=== PATIENT | male | born 1990 | race Caucasian/White ===

== ENCOUNTER 2020-07-05 17:53 | Emergency (ER) | payer OTHER ==
[2020-07-05 18:00] VITALS: BP 147/97; PULSE 107; RESP 18; TEMP 97.9
[2020-07-05] MEDS ORDERED: SODIUM CHLORIDE 0.9% 1,000 ML IV ONE (18:15)
--- NOTE | 2020-07-05 18:22 | ED ---
General Adult HPI - General Chief complaint: Altered Mental Status Stated complaint: Confusion Time Seen by Provider: 07/05/20 18:02 Source: patient, RN notes reviewed, old records reviewed Mode of arrival: ambulatory Limitations: altered mental status - History of Present Illness Initial comments: 29-year-old male presenting with confusion, altered mental status. Patient is accompanied by his girlfriend he states that he did use methamphetamine on which was 2 days prior. She states that beginning approximately 24 hours ago the patient had been altered with abnormal speech. She states that there was a friend present who had planned to give her boyfriend some unknown drug. She does state that he took some Benadryl but does not believe he took any other illicit drug. Throughout the day today he has been confused, abnormal behavior, and speech abnormality. - Related Data Home Medications Medication Instructions Recorded Confirmed No Known Home Medications 08/21/19 07/05/20 Allergies Allergy/AdvReac Type Severity Reaction Status Date / Time Penicillins Allergy Unknown Verified 07/05/20 19:04 Childhood Review of Systems ROS Statement: Those systems with pertinent positive or pertinent negative responses have been documented in the HPI. ROS Other: All systems not noted in ROS Statement are negative. Past Medical History Past Medical History: No Reported History, Seizure Disorder History of Any Multi-Drug Resistant Organisms: None Reported Past Surgical History: No Surgical Hx Reported Past Psychological History: No Psychological Hx Reported Smoking Status: Never smoker Past Alcohol Use History: Occasional Past Drug Use History: Marijuana, Methamphetamine General Exam Limitations: altered mental status General appearance: anxious Head exam: Present: atraumatic, normocephalic Eye exam: Present: normal appearance, PERRL ENT exam: Present: normal exam Neck exam: Present: normal inspection. Absent: tenderness, meningismus Respiratory exam: Present: normal lung sounds bilaterally. Absent: respiratory distress Cardiovascular Exam: Present: regular rate, normal rhythm GI/Abdominal exam: Present: soft. Absent: distended, tenderness, guarding, rebound Extremities exam: Present: normal inspection, normal capillary refill Neurological exam: Present: alert, normal gait, other (Following commands and will answer questions). Absent: motor sensory deficit (Patient has normal gait, no ataxia, moving all extremities symmetrically) Psychiatric exam: Present: agitated, anxious Skin exam: Present: warm, dry, intact. Absent: cyanosis, diaphoretic Course Vital Signs 07/05/20 17:55 Temperature 97.9 F Pulse Rate 107 H Respiratory 18 Rate Blood Pressure 147/97 O2 Sat by Pulse 98 Oximetry - Reevaluation(s) Reevaluation #1: 07/05/20 19:51 Patient did tell nursing staff that he had taken an entire bottle of Benadryl, this was likely yesterday approximately 24 hours ago. Uncertain if this was a suicide attempt. Uncertain how many tablets or capsules were in the bottle. Reevaluation #2: 07/05/20 20:58 Recommended by poison control to start N-acetylcysteine. This medication was ordered. EKG Findings - EKG Comments: EKG Findings:: EKG: Sinus tachycardia, rightward axis, rate of 106, WI interval 140, QRS duration 84, QTC 451 Medical Decision Making - Medical Decision Making Patient does state he took several Benadryl, uncertain exactly how many he took. He denies a suicide attempt, states this was to help him sleep as he was having insomnia after using methamphetamine. He is alert and oriented he is able to make his own decision and does refuse to stay. He is informed of the recommendations of poison control and my recommendation to be admitted knowing the risks he does sign out AGAINST MEDICAL ADVICE. - Lab Data Result diagrams: 07/05/20 18:40 07/05/20 18:40 Lab Results 07/05/20 07/05/20 07/05/20 Range/Units 18:40 18:40 18:40 WBC 9.8 (3.8-10.6) k/uL RBC 5.02 (4.30-5.90) m/uL Hgb 15.9 (13.0-17.5) gm/dL Hct 46.6 (39.0-53.0) % MCV 92.9 (80.0-100.0) fL MCH 31.6 (25.0-35.0) pg MCHC 34.1 (31.0-37.0) g/dL RDW 13.7 (11.5-15.5) % Plt Count 307 (150-450) k/uL MPV 7.2 Neutrophils % 66 % Lymphocytes % 21 % Monocytes % 6 % Eosinophils % 4 % Basophils % 1 % Neutrophils # 6.4 (1.3-7.7) k/uL Lymphocytes # 2.0 (1.0-4.8) k/uL Monocytes # 0.6 (0-1.0) k/uL Eosinophils # 0.4 (0-0.7) k/uL Basophils # 0.1 (0-0.2) k/uL PT 10.4 (9.0-12.0) sec INR 1.0 (<1.2) APTT 26.2 (22.0-30.0) sec Sodium (137-145) mmol/L Potassium (3.5-5.1) mmol/L Chloride (98-107) mmol/L Carbon Dioxide (22-30) mmol/L Anion Gap mmol/L BUN (9-20) mg/dL Creatinine (0.66-1.25) mg/dL Est GFR (CKD-EPI)AfAm (>60 ml/min/1.73 sqM) Est GFR (CKD-EPI)NonAf (>60 ml/min/1.73 sqM) Glucose (74-99) mg/dL POC Glucose (mg/dL) (75-99) mg/dL POC Glu Sight Effects Specialist ID Plasma Lactic Acid Alexi (0.7-2.0) mmol/L Calcium (8.4-10.2) mg/dL Phosphorus (2.5-4.5) mg/dL Magnesium (1.6-2.3) mg/dL Total Bilirubin (0.2-1.3) mg/dL AST (17-59) U/L ALT (4-49) U/L Alkaline Phosphatase (38-126) U/L Creatine Kinase (55-170) U/L Total Protein (6.3-8.2) g/dL Albumin (3.5-5.0) g/dL Urine Color Yellow Urine Appearance Clear (Clear) Urine pH 6.5 (5.0-8.0) Ur Specific [place] 1.023 (1.001-1.035) Urine Protein Negative (Negative) Urine Glucose (UA) Negative (Negative) Urine Ketones Negative (Negative) Urine Blood Negative (Negative) Urine Nitrite Negative (Negative) Urine Bilirubin Negative (Negative) Urine Urobilinogen 4.0 (<2.0) mg/dL Ur Leukocyte Esterase Trace H (Negative) Urine WBC 1 (0-5) /hpf Urine Mucus Occasional H (None) /hpf Salicylates mg/dL Urine Opiates Screen Not Detected (NotDetected) Ur Oxycodone Screen Not Detected (NotDetected) Urine Methadone Screen Not Detected (NotDetected) Ur Propoxyphene Screen Not Detected (NotDetected) Acetaminophen ug/mL Ur Barbiturates Screen Not Detected (NotDetected) U Tricyclic Antidepress Not Detected (NotDetected) Ur Phencyclidine Scrn Not Detected (NotDetected) Ur Amphetamines Screen Detected H (NotDetected) U Methamphetamines Scrn Detected H (NotDetected) U Benzodiazepines Scrn Not Detected (NotDetected) Urine Cocaine Screen Not Detected (NotDetected) U Marijuana (THC) Screen Detected H (NotDetected) Serum Alcohol mg/dL 07/05/20 07/05/20 07/05/20 Range/Units 18:40 18:47 20:21 WBC (3.8-10.6) k/uL RBC (4.30-5.90) m/uL Hgb (13.0-17.5) gm/dL Hct (39.0-53.0) % MCV (80.0-100.0) fL MCH (25.0-35.0) pg MCHC (31.0-37.0) g/dL RDW (11.5-15.5) % Plt Count (150-450) k/uL MPV Neutrophils % % Lymphocytes % % Monocytes % % Eosinophils % % Basophils % % Neutrophils # (1.3-7.7) k/uL Lymphocytes # (1.0-4.8) k/uL Monocytes # (0-1.0) k/uL Eosinophils # (0-0.7) k/uL Basophils # (0-0.2) k/uL PT (9.0-12.0) sec INR (<1.2) APTT (22.0-30.0) sec Sodium 140 (137-145) mmol/L Potassium 4.3 (3.5-5.1) mmol/L Chloride 105 (98-107) mmol/L Carbon Dioxide 27 (22-30) mmol/L Anion Gap 8 mmol/L BUN 12 (9-20) mg/dL Creatinine 0.85 (0.66-1.25) mg/dL Est GFR (CKD-EPI)AfAm >90 (>60 ml/min/1.73 sqM) Est GFR (CKD-EPI)NonAf >90 (>60 ml/min/1.73 sqM) Glucose 100 H (74-99) mg/dL POC Glucose (mg/dL) 81 (75-99) mg/dL POC Glu Sight Effects Specialist ID Magdaleno Cortes Plasma Lactic Acid Alexi (0.7-2.0) mmol/L Calcium 9.9 (8.4-10.2) mg/dL Phosphorus 3.6 (2.5-4.5) mg/dL Magnesium 1.8 (1.6-2.3) mg/dL Total Bilirubin 1.8 H (0.2-1.3) mg/dL AST 243 H (17-59) U/L ALT 776 H (4-49) U/L Alkaline Phosphatase 96 (38-126) U/L Creatine Kinase 161 (55-170) U/L Total Protein 8.9 H (6.3-8.2) g/dL Albumin 4.9 (3.5-5.0) g/dL Urine Color Urine Appearance (Clear) Urine pH (5.0-8.0) Ur Specific [place] (1.001-1.035) Urine Protein (Negative) Urine Glucose (UA) (Negative) Urine Ketones (Negative) Urine Blood (Negative) Urine Nitrite (Negative) Urine Bilirubin (Negative) Urine Urobilinogen (<2.0) mg/dL Ur Leukocyte Esterase (Negative) Urine WBC (0-5) /hpf Urine Mucus (None) /hpf Salicylates <1.0 mg/dL Urine Opiates Screen (NotDetected) Ur Oxycodone Screen (NotDetected) Urine Methadone Screen (NotDetected) Ur Propoxyphene Screen (NotDetected) Acetaminophen <10.0 ug/mL Ur Barbiturates Screen (NotDetected) U Tricyclic Antidepress (NotDetected) Ur Phencyclidine Scrn (NotDetected) Ur Amphetamines Screen (NotDetected) U Methamphetamines Scrn (NotDetected) U Benzodiazepines Scrn (NotDetected) Urine Cocaine Screen (NotDetected) U Marijuana (THC) Screen (NotDetected) Serum Alcohol <10 mg/dL 07/05/20 Range/Units 20:21 WBC (3.8-10.6) k/uL RBC (4.30-5.90) m/uL Hgb (13.0-17.5) gm/dL Hct (39.0-53.0) % MCV (80.0-100.0) fL MCH (25.0-35.0) pg MCHC (31.0-37.0) g/dL RDW (11.5-15.5) % Plt Count (150-450) k/uL MPV Neutrophils % % Lymphocytes % % Monocytes % % Eosinophils % % Basophils % % Neutrophils # (1.3-7.7) k/uL Lymphocytes # (1.0-4.8) k/uL Monocytes # (0-1.0) k/uL Eosinophils # (0-0.7) k/uL Basophils # (0-0.2) k/uL PT (9.0-12.0) sec INR (<1.2) APTT (22.0-30.0) sec Sodium (137-145) mmol/L Potassium (3.5-5.1) mmol/L Chloride (98-107) mmol/L Carbon Dioxide (22-30) mmol/L Anion Gap mmol/L BUN (9-20) mg/dL Creatinine (0.66-1.25) mg/dL Est GFR (CKD-EPI)AfAm (>60 ml/min/1.73 sqM) Est GFR (CKD-EPI)NonAf (>60 ml/min/1.73 sqM) Glucose (74-99) mg/dL POC Glucose (mg/dL) (75-99) mg/dL POC Glu Sight Effects Specialist ID Plasma Lactic Acid Alexi 0.8 (0.7-2.0) mmol/L Calcium (8.4-10.2) mg/dL Phosphorus (2.5-4.5) mg/dL Magnesium (1.6-2.3) mg/dL Total Bilirubin (0.2-1.3) mg/dL AST (17-59) U/L ALT (4-49) U/L Alkaline Phosphatase (38-126) U/L Creatine Kinase (55-170) U/L Total Protein (6.3-8.2) g/dL Albumin (3.5-5.0) g/dL Urine Color Urine Appearance (Clear) Urine pH (5.0-8.0) Ur Specific [place] (1.001-1.035) Urine Protein (Negative) Urine Glucose (UA) (Negative) Urine Ketones (Negative) Urine Blood (Negative) Urine Nitrite (Negative) Urine Bilirubin (Negative) Urine Urobilinogen (<2.0) mg/dL Ur Leukocyte Esterase (Negative) Urine WBC (0-5) /hpf Urine Mucus (None) /hpf Salicylates mg/dL Urine Opiates Screen (NotDetected) Ur Oxycodone Screen (NotDetected) Urine Methadone Screen (NotDetected) Ur Propoxyphene Screen (NotDetected) Acetaminophen ug/mL Ur Barbiturates Screen (NotDetected) U Tricyclic Antidepress (NotDetected) Ur Phencyclidine Scrn (NotDetected) Ur Amphetamines Screen (NotDetected) U Methamphetamines Scrn (NotDetected) U Benzodiazepines Scrn (NotDetected) Urine Cocaine Screen (NotDetected) U Marijuana (THC) Screen (NotDetected) Serum Alcohol mg/dL Disposition Clinical Impression: Hepatitis C, Methamphetamine abuse, Diphenhydramine overdose Disposition: Left Against Medical Advice Condition: Undetermined Is patient prescribed a controlled substance at d/c from ED?: No Referrals: None,Stated [Primary Care Provider] - 1-2 days Time of Disposition: 21:00
[2020-07-05 18:48] LABS: Basophils # (A) 0.1 k/uL (0-0.2); Basophils % (A) 1 %; Eosinophils # (A) 0.4 k/uL (0-0.7); Eosinophils % (A) 4 %; HCT 46.6 % (39.0-53.0); HGB 15.9 gm/dL (13.0-17.5); Lymphocytes % (A) 21 %; MCH 31.6 pg (25.0-35.0); MCHC 34.1 g/dL (31.0-37.0); MCV 92.9 fL (80.0-100.0); Mean Platelet Volume 7.2; Monocytes # (A) 0.6 k/uL (0-1.0); Monocytes % (A) 6 %; Neutrophils # (A) 6.4 k/uL (1.3-7.7); Neutrophils % (A) 66 %; Platelet Count 307 k/uL (150-450); RBC 5.02 m/uL (4.30-5.90); RDW 13.7 % (11.5-15.5); WBC 9.8 k/uL (3.8-10.6)
[2020-07-05 18:49] LABS: Glucose,Whole Blood 81 mg/dL (75-99)
[2020-07-05 18:57] LABS: Appearance,Urine Clear (Clear); Bilirubin,Urine Negative (Negative); Blood,Urine Negative (Negative); Color,Urine Yellow; Glucose,Urine (UA) Negative (Negative); Ketones,Urine Negative (Negative); Leukocyte Esterase,Urine Trace (Negative); Mucus,Urine Occasional /hpf; Nitrite,Urine Negative (Negative); PH, Urine 6.5 (5.0-8.0); Protein,Urine Negative (Negative); Specific Gravity,Urine 1.023 (1.001-1.035); WBC,Urine 1 /hpf (0-5)
[2020-07-05 19:01] LABS: AST 243 U/L (17-59); African American GFR (CKD) >90 (>60 ml/min/1.73 sqM); Albumin 4.9 g/dL (3.5-5.0); Alcohol <10 mg/dL; Alkaline Phosphatase 96 U/L (38-126); Anion Gap 8 mmol/L; Blood Urea Nitrogen 12 mg/dL (9-20); Calcium 9.9 mg/dL (8.4-10.2); Carbon Dioxide 27 mmol/L (22-30); Chloride 105 mmol/L (98-107); Glucose 100 mg/dL (74-99); Non-African American GFR(CKD) >90 (>60 ml/min/1.73 sqM); Potassium 4.3 mmol/L (3.5-5.1); Sodium 140 mmol/L (137-145); Total Bilirubin 1.8 mg/dL (0.2-1.3); Total Protein 8.9 g/dL (6.3-8.2)
[2020-07-05 19:02] LABS: Cocaine Screen,Urine Not Detected (NotDetected); Opiate Screen,Urine Not Detected (NotDetected); Phencyclidine Screen,Urine Not Detected (NotDetected); Urn Cannabinoid Scrn Detected (NotDetected)
[2020-07-05 19:03] LABS: Amphetamine Screen,Urine Detected (NotDetected); Barbiturate Screen,Urine Not Detected (NotDetected); Benzodiazepines Screen,Urine Not Detected (NotDetected); Methadone Screen, Urine Not Detected (NotDetected); Oxycodone Screen, Urine Not Detected (NotDetected); Tricyclic Antidepressant,Urine Not Detected (NotDetected)
[2020-07-05 19:10] LABS: ALT 776 U/L (4-49)
[2020-07-05 19:13] LABS: Partial Thromboplastin Time 26.2 sec (22.0-30.0); Prothrombin Time 10.4 sec (9.0-12.0)
--- NOTE | 2020-07-05 19:25 | CT ---
EXAMINATION TYPE: CT brain wo con DATE OF EXAM: 07/05/2020 COMPARISON: None HISTORY: Altered mental status CT DLP: 2136.4 mGycm Automated exposure control for dose reduction was used. Ventricles and sulci appear normal. There is no mass effect nor midline shift. There is no sign of in tracranial hemorrhage. There is symmetric mild thalamic anterior increased density that could be deve loping calcification and metabolic disease. Calvarium is intact. The skull base is intact. IMPRESSION: No acute intracranial abnormality.
[2020-07-05] MEDS ORDERED: SODIUM CHLORIDE 0.9% 1,000 ML IV SCH (20:15)
[2020-07-05] MEDS ORDERED: WATER IV ONE ×2 (20:30)
[2020-07-05] MEDS ORDERED: DEXTROSE 5% IV ONE ×2 (20:30)
[2020-07-05] MEDS ORDERED: ACETYLCYSTEINE IV ONE ×2 (20:30)
[2020-07-05 20:44] LABS: Acetaminophen <10.0 ug/mL; Creatine Kinase 161 U/L (55-170); Magnesium 1.8 mg/dL (1.6-2.3); Phosphorus 3.6 mg/dL (2.5-4.5); Salicylate <1.0 mg/dL
[2020-07-05] MEDS ORDERED: ACETYLCYSTEINE IV 3,800 MG in DEXTROSE 5% IN WATER 500 ML IV ONE ×2 (21:30)
[2020-07-06] MEDS ORDERED: ACETYLCYSTEINE IV ONE ×2 (01:30)
[2020-07-06] MEDS ORDERED: DEXTROSE 5% IV ONE ×2 (01:30)
[2020-07-06] MEDS ORDERED: WATER IV ONE ×2 (01:30)
== END 2020-07-05 20:54 | disposition left against medical advice (07) ==
LOC: EC 17:53
DX: F15.182 Other stimulant abuse with stimulant-induced sleep disorder (principal); T45.0X1A Poisoning by antiallergic and antiemetic drugs, accidental (unintentional), initial encounter; B19.20 Unspecified viral hepatitis C without hepatic coma; Z88.0 Allergy status to penicillin; Z53.29 Procedure and treatment not carried out because of patient's decision for other reasons
CPT/HCPCS: 99285; 96360; 36415; 93005; 80053; 82550; 83605; 83735; 84100; 85025; 85610; 85730; 81001; 80306; 83520; 80143; 70450; G0480; 80320

== ENCOUNTER 2021-04-08 02:26 | Observation (INO) | payer OTHER ==
--- NOTE | 2021-04-08 02:40 | ED ---
Overdose HPI - General Stated Complaint: Overdose Time Seen by Provider: 04/08/21 02:31 Source: RN notes reviewed, old records reviewed Mode of arrival: EMS Limitations: altered mental status - History of Present Illness Initial Comments: This is a 30-year-old male presenting after overdose tonight. Patient was given Narcan per EMS and patient is presenting for overdose requiring Narcan. Does have history of substance abuse patient is not homicidal or suicidal, and remains responsive here in the ER Complaint: accidental overdose -: hour(s) How Overdose Was Discovered: family/friend present at time Context: Intentional Overdose: drug/ETOH problems Context: Accidental Overdose: wanted to get high Associated Symptoms: depression Treatments Prior to Arrival: none - Related Data Home Medications Medication Instructions Recorded Confirmed No Known Home Medications 08/21/19 07/05/20 Allergies Allergy/AdvReac Type Severity Reaction Status Date / Time Penicillins Allergy Unknown Verified 07/05/20 19:04 Childhood Review of Systems ROS Statement: Those systems with pertinent positive or pertinent negative responses have been documented in the HPI. ROS Other: All systems not noted in ROS Statement are negative. Past Medical History Past Medical History: No Reported History, Seizure Disorder History of Any Multi-Drug Resistant Organisms: None Reported Past Surgical History: No Surgical Hx Reported Past Psychological History: No Psychological Hx Reported Smoking Status: Never smoker Past Alcohol Use History: Occasional Past Drug Use History: Marijuana, Methamphetamine General Exam General appearance: alert, in no apparent distress Head exam: Present: atraumatic, normocephalic, normal inspection Eye exam: Present: normal appearance, PERRL, EOMI. Absent: scleral icterus, conjunctival injection, periorbital swelling ENT exam: Present: normal exam, mucous membranes moist Neck exam: Present: normal inspection. Absent: tenderness, meningismus, lymphadenopathy Respiratory exam: Present: normal lung sounds bilaterally. Absent: respiratory distress, wheezes, rales, rhonchi, stridor Cardiovascular Exam: Present: regular rate, normal rhythm, normal heart sounds. Absent: systolic murmur, diastolic murmur, rubs, gallop, clicks GI/Abdominal exam: Present: soft, normal bowel sounds. Absent: distended, tenderness, guarding, rebound, rigid Extremities exam: Present: normal inspection, full ROM, normal capillary refill. Absent: tenderness, pedal edema, joint swelling, calf tenderness Back exam: Present: normal inspection Neurological exam: Present: alert, oriented X3, CN II-XII intact Psychiatric exam: Present: normal affect, normal mood Skin exam: Present: warm, dry, intact, normal color. Absent: rash Course Vital Signs 04/08/21 04/08/21 02:40 02:45 Temperature 97.6 F Pulse Rate 90 Respiratory 12 12 Rate Blood Pressure 149/94 O2 Sat by Pulse 100 Oximetry - Reevaluation(s) Reevaluation #1: 04/08/21 02:39 Medical record is reviewed Reevaluation #2: 04/08/21 02:39 Patient remains asymptomatic, although withdrawn Medical Decision Making - Medical Decision Making 30 Male with overdose requiring Narcan. Patient informed of significance of this overdose on his life expectancy, he is aware, questions answered and can be discharged home Disposition Clinical Impression: Poisoning by opiates and related narcotics, other Disposition: ADMITTED IP TO THIS [facility] Condition: Fair Instructions (If sedation given, give patient instructions): Adult Overdose (ED) Is patient prescribed a controlled substance at d/c from ED?: No Referrals: None,Stated [Primary Care Provider] - 1-2 days
[2021-04-08] MEDS ORDERED: NALOXONE 0.4 MG/ML 1 ML VIAL IVP STA ×2 (02:56→02:59)
[2021-04-08 04:54] VITALS: RESP 16
[2021-04-08] MEDS ORDERED: ONDANSETRON 4 MG/2 ML VIAL IVP PRN (06:12)
[2021-04-08] MEDS ORDERED: NALOXONE 0.4 MG/ML 1 ML VIAL IV PRN (06:12)
--- NOTE | 2021-04-08 06:12 | ED ---
Medical Decision Making - Medical Decision Making 30 male on attempted discharge remains on arrival despite regarding dosing Narcan, this point we will send lab values to further investigate altered mental status. Patient will be admitted for altered mental status likely polysubstance overdose Disposition Clinical Impression: Poisoning by opiates and related narcotics, other, Drug overdose, Accidental drug overdose Disposition: ADMITTED IP TO THIS HOSP Condition: Fair Instructions (If sedation given, give patient instructions): Adult Overdose (ED) Is patient prescribed a controlled substance at d/c from ED?: No Referrals: None,Stated [Primary Care Provider] - 1-2 days
[2021-04-08] MEDS ORDERED: SODIUM CHLORIDE 0.9% 1,000 ML IV SCH (06:15)
[2021-04-08 07:33] LABS: Acetaminophen <10.0 ug/mL; Magnesium 1.9 mg/dL (1.6-2.3); Phosphorus 3.4 mg/dL (2.5-4.5); Salicylate <1.0 mg/dL
[2021-04-08 08:01] VITALS: BP 124/59; PULSE 67; TEMP 97.7
== END 2021-04-08 12:46 | disposition left against medical advice (07) ==
LOC: EC 02:26 → 6NMEDSUR 06:12
PROVIDERS: ADMIT Internal Medicine; ATTEND Internal Medicine
DX: T40.601A Poisoning by unspecified narcotics, accidental (unintentional), initial encounter (principal); F32.9 Major depressive disorder, single episode, unspecified; Z20.822 Contact with and (suspected) exposure to COVID-19; G40.909 Epilepsy, unspecified, not intractable, without status epilepticus; Z88.0 Allergy status to penicillin; Z71.51 Drug abuse counseling and surveillance of drug abuser
CPT/HCPCS: 99285; 96374; 83735; 84100; 80143; 87635; 80179; G0378; J2310

== ENCOUNTER 2023-11-26 15:33 | Inpatient (IN) | payer OTHER ==
[2023-11-26 17:23] LABS: Basophils # (A) 0.1 k/uL (0-0.2); Basophils % (A) 0 %; Eosinophils # (A) 0.1 k/uL (0-0.7); Eosinophils % (A) 0 %; HCT 32.5 % (39.0-53.0); HGB 10.9 gm/dL (13.0-17.5); Lymphocytes # (A) 0.7 k/uL (1.0-4.8); Lymphocytes % (A) 3 %; MCH 31.7 pg (25.0-35.0); MCHC 33.7 g/dL (31.0-37.0); MCV 94.2 fL (80.0-100.0); Monocytes % (A) 4 %; Neutrophils # (A) 22.7 k/uL (1.3-7.7); Neutrophils % (A) 92 %; Platelet Count 335 k/uL (150-450); RBC 3.45 m/uL (4.30-5.90); RDW 13.8 % (11.5-15.5); WBC 24.8 k/uL (3.8-10.6)
[2023-11-26] MEDS ORDERED: VANCOMYCIN IV PER PHARMACY 1 EACH MISC MISCELLANE PRN (17:27)
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
--- NOTE | 2023-11-26 17:35 | XR ---
EXAMINATION TYPE: XR foot complete LT DATE OF EXAM: 11/26/2023 4:41 PM CLINICAL INDICATION:Male, 33 years old with history of swelling, redness; PHH COMPARISON: None. TECHNIQUE: Three views left foot were obtained. FINDINGS: No evidence of fracture or significant malalignment. No osseous destructive changes. Joint spaces are maintained. No erosions. Soft tissue prominence along the dorsum of foot suggestive of swelling. No radiopaque foreign body is seen. IMPRESSION: * No plain film evidence of an acute osseous abnormality. * Dorsal soft tissue swelling.
[2023-11-26 17:37] LABS: ALT 27 U/L (4-49); AST 27 U/L (17-59); African American GFR (CKD) >90 (>60 ml/min/1.73 sqM); Albumin 2.6 g/dL (3.5-5.0); Alkaline Phosphatase 111 U/L (38-126); Anion Gap 10 mmol/L; Blood Urea Nitrogen 12 mg/dL (9-20); Calcium 8.6 mg/dL (8.4-10.2); Carbon Dioxide 19 mmol/L (22-30); Chloride 109 mmol/L (98-107); Glucose 131 mg/dL (74-99); Non-African American GFR(CKD) >90 (>60 ml/min/1.73 sqM); Sodium 138 mmol/L (137-145); Total Bilirubin 0.5 mg/dL (0.2-1.3); Total Protein 6.1 g/dL (6.3-8.2)
[2023-11-26 18:28] LABS: C Reactive Protein 31.8 mg/dL (<1.0)
[2023-11-26] MEDS: SODIUM CHLORIDE 0.9% 2,000 ML IV ONE (18:46)
[2023-11-26] MEDS: POTASSIUM CHLORIDE ER 20 MEQ TAB.ER PO STA (18:48)
[2023-11-26] MEDS: KETOROLAC 15 MG/ML 1 ML VIAL IVP STA (18:49)
[2023-11-26] MEDS: CEFEPIME 2 GM in SODIUM CHLORIDE 0.9% 100 ML IVPB STA (18:50)
[2023-11-26] MEDS ORDERED: ACETAMINOPHEN TAB 325 MG TAB PO PRN (19:26)
[2023-11-26] MEDS ORDERED: NALOXONE 0.4 MG/ML 1 ML VIAL IV PRN (19:26)
[2023-11-26] MEDS: SODIUM CHLORIDE 0.9% 1,000 ML IV SCH (20:49)
[2023-11-26] MEDS: VANCOMYCIN 1,250 MG in SODIUM CHLORIDE 0.9% 250 ML IVPB STA (20:50)
[2023-11-26] MEDS: KETOROLAC 15 MG/ML 1 ML VIAL IVP PRN (20:59)
[2023-11-26] MEDS: MORPHINE SULFATE 4 MG/ML SYRINGE IVP STA (21:37)
[2023-11-26 23:34] LABS: Erythrocyte Sedimentation Rate 74 mm/Hr (0-15)
[2023-11-27] MEDS ORDERED: VANCOMYCIN IV PER PHARMACY 1 EACH MISC MISCELLANE PRN (00:53)
[2023-11-27] MEDS: HYDROmorphone 1 MG/ML 1 ML SYRINGE IVP PRN (01:00)
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
[2023-11-27] MEDS: VANCOMYCIN 1,250 MG in SODIUM CHLORIDE 0.9% 250 ML IVPB SCH (06:27)
[2023-11-27] MEDS: HEPARIN SODIUM,PORCINE 5,000 UNIT/ML 1 ML VIAL SQ SCH (08:36)
[2023-11-27] MEDS: METOPROLOL TARTRATE 25 MG TAB PO SCH (08:51)
--- NOTE | 2023-11-27 09:35 | XR ---
EXAMINATION TYPE: XR chest 1V portable DATE OF EXAM: 11/27/2023 COMPARISON: 06/13/2016 INDICATION: Arrhythmia TECHNIQUE: Single frontal view of the chest is obtained. FINDINGS: The heart size is normal. The pulmonary vasculature is normal. e there is a mild infiltrate at the right lung base. Correlate for atelectasis or early pneumonia. IMPRESSION: 1. Mild right lower lobe infiltrate hypoechoic atelectasis or pneumonia.
[2023-11-27] MEDS: PIPERACILLIN-TAZOBACTAM 3.375 GM in SODIUM CHLORIDE 0.9% 100 ML IVPB SCH (09:42)
[2023-11-27] MEDS ORDERED: RX INFO: IV CONTRAST WAS GIVEN 1 EACH MISC MISCELLANE PRN (09:55)
--- NOTE | 2023-11-27 10:17 | P.PN ---
Subjective Progress Note Date: 11/27/23 No new complaints today. His HRs have improved from 150s to 120s. Reports foot pain, but denies f/c. Gen: In NAD, non-toxic HEENT: normocephalic, atraumatic, hearing acuity is intant, mucous membranes m oist CVS: perfusing all extremities well, no pitting edema, Respiratory: symmetric chest expansion, no accessory muscle use, GI: soft, NTTP, ND, : no suprapubic tenderness, no CVA tenderness MSK/Derm: no rashes, cyanosis, right lower extremity nonpitting edema, erythema, large hemorrhagic bulla Neuro: CN II-XII intact, no motor weakness, Psych: cooperative, euthymic mood, judgment and insight is intact Hospital course: 33-year-old male with IV drug abuse and heroin, hepatitis C coming in due to progressive swelling erythema and pain of the left foot over the past 3 days. X-ray of the left foot showed dorsal tissue swelling no evidence of acute fractures CRP elevated 31.8 White count elevated 24.8, tachycardia 150 upon presentation hemoglobin 10.9 Liver enzymes unremarkable AST 27 ALT 27 bilirubin 1.5 Renal function unremarkable BUN 12 creatinine 0.67 potassium of 3 CXR - RLL infiltrate vs atelectasis Assessment/plan: Sepsis secondary to cellulitis of the left foot rule out bacteremia/infective endocarditis Check blood cultures IV antibiotics empirically with vancomycin dosing by pharmacy, start zosyn as well Check echocardiogram ID consult Pain control with Dilaudid 1 mg IV push every 3 hours as needed Tylenol for fever Status post 2 L normal saline bolus continue with 130 cc/h Hypokalemia Replace orally and follow-up levels in the morning Anemia with Patient denies any GI bleeding Continue to monitor IV drug abuser Patient counseled to quit and on safe needle practices Full code DVT prophylaxis heparin subcu 3 times daily Objective - Vital Signs Vital signs: Vital Signs Temp 98.3 F 11/27/23 07:57 Pulse 117 H 11/27/23 07:57 Resp 16 11/27/23 07:57 BP 132/86 11/27/23 07:57 Pulse Ox 97 11/27/23 07:57 FiO2 Intake & Output 11/26/23 11/27/23 11/27/23 18:59 06:59 18:59 Intake Total 200 Balance 200 Weight 72.575 kg 72.575 kg Intake: Oral 200 - Labs CBC & Chem 7: 11/26/23 16:45 11/26/23 16:45 Labs: Abnormal Lab Results - Last 24 Hours (Table) 11/26/23 11/26/23 Range/Units 16:45 16:45 WBC 24.8 H (3.8-10.6) k/uL RBC 3.45 L (4.30-5.90) m/uL Hgb 10.9 L (13.0-17.5) gm/dL Hct 32.5 L (39.0-53.0) % Neutrophils # 22.7 H (1.3-7.7) k/uL Lymphocytes # 0.7 L (1.0-4.8) k/uL ESR 74 H (0-15) mm/Hr Potassium 3.0 L (3.5-5.1) mmol/L Chloride 109 H (98-107) mmol/L Carbon Dioxide 19 L (22-30) mmol/L Glucose 131 H (74-99) mg/dL C-Reactive Protein 31.8 H (<1.0) mg/dL Total Protein 6.1 L (6.3-8.2) g/dL Albumin 2.6 L (3.5-5.0) g/dL
--- NOTE | 2023-11-27 11:35 | CT ---
EXAMINATION TYPE: CT chest w con DATE OF EXAM: 11/27/2023 COMPARISON: HISTORY: delineate RLL infiltrate CT DLP: 251.8 mGycm, Automated exposure control for dose reduction was used. CONTRAST: Performed injected with 50 mL of Isovue 300. TECHNIQUE: Axial images were obtained at 5 mm thick sections. Reconstructed images are reviewed on [employer] computer in the coronal plane. FINDINGS: Portion of the thyroid visualized is normal. There is a triangular density within the right middle lobe measuring 2.2 x 2.6 cm. Correlate for atel ectasis and pneumonia. Underlying mass should be considered. Follow-up to clearing is recommended. No enlarged mediastinal or hilar adenopathy is evident. The ascending aorta diameter at the level o f the main pulmonary artery is 2.8 cm. The main pulmonary artery diameter at the bifurcation is 2.[address] sections are obtained through the upper abdomen. Abdomen is essentially unremarkable. IMPRESSION: 1. Increased density along the peripheral anterior right middle lobe. Correlate for pneumonia or atel ectasis. Underlying mass should be considered. Follow-up to clearing is recommended.
--- NOTE | 2023-11-27 11:49 | CT ---
EXAMINATION TYPE: CT foot LT w con DATE OF EXAM: 11/27/2023 COMPARISON: None HISTORY: left foot trauma /abscess CT DLP: 192.9 mGycm Automated exposure control for dose reduction was used. Contrast: None Technique: Axial images 2 mm thick sections. Reconstructed images in the sagittal plane. Bone and sof t tissue windows are filmed. 3-D reconstructed images are reviewed on the computer. FINDINGS: No suspicious cortical erosion to suggest acute osteomyelitis. Osseous alignment appears normal. Join t spaces are preserved. There is increased density within the subcutaneous tissues compatible with some edema. There is a lar ge subcutaneous superficial collection along the anterior lateral aspect of the foot. No underlying t hick walled abscess is identified. IMPRESSION: 1. SUBCUTANEOUS BLISTERLIKE COLLECTION ANTERIOR LATERAL LEFT FOOT. 2. DIFFUSE SOFT TISSUE SWELLING MAY BE GREATER ON THE LEFT COMPARED TO THE RIGHT. 3. NO SUSPICIOUS THICK-WALLED UNDERLYING ABSCESSES IDENTIFIED. FOLLOW-UP CAN BE PERFORMED CLINICAL LY INDICATED.
[2023-11-27 12:04] LABS: African American GFR (CKD) >90 (>60 ml/min/1.73 sqM); Anion Gap 4 mmol/L; Blood Urea Nitrogen 9 mg/dL (9-20); Calcium 8.1 mg/dL (8.4-10.2); Carbon Dioxide 20 mmol/L (22-30); Chloride 111 mmol/L (98-107); Glucose 109 mg/dL (74-99); Non-African American GFR(CKD) >90 (>60 ml/min/1.73 sqM); Potassium 3.1 mmol/L (3.5-5.1); Sodium 135 mmol/L (137-145)
[2023-11-27] MEDS: POTASSIUM CHLORIDE ER 20 MEQ TAB.ER PO STA (12:23)
[2023-11-27] MEDS: ONDANSETRON 4 MG/2 ML VIAL IVP PRN (21:06)
[2023-11-27] MEDS: HYDROmorphone 0.5 MG/0.5 ML SYRINGE IVP STA (21:06)
[2023-11-28] MEDS: VANCOMYCIN TROUGH DUE 1 EACH MISC MISCELLANE ONE (02:32)
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
[2023-11-28 11:41] LABS: Basophils # (A) 0.1 k/uL (0-0.2); Basophils % (A) 0 %; Eosinophils # (A) 0.1 k/uL (0-0.7); Eosinophils % (A) 1 %; HCT 32.1 % (39.0-53.0); HGB 10.8 gm/dL (13.0-17.5); Lymphocytes # (A) 1.7 k/uL (1.0-4.8); Lymphocytes % (A) 9 %; MCH 31.6 pg (25.0-35.0); MCHC 33.6 g/dL (31.0-37.0); MCV 93.9 fL (80.0-100.0); Mean Platelet Volume 8.1; Monocytes # (A) 0.7 k/uL (0-1.0); Monocytes % (A) 4 %; Neutrophils # (A) 16.2 k/uL (1.3-7.7); Neutrophils % (A) 84 %; Platelet Count 295 k/uL (150-450); RBC 3.41 m/uL (4.30-5.90); RDW 14.3 % (11.5-15.5); WBC 19.2 k/uL (3.8-10.6)
[2023-11-28 11:52] LABS: African American GFR (CKD) >90 (>60 ml/min/1.73 sqM); Anion Gap 5 mmol/L; Blood Urea Nitrogen 12 mg/dL (9-20); Calcium 7.7 mg/dL (8.4-10.2); Carbon Dioxide 21 mmol/L (22-30); Chloride 108 mmol/L (98-107); Glucose 92 mg/dL (74-99); Magnesium 1.8 mg/dL (1.6-2.3); Non-African American GFR(CKD) >90 (>60 ml/min/1.73 sqM); Potassium 3.2 mmol/L (3.5-5.1); Sodium 134 mmol/L (137-145)
[2023-11-28 12:13] LABS: C Reactive Protein 26.5 mg/dL (<1.0)
[2023-11-28] MEDS ORDERED: Potassium Replacement Protocol 1 EACH MISC MISCELLANE PRN (12:19)
[2023-11-28] MEDS: POTASSIUM CHLORIDE ER 20 MEQ TAB.ER PO SCH (12:44)
--- NOTE | 2023-11-28 14:02 | P.PN ---
Subjective Progress Note Date: 11/28/23 No new complaints today. His HRs have improved to 80s with control of sepsis. Cx growing MRSA Gen: In NAD, non-toxic HEENT: normocephalic, atraumatic, hearing acuity is intant, mucous membranes moist CVS: perfusing all extremities well, no pitting edema, Respiratory: symmetric chest expansion, no accessory muscle use, GI: soft, NTTP, ND, : no suprapubic tenderness, no CVA tenderness MSK/Derm: no rashes, cyanosis, right lower extremity nonpitting edema, erythema, large hemorrhagic bulla Neuro: CN II-XII intact, no motor weakness, Psych: cooperative, euthymic mood, judgment and insight is intact Hospital course: 33-year-old male with IV drug abuse and heroin, hepatitis C coming in due to progressive swelling erythema and pain of the left foot over the past 3 days. X-ray of the left foot showed dorsal tissue swelling no evidence of acute fractures CRP elevated 31.8 White count elevated 24.8, tachycardia 150 upon presentation hemoglobin 10.9 Liver enzymes unremarkable AST 27 ALT 27 bilirubin 1.5 Renal function unremarkable BUN 12 creatinine 0.67 potassium of 3 CXR - RLL infiltrate vs atelectasis CT chest shows RLL underlying mass vs abscess vs septic emboli Assessment/plan: Sepsis secondary to cellulitis of the left foot rule out bacteremia/infective endocarditis Check blood cultures = MRSA IV antibiotics empirically with vancomycin dosing by pharmacy, start zosyn as well Check echocardiogram, pending ID consult appreciated Pain control with Dilaudid 1 mg IV push every 3 hours as needed Tylenol for fever Status post 2 L normal saline bolus continue with 130 cc/h Hypokalemia Replace orally and follow-up levels in the morning Anemia with Patient denies any GI bleeding Continue to monitor IV drug abuser Patient counseled to quit and on safe needle practices Full code DVT prophylaxis heparin subcu 3 times daily Objective - Vital Signs Vital signs: Vital Signs Temp 98.4 F 11/28/23 11:48 Pulse 84 11/28/23 11:48 Resp 16 11/28/23 11:48 BP 120/59 11/28/23 11:48 Pulse Ox 95 11/28/23 08:47 FiO2 Intake & Output 11/27/23 11/28/23 11/28/23 18:59 06:59 18:59 Intake Total 2160 241 118 Output Total 2300 1000 Balance -140 -759 118 Weight 72.575 kg Intake: IV 10 20 Invasive Line 1 10 20 Intake, IV Titration 1350 Amount Piperacillin-Tazobactam 3 100 .375 gm In Sodium Chloride 0.9% 100 ml @ 25 mls/hr IVPB Q8HR [facility] Rx# :[id number] Sodium Chloride 0.9% 1, 1000 000 ml @ 130 mls/hr IV . Q7H42M [facility] Rx#:[id number] Vancomycin 1,250 mg In 250 Sodium Chloride 0.9% 250 ml @ 125 mls/hr IVPB Q8H [facility] Rx#:[id number] Oral 800 221 118 Output: Urine 2300 1000 Other: Voiding Method Toilet Toilet - Labs CBC & Chem 7: 11/28/23 11:12 11/28/23 11:12 Labs: Abnormal Lab Results - Last 24 Hours (Table) 11/28/23 11/28/23 Range/Units 11:12 11:12 WBC 19.2 H (3.8-10.6) k/uL RBC 3.41 L (4.30-5.90) m/uL Hgb 10.8 L (13.0-17.5) gm/dL Hct 32.1 L (39.0-53.0) % Neutrophils # 16.2 H (1.3-7.7) k/uL Sodium 134 L (137-145) mmol/L Potassium 3.2 L (3.5-5.1) mmol/L Chloride 108 H (98-107) mmol/L Carbon Dioxide 21 L (22-30) mmol/L Creatinine 0.58 L (0.66-1.25) mg/dL Calcium 7.7 L (8.4-10.2) mg/dL C-Reactive Protein 26.5 H (<1.0) mg/dL Microbiology - Last 24 Hours (Table) 11/26/23 16:45 Blood Culture Gram Stain - Preliminary Blood Blood Culture - Preliminary Presumptive MRSA 11/26/23 17:00 Blood Culture Gram Stain - Preliminary Blood Blood Culture - Preliminary Presumptive MRSA Molecular ID
[2023-11-28] MEDS: HYDROcodone/APAP 5-325MG 1 EACH TAB PO PRN (16:23)
--- NOTE | 2023-11-28 17:25 | P.PN ---
Subjective Progress Note Date: 11/28/23 Principal diagnosis: Reason for follow-up is left foot cellulitis and bacteremia Patient is a 33-year-old male with a past medical history significant for seizure disorder history of IV drug presented to hospital with worsening pain swelling redness to the left foot with a large blood-filled blister diagnosis cellulitis blood culture positive for MRSA, CT chest increased density right middle lobe correlate for pneumonia or atelectasis. On today's evaluation that is 11/28/2023, Patient is afebrile patient is currently on room air and denies having any shortness of breath, the patient denies any chest pain or cough, the patient denies any nausea vomiting did not have any abdominal pain and no diarrhea still complaining of pain to the left foot some controlled with the pain medication. Patient white count is down to 19.2, creatinine 0.58 Vanco trough is low Objective - Vital Signs Vital signs: Vital Signs Temp 98.4 F 11/28/23 11:48 Pulse 118 H 11/28/23 14:45 Resp 18 11/28/23 14:45 BP 136/95 11/28/23 14:45 Pulse Ox 98 11/28/23 14:45 FiO2 Intake & Output 11/27/23 11/28/23 11/28/23 18:59 06:59 18:59 Intake Total 2160 241 236 Output Total 2300 1000 400 Balance -140 -759 -164 Weight 72.575 kg Intake: IV 10 20 Invasive Line 1 10 20 Intake, IV Titration 1350 Amount Piperacillin-Tazobactam 3 100 .375 gm In Sodium Chloride 0.9% 100 ml @ 25 mls/hr IVPB Q8HR [facility] Rx# :[id number] Sodium Chloride 0.9% 1, 1000 000 ml @ 130 mls/hr IV . Q7H42M [facility] Rx#:[id number] Vancomycin 1,250 mg In 250 Sodium Chloride 0.9% 250 ml @ 125 mls/hr IVPB Q8H [facility] Rx#:[id number] Oral 800 221 236 Output: Urine 2300 1000 400 Other: Voiding Method Toilet Toilet # Voids 3 - Exam GENERAL DESCRIPTION: Middle-age male lying in bed in no distress RESPIRATORY SYSTEM: Unlabored breathing , decreased breath sounds at bases HEART: S1 S2 regular rate and rhythm , ABDOMEN: Soft , no tenderness EXTREMITIES: Left foot is currently dressed minimal drainage - Labs CBC & Chem 7: 11/28/23 11:12 11/28/23 11:12 Labs: Abnormal Lab Results - Last 24 Hours (Table) 11/28/23 11/28/23 Range/Units 11:12 11:12 WBC 19.2 H (3.8-10.6) k/uL RBC 3.41 L (4.30-5.90) m/uL Hgb 10.8 L (13.0-17.5) gm/dL Hct 32.1 L (39.0-53.0) % Neutrophils # 16.2 H (1.3-7.7) k/uL Sodium 134 L (137-145) mmol/L Potassium 3.2 L (3.5-5.1) mmol/L Chloride 108 H (98-107) mmol/L Carbon Dioxide 21 L (22-30) mmol/L Creatinine 0.58 L (0.66-1.25) mg/dL Calcium 7.7 L (8.4-10.2) mg/dL C-Reactive Protein 26.5 H (<1.0) mg/dL Microbiology - Last 24 Hours (Table) 11/26/23 16:45 Blood Culture Gram Stain - Preliminary Blood Blood Culture - Preliminary Presumptive MRSA 11/26/23 17:00 Blood Culture Gram Stain - Preliminary Blood Blood Culture - Preliminary Presumptive MRSA Molecular ID Assessment and Plan (1) Cellulitis of left foot Current Visit: Yes Status: Acute Code(s): L03.116 - CELLULITIS OF LEFT LOWER LIMB SNOMED Code(s): 48394521238299826 (2) MRSA bacteremia Current Visit: Yes Status: Acute Code(s): R78.81 - BACTEREMIA; B95.62 - METHICILLIN RESIS STAPH INFCT CAUSING DISEASES CLASSD ELSR SNOMED Code(s): 67075103581393637 Plan: 1patient presented hospital with left foot pain swelling redness and did have a big blister concerning for cellulitis and possible deep infection such as abscess likely from gram-positive skin francine in this patient with history of IV drug use however mention has not injected in the area high risk of MRSA infection 2-patient with MRSA bacteremia source is likely left foot abscess and cellulitis 3-blood cultures will be repeated document clearance of bacteremia 4-CT of the left foot did not show any evidence of abscess that may need to be drained 5abnormality on the CT of the chest clinical not behaving as pneumonia or septic emboli continue with the vancomycin however to decrease risk of nephrotoxicity discontinue Zosyn Dictation was produced using [employer] dictation software. please excuse any grammatical, word or spelling errors. Time with Patient: Greater than 30
[2023-11-28 22:35] LABS: Erythrocyte Sedimentation Rate 74 mm/Hr (0-15)
[2023-11-29 07:51] LABS: African American GFR (CKD) >90 (>60 ml/min/1.73 sqM); Anion Gap 3 mmol/L; Blood Urea Nitrogen 13 mg/dL (9-20); Calcium 7.2 mg/dL (8.4-10.2); Carbon Dioxide 23 mmol/L (22-30); Chloride 109 mmol/L (98-107); Glucose 98 mg/dL (74-99); Magnesium 1.7 mg/dL (1.6-2.3); Non-African American GFR(CKD) >90 (>60 ml/min/1.73 sqM); Potassium 2.9 mmol/L (3.5-5.1); Sodium 135 mmol/L (137-145)
[2023-11-29 08:11] LABS: Basophils # (A) 0.1 k/uL (0-0.2); Basophils % (A) 0 %; Eosinophils # (A) 0.1 k/uL (0-0.7); Eosinophils % (A) 1 %; HCT 27.1 % (39.0-53.0); HGB 9.5 gm/dL (13.0-17.5); Lymphocytes # (A) 1.5 k/uL (1.0-4.8); Lymphocytes % (A) 11 %; MCH 32.2 pg (25.0-35.0); MCV 92.1 fL (80.0-100.0); Mean Platelet Volume 8.4; Monocytes # (A) 0.8 k/uL (0-1.0); Monocytes % (A) 6 %; Neutrophils # (A) 11.5 k/uL (1.3-7.7); Neutrophils % (A) 80 %; Platelet Count 248 k/uL (150-450); RBC 2.94 m/uL (4.30-5.90); RDW 14.3 % (11.5-15.5); WBC 14.3 k/uL (3.8-10.6)
[2023-11-29] MEDS: VANCOMYCIN TROUGH DUE 1 EACH MISC MISCELLANE ONE ×2 (11:01→13:43)
--- NOTE | 2023-11-29 13:38 | P.PN ---
Subjective Progress Note Date: 11/29/23 Hospital course 33-year-old male with IV drug abuse and heroin, hepatitis C coming in due to progressive swelling erythema and pain of the left foot over the past 3 days. Patient blood cultures were positive for MRSA. Patient also had a CT chest that showed increased density in the right middle lobe. CT of the left foot did not show any evidence of abscess that may need to be drained. Infectious disease following the patient. Patient patient on vancomycin. Patient seen today. He is denying any acute complaints. No other acute issues overnight. 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 14.3 Hypokalemia Patient's potassium this morning is 2.9 Patient on potassium replacement protocol CT chest showing right lower lobe consolidation Agree with infectious disease that patient does not have any signs of pneumonia Patient will need an outpatient follow-up CT scan in 3 months Anemia Patient currently denying any GI bleeding IV drug abuse Patient provided with counseling on drug abuse DVT prophylaxis: Will discontinue heparin due to anemia Objective - Vital Signs Vital signs: Vital Signs Temp 98.0 F 11/29/23 10:56 Pulse 85 11/29/23 11:34 Resp 16 11/29/23 11:34 BP 114/61 11/29/23 11:34 Pulse Ox 96 11/29/23 11:34 FiO2 Intake & Output 11/28/23 11/29/23 11/29/23 18:59 06:59 18:59 Intake Total 236 1750 118 Output Total 400 Balance -164 1750 118 Intake: Intake, IV Titration 850 Amount Sodium Chloride 0.9% 1, 600 000 ml @ 50 mls/hr IV . Q20H [facility] Rx#:[id number] Vancomycin 1,250 mg In 250 Sodium Chloride 0.9% 250 ml @ 125 mls/hr IVPB Q8H [facility] Rx#:[id number] Oral 236 900 118 Output: Urine 400 Other: Voiding Method Toilet Toilet # Voids 3 - Labs CBC & Chem 7: 11/29/23 07:12 11/29/23 07:11 Labs: Abnormal Lab Results - Last 24 Hours (Table) 11/28/23 11/29/23 11/29/23 Range/Units 11:12 07:11 07:12 WBC 14.3 H (3.8-10.6) k/uL RBC 2.94 L (4.30-5.90) m/uL Hgb 9.5 L (13.0-17.5) gm/dL Hct 27.1 L (39.0-53.0) % Neutrophils # 11.5 H (1.3-7.7) k/uL ESR 74 H (0-15) mm/Hr Sodium 135 L (137-145) mmol/L Potassium 2.9 L (3.5-5.1) mmol/L Chloride 109 H (98-107) mmol/L Creatinine 0.56 L (0.66-1.25) mg/dL Calcium 7.2 L (8.4-10.2) mg/dL
[2023-11-29] MEDS: POTASSIUM CHLORIDE ER 20 MEQ TAB.ER PO SCH (14:11)
[2023-11-29] MEDS: VANCOMYCIN 1,500 MG in SODIUM CHLORIDE 0.9% 500 ML 500 ML IVPB SCH (14:11)
--- NOTE | 2023-11-29 15:37 | P.PN ---
Subjective Progress Note Date: 11/29/23 Principal diagnosis: Reason for follow-up is left foot cellulitis and bacteremia Patient is a 33-year-old male with a past medical history significant for seizure disorder history of IV drug presented to hospital with worsening pain swelling redness to the left foot with a large blood-filled blister diagnosis cellulitis blood culture positive for MRSA, CT chest increased density right middle lobe correlate for pneumonia or atelectasis. On today's evaluation that is 11/29/2023, patient has been afebrile, patient is breathing comfortably and is currently on room air, patient denies having any significant cough no chest pain shortness of breath, patient denies nausea vomiting or diarrhea and no abdominal pain recommend for pain to the left foot area some improvement with the pain medication. Patient white count is down to 14.8, creatinine 0.56 Objective - Vital Signs Vital signs: Vital Signs Temp 98.0 F 11/29/23 10:56 Pulse 85 11/29/23 11:34 Resp 16 11/29/23 11:34 BP 114/61 11/29/23 11:34 Pulse Ox 96 11/29/23 11:34 FiO2 Intake & Output 11/28/23 11/29/23 11/29/23 18:59 06:59 18:59 Intake Total 236 1750 118 Output Total 400 Balance -164 1750 118 Intake: Intake, IV Titration 850 Amount Sodium Chloride 0.9% 1, 600 000 ml @ 50 mls/hr IV . Q20H [facility] Rx#:[id number] Vancomycin 1,250 mg In 250 Sodium Chloride 0.9% 250 ml @ 125 mls/hr IVPB Q8H [facility] Rx#:[id number] Oral 236 900 118 Output: Urine 400 Other: Voiding Method Toilet Toilet # Voids 3 - Exam GENERAL DESCRIPTION: Middle-age male lying in bed in no distress RESPIRATORY SYSTEM: Unlabored breathing , decreased breath sounds at bases HEART: S1 S2 regular rate and rhythm , ABDOMEN: Soft , no tenderness EXTREMITIES: Left foot did have swelling redness some skin necrosis - Labs CBC & Chem 7: 11/29/23 07:12 11/29/23 07:11 Labs: Abnormal Lab Results - Last 24 Hours (Table) 11/28/23 11/29/23 11/29/23 Range/Units 11:12 07:11 07:12 WBC 14.3 H (3.8-10.6) k/uL RBC 2.94 L (4.30-5.90) m/uL Hgb 9.5 L (13.0-17.5) gm/dL Hct 27.1 L (39.0-53.0) % Neutrophils # 11.5 H (1.3-7.7) k/uL ESR 74 H (0-15) mm/Hr Sodium 135 L (137-145) mmol/L Potassium 2.9 L (3.5-5.1) mmol/L Chloride 109 H (98-107) mmol/L Creatinine 0.56 L (0.66-1.25) mg/dL Calcium 7.2 L (8.4-10.2) mg/dL Assessment and Plan (1) Cellulitis of left foot Current Visit: Yes Status: Acute Code(s): L03.116 - CELLULITIS OF LEFT LOWER LIMB SNOMED Code(s): 45249813838016362 (2) MRSA bacteremia Current Visit: Yes Status: Acute Code(s): R78.81 - BACTEREMIA; B95.62 - METHICILLIN RESIS STAPH INFCT CAUSING DISEASES CLASSD ELSWHR SNOMED Code(s): 53099243648849311 Plan: 1patient presented hospital with left foot pain swelling redness and did have a big blister concerning for cellulitis and possible deep infection such as abscess likely from gram-positive skin francine in this patient with history of IV drug use however mention has not injected in the area high risk of MRSA infection 2-patient with MRSA bacteremia source is likely left foot abscess and cellulitis 3-blood cultures will be repeated document clearance of bacteremia 4-CT of the left foot did not show any evidence of abscess however overall left foot still will benefit from surgical evaluation and possible debridement for which we will consult vascular surgery 5patient to continue with the vancomycin and multiple glucose closely Dictation was produced using [employer] dictation software. please excuse any grammatical, word or spelling errors.
[2023-11-29] MEDS: HYDROmorphone 1 MG/ML 1 ML SYRINGE IVP STA (17:19)
--- NOTE | 2023-11-29 17:40 | P.GSCN ---
History of Present Illness Consult date: 11/29/23 Reason for Consult: left foot wound History of present illness: 33 year old gentleman who is currently being treated at the hospital for left f oot infection and possible abscess. He states over the weekend having his foot stepped on and noticed increased swelling, pain and discoloration. Was seen at [facility] but left before being treated and then came to [facility] the next day. He has been on antibiotics since and the redness has improved over the last couple of days. He states having the foot dressed yesterday and noticed a new blister forming on the lateral aspect of his foot. He had a CT of the foot as well but no significant abscess noted. He currently denies any fevers, chills, chest pain or shortness of breath. Review of Systems All systems: negative (what is mentioned in the past medical history or HPI) Past Medical History Past Medical History: No Reported History, Seizure Disorder Additional Past Medical History / Comment(s): hasn't had siezures since 2017 History of Any Multi-Drug Resistant Organisms: None Reported Year Discovered:: 11/26/23 MDRO Source:: Blood Past Surgical History: No Surgical Hx Reported Past Psychological History: No Psychological Hx Reported Smoking Status: Never smoker Past Alcohol Use History: Occasional Past Drug Use History: Marijuana, Methamphetamine - Past Family History Mother History Unknown: Yes Medications and Allergies Home Medications Medication Instructions Recorded Confirmed Type No Known Home Medications 08/21/19 11/26/23 History Allergies Allergy/AdvReac Type Severity Reaction Status Date / Time Penicillins Allergy Unknown Verified 11/26/23 18:32 Childhood Surgical - Exam Vital Signs Temp Pulse Resp BP Pulse Ox 98.5 F 151 H 18 121/71 99 11/26/23 15:35 11/26/23 15:35 11/26/23 15:35 11/26/23 15:35 11/26/23 15:35 Patient Seen Date: 11/29/23 Patient Seen Time: 17:00 - General well developed, well nourished, no distress - Eyes PERRL, normal ocular movement - ENT normal pinna, normal nares - Neck no masses, no bruits - Respiratory normal expansion, normal respiratory effort - Cardiovascular Rhythm: regular - Abdomen Abdomen: soft, non tender - Integumentary multiple tattoos on face, neck and upper extremities. - Psychiatric oriented to time, oriented to person, oriented to place, speech is normal palpable dp and pt pulses bilaterally large fluctuant area on the lateral aspect of the left foot. Echymosis throughout the dorsum of the foot. Tenderness to palpation to the lateral aspect of the foot. Purulent drainage noted. Results - Labs 11/29/23 07:12 11/29/23 07:11 Abnormal Lab Results - Last 24 Hours (Table) 11/28/23 11/29/23 11/29/23 Range/Units 11:12 07:11 07:12 WBC 14.3 H (3.8-10.6) k/uL RBC 2.94 L (4.30-5.90) m/uL Hgb 9.5 L (13.0-17.5) gm/dL Hct 27.1 L (39.0-53.0) % Neutrophils # 11.5 H (1.3-7.7) k/uL ESR 74 H (0-15) mm/Hr Sodium 135 L (137-145) mmol/L Potassium 2.9 L (3.5-5.1) mmol/L Chloride 109 H (98-107) mmol/L Creatinine 0.56 L (0.66-1.25) mg/dL Calcium 7.2 L (8.4-10.2) mg/dL Microbiology - Last 24 Hours (Table) 11/26/23 16:45 Blood Culture Gram Stain - Final Blood Blood Culture - Final Methicillin resist S. aureus 11/26/23 17:00 Blood Culture Gram Stain - Final Blood Blood Culture - Final Methicillin resist S. aureus Molecular ID Diabetes panel 11/29/23 Range/Units 07:11 Sodium 135 L (137-145) mmol/L Potassium 2.9 L (3.5-5.1) mmol/L Chloride 109 H (98-107) mmol/L Carbon Dioxide 23 (22-30) mmol/L BUN 13 (9-20) mg/dL Creatinine 0.56 L (0.66-1.25) mg/dL Glucose 98 (74-99) mg/dL Calcium 7.2 L (8.4-10.2) mg/dL Calcium panel 11/29/23 Range/Units 07:11 Calcium 7.2 L (8.4-10.2) mg/dL Pituitary panel 11/29/23 Range/Units 07:11 Sodium 135 L (137-145) mmol/L Potassium 2.9 L (3.5-5.1) mmol/L Chloride 109 H (98-107) mmol/L Carbon Dioxide 23 (22-30) mmol/L BUN 13 (9-20) mg/dL Creatinine 0.56 L (0.66-1.25) mg/dL Glucose 98 (74-99) mg/dL Calcium 7.2 L (8.4-10.2) mg/dL Adrenal panel 11/29/23 Range/Units 07:11 Sodium 135 L (137-145) mmol/L Potassium 2.9 L (3.5-5.1) mmol/L Chloride 109 H (98-107) mmol/L Carbon Dioxide 23 (22-30) mmol/L BUN 13 (9-20) mg/dL Creatinine 0.56 L (0.66-1.25) mg/dL Glucose 98 (74-99) mg/dL Calcium 7.2 L (8.4-10.2) mg/dL Assessment and Plan Assessment: Left dorsal foot wound and abscess History of heroine use MRSA bacteremia Plan: CT lower extremity reviewed independently with the patient in full detail. Fluid collection noted on the dorsal aspect of the foot. Incision and drainage at the bedside performed after the foot was prepped and draped in usual sterile fashion and cultures obtained. Due to the large cavity and copious amount of purulent drainage, recommendation for formal debridement in the OR. Will schedule for tonight for washout and excisional debridement. Thank you for the consultation.
[2023-11-29] MEDS ORDERED: HYDROmorphone (PF) 1 MG/ML ONE (18:22)
[2023-11-29] MEDS ORDERED: MIDAZOLAM 2 MG/2 ML VIAL ONE (18:22)
[2023-11-29] MEDS ORDERED: fentaNYL (PF) 50 MCG/ML 2 ML AMP ONE (18:22)
[2023-11-29] MEDS ORDERED: LIDOCAINE 1% INJ 10MG/ML (20 ML MDV) ONE (18:22)
[2023-11-29] MEDS: LACTATED RINGERS 1,000 ML IV ONE (18:22)
[2023-11-29] MEDS: SODIUM CHLORIDE 0.9% 1,000 ML IV ONE ×2 (18:22→19:48)
[2023-11-29] MEDS ORDERED: PROPOFOL 10 MG/ML 20 ML VIAL IV ONE (18:22)
--- NOTE | 2023-11-29 18:52 | CA ---
Transthoracic Echo Report Name: Bhanu Smith Age: 33 Gender: M : 1990 Exam Date: 11/29/2023 15:34 Exam Location: [facility] Ht (in): 68 Wt (lb): 160 Ordering Physician: Dunia Baig Attending/Referring Phys: Sewer Freida Ozuna RDCS Procedure CPT: Indications: IV drug use, cellulitis Cardiac Hx: Technical Quality: Good Contrast 1: Total Dose (mL): Contrast 2: Total Dose (mL): MEASUREMENTS (Male / Female) Normal Values 2D ECHO LV Diastolic Diameter PLAX 5.5 cm 4.2 - 5.9 / 3.9 - 5.3 cm LV Systolic Diameter PLAX 4.0 cm IVS Diastolic Thickness 0.6 cm 0.6 - 1.0 / 0.6 - 0.9 cm LVPW Diastolic Thickness 1.0 cm 0.6 - 1.0 / 0.6 - 0.9 cm LV Relative Wall Thickness 0.3 RV Internal Dim ED PLAX 3.4 cm LVOT Diameter 2.2 cm LV Diastolic Volume MOD BP 181.2 cm??? 67 - 155 / 56 - 104 cm??? LV Systolic Volume MOD BP 91.6 cm??? 22 - 58 / 19 - 49 cm??? LV Ejection Fraction MOD BP 49.5 % >= 55 % LV Cardiac Index MOD BP 4162.6 cm???/min???m??? LV Diastolic Volume MOD 4C 187.2 cm??? LV Systolic Volume MOD 4C 95.7 cm??? LV Ejection Fraction MOD 4C 48.9 % LV Cardiac Index MOD 4C 4247.1 cm???/min???m??? LV Diastolic Length 4C 9.6 cm LV Systolic Length 4C 7.8 cm LV Diastolic Volume MOD 2C 170.5 cm??? LV Systolic Volume MOD 2C 87.4 cm??? LV Ejection Fraction MOD 2C 48.8 % LV Cardiac Index MOD 2C 3861.4 cm???/min???m??? LV Diastolic Length 2C 9.3 cm LV Systolic Length 2C 7.8 cm LA Volume 69.1 cm??? 18 - 58 / 22 - 52 cm??? LA Volume Index 36.9 cm???/m??? 16 - 28 cm???/m??? Ascending Aorta Diameter 2.6 cm DOPPLER AV Peak Velocity 192.4 cm/s AV Peak Gradient 14.8 mmHg AV Mean Velocity 141.3 cm/s AV Mean Gradient 8.5 mmHg AV Velocity Time Integral 34.6 cm LVOT Peak Velocity 158.2 cm/s LVOT Peak Gradient 10.0 mmHg LVOT Velocity Time Integral 26.6 cm LVOT Stroke Volume 103.1 cm??? LVOT Stroke Volume Index 55.5 ml/m??? LVOT Cardiac Index 4790.8 cm???/min???m??? AV Area Cont Eq vti 3.0 cm??? AV Area Cont Eq pk 3.2 cm??? MV Area PHT 4.9 cm??? Mitral E Point Velocity 102.0 cm/s Mitral A Point Velocity 51.2 cm/s Mitral E to A Ratio 2.0 MV Deceleration Time 154.6 ms PV Peak Velocity 126.0 cm/s PV Peak Gradient 6.3 mmHg FINDINGS Left Ventricle Left ventricular ejection fraction is estimated at 55 %. Normal ventricular ejection fraction. Left ventricular wall thickness normal. No obvious regional wall motion abnormalities. Right Ventricle Unable to estimate right ventricular systolic pressure. Normal right ventricular size and function. Right Atrium Mild right atrial dilatation. Left Atrium Moderately increased left atrial volume. Mitral Valve Structurally normal mitral valve. No mitral stenosis, regurgitation or prolapse. Aortic Valve Trileaflet aortic valve. No aortic valve stenosis or regurgitation. Tricuspid Valve Structurally normal tricuspid valve. No tricuspid stenosis. Trace tricuspid regurgitation. Pulmonic Valve Structurally normal pulmonic valve. No pulmonic stenosis. No pulmonic regurgitation. Pericardium No pericardial effusion. Aorta Normal size aortic root and proximal ascending aorta. CONCLUSIONS Left ventricular ejection fraction is estimated at 55 %. No obvious regional wall motion abnormalities. Normal right ventricular size and function. No significant valvular dysfunction No pericardial effusion Previewed by: Dr Jesse Jaime (Electronically Signed) Final Date: 29 Nov 2023 18:51
--- NOTE | 2023-11-29 19:09 | P.OP ---
Date of Procedure: 11/29/23 Preoperative Diagnosis: Left dorsal foot wound with abscess Postoperative Diagnosis: Same Necrotizing fasciitis of the left foot Procedure(s) Performed: Excisional debridement of left foot with washout of deep abscess Anesthesia: MAC Surgeon: Ben Martinez Estimated Blood Loss (ml): 20 Pathology: other (Deep abscess culture) Disposition: PACU Indications for Procedure: 33-year-old gentleman who presented with left foot wound after trauma had a bedside incision and drainage which demonstrated purulent fluid that appeared dishwater and possible necrotizing fasciitis and therefore was taken to the operating room urgently. Operative Findings: Large abscess with skin ischemia measuring 12 cm x 9 cm x 1 cm in depth down to the fascia. Purulent drainage noted from between the bones and fascial areas. Description of Procedure: After written and informed consent was obtained for the patient and all risk benefits and complications were described the patient was brought to the operative suite and laid in the supine position. The area of the left foot was prepped and draped in usual sterile fashion after appropriate anesthetic was performed per the anesthesiologist. A timeout was performed normal fashion antibiotics were administered prior to incision. A lateral incision was then created between the 2 previous incision and drainage sites and connected with large amount of purulent fluid expressed. It appeared to be dishwater type fluid extending dorsally all the way across the foot and deep down to the fascia and bone. The skin was not blanching and ischemic and therefore was removed with a 10 blade scalpel. Once skin was removed hemostasis was assured with pressure. The area was then copiously irrigated with saline solution and Dakin solution. The area was then dressed with Kerlix soaked in Dakin solution ABD pads and Kerlix and joe wraps. Patient tolerated procedure well and was sent to recovery.
[2023-11-29] MEDS: fentaNYL (PF) 50 MCG/ML 2 ML AMP IVP ONE (19:17)
[2023-11-29] MEDS: KETOROLAC 15 MG/ML 1 ML VIAL IVP ONE (19:23)
[2023-11-29] MEDS: ACETAMINOPHEN IV (For NPO) 1,000 MG/100 ML VIAL IVPB ONE (19:23)
[2023-11-30] MEDS: HYDROmorphone 1 MG/ML 1 ML SYRINGE IVP PRN
[2023-11-30] MEDS: POTASSIUM CHLORIDE ER 20 MEQ TAB.ER PO SCH (03:56)
[2023-11-30 09:30] LABS: African American GFR (CKD) >90 (>60 ml/min/1.73 sqM); Anion Gap 4 mmol/L; Blood Urea Nitrogen 9 mg/dL (9-20); Calcium 7.4 mg/dL (8.4-10.2); Carbon Dioxide 22 mmol/L (22-30); Chloride 110 mmol/L (98-107); Glucose 91 mg/dL (74-99); Magnesium 1.7 mg/dL (1.6-2.3); Non-African American GFR(CKD) >90 (>60 ml/min/1.73 sqM); Potassium 3.6 mmol/L (3.5-5.1); Sodium 136 mmol/L (137-145)
[2023-11-30 09:48] LABS: HCT 28.1 % (39.0-53.0); HGB 9.2 gm/dL (13.0-17.5); MCH 30.9 pg (25.0-35.0); MCHC 32.6 g/dL (31.0-37.0); MCV 94.8 fL (80.0-100.0); Mean Platelet Volume 9.6; Platelet Count 296 k/uL (150-450); RBC 2.96 m/uL (4.30-5.90); RDW 14.3 % (11.5-15.5); WBC 15.8 k/uL (3.8-10.6)
[2023-11-30 10:48] LABS: Band Neutrophils % 6 %; Basophils # (M) 0.16 k/uL (0-0.2); Eosinophils # (M) 0.16 k/uL (0-0.7); Lymphocytes # (M) 1.74 k/uL (1.0-4.8); Metamyelocytes # (M) 0.32 k/uL (0); Metamyelocytes % 2 %; Monocytes # (M) 1.74 k/uL (0-1.0); Myelocytes # (M) 0.16 k/uL (0); Myelocytes % 1 %; Neutrophils % (M) 70 %; Nucleated Red Blood Cells 0 /100 WBC (0-0); Total Cells Counted 200
[2023-11-30] MEDS: cloNIDine HCL 0.1 MG TAB PO SCH (10:50)
[2023-11-30 10:54] LABS: RBC Morphology Normal
--- NOTE | 2023-11-30 12:41 | P.PN ---
Subjective Progress Note Date: 11/30/23 Principal diagnosis: Left foot wound, necrotizing fasciitis Patient seen and examined today as a follow-up. Yesterday he underwent excisional debridement of the left foot with washout of deep abscess with findings of necrotizing fasciitis of the left foot. He states he is in a lot of pain in his foot. Nursing is reporting that he is requesting pain medication every 2 hours. He states the pain medication is not lasting long enough. He denies any shortness of breath or chest pain. Father is at the bedside and stating that patient has bad anxiety and is asking for something for his anxiety. Apparently patient is a heroin addict according to nursing and likely going through withdrawal as well as not getting good pain relief. Objective - Vital Signs Vital signs: Vital Signs Temp 97.9 F 11/30/23 04:00 Pulse 109 H 11/30/23 04:00 Resp 20 11/30/23 04:00 BP 139/75 11/30/23 04:00 Pulse Ox 96 11/30/23 04:00 FiO2 Intake & Output 11/29/23 11/30/23 11/30/23 18:59 06:59 18:59 Intake Total 1118 100 Output Total 545 1050 1200 Balance 573 -950 -1200 Intake: IV 1000 100 Oral 118 0 Output: Urine 525 1050 1200 Estimated Blood Loss 20 Other: Voiding Method Toilet Urinal # Voids 0 # Bowel Movements 0 - Exam General appearance: The patient is alert, oriented, appears in no acute distress, but does appear very anxious. HET: Head is normocephalic and atraumatic. Pupils are equal and reactive. Neck: Supple. Heart: Regular. Lungs: Equal expansion, normal respiratory effort. Abdomen: Soft, nondistended. Extremities: Left foot with dressing in place wrapped with Preston wrap. Neurological: No focal deficits. Strength and sensation are grossly intact. - Labs CBC & Chem 7: 11/30/23 08:07 11/30/23 08:07 Labs: Microbiology - Last 24 Hours (Table) 11/28/23 11:12 Blood Culture - Preliminary Blood 11/26/23 16:45 Blood Culture Gram Stain - Final Blood Blood Culture - Final Methicillin resist S. aureus 11/26/23 17:00 Blood Culture Gram Stain - Final Blood Blood Culture - Final Methicillin resist S. aureus Molecular ID Assessment and Plan Assessment: 1. Left dorsal foot wound with abscess status post excisional debridement with washout of deep abscess 2. Necrotizing fasciitis of the left foot 3. IV drug user Plan: 1. Daily wet-to-dry dressing change with Dakin solution 2. Consult to wound clinic for further recommendations on local wound care 3. Continue with pain medication as ordered 4. Continue with antibiotics per recommendations from infectious disease 5. Rest of medical management per primary medical team Thank you for this consultation, we will continue to follow. The impression and plan of care has been dictated as directed. I performed a history and examination of this patient, discussed the same with the dictator. I agree with the dictator's note ,documented as a scribe. Any additional findings or plans will be noted.
--- NOTE | 2023-11-30 13:33 | P.PN ---
Subjective Progress Note Date: 11/30/23 Hospital course 33-year-old male with IV drug abuse and heroin, hepatitis C coming in due to progressive swelling erythema and pain of the left foot over the past 3 days. Patient blood cultures were positive for MRSA. Patient also had a CT chest that showed increased density in the right middle lobe. CT of the left foot did not show any evidence of abscess that may need to be drained. Infectious disease following the patient. Patient patient on vancomycin. Patient seen today. He is denying any acute complaints. No other acute issues overnight. Physical exam General examination - Alert and Oriented 3 in NAD Heart - + S1S2 no murmurs Lungs - Clear to auscultation Abdomen soft NT ND +ve BS Extremities -left foot bandage soaked with drainage from wound [employer] - Moving all 4 extremities spontaneously Psych - Calm and cooperative Assessment and plan Sepsis secondary to Necrotizing fasciitis of the left foot MRSA bacteremia Left dorsal foot wound with abscess status post excisional debridement with washout of deep abscess on 11/29/23 Will need to follow-up on surveillance blood cultures Continue with IV vancomycin with pharmacy to dose. Vanc trough is 13.4. Creatinine 0.48 Echocardiogram reviewed and showed no valvular abnormalities which would not be concerning for endocarditis ID following IV Dilaudid 1 mg every 3 hours as needed for pain Tylenol for fever Normal saline 130 cc an hour WBC this morning is slightly worse at 15.3 and patient also having high-grade fevers of 100.5. Patient's Vanco trough was low. His vancomycin dose was increased to 1500 mg every 8 hours. Will continue to monitor the patient. He is high risk for decompensation Hypokalemia Potassium this morning is 3.6. Trend BMP CT chest showing right lower lobe consolidation Agree with infectious disease that patient does not have any signs of pneumonia Patient will need an outpatient follow-up CT scan in 3 months Anemia Patient currently denying any GI bleeding Hemoglobin 9.2 Trend CBC IV drug abuse Patient provided with counseling on drug abuse Will start patient on clonidine 0.1mg p.o. 3 times daily for heroin withdrawal DVT prophylaxis: Will discontinue heparin due to anemia Objective - Vital Signs Vital signs: Vital Signs Temp 98.3 F 11/30/23 08:00 Pulse 96 11/30/23 08:00 Resp 20 11/30/23 08:00 BP 133/87 11/30/23 08:00 Pulse Ox 96 11/30/23 08:00 FiO2 Intake & Output 11/29/23 11/30/23 11/30/23 18:59 06:59 18:59 Intake Total 1118 100 Output Total 545 1050 1200 Balance 573 -950 -1200 Intake: IV 1000 100 Oral 118 0 Output: Urine 525 1050 1200 Estimated Blood Loss 20 Other: Voiding Method Toilet Urinal Urinal # Voids 0 # Bowel Movements 0 - Labs CBC & Chem 7: 11/30/23 08:07 11/30/23 08:07 Labs: Abnormal Lab Results - Last 24 Hours (Table) 11/30/23 11/30/23 Range/Units 08:07 08:07 WBC 15.8 H (3.8-10.6) k/uL RBC 2.96 L (4.30-5.90) m/uL Hgb 9.2 L (13.0-17.5) gm/dL Hct 28.1 L (39.0-53.0) % Neutrophils # (Manual) 12.00 H (1.3-7.7) k/uL Monocytes # (Manual) 1.74 H (0-1.0) k/uL Metamyelocytes # (Man) 0.32 H (0) k/uL Myelocytes # (Manual) 0.16 H (0) k/uL Sodium 136 L (137-145) mmol/L Chloride 110 H (98-107) mmol/L Creatinine 0.48 L (0.66-1.25) mg/dL Calcium 7.4 L (8.4-10.2) mg/dL Microbiology - Last 24 Hours (Table) 11/28/23 11:12 Blood Culture - Preliminary Blood 11/26/23 16:45 Blood Culture Gram Stain - Final Blood Blood Culture - Final Methicillin resist S. aureus 11/26/23 17:00 Blood Culture Gram Stain - Final Blood Blood Culture - Final Methicillin resist S. aureus Molecular ID
[2023-11-30] MEDS: HYDROmorphone 0.5 MG/0.5 ML SYRINGE IVP STA (14:49)
[2023-11-30] MEDS: SODIUM HYPOCHLORITE 0.25% 480 ML BOT MISCELLANE SCH (15:16)
[2023-11-30] MEDS: HYDROmorphone 1 MG/ML 1 ML SYRINGE IVP STA (18:51)
[2023-12-01] MEDS: IBUPROFEN 400 MG TAB PO PRN (02:56)
[2023-12-01] MEDS: VANCOMYCIN TROUGH DUE 1 EACH MISC MISCELLANE ONE (07:46)
--- NOTE | 2023-12-01 08:22 | P.PN ---
Subjective Progress Note Date: 11/30/23 Principal diagnosis: Reason for follow-up is left foot cellulitis and bacteremia Patient is a 33-year-old male with a past medical history significant for seizure disorder history of IV drug presented to hospital with worsening pain swelling redness to the left foot with a large blood-filled blister diagnosis cellulitis blood culture positive for MRSA, CT chest increased density right middle lobe correlate for pneumonia or atelectasis. Patient is status post excisional debridement of the left foot with washout of the deep abscess completed by vascular surgery on 11/29/2023. On today's evaluation that is 11/30/2023,the patient denies any fever or any chills, patient is breathing comfortably on room air, the patient denies chest pain shortness of breath and no significant cough, patient denies abdominal pain, no nausea vomiting or diarrhea. Patient denies any worsening pain to the left foot. White count is 15.8 creatinine 0.48 Vanco trough of 13 point 4 repeat blood culture and left foot cultures currently pending Objective - Vital Signs Vital signs: Vital Signs Temp 98.6 F 11/30/23 12:00 Pulse 96 11/30/23 12:00 Resp 16 11/30/23 12:00 BP 129/74 11/30/23 12:00 Pulse Ox 96 11/30/23 12:00 FiO2 Intake & Output 11/29/23 11/30/23 11/30/23 18:59 06:59 18:59 Intake Total 1118 100 Output Total 545 1050 1200 Balance 573 -950 -1200 Intake: IV 1000 100 Oral 118 0 Output: Urine 525 1050 1200 Estimated Blood Loss 20 Other: Voiding Method Toilet Urinal Urinal # Voids 0 # Bowel Movements 0 - Exam GENERAL DESCRIPTION: Middle-age male lying in bed in no distress RESPIRATORY SYSTEM: Unlabored breathing , decreased breath sounds at bases HEART: S1 S2 regular rate and rhythm , ABDOMEN: Soft , no tenderness EXTREMITIES: Left foot currently dressed no drainage - Labs CBC & Chem 7: 11/30/23 08:07 11/30/23 08:07 Labs: Abnormal Lab Results - Last 24 Hours (Table) 11/30/23 11/30/23 Range/Units 08:07 08:07 WBC 15.8 H (3.8-10.6) k/uL RBC 2.96 L (4.30-5.90) m/uL Hgb 9.2 L (13.0-17.5) gm/dL Hct 28.1 L (39.0-53.0) % Neutrophils # (Manual) 12.00 H (1.3-7.7) k/uL Monocytes # (Manual) 1.74 H (0-1.0) k/uL Metamyelocytes # (Man) 0.32 H (0) k/uL Myelocytes # (Manual) 0.16 H (0) k/uL Sodium 136 L (137-145) mmol/L Chloride 110 H (98-107) mmol/L Creatinine 0.48 L (0.66-1.25) mg/dL Calcium 7.4 L (8.4-10.2) mg/dL Microbiology - Last 24 Hours (Table) 11/28/23 11:12 Blood Culture - Preliminary Blood 11/26/23 16:45 Blood Culture Gram Stain - Final Blood Blood Culture - Final Methicillin resist S. aureus 11/26/23 17:00 Blood Culture Gram Stain - Final Blood Blood Culture - Final Methicillin resist S. aureus Molecular ID Assessment and Plan (1) Cellulitis of left foot Current Visit: Yes Status: Acute Code(s): L03.116 - CELLULITIS OF LEFT LOWER LIMB SNOMED Code(s): 18704066536706674 (2) MRSA bacteremia Current Visit: Yes Status: Acute Code(s): R78.81 - BACTEREMIA; B95.62 - METHICILLIN RESIS STAPH INFCT CAUSING DISEASES [facility] SNOMED Code(s): 76325620456059961 Plan: 1patient presented hospital with left foot pain swelling redness and did have a big blister concerning for cellulitis and possible deep infection such as abscess likely from gram-positive skin francine in this patient with history of IV drug use however mention has not injected in the area high risk of MRSA infection 2-patient with MRSA bacteremia source is likely left foot abscess and cellulitis 3-blood cultures has been repeated and currently pending, patient is status post surgical debridement and drainage of the left foot abscess with deep culture which are currently pending 4-patient will continue with the vancomycin while watching his kidney function closely Dictation was produced using [employer] software. please excuse any grammatical, word or spelling errors.
[2023-12-01 08:23] LABS: MCH 31.6 pg (25.0-35.0); MCHC 33.1 g/dL (31.0-37.0); MCV 95.4 fL (80.0-100.0); Mean Platelet Volume 8.4; Platelet Count 461 k/uL (150-450); RBC 1.97 m/uL (4.30-5.90); RDW 14.1 % (11.5-15.5); WBC 28.8 k/uL (3.8-10.6)
[2023-12-01 08:27] LABS: HGB 6.2 gm/dL (13.0-17.5)
[2023-12-01 08:29] LABS: HCT 18.8 % (39.0-53.0)
[2023-12-01 08:58] LABS: African American GFR (CKD) >90 (>60 ml/min/1.73 sqM); Anion Gap 6 mmol/L; Blood Urea Nitrogen 30 mg/dL (9-20); Calcium 7.8 mg/dL (8.4-10.2); Carbon Dioxide 19 mmol/L (22-30); Chloride 112 mmol/L (98-107); Glucose 89 mg/dL (74-99); Non-African American GFR(CKD) >90 (>60 ml/min/1.73 sqM); Sodium 137 mmol/L (137-145)
[2023-12-01 09:19] LABS: Band Neutrophils % 6 %; Eosinophils # (M) 1.73 k/uL (0-0.7); Lymphocytes # (M) 5.76 k/uL (1.0-4.8); Metamyelocytes # (M) 0.86 k/uL (0); Metamyelocytes % 3 %; Monocytes # (M) 3.17 k/uL (0-1.0); Myelocytes # (M) 1.73 k/uL (0); Myelocytes % 6 %; Neutrophils % (M) 50 %; Nucleated Red Blood Cells 0 /100 WBC (0-0); Total Cells Counted 200
[2023-12-01 09:21] LABS: Toxic Granulation Present
[2023-12-01] MEDS: VANCOMYCIN 1,750 MG in SODIUM CHLORIDE 0.9% 500 ML 500 ML IVPB SCH (10:09)
[2023-12-01] MEDS: PANTOPRAZOLE 40 MG/10 ML VIAL IVP SCH (10:12)
--- NOTE | 2023-12-01 12:12 | P.CONS ---
History of Present Illness - Reason for Consult Consult date: 12/01/23 wound care - History of Present Illness This is a 33-year-old patient with past medical history significant for IV drug abuse. Patient underwent a I&D of the left dorsal foot previously. Patient currently has a Dakin's wet-to-dry dressing in place. Patient is scheduled for surgical debridement with possible wound VAC application today. Discussed with patient the need for continued wound care after discharge. Patient is agreeable. At this time the ulceration dressing is clean and dry. Review Of Systems: Constitutional: No fever, no chills, no night sweats. No weight change. No weakness, fatigue or lethargy. No daytime sleepiness. Integumentary:reports wounds, no lesions. No rash or pruritus. No unusual b ruising. No change in hair or nails. Physical exam: General Appearance: Alert, cooperative, no distress, appears stated age. Skin: See HPI all other Skin color, texture, tugor normal, no rashes or lesions. Neurologic: Alert oriented x3 Assessment: 1. Nonhealing ulceration with muscle necrosis 2. IV drug abuse Plan: 1. Continue with Dakin's wet-to-dry dressing as per surgery. Follow surgery interventions until negative pressure wound VAC is applied. Change negative pressure wound VAC 3 times a week. 125 mm/Hg of continuous pressure to the site. Patient would benefit from outpatient advanced wound care and wound care center. We happy to see him upon discharge. Patient is agreeable at this time. Thank you for the consultation any questions please contact the wound care center DNP note has been reviewed and discussed with Dr. Rivera and the impression and plan of care has been directed as dictated. Past Medical History Past Medical History: No Reported History, Seizure Disorder Additional Past Medical History / Comment(s): hasn't had siezures since 2018 History of Any Multi-Drug Resistant Organisms: None Reported Year Discovered:: 11/26/23 MDRO Source:: Blood Past Surgical History: No Surgical Hx Reported Past Psychological History: No Psychological Hx Reported Smoking Status: Never smoker Past Alcohol Use History: Occasional Past Drug Use History: Marijuana, Methamphetamine - Past Family History Mother History Unknown: Yes Medications and Allergies Home Medications Medication Instructions Recorded Confirmed Type No Known Home Medications 08/21/19 11/26/23 History Allergies Allergy/AdvReac Type Severity Reaction Status Date / Time Penicillins Allergy Unknown Verified 11/26/23 18:32 Childhood Physical Exam Vitals: Vital Signs Temp Pulse Resp BP Pulse Ox 12/01/23 08:00 97.9 F 92 20 137/75 99 12/01/23 04:00 110 H 20 132/78 100 12/01/23 02:00 130 H 24 11/30/23 20:00 97.9 F 130 H 24 119/67 96 11/30/23 16:00 98.6 F 98 18 127/74 96 11/30/23 15:20 97.9 F 92 137/75 99 11/30/23 14:00 96 16 Intake and Output 11/30/23 12/01/23 12/01/23 22:59 06:59 14:59 Intake Total 0 Output Total 800 1200 800 Balance -800 -1200 -800 Intake: Oral 0 Output: Urine 800 1200 800 Other: Voiding Method Urinal Urinal Urinal # Bowel Movements 0 Results CBC & Chem 7: 12/01/23 08:11 12/01/23 07:28 Labs: Abnormal Lab Results - Last 24 Hours (Table) 12/01/23 12/01/23 12/01/23 Range/Units 07:28 08:11 08:11 WBC 28.8 H (3.8-10.6) k/uL RBC 1.97 L (4.30-5.90) m/uL Hgb 6.2 L* D (13.0-17.5) gm/dL Hct 18.8 L* (39.0-53.0) % Plt Count 461 H (150-450) k/uL Neutrophils # (Manual) 16.10 H (1.3-7.7) k/uL Lymphocytes # (Manual) 5.76 H (1.0-4.8) k/uL Monocytes # (Manual) 3.17 H (0-1.0) k/uL Eosinophils # (Manual) 1.73 H (0-0.7) k/uL Metamyelocytes # (Man) 0.86 H (0) k/uL Myelocytes # (Manual) 1.73 H (0) k/uL Chloride 112 H (98-107) mmol/L Carbon Dioxide 19 L (22-30) mmol/L BUN 30 H (9-20) mg/dL Creatinine 0.48 L (0.66-1.25) mg/dL Calcium 7.8 L (8.4-10.2) mg/dL Crossmatch See Detail Microbiology - Last 24 Hours (Table) 11/29/23 18:47 Gram Stain - Preliminary Foot - Left 11/28/23 11:12 Blood Culture - Preliminary Blood 11/29/23 17:15 Gram Stain - Preliminary Foot - Left Assessment and Plan (1) Non-pressure chronic ulcer of other part of left foot with necrosis of muscle Current Visit: Yes Status: Acute Code(s): L97.523 - NON-PRS CHRONIC ULCER OTH PRT LEFT FOOT W NECROSIS OF MUSCLE SNOMED Code(s): 77285844650241803 (2) IV drug user Current Visit: Yes Status: Acute Code(s): F19.90 - OTHER PSYCHOACTIVE LÓPEZ BSTANCE USE, UNSPECIFIED, UNCOMPLICATED SNOMED Code(s): 790869129
[2023-12-01] MEDS: IV FLUID CONTINUATION 1,000 ML IV ONE (13:16)
[2023-12-01] MEDS ORDERED: fentaNYL (PF) 50 MCG/ML 2 ML AMP ONE (13:40)
[2023-12-01] MEDS ORDERED: LIDOCAINE 1% INJ 10MG/ML (20 ML MDV) ONE (13:40)
[2023-12-01] MEDS ORDERED: PROPOFOL 10 MG/ML 20 ML VIAL IV ONE (13:40)
[2023-12-01] MEDS ORDERED: HYDROmorphone (PF) 1 MG/ML ONE (13:40)
[2023-12-01] MEDS ORDERED: MIDAZOLAM 2 MG/2 ML VIAL ONE (13:40)
--- NOTE | 2023-12-01 14:12 | P.PN ---
Subjective Progress Note Date: 12/01/23 Hospital course 33-year-old male with IV drug abuse and heroin, hepatitis C coming in due to progressive swelling erythema and pain of the left foot over the past 3 days. Patient blood cultures were positive for MRSA. Patient also had a CT chest that showed increased density in the right middle lobe. CT of the left foot did not show any evidence of abscess that may need to be drained. Infectious disease following the patient. Patient patient on vancomycin. Patient states that his pain is better today. He has been getting IV Dilaudid and [place] [id number]. Patient is now afebrile. Last night patient was in withdrawal from heroin. He was yelling at the nurses. Patient was also tachycardic and diaphoretic. 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 [place] trough this morning is 9.6. Vancomycin increased to 1750 mg every 8 hours. Monitor for renal toxicity. Creatinine this morning is 0.48 Echocardiogram reviewed and showed no valvular abnormalities which would not be concerning for endocarditis ID following IV Dilaudid 1 mg every 3 hours as needed for pain Patient also on [place] 5 mg every 4 hours as needed Patient's pain has been uncontrolled and he has been getting IV Dilaudid and [place] [id number]. I will consult pain management Tylenol for fever Normal saline 130 cc an hour Patient is afebrile this morning. However WBC increased to 28.8. Vascular surgery plans to take the patient back to the OR today. Reviewed wound care note. Patient to follow-up with wound care outpatient Due to the worsening leukocytosis and acute blood loss anemia patient is high risk for decompensation. Hypokalemia Potassium this morning is 5.0. Trend BMP CT chest showing right lower lobe consolidation Agree with infectious disease that patient does not have any signs of pneumonia Patient will need an outpatient follow-up CT scan in 3 months Acute blood loss anemia secondary to bleeding from the wound Patient currently denying any GI bleeding Hemoglobin this morning 6.8 1 unit of PRBC ordered Patient will be returning back to the OR today Trend CBC IV drug abuse Heroin withdrawal Resume clonidine 0.1mg p.o. 3 times daily for heroin withdrawal DVT prophylaxis: Will discontinue heparin due to anemia Objective - Vital Signs Vital signs: Vital Signs Temp 97.3 F L 12/01/23 13:16 Pulse 104 H 12/01/23 13:16 Resp 16 12/01/23 13:16 BP 143/65 12/01/23 13:16 Pulse Ox 97 12/01/23 13:16 FiO2 Intake & Output 11/30/23 12/01/23 12/01/23 18:59 06:59 18:59 Intake Total 0 100 Output Total 1999 1200 800 Balance -1999 -1200 -700 Intake: IV 100 Oral 0 Blood Product 0 Unit 0 Output: Urine 1999 1200 800 Other: Voiding Method Urinal Urinal Urinal # Bowel Movements 0 - Labs CBC & Chem 7: 12/01/23 08:11 12/01/23 07:28 Labs: Abnormal Lab Results - Last 24 Hours (Table) 12/01/23 12/01/23 12/01/23 Range/Units 07:28 08:11 08:11 WBC 28.8 H (3.8-10.6) k/uL RBC 1.97 L (4.30-5.90) m/uL Hgb 6.2 L* D (13.0-17.5) gm/dL Hct 18.8 L* (39.0-53.0) % Plt Count 461 H (150-450) k/uL Neutrophils # (Manual) 16.10 H (1.3-7.7) k/uL Lymphocytes # (Manual) 5.76 H (1.0-4.8) k/uL Monocytes # (Manual) 3.17 H (0-1.0) k/uL Eosinophils # (Manual) 1.73 H (0-0.7) k/uL Metamyelocytes # (Man) 0.86 H (0) k/uL Myelocytes # (Manual) 1.73 H (0) k/uL Chloride 112 H (98-107) mmol/L Carbon Dioxide 19 L (22-30) mmol/L BUN 30 H (9-20) mg/dL Creatinine 0.48 L (0.66-1.25) mg/dL Calcium 7.8 L (8.4-10.2) mg/dL Crossmatch See Detail Microbiology - Last 24 Hours (Table) 11/29/23 17:15 Gram Stain - Preliminary Foot - Left Wound Culture - Preliminary Presumptive MRSA 11/29/23 18:47 Gram Stain - Preliminary Foot - Left Wound Culture - Preliminary Presumptive MRSA 11/28/23 11:12 Blood Culture - Preliminary Blood
--- NOTE | 2023-12-01 14:50 | P.OP ---
Date of Procedure: 12/01/23 Description of Procedure: Preoperative diagnosis: Necrotizing fasciitis left foot Postoperative diagnosis: Same Procedure: Sharp excisional debridement left foot to muscle wound measuring 14.7 x 13.5 x 1.2 cm Initial application of wound VAC Surgeon: Shantell Malhotra D.O. EBL: 20 cc IV fluids: See records Urine output: Not measured Drains: None Complications: None immediately apparent Condition: Stable to recovery Operative indication and findings: Patient is a 33-year-old male who previously was taken the operating room for significant abscess and found to have necrotizing fasciitis of his foot. He has had improvement of his pain but is requiring a second look due to the amount of extent previously and currently with some further devitalized tissue. Risks and benefits were discussed. He seemingly understood and is willing to proceed. Procedure in detail: Patient was taken the operative suite placed in supine position. The left lower extremities prepped and draped in usual sterile fashion. A preprocedural timeout was performed, all parties were in agreement. The wound was explored digitally and there was significant undermining and tracking and tunneling along the areas of devitalized tissue, there was further purulent drainage expressed. The skin overlying the tunneling and tracking more excised sharply with a scalpel. The resultant defect measured as above. When squeezing on the foot again from the internal portions of the foot there was evidence of purulent drainage and discharge. After some further digital dissection, the area underneath the tendon and musculature was probed and entered and found to be full purulent drainage. This was expelled and then subsequently copiously irrigated throughout. The devitalized edges of tissue were sharply debrided with curette. Pressure was held for hemostasis. After appropriate hemostasis, a wound VAC was placed. The patient tolerated the procedure well was transferred to recovery.
[2023-12-01 14:53] VITALS: BMI 24.3
[2023-12-01] MEDS: HYDROmorphone 0.5 MG/0.5 ML SYRINGE IVP ONE ×2 (14:55→15:04)
[2023-12-01] MEDS: HYDROmorphone 1 MG/ML 1 ML SYRINGE IVP ONE ×2 (15:17→15:24)
[2023-12-01] MEDS: MIDAZOLAM 2 MG/2 ML VIAL IVP ONE ×3 (15:17→15:38)
--- NOTE | 2023-12-01 16:30 | P.PN ---
Subjective Progress Note Date: 12/01/23 Principal diagnosis: Reason for follow-up is left foot cellulitis and bacteremia Patient is a 33-year-old male with a past medical history significant for seizure disorder history of IV drug presented to hospital with worsening pain swelling redness to the left foot with a large blood-filled blister diagnosis cellulitis blood culture positive for MRSA, CT chest increased density right middle lobe correlate for pneumonia or atelectasis. Patient is status post excisional debridement of the left foot with washout of the deep abscess completed by vascular surgery on 11/29/2023. Patient is status post repeat sharp excisional debridement of left foot to the muscle procedure completed on 12/01/2023 On today's evaluation that is 12/01/2023,the patient remains to be afebrile, patient is on room air not requiring supplemental oxygen and denies any shortness of breath no chest pain or cough.Patient denies having any nausea or vomiting, no abdominal pain and no diarrhea has been reported, denies worsening pain to the left foot area. Patient white count is 28.8, creatinine 0.48 blood culture repeat on 11/28/2023 has been negative Objective - Vital Signs Vital signs: Vital Signs Temp 97.8 F 12/01/23 14:58 Pulse 129 H 12/01/23 15:45 Resp 16 12/01/23 15:45 BP 149/58 12/01/23 15:45 Pulse Ox 98 12/01/23 15:45 FiO2 Intake & Output 11/30/23 12/01/23 12/01/23 18:59 06:59 18:59 Intake Total 0 610 Output Total 1999 1200 1270 Balance -1999 -660 Weight 72.575 kg Intake: IV 300 Oral 0 Blood Product 310 Rc As-1 Unit 310 [id number] Output: Urine 1999 1200 1250 Estimated Blood Loss 20 Other: Voiding Method Urinal Urinal Urinal # Bowel Movements 0 - Exam GENERAL DESCRIPTION: Middle-age male lying in bed in no distress RESPIRATORY SYSTEM: Unlabored breathing , decreased breath sounds at bases HEART: S1 S2 regular rate and rhythm , ABDOMEN: Soft , no tenderness EXTREMITIES: Left foot currently dressed no drainage - Labs CBC & Chem 7: 12/01/23 08:11 12/01/23 07:28 Labs: Abnormal Lab Results - Last 24 Hours (Table) 05/12/01/23 12/01/23 Range/Units 07:28 08:11 08:11 WBC 28.8 H (3.8-10.6) k/uL RBC 1.97 L (4.30-5.90) m/uL Hgb 6.2 L* D (13.0-17.5) gm/dL Hct 18.8 L* (39.0-53.0) % Plt Count 461 H (150-450) k/uL Neutrophils # (Manual) 16.10 H (1.3-7.7) k/uL Lymphocytes # (Manual) 5.76 H (1.0-4.8) k/uL Monocytes # (Manual) 3.17 H (0-1.0) k/uL Eosinophils # (Manual) 1.73 H (0-0.7) k/uL Metamyelocytes # (Man) 0.86 H (0) k/uL Myelocytes # (Manual) 1.73 H (0) k/uL Chloride 112 H (98-107) mmol/L Carbon Dioxide 19 L (22-30) mmol/L BUN 30 H (9-20) mg/dL Creatinine 0.48 L (0.66-1.25) mg/dL Calcium 7.8 L (8.4-10.2) mg/dL Crossmatch See Detail Microbiology - Last 24 Hours (Table) 11/29/23 17:15 Gram Stain - Preliminary Foot - Left Wound Culture - Preliminary Presumptive MRSA 11/29/23 18:47 Gram Stain - Preliminary Foot - Left Wound Culture - Preliminary Presumptive MRSA 11/28/23 11:12 Blood Culture - Preliminary Blood Assessment and Plan (1) Cellulitis of left foot Current Visit: Yes Status: Acute Code(s): L03.116 - CELLULITIS OF LEFT LOWER LIMB SNOMED Code(s): 71436251593673519 (2) MRSA bacteremia Current Visit: Yes Status: Acute Code(s): R78.81 - BACTEREMIA; B95.62 - METHICILLIN RESIS STAPH INFCT [facility] Code(s): 38926258633792429 Plan: 1patient presented hospital with left foot pain swelling redness and did have a big blister concerning for cellulitis and possible deep infection such as abscess likely from gram-positive skin francine in this patient with history of IV drug use however mention has not injected in the area high risk of MRSA in fection 2-patient with MRSA bacteremia source is likely left foot abscess and cellulitis 3-blood cultures has been repeated 11/28/2023 and has been negative so far g, patient is status post surgical debridement and drainage x 2 of the left foot abscess with deep culture which are currently growing MRSA 4-patient will continue with the vancomycin will need a PICC line and placement not an ideal candidate for home IV antibiotic therapy because of his active IV drug use this has been discussed in detail with the patient and the mother Dictation was produced using [email or web address] dictation software. please excuse any grammatical, word or spelling errors. Time with Patient: Less than 30
[2023-12-01 16:54] LABS: HCT 21.9 % (39.0-53.0); MCHC 31.3 g/dL (31.0-37.0); MCV 96.1 fL (80.0-100.0); Mean Platelet Volume 8.3; Platelet Count 625 k/uL (150-450); RBC 2.28 m/uL (4.30-5.90); RDW 14.1 % (11.5-15.5)
[2023-12-01 16:56] LABS: HGB 6.8 gm/dL (13.0-17.5); WBC 52.9 k/uL (3.8-10.6)
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
[2023-12-01] MEDS: HYDROmorphone 1 MG/ML 1 ML SYRINGE IVP PRN (18:59)
[2023-12-02 08:51] LABS: MCH 30.4 pg (25.0-35.0); MCHC 33.1 g/dL (31.0-37.0); Platelet Count 462 k/uL (150-450); RBC 2.17 m/uL (4.30-5.90); RDW 14.4 % (11.5-15.5); WBC 32.6 k/uL (3.8-10.6)
[2023-12-02 09:09] LABS: African American GFR (CKD) >90 (>60 ml/min/1.73 sqM); Anion Gap 1 mmol/L; Blood Urea Nitrogen 11 mg/dL (9-20); Calcium 7.2 mg/dL (8.4-10.2); Carbon Dioxide 25 mmol/L (22-30); Chloride 107 mmol/L (98-107); Glucose 80 mg/dL (74-99); Non-African American GFR(CKD) >90 (>60 ml/min/1.73 sqM); Potassium 3.9 mmol/L (3.5-5.1); Sodium 133 mmol/L (137-145)
[2023-12-02 09:15] LABS: HGB 6.6 gm/dL (13.0-17.5)
[2023-12-02] MEDS: VANCOMYCIN TROUGH DUE 1 EACH MISC MISCELLANE ONE (09:27)
--- NOTE | 2023-12-02 09:31 | P.PN ---
Subjective Progress Note Date: 12/02/23 Hospital course 33-year-old male with IV drug abuse and heroin, hepatitis C coming in due to progressive swelling erythema and pain of the left foot over the past 3 days. Patient blood cultures were positive for MRSA. Patient also had a CT chest that showed increased density in the right middle lobe. CT of the left foot did not show any evidence of abscess that may need to be drained. Infectious disease following the patient. Patient patient on vancomycin. Patient states that his left foot pain is much better this morning. Yesterday patient was started on 50 mcg fentanyl patch by pain management. 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 [place] trough this morning is 9.6. Vancomycin increased to 1750 mg every 8 hours. Monitor for renal toxicity. Creatinine this morning is 0.48 Echocardiogram reviewed and showed no valvular abnormalities which would not be concerning for endocarditis ID following IV Dilaudid 1 mg every 3 hours as needed for pain Patient also on [place] 5 mg every 4 hours as needed I reviewed pain management note who started the patient on fentanyl patch 50 mcg every 72 hours. Pain management recommending fentanyl patch while in the hospital Patient's pain is better controlled this morning Patient is afebrile this morning. Patient's WBC is decreasing down to 32.6 Vascular surgery following the patient Patient seen by wound care who recommended follow-up outpatient in the wound care clinic Wound cultures have been growing MRSA Will need to titrate patient off of pain meds over the weekend Acute blood loss anemia secondary to bleeding from the wound Patient currently denying any GI bleeding Hemoglobin this morning 6.6 Will order for 2 units of PRBC Trend CBC IV drug abuse Heroin withdrawal Resume clonidine 0.1mg p.o. 3 times daily for heroin withdrawal Hypokalemia Resolved CT chest showing right lower lobe consolidation Agree with infectious disease that patient does not have any signs of pneumonia Patient will need an outpatient follow-up CT scan in 3 months DVT prophylaxis: Will discontinue heparin due to anemia Objective - Vital Signs Vital signs: Vital Signs Temp 98.7 F 12/01/23 23:55 Pulse 120 H 12/02/23 03:42 Resp 16 12/02/23 03:42 BP 121/69 12/02/23 03:42 Pulse Ox 97 12/02/23 03:42 FiO2 Intake & Output 12/01/23 12/02/23 12/02/23 18:59 06:59 18:59 Intake Total 610 310 180 Output Total 1770 950 600 Balance -1160 -640 -420 Weight 72.575 kg Intake: IV 300 Oral 180 Blood Product 310 310 Rc As-1 Unit 310 [id number] Rc As-1 Unit 310 [id number] Output: Urine 1750 950 600 Estimated Blood Loss 20 Other: Voiding Method Urinal Urinal - Labs CBC & Chem 7: 12/02/23 08:05 12/02/23 08:05 Labs: Abnormal Lab Results - Last 24 Hours (Table) 12/01/23 12/01/23 12/02/23 Range/Units 08:11 16:20 08:05 WBC 52.9 H* 32.6 H (3.8-10.6) k/uL RBC 2.28 L 2.17 L (4.30-5.90) m/uL Hgb 6.8 L* 6.6 L* (13.0-17.5) gm/dL Hct 21.9 L 20.0 L (39.0-53.0) % Plt Count 625 H 462 H (150-450) k/uL Sodium (137-145) mmol/L Calcium (8.4-10.2) mg/dL Crossmatch See Detail 12/02/23 Range/Units 08:05 WBC (3.8-10.6) k/uL RBC (4.30-5.90) m/uL Hgb (13.0-17.5) gm/dL Hct (39.0-53.0) % Plt Count (150-450) k/uL Sodium 133 L (137-145) mmol/L Calcium 7.2 L (8.4-10.2) mg/dL Crossmatch Microbiology - Last 24 Hours (Table) 11/28/23 11:12 Blood Culture - Preliminary Blood 11/29/23 17:15 Gram Stain - Preliminary Foot - Left Wound Culture - Preliminary Presumptive MRSA 11/29/23 18:47 Gram Stain - Preliminary Foot - Left Wound Culture - Preliminary Presumptive MRSA
--- NOTE | 2023-12-02 10:58 | P.PN ---
Subjective Progress Note Date: 12/02/23 Principal diagnosis: Left foot wound, necrotizing fasciitis Patient is seen and examined today as a follow-up. His pain is better controlled. He was seen by pain management and started on a fentanyl patch. He yesterday he underwent excisional debridement of the left foot wound with wound VAC application. Wound VAC in place with good suction and serosanguineous output. Patient received 2 units of blood yesterday. Repeat hemoglobin this morning 6.6, he has 2 more units of blood ordered. He states he had a dark stool yesterday afternoon but then in the evening it was normal brown again. Denies any abdominal pain, nausea or vomiting. Objective - Vital Signs Vital signs: Vital Signs Temp 98.7 F 12/01/23 23:55 Pulse 120 H 12/02/23 03:42 Resp 16 12/02/23 03:42 BP 121/69 12/02/23 03:42 Pulse Ox 97 12/02/23 03:42 FiO2 Intake & Output 12/01/23 12/02/23 12/02/23 18:59 06:59 18:59 Intake Total 610 310 Output Total 1770 950 Balance -1160 -640 Weight 72.575 kg Intake: IV 300 Blood Product 310 310 Rc As-1 Unit 310 [id number] Rc As-1 Unit 310 [id number] Output: Urine 1750 950 Estimated Blood Loss 20 Other: Voiding Method Urinal Urinal - Exam General appearance: The patient is alert, oriented, appears in no acute distress. HET: Head is normocephalic and atraumatic. Neck: Supple. Abdomen: Soft, nondistended. Extremities: Left foot with wound VAC in place with good suction with serosanguineous output. Neurological: No focal deficits. Strength and sensation are grossly intact. - Labs CBC & Chem 7: 12/02/23 08:05 12/02/23 08:05 Labs: Abnormal Lab Results - Last 24 Hours (Table) 12/01/23 12/01/23 12/01/23 Range/Units 07:28 08:11 08:11 WBC 28.8 H (3.8-10.6) k/uL RBC 1.97 L (4.30-5.90) m/uL Hgb 6.2 L* D (13.0-17.5) gm/dL Hct 18.8 L* (39.0-53.0) % Plt Count 461 H (150-450) k/uL Neutrophils # (Manual) 16.10 H (1.3-7.7) k/uL Lymphocytes # (Manual) 5.76 H (1.0-4.8) k/uL Monocytes # (Manual) 3.17 H (0-1.0) k/uL Eosinophils # (Manual) 1.73 H (0-0.7) k/uL Metamyelocytes # (Man) 0.86 H (0) k/uL Myelocytes # (Manual) 1.73 H (0) k/uL Chloride 112 H (98-107) mmol/L Carbon Dioxide 19 L (22-30) mmol/L BUN 30 H (9-20) mg/dL Creatinine 0.48 L (0.66-1.25) mg/dL Calcium 7.8 L (8.4-10.2) mg/dL Crossmatch See Detail 12/01/23 Range/Units 16:20 WBC 52.9 H* (3.8-10.6) k/uL RBC 2.28 L (4.30-5.90) m/uL Hgb 6.8 L* (13.0-17.5) gm/dL Hct 21.9 L (39.0-53.0) % Plt Count 625 H (150-450) k/uL Neutrophils # (Manual) (1.3-7.7) k/uL Lymphocytes # (Manual) (1.0-4.8) k/uL Monocytes # (Manual) (0-1.0) k/uL Eosinophils # (Manual) (0-0.7) k/uL Metamyelocytes # (Man) (0) k/uL Myelocytes # (Manual) (0) k/uL Chloride (98-107) mmol/L Carbon Dioxide (22-30) mmol/L BUN (9-20) mg/dL Creatinine (0.66-1.25) mg/dL Calcium (8.4-10.2) mg/dL Crossmatch Microbiology - Last 24 Hours (Table) 11/28/23 11:12 Blood Culture - Preliminary Blood 11/29/23 17:15 Gram Stain - Preliminary Foot - Left Wound Culture - Preliminary Presumptive MRSA 11/29/23 18:47 Gram Stain - Preliminary Foot - Left Wound Culture - Preliminary Presumptive MRSA Assessment and Plan Assessment: 1. Left dorsal foot wound with abscess status post excisional debridement with washout of deep abscess 2. Necrotizing fasciitis of the left foot 3. IV drug user 4. Anemia, normocytic normochromic. Not likely from acute blood loss from foot wound. Plan: 1. Continue wound VAC as ordered, change Fridays. It has been discussed with patient that there is a possibility he will require below the knee amputation if his foot does not heal/improve. 2. Wound care consulted, appreciate their recommendations 3. Continue with pain control and medications as ordered and recommended from pain management 4. Continue with antibiotics per recommendations from infectious disease 5. Agree with blood transfusion 6. Repeat daily CBC 7. Consult to hematology for normocytic normochromic anemia 8. Rest of medical management per primary medical team Thank you for this consultation, we will continue to follow. The impression and plan of care has been dictated as directed. I performed a history and examination of this patient, discussed the same with the dictator. I agree with the dictator's note ,documented as a scribe. Any additional findings or plans will be noted.
[2023-12-02 12:30] LABS: Band Neutrophils % 5 %; Lymphocytes # (M) 4.24 k/uL (1.0-4.8); Metamyelocytes # (M) 0.65 k/uL (0); Metamyelocytes % 2 %; Myelocytes # (M) 0.98 k/uL (0); Myelocytes % 3 %; Neutrophils % (M) 72 %; Nucleated Red Blood Cells 0 /100 WBC (0-0); Total Cells Counted 200
[2023-12-02 12:31] LABS: RBC Morphology Normal
[2023-12-02 12:32] LABS: Toxic Vacuolation Present
--- NOTE | 2023-12-02 15:26 | P.PN ---
Subjective Progress Note Date: 12/02/23 Principal diagnosis: Reason for follow-up is left foot cellulitis and bacteremia Patient is a 33-year-old male with a past medical history significant for seizure disorder history of IV drug presented to hospital with worsening pain swelling redness to the left foot with a large blood-filled blister diagnosis cellulitis blood culture positive for MRSA, CT chest increased density right middle lobe correlate for pneumonia or atelectasis. Patient is status post excisional debridement of the left foot with washout of the deep abscess completed by vascular surgery on 11/29/2023. Patient is status post repeat sharp excisional debridement of left foot to the muscle procedure completed on 12/01/2023 On today's evaluation that is 12/02/2023, the patient continues to be afebrile, the patient is on room air and breathing comfortably, the Pt denies having any chest pain or cough, the patient denies having any abdominal pain no vomiting or any diarrhea, pain to the left foot has decreased in intensity. Patient white count is 32.6 creatinine 0.66 Vanco trough is 15.8 blood culture repeat so far negative Objective - Vital Signs Vital signs: Vital Signs Temp 98.9 F 12/02/23 11:00 Pulse 96 12/02/23 11:00 Resp 16 12/02/23 11:00 BP 129/67 12/02/23 11:00 Pulse Ox 100 12/02/23 11:00 FiO2 Intake & Output 12/01/23 12/02/23 12/02/23 18:59 06:59 18:59 Intake Total 610 310 370 Output Total 8528 077 6220 Balance -4198 -793 -0674 Weight 72.575 kg Intake: IV 300 10 Invasive Line 3 10 Oral 360 Blood Product 310 310 Rc As-1 Unit 310 [id number] Rc As-1 Unit 310 [id number] Output: Urine 1537 111 2967 Estimated Blood Loss 20 Other: Voiding Method Urinal Urinal Urinal - Exam GENERAL DESCRIPTION: Middle-age male lying in bed in no distress RESPIRATORY SYSTEM: Unlabored breathing , decreased breath sounds at bases HEART: S1 S2 regular rate and rhythm , ABDOMEN: Soft , no tenderness EXTREMITIES: Left foot currently covered with a wound VAC - Labs CBC & Chem 7: 12/02/23 08:05 12/02/23 08:05 Labs: Abnormal Lab Results - Last 24 Hours (Table) 12/01/23 12/01/23 12/02/23 Range/Units 08:11 16:20 08:05 WBC 52.9 H* 32.6 H (3.8-10.6) k/uL RBC 2.28 L 2.17 L (4.30-5.90) m/uL Hgb 6.8 L* 6.6 L* (13.0-17.5) gm/dL Hct 21.9 L 20.0 L (39.0-53.0) % Plt Count 625 H 462 H (150-450) k/uL Neutrophils # (Manual) 25.10 H (1.3-7.7) k/uL Monocytes # (Manual) 1.30 H (0-1.0) k/uL Eosinophils # (Manual) 1.30 H (0-0.7) k/uL Metamyelocytes # (Man) 0.65 H (0) k/uL Myelocytes # (Manual) 0.98 H (0) k/uL Sodium (137-145) mmol/L Calcium (8.4-10.2) mg/dL Crossmatch See Detail 12/02/23 Range/Units 08:05 WBC (3.8-10.6) k/uL RBC (4.30-5.90) m/uL Hgb (13.0-17.5) gm/dL Hct (39.0-53.0) % Plt Count (150-450) k/uL Neutrophils # (Manual) (1.3-7.7) k/uL Monocytes # (Manual) (0-1.0) k/uL Eosinophils # (Manual) (0-0.7) k/uL Metamyelocytes # (Man) (0) k/uL Myelocytes # (Manual) (0) k/uL Sodium 133 L (137-145) mmol/L Calcium 7.2 L (8.4-10.2) mg/dL Crossmatch Microbiology - Last 24 Hours (Table) 11/29/23 18:47 Anaerobic Culture - Preliminary Foot - Left 11/29/23 18:47 Gram Stain - Final Foot - Left Wound Culture - Final Methicillin resist S. aureus 11/29/23 17:15 Gram Stain - Final Foot - Left Wound Culture - Final Methicillin resist S. aureus 11/28/23 11:12 Blood Culture - Preliminary Blood Assessment and Plan (1) Cellulitis of left foot Current Visit: Yes Status: Acute Code(s): L03.116 - CELLULITIS OF LEFT LOWER LIMB SNOMED Code(s): 07507304324593724 (2) MRSA bacteremia Current Visit: Yes Status: Acute Code(s): R78.81 - BACTEREMIA; B95.62 - METHICILLIN RESIS STAPH INFCT CAUSING DISEASES CLASSD ELSWHR SNOMED Code(s): 72795519474842136 Plan: 1patient presented hospital with left foot pain swelling redness and did have a big blister concerning for cellulitis and possible deep infection such as abscess likely from gram-positive skin francine in this patient with history of IV drug use however mention has not injected in the area high risk of MRSA infection 2-patient with MRSA bacteremia source is likely left foot abscess and cellulitis 3-blood cultures has been repeated 11/28/2023 and has been negative so far g, patient is status post surgical debridement and drainage x 2 of the left foot abscess with deep culture which are currently growing MRSA 4-patient will continue with the vancomycin, will need a PICC line and placement not a candidate for home IV antibiotic therapy discussed in detail with the patient and mother at the bedside Dictation was produced using [employer] dictation software. please excuse any grammatical, word or spelling errors. Time with Patient: Less than 30
--- NOTE | 2023-12-02 16:25 | P.CONS ---
History of Present Illness - Reason for Consult Consult date: 12/02/23 Anemia - History of Present Illness The patient is a 33-year-old white male, with multiple medical issues, including hepatitis C, And IV heroin use. The patient had coming to the hospital because of progressive pain, swelling and redness of the left foot. Apparently there had been some trauma because of someone stepping on it. The patient was subsequently found to have necrotizing fasciitis and underwent debridement x 2. At the time of admission his hemoglobin was in the 10 range, and subsequently dropped to 6.6, requiring transfusion. It was felt that the amount of blood loss from his debridement was not enough to explain the drop in his hemoglobin, due to which the consult was placed. The patient denies any prior history of blood related problems or malignancy. He has not noted any obvious bleeding. He is not on any anticoagulation or antiplatelet therapy. Patient's CT of the chest incidentally showed a 2.2 cm opacity in the right midlung. Echocardiogram did not show any evidence of endocarditis Review of Systems Constitutional: Reports fatigue Eyes: denies blurred vision, denies pain Ears: deny: decreased hearing, ear discharge, earache, tinnitus Ears, nose, mouth and throat: Denies headache, Denies sore throat Cardiovascular: Denies chest pain, Denies shortness of breath Respiratory: Denies cough Gastrointestinal: Denies abdominal pain, Denies diarrhea, Denies nausea, Denies vomiting Genitourinary: Reports as per HPI Musculoskeletal: Reports as per HPI Musculoskeletal: left: foot pain, foot swelling Integumentary: Reports as per HPI, Reports color changes Neurological: Reports weakness Psychiatric: Reports as per HPI Endocrine: Denies fatigue, Denies weight change Hematologic/Lymphatic: Reports as per HPI Past Medical History Past Medical History: No Reported History, Seizure Disorder Additional Past Medical History / Comment(s): hasn't had siezures since 2018 History of Any Multi-Drug Resistant Organisms: None Reported Year Discovered:: 11/26/23 MDRO Source:: Blood Past Surgical History: No Surgical Hx Reported Past Psychological History: No Psychological Hx Reported Smoking Status: Never smoker Past Alcohol Use History: Occasional Past Drug Use History: Marijuana, Methamphetamine - Past Family History Mother History Unknown: Yes Medications and Allergies Home Medications Medication Instructions Recorded Confirmed Type No Known Home Medications 08/21/19 11/26/23 History Allergies Allergy/AdvReac Type Severity Reaction Status Date / Time Penicillins Allergy Unknown Verified 11/26/23 18:32 Childhood Physical Exam Vitals: Vital Signs Temp Pulse Pulse Resp BP BP Pulse Ox 12/02/23 15:41 98.3 F 97 18 127/76 97 12/02/23 14:58 98.8 F 100 18 146/71 12/02/23 14:22 98.4 F 100 18 130/79 12/02/23 14:02 98.3 F 100 18 132/74 12/02/23 13:54 98.3 F 100 18 131/80 100 12/02/23 11:00 98.9 F 96 16 129/67 100 12/02/23 07:40 99.0 F 115 H 16 129/73 99 12/02/23 03:42 120 H 16 121/69 97 12/01/23 23:55 98.7 F 141 H 16 126/59 97 12/01/23 21:26 98.9 F 139 H 16 132/66 98 12/01/23 21:06 98.8 F 145 H 16 126/67 97 12/01/23 20:50 98.2 F 138 H 16 122/63 98 12/01/23 16:25 146 H 139/89 96 Intake and Output 12/02/23 12/02/23 12/02/23 06:59 14:59 22:59 Intake Total 310 380 310 Output Total 450 2600 Balance -140 -2220 310 Intake: IV 20 Invasive Line 3 20 Oral 360 Blood Product 310 0 310 Rc As-1 Unit 310 [id number] Rc As-1 Unit 0 [id number] Rc As-1 Unit 0 310 [id number] Output: Urine 450 2600 Other: Voiding Method Urinal Urinal - Constitutional General appearance: no acute distress - EENT Eyes: EOMI, PERRLA ENT: hearing grossly normal, normal oropharynx - Neck Neck: no lymphadenopathy Thyroid: bilateral: normal size - Respiratory Respiratory: bilateral: CTA - Cardiovascular Rhythm: regular Heart sounds: normal: S1, S2 - Gastrointestinal General gastrointestinal: normal bowel sounds, soft - Integumentary Extensive debridement of dorsum of left foot, with wound VAC in situ - Neurologic Neurologic: CNII-XII intact - Musculoskeletal Musculoskeletal: generalized weakness, strength equal bilaterally - Psychiatric Psychiatric: A&O x's 3, appropriate affect Results CBC & Chem 7: 12/02/23 08:05 12/02/23 08:05 Labs: Abnormal Lab Results - Last 24 Hours (Table) 12/01/23 12/01/23 12/02/23 Range/Units 08:11 16:20 08:05 WBC 52.9 H* 32.6 H (3.8-10.6) k/uL RBC 2.28 L 2.17 L (4.30-5.90) m/uL Hgb 6.8 L* 6.6 L* (13.0-17.5) gm/dL Hct 21.9 L 20.0 L (39.0-53.0) % Plt Count 625 H 462 H (150-450) k/uL Neutrophils # (Manual) 25.10 H (1.3-7.7) k/uL Monocytes # (Manual) 1.30 H (0-1.0) k/uL Eosinophils # (Manual) 1.30 H (0-0.7) k/uL Metamyelocytes # (Man) 0.65 H (0) k/uL Myelocytes # (Manual) 0.98 H (0) k/uL Sodium (137-145) mmol/L Calcium (8.4-10.2) mg/dL Crossmatch See Detail 12/02/23 Range/Units 08:05 WBC (3.8-10.6) k/uL RBC (4.30-5.90) m/uL Hgb (13.0-17.5) gm/dL Hct (39.0-53.0) % Plt Count (150-450) k/uL Neutrophils # (Manual) (1.3-7.7) k/uL Monocytes # (Manual) (0-1.0) k/uL Eosinophils # (Manual) (0-0.7) k/uL Metamyelocytes # (Man) (0) k/uL Myelocytes # (Manual) (0) k/uL Sodium 133 L (137-145) mmol/L Calcium 7.2 L (8.4-10.2) mg/dL Crossmatch Microbiology - Last 24 Hours (Table) 11/29/23 18:47 Anaerobic Culture - Preliminary Foot - Left 11/29/23 18:47 Gram Stain - Final Foot - Left Wound Culture - Final Methicillin resist S. aureus 11/29/23 17:15 Gram Stain - Final Foot - Left Wound Culture - Final Methicillin resist S. aureus 11/28/23 11:12 Blood Culture - Preliminary Blood Comments: CT of foot reviewed Echocardiogram report reviewed CT scan - abdomen: report reviewed CT scan - chest: report reviewed CT scan - pelvis: report reviewed Assessment and Plan (1) Anemia Narrative/Plan: The patient was noted to have some anemia at the time of admission, with further drop noted during admission. There is no obvious bleeding, other than blood loss related to his foot procedure, which is not felt to be enough to explain the degree of drop in hemoglobin. At this time, clinically, the most likely explanation is progressive anemia of inflammation. occult blood loss from the GI tract due to stress gastritis is also in the differential. -Agree with transfusion in the acute setting to keep hemoglobin greater than 7 -Anemia labs will be ordered, including iron studies and hemolysis markers to be done on labs drawn prior to transfusion. If this shows iron deficiency, we will need to consider a GI workup. On the other hand if workup is negative, indicating anemia of inflammation, then recommendations would be to manage conservatively with the expectation that hemoglobin will improve spontaneously as current medical condition resolves. Current Visit: Yes Status: Acute Code(s): D64.9 - ANEMIA, UNSPECIFIED SNOMED Code(s): 049407202 (2) Abnormal CT scan, chest Narrative/Plan: A 2.2 cm density was noted on chest CT, in the central right lung lesion. This is nonspecific. We would plan on repeating a CT chest in 4 to 6 weeks as an outpatient. If presence of a persistent opacity is confirmed, then additional workup such as PET scan will be ordered. Current Visit: Yes Status: Acute Code(s): R93.89 - ABNORMAL FINDINGS ON DX IMAGING OF OTH BODY STRUCTURES SNOMED Code(s): 79006932224116772 Plan: Defer to the admitting service and other consultants for management of his other medical problems
[2023-12-02 17:11] LABS: Albumin 2.1 g/dL (3.5-5.0); Bilirubin, Delta 0.4 mg/dL (0.0-0.2); Bilirubin,Unconjugated 0.1 mg/dL (0.0-1.1); Total Bilirubin 0.5 mg/dL (0.2-1.3); Total Protein 5.5 g/dL (6.3-8.2)
[2023-12-02 17:35] LABS: Reticulocyte % 0.1 % (0.5-2.0)
[2023-12-03 03:51] LABS: % Iron Saturation 41.35 (15.00-50.00)
[2023-12-03 08:11] LABS: HCT 26.8 % (39.0-53.0); MCH 29.8 pg (25.0-35.0); MCHC 33.1 g/dL (31.0-37.0); Mean Platelet Volume 8.8; Platelet Count 457 k/uL (150-450); RBC 2.98 m/uL (4.30-5.90); RDW 15.6 % (11.5-15.5); WBC 26.4 k/uL (3.8-10.6)
[2023-12-03 08:24] LABS: HGB 8.9 gm/dL (13.0-17.5)
[2023-12-03 08:38] LABS: African American GFR (CKD) >90 (>60 ml/min/1.73 sqM); Anion Gap 6 mmol/L; Blood Urea Nitrogen 10 mg/dL (9-20); C Reactive Protein 5.3 mg/dL (<1.0); Calcium 7.9 mg/dL (8.4-10.2); Carbon Dioxide 23 mmol/L (22-30); Chloride 106 mmol/L (98-107); Glucose 97 mg/dL (74-99); Non-African American GFR(CKD) >90 (>60 ml/min/1.73 sqM); Sodium 135 mmol/L (137-145)
[2023-12-03 09:21] LABS: Band Neutrophils % 9 %; Eosinophils # (M) 0.53 k/uL (0-0.7); Lymphocytes # (M) 3.96 k/uL (1.0-4.8); Metamyelocytes # (M) 1.58 k/uL (0); Metamyelocytes % 6 %; Monocytes # (M) 0.79 k/uL (0-1.0); Myelocytes # (M) 1.06 k/uL (0); Myelocytes % 4 %; Neutrophils % (M) 62 %; Nucleated Red Blood Cells 0 /100 WBC (0-0); Total Cells Counted 200
[2023-12-03 09:24] LABS: Toxic Granulation Present
[2023-12-03] MEDS: KETOROLAC 15 MG/ML 1 ML VIAL IVP SCH (12:02)
[2023-12-03] MEDS: GABAPENTIN 300 MG CAP PO SCH (12:02)
[2023-12-03] MEDS: ACETAMINOPHEN TAB 500 MG TAB PO SCH (12:02)
--- NOTE | 2023-12-03 13:53 | P.PN ---
Subjective Progress Note Date: 12/03/23 (delayed charting seen at 1015) Patient is a 33-year-old male with history of IV drug abuse with heroin and hepatitis C who initially presented with swelling and pain over his left foot. Patient subsequently found to have MRSA bacteremia and necrotizing fasciitis of the left foot. Patient has undergone debridement with vascular surgery and currently has wound VAC on. Infectious disease following. Patient seen and examined at bedside. He continues to have significant pain in his left foot. We had a very gio conversation about his drug use. He was using heroin about every other day and sometimes using fentanyl. He denies any diarrhea. No nausea or vomiting. No chest pain or shortness of breath. Discussed the need for multimodal pain regiment and patient is in agreement. We discussed that after this is initiated we will try to down titrate his opiates and he is also in agreement with that. Vital signs reviewed General: Nontoxic, no distress, appears at stated age Cardiovascular: S1S2 reg, no murmur Lungs: CTA bilateral, no rhonchi, no rales, no accessory muscle use Abdominal: Soft, nontender to palpation, no guarding Ext: No gross muscle atrophy, no edema b/l lower extremities, no contractures Neuro: CN II-XI grossly intact, no focal neuro deficits Psych: Alert, oriented, appropriate affect Assessment/Plan: Sepsis secondary to Necrotizing fasciitis of the left foot with MRSA abscess s/p debridement with washout of deep abscess 11/29/23 and Second debridement on the foot with wound VAC 12/01/2023 MRSA bacteremia - Blood cultures from 11/27 negative to date. -Vancomycin IV piggyback being dosed via trough and creatinine level day #8 -Echocardiogram without signs of infectious endocarditis -ID recs reviewed: Continue with vancomycin, will need a PICC line and not a candidate for home IV antibiotics. -Wound care note reviewed: Continue with wound VAC with follow-up 3 times weekly. -Await further vascular surgery recommendations -Wound culture of left foot with growth of MRSA Opiate dependency with known IV heroin abuse prior to hospital stay Intractable pain related to necrotizing fasciitis of the left foot -Strongly recommend that we treat this patient with a multimodal pain medication regimen consisting of both opiate and nonopiate induced pain medications -Had strong leveling conversation with patient regarding his pain -Start Tylenol 1000 mg oral 4 times daily scheduled, Toradol 15 mg IV every 6 hours scheduled, add Neurontin 300 mg p.o. 3 times daily -Discussed with patient that we will likely start decreasing some of his opiate medications tomorrow and patient is in agreement -Increase [place] to 10 mg oral 4 times daily in the hopes that patient will decrease IV Dilaudid use -Continue with fentanyl patch 50 mcg/h, Dilaudid 1 mg IV push every 2 hours -clonidine 0.1mg p.o. 3 times daily for heroin withdrawal Acute blood loss anemia secondary to bleeding from the wound in addition to acute inflammatory anemia Active thrombocytosis -Patient denies any signs or symptoms of GI bleeding -Hemoglobin stable at 8.9 -Hematology/oncology consultation reviewed. Iron studies reviewed from 11/29/2023 which are consistent with acute inflammatory anemia. -Status post 2 units of packed red blood cells CT chest showing right lower lobe consolidation -patient does not have any signs of pneumonia -outpatient follow-up CT scan in 3 months Hypokalemia, Resolved Imaging: None new Data Review: Labs reviewed from today include CBC and basic metabolic profile which are remarkable for white blood cell count 26.4, hemoglobin 8.9, platelets 457, sodium 135, and CRP of 5.3 DVT prophylaxis: Start Lovenox 40 mg daily Anticipated discharge date: Pending clinical course Anticipated discharge place: Patient will need to be in a supervised setting with PICC line in place This dictation was prepared using [employer] voice recognition software. Though every attempt is made to correct errors during dictation some may still exist. Objective - Vital Signs Vital signs: Vital Signs Temp 98.2 F 12/03/23 10:00 Pulse 106 H 12/03/23 10:00 Resp 16 12/03/23 10:00 BP 129/69 12/03/23 10:00 Pulse Ox 98 12/03/23 10:00 FiO2 Intake & Output 12/02/23 12/03/23 12/03/23 18:59 06:59 18:59 Intake Total 1000 540 118 Output Total 2600 4225 2350 Balance -7394 -7076 -2782 Intake: IV 20 Invasive Line 3 20 Oral 360 540 118 Blood Product 620 Rc As-1 Unit 310 [id number] Rc As-1 Unit 310 [id number] Output: Urine 2600 3875 2350 Other 350 Other: Voiding Method Urinal Urinal Urinal - Labs CBC & Chem 7: 12/03/23 06:52 12/03/23 06:52 Labs: Abnormal Lab Results - Last 24 Hours (Table) 11/29/23 11/29/23 11/29/23 Range/Units 16:47 16:47 16:47 WBC (3.8-10.6) k/uL RBC (4.30-5.90) m/uL Hgb (13.0-17.5) gm/dL Hct (39.0-53.0) % RDW (11.5-15.5) % Plt Count (150-450) k/uL Neutrophils # (Manual) (1.3-7.7) k/uL Lymphocytes # (Manual) (1.0-4.8) k/uL Monocytes # (Manual) (0-1.0) k/uL Eosinophils # (Manual) (0-0.7) k/uL Metamyelocytes # (Man) (0) k/uL Myelocytes # (Manual) (0) k/uL Retic Count (0.5-2.0) % Haptoglobin 302.0 H (31.2-198.0) mg/dL Sodium (137-145) mmol/L Creatinine (0.66-1.25) mg/dL Calcium (8.4-10.2) mg/dL Iron 55 L (65-175) UG/DL TIBC 133 L (228-460) UG/DL Transferrin 94.9 L (204.0-354.0) mg/dL Ferritin 547.0 H (22.0-322.0) ng/mL Delta Bilirubin 0.4 H (0.0-0.2) mg/dL Alkaline Phosphatase 182 H (38-126) U/L C-Reactive Protein (<1.0) mg/dL Total Protein 5.5 L (6.3-8.2) g/dL Albumin 2.1 L (3.5-5.0) g/dL Crossmatch 12/01/23 12/01/23 12/02/23 Range/Units 08:11 08:11 16:48 WBC 28.8 H (3.8-10.6) k/uL RBC 1.97 L (4.30-5.90) m/uL Hgb 6.2 L* D (13.0-17.5) gm/dL Hct 18.8 L* (39.0-53.0) % RDW (11.5-15.5) % Plt Count 461 H (150-450) k/uL Neutrophils # (Manual) 16.10 H (1.3-7.7) k/uL Lymphocytes # (Manual) 5.76 H (1.0-4.8) k/uL Monocytes # (Manual) 3.17 H (0-1.0) k/uL Eosinophils # (Manual) 1.73 H (0-0.7) k/uL Metamyelocytes # (Man) 0.86 H (0) k/uL Myelocytes # (Manual) 1.73 H (0) k/uL Retic Count 0.1 L (0.5-2.0) % Haptoglobin (31.2-198.0) mg/dL Sodium (137-145) mmol/L Creatinine (0.66-1.25) mg/dL Calcium (8.4-10.2) mg/dL Iron (65-175) UG/DL TIBC (228-460) UG/DL Transferrin (204.0-354.0) mg/dL Ferritin (22.0-322.0) ng/mL Delta Bilirubin (0.0-0.2) mg/dL Alkaline Phosphatase (38-126) U/L C-Reactive Protein (<1.0) mg/dL Total Protein (6.3-8.2) g/dL Albumin (3.5-5.0) g/dL Crossmatch See Detail 12/03/23 12/03/23 Range/Units 06:52 06:52 WBC 26.4 H (3.8-10.6) k/uL RBC 2.98 L (4.30-5.90) m/uL Hgb 8.9 L D (13.0-17.5) gm/dL Hct 26.8 L (39.0-53.0) % RDW 15.6 H (11.5-15.5) % Plt Count 457 H (150-450) k/uL Neutrophils # (Manual) 18.70 H (1.3-7.7) k/uL Lymphocytes # (Manual) (1.0-4.8) k/uL Monocytes # (Manual) (0-1.0) k/uL Eosinophils # (Manual) (0-0.7) k/uL Metamyelocytes # (Man) 1.58 H (0) k/uL Myelocytes # (Manual) 1.06 H (0) k/uL Retic Count (0.5-2.0) % Haptoglobin (31.2-198.0) mg/dL Sodium 135 L (137-145) mmol/L Creatinine 0.60 L (0.66-1.25) mg/dL Calcium 7.9 L (8.4-10.2) mg/dL Iron (65-175) UG/DL TIBC (228-460) UG/DL Transferrin (204.0-354.0) mg/dL Ferritin (22.0-322.0) ng/mL Delta Bilirubin (0.0-0.2) mg/dL Alkaline Phosphatase (38-126) U/L C-Reactive Protein 5.3 H (<1.0) mg/dL Total Protein (6.3-8.2) g/dL Albumin (3.5-5.0) g/dL Crossmatch Microbiology - Last 24 Hours (Table) 11/29/23 18:47 Anaerobic Culture - Preliminary Foot - Left
--- NOTE | 2023-12-03 14:20 | P.PN ---
Subjective Progress Note Date: 12/03/23 Principal diagnosis: Reason for follow-up is left foot cellulitis and bacteremia Patient is a 33-year-old male with a past medical history significant for seizure disorder history of IV drug presented to hospital with worsening pain swelling redness to the left foot with a large blood-filled blister diagnosis cellulitis blood culture positive for MRSA, CT chest increased density right middle lobe correlate for pneumonia or atelectasis. Patient is status post excisional debridement of the left foot with washout of the deep abscess completed by vascular surgery on 11/29/2023. Patient is status post repeat sharp excisional debridement of left foot to the muscle procedure completed on 12/01/2023 On today's evaluation that is 12/03/2023, Patient is afebrile patient is currently on room air and denies having any shortness of breath, the patient denies any chest pain or cough, the patient denies any nausea vomiting did not have any abdominal pain and no diarrhea, denies any worsening pain to the left foot. Patient white count is down to 26.4, creatinine 0.606 Objective - Vital Signs Vital signs: Vital Signs Temp 98.2 F 12/03/23 10:00 Pulse 106 H 12/03/23 10:00 Resp 16 12/03/23 10:00 BP 129/69 12/03/23 10:00 Pulse Ox 98 12/03/23 10:00 FiO2 Intake & Output 12/02/23 12/03/23 12/03/23 18:59 06:59 18:59 Intake Total 1000 540 118 Output Total 2600 4225 2350 Balance -2557 -3242 -1383 Intake: IV 20 Invasive Line 3 20 Oral 360 540 118 Blood Product 620 As-1 Unit 310 [id number] As-1 Unit 310 [id number] Output: Urine 2600 3875 2350 Other 350 Other: Voiding Method Urinal Urinal Urinal - Exam GENERAL DESCRIPTION: Middle-age male lying in bed in no distress RESPIRATORY SYSTEM: Unlabored breathing , decreased breath sounds at bases HEART: S1 S2 regular rate and rhythm , ABDOMEN: Soft , no tenderness EXTREMITIES: Left foot currently covered with a wound VAC - Labs CBC & Chem 7: 12/03/23 06:52 12/03/23 06:52 Labs: Abnormal Lab Results - Last 24 Hours (Table) 0511/29/23 11/29/23 Range/Units 16:47 16:47 16:47 WBC (3.8-10.6) k/uL RBC (4.30-5.90) m/uL Hgb (13.0-17.5) gm/dL Hct (39.0-53.0) % RDW (11.5-15.5) % Plt Count (150-450) k/uL Neutrophils # (Manual) (1.3-7.7) k/uL Lymphocytes # (Manual) (1.0-4.8) k/uL Monocytes # (Manual) (0-1.0) k/uL Eosinophils # (Manual) (0-0.7) k/uL Metamyelocytes # (Man) (0) k/uL Myelocytes # (Manual) (0) k/uL Retic Count (0.5-2.0) % Haptoglobin 302.0 H (31.2-198.0) mg/dL Sodium (137-145) mmol/L Creatinine (0.66-1.25) mg/dL Calcium (8.4-10.2) mg/dL Iron 55 L (65-175) UG/DL TIBC 133 L (228-460) UG/DL Transferrin 94.9 L (204.0-354.0) mg/dL Ferritin 547.0 H (22.0-322.0) ng/mL Delta Bilirubin 0.4 H (0.0-0.2) mg/dL Alkaline Phosphatase 182 H (38-126) U/L C-Reactive Protein (<1.0) mg/dL Total Protein 5.5 L (6.3-8.2) g/dL Albumin 2.1 L (3.5-5.0) g/dL Crossmatch 12/01/23 12/01/23 12/02/23 Range/Units 08:11 08:11 16:48 WBC 28.8 H (3.8-10.6) k/uL RBC 1.97 L (4.30-5.90) m/uL Hgb 6.2 L* D (13.0-17.5) gm/dL Hct 18.8 L* (39.0-53.0) % RDW (11.5-15.5) % Plt Count 461 H (150-450) k/uL Neutrophils # (Manual) 16.10 H (1.3-7.7) k/uL Lymphocytes # (Manual) 5.76 H (1.0-4.8) k/uL Monocytes # (Manual) 3.17 H (0-1.0) k/uL Eosinophils # (Manual) 1.73 H (0-0.7) k/uL Metamyelocytes # (Man) 0.86 H (0) k/uL Myelocytes # (Manual) 1.73 H (0) k/uL Retic Count 0.1 L (0.5-2.0) % Haptoglobin (31.2-198.0) mg/dL Sodium (137-145) mmol/L Creatinine (0.66-1.25) mg/dL Calcium (8.4-10.2) mg/dL Iron (65-175) UG/DL TIBC (228-460) UG/DL Transferrin (204.0-354.0) mg/dL Ferritin (22.0-322.0) ng/mL Delta Bilirubin (0.0-0.2) mg/dL Alkaline Phosphatase (38-126) U/L C-Reactive Protein (<1.0) mg/dL Total Protein (6.3-8.2) g/dL Albumin (3.5-5.0) g/dL Crossmatch See Detail 12/03/23 12/03/23 Range/Units 06:52 06:52 WBC 26.4 H (3.8-10.6) k/uL RBC 2.98 L (4.30-5.90) m/uL Hgb 8.9 L D (13.0-17.5) gm/dL Hct 26.8 L (39.0-53.0) % RDW 15.6 H (11.5-15.5) % Plt Count 457 H (150-450) k/uL Neutrophils # (Manual) 18.70 H (1.3-7.7) k/uL Lymphocytes # (Manual) (1.0-4.8) k/uL Monocytes # (Manual) (0-1.0) k/uL Eosinophils # (Manual) (0-0.7) k/uL Metamyelocytes # (Man) 1.58 H (0) k/uL Myelocytes # (Manual) 1.06 H (0) k/uL Retic Count (0.5-2.0) % Haptoglobin (31.2-198.0) mg/dL Sodium 135 L (137-145) mmol/L Creatinine 0.60 L (0.66-1.25) mg/dL Calcium 7.9 L (8.4-10.2) mg/dL Iron (65-175) UG/DL TIBC (228-460) UG/DL Transferrin (204.0-354.0) mg/dL Ferritin (22.0-322.0) ng/mL Delta Bilirubin (0.0-0.2) mg/dL Alkaline Phosphatase (38-126) U/L C-Reactive Protein 5.3 H (<1.0) mg/dL Total Protein (6.3-8.2) g/dL Albumin (3.5-5.0) g/dL Crossmatch Microbiology - Last 24 Hours (Table) 11/29/23 18:47 Anaerobic Culture - Preliminary Foot - Left 11/29/23 18:47 Gram Stain - Final Foot - Left Wound Culture - Final Methicillin resist S. aureus 11/29/23 17:15 Gram Stain - Final Foot - Left Wound Culture - Final Methicillin resist S. aureus Assessment and Plan (1) Cellulitis of left foot Current Visit: Yes Status: Acute Code(s): L03.116 - CELLULITIS OF LEFT LOWER LIMB SNOMED Code(s): 57464462569168976 (2) MRSA bacteremia Current Visit: Yes Status: Acute Code(s): R78.81 - BACTEREMIA; B95.62 - METHICILLIN RESIS STAPH INFCT CAUSING DISEASES [facility] SNOM[facility] Code(s): 95417633798698208 Plan: 1patient presented hospital with left foot pain swelling redness and did have a big blister concerning for cellulitis and possible deep infection such as abscess likely from gram-positive skin francine in this patient with history of IV drug use however mention has not injected in the area high risk of MRSA infection 2-patient with MRSA bacteremia source is likely left foot abscess and cellulitis 3-blood cultures has been repeated 11/28/2023 and has been negative so far g, patient is status post surgical debridement and drainage x 2 of the left foot abscess with deep culture which are currently growing MRSA 4-patient to continue with the vancomycin plan is for PICC line and placement questions answered Dictation was produced using [employer] dictation software. please excuse any grammatical, word or spelling errors. Time with Patient: Less than 30
[2023-12-04 05:58] LABS: Anisocytosis Slight; HCT 29.5 % (39.0-53.0); HGB 9.5 gm/dL (13.0-17.5); MCH 30.9 pg (25.0-35.0); MCHC 32.3 g/dL (31.0-37.0); Mean Platelet Volume 8.5; Platelet Count 532 k/uL (150-450); RBC 3.08 m/uL (4.30-5.90); RDW 16.7 % (11.5-15.5); WBC 15.5 k/uL (3.8-10.6)
[2023-12-04] MEDS: PANTOPRAZOLE 40 MG TABLET PO SCH (06:11)
[2023-12-04 06:18] LABS: INR 0.9 (<1.2); Partial Thromboplastin Time 24.5 sec (22.0-30.0)
[2023-12-04 06:20] LABS: MCV 95.8 fL (80.0-100.0)
[2023-12-04 06:28] LABS: ALT 24 U/L (4-49); AST 42 U/L (17-59); African American GFR (CKD) >90 (>60 ml/min/1.73 sqM); Albumin 2.7 g/dL (3.5-5.0); Alkaline Phosphatase 129 U/L (38-126); Anion Gap 2 mmol/L; Blood Urea Nitrogen 14 mg/dL (9-20); Calcium 8.1 mg/dL (8.4-10.2); Carbon Dioxide 25 mmol/L (22-30); Chloride 112 mmol/L (98-107); Glucose 114 mg/dL (74-99); Non-African American GFR(CKD) >90 (>60 ml/min/1.73 sqM); Potassium 4.5 mmol/L (3.5-5.1); Sodium 139 mmol/L (137-145); Total Bilirubin 0.7 mg/dL (0.2-1.3); Total Protein 6.3 g/dL (6.3-8.2)
[2023-12-04] MEDS: VANCOMYCIN TROUGH DUE 1 EACH MISC MISCELLANE ONE (12:01)
--- NOTE | 2023-12-04 13:50 | P.PN ---
Subjective Progress Note Date: 12/04/23 Principal diagnosis: Left foot necrotizing fasciitis Patient seen and examined. Doing well currently eating lunch. States pain is well-controlled. Objective - Vital Signs Vital signs: Vital Signs Temp 98 F 12/04/23 12:10 Pulse 93 12/04/23 12:10 Resp 16 12/04/23 12:10 BP 125/58 12/04/23 12:10 Pulse Ox 93 L 12/04/23 12:10 FiO2 Intake & Output 12/03/23 12/04/23 12/04/23 18:59 06:59 18:59 Intake Total 476 780 444 Output Total 2750 700 Balance -2274 80 444 Intake: Oral 476 780 444 Output: Urine 2750 700 Other: Voiding Method Urinal Urinal # Voids 1 # Bowel Movements 1 - Exam Left foot with wound VAC in place. Edema is significantly improved. - Constitutional General appearance: Present: cooperative, no acute distress - EENT Eyes: Present: PERRLA - Respiratory Respiratory: bilateral: CTA - Cardiovascular Rhythm: regular - Labs CBC & Chem 7: 12/04/23 05:29 12/04/23 05:29 Labs: Abnormal Lab Results - Last 24 Hours (Table) 12/04/23 12/04/23 Range/Units 05:29 05:29 WBC 15.5 H (3.8-10.6) k/uL RBC 3.08 L (4.30-5.90) m/uL Hgb 9.5 L (13.0-17.5) gm/dL Hct 29.5 L (39.0-53.0) % RDW 16.7 H (11.5-15.5) % Plt Count 532 H (150-450) k/uL Chloride 112 H (98-107) mmol/L Creatinine 0.58 L (0.66-1.25) mg/dL Glucose 114 H (74-99) mg/dL Calcium 8.1 L (8.4-10.2) mg/dL Alkaline Phosphatase 129 H (38-126) U/L Albumin 2.7 L (3.5-5.0) g/dL Microbiology - Last 24 Hours (Table) 11/29/23 18:47 Anaerobic Culture - Final Foot - Left 11/28/23 11:12 Blood Culture - Final Blood Assessment and Plan Assessment: 1. Left dorsal foot wound with abscess status post excisional debridement with washout of deep abscess 2. Necrotizing fasciitis of the left foot 3. IV drug user 4. Anemia, normocytic normochromic. Not likely from acute blood loss from foot wound. Plan: 1. Co right ntinue wound VAC as ordered, change Fridays. It has been discussed with patient that there is a possibility he will require below the knee amputation if his foot does not heal/improve. 2. Wound care consulted, appreciate their recommendations 3. Continue with pain control and medications as ordered and recommended from pain management 4. Continue with antibiotics per recommendations from infectious disease
--- NOTE | 2023-12-04 15:27 | P.PN ---
Subjective Progress Note Date: 12/04/23 (delayed charting seen at 0920) Patient is a 33-year-old male with history of IV drug abuse with heroin and hepatitis C who initially presented with swelling and pain over his left foot. Patient subsequently found to have MRSA bacteremia and necrotizing fasciitis of the left foot. Patient has undergone debridement with vascular surgery and currently has wound VAC on. Infectious disease following. Patient seen and examined at bedside. He feels much improved from yesterday. He is having some pain in his foot after getting up and walking to the bathroom. No other complaints currently. We did discuss that there is no point in rechecking his hepatitis profile as he has not received treatment for his known hepatitis C. He would like to be screened for HIV. Discussed the need for multimodal pain regiment and patient is in agreement. We discussed that after this is initiated we will try to down titrate his opiates and he is also in agreement with that. Vital signs reviewed General: Nontoxic, no distress, appears at stated age Cardiovascular: S1S2 reg, no murmur Lungs: CTA bilateral, no rhonchi, no rales, no accessory muscle use Abdominal: Soft, nontender to palpation, no guarding Ext: No gross muscle atrophy, no edema b/l lower extremities, no contractures Neuro: CN II-XI grossly intact, no focal neuro deficits Psych: Alert, oriented, appropriate affect Assessment/Plan: Sepsis secondary to Necrotizing fasciitis of the left foot with MRSA abscess s/p debridement with washout of deep abscess 11/29/23 and Second debridement on the foot with wound VAC 12/01/2023 MRSA bacteremia - Blood cultures from 11/27 negative to date. -Vancomycin IV piggyback being dosed via trough and creatinine level day #9 -Echocardiogram without signs of infectious endocarditis -Await further ID recs -Wound care recs: Continue with wound VAC with follow-up 3 times weekly. -Vascular surgery note reviewed: Possible need for BKA if the foot does not heal or improve. Continue with pain control. -Wound culture of left foot with growth of MRSA Hep C - Hx of active infection never received treatment - screen for HIV Opiate dependency with known IV heroin abuse prior to hospital stay Intractable pain related to necrotizing fasciitis of the left foot -Continue Tylenol 1000 mg oral 4 times daily scheduled, Toradol 15 mg IV every 6 hours scheduled, add Neurontin 300 mg p.o. 3 times daily -Decrease dilaudid to 1 mg q 3 hours, with plan to decrese to q4 hours tomorroe. -INorco to 10 mg oral 4 times daily -Continue with fentanyl patch 50 mcg/h, Dilaudid 1 mg IV push every 2 hours -clonidine 0.1mg p.o. 3 times daily for heroin withdrawal Acute blood loss anemia secondary to bleeding from the wound in addition to acute inflammatory anemia Active thrombocytosis -Patient denies any signs or symptoms of GI bleeding -Hemoglobin stable at 8.9 -Hematology/oncology consultation reviewed. Iron studies reviewed from 11/29/2023 which are consistent with acute inflammatory anemia. -Status post 2 units of packed red blood cells CT chest showing right lower lobe consolidation -patient does not have any signs of pneumonia -outpatient follow-up CT scan in 3 months Hypokalemia, Resolved Imaging: None new Data Review: Labs reviewed from today include CBC and CMP which are remarkable for white blood cell count 15.5, hemoglobin 9.5, platelets 532. DVT prophylaxis: Lovenox 40 mg daily Anticipated discharge date: Pending clinical course Anticipated discharge place: Patient will need to be in a supervised setting with PICC line in place This dictation was prepared using [employer] voice recognition software. Though every attempt is made to correct errors during dictation some may still exist. Objective - Vital Signs Vital signs: Vital Signs Temp 98 F 12/04/23 12:10 Pulse 93 12/04/23 12:10 Resp 16 12/04/23 12:10 BP 125/58 12/04/23 12:10 Pulse Ox 93 L 12/04/23 12:10 FiO2 Intake & Output 12/03/23 12/04/23 12/04/23 18:59 06:59 18:59 Intake Total 476 780 562 Output Total 2750 700 Balance -2274 80 562 Intake: Oral 476 780 562 Output: Urine 2750 700 Other: Voiding Method Urinal Urinal # Voids 1 # Bowel Movements 1 - Labs CBC & Chem 7: 12/04/23 05:29 12/04/23 05:29 Labs: Abnormal Lab Results - Last 24 Hours (Table) 12/04/23 12/04/23 Range/Units 05:29 05:29 WBC 15.5 H (3.8-10.6) k/uL RBC 3.08 L (4.30-5.90) m/uL Hgb 9.5 L (13.0-17.5) gm/dL Hct 29.5 L (39.0-53.0) % RDW 16.7 H (11.5-15.5) % Plt Count 532 H (150-450) k/uL Chloride 112 H (98-107) mmol/L Creatinine 0.58 L (0.66-1.25) mg/dL Glucose 114 H (74-99) mg/dL Calcium 8.1 L (8.4-10.2) mg/dL Alkaline Phosphatase 129 H (38-126) U/L Albumin 2.7 L (3.5-5.0) g/dL Microbiology - Last 24 Hours (Table) 11/29/23 18:47 Anaerobic Culture - Final Foot - Left 11/28/23 11:12 Blood Culture - Final Blood
[2023-12-04] MEDS: HYDROcodone/APAP 10-325MG 1 EACH TAB PO PRN (23:37)
[2023-12-05 09:09] LABS: ALT 22 U/L (4-49); AST 36 U/L (17-59); African American GFR (CKD) >90 (>60 ml/min/1.73 sqM); Albumin 2.8 g/dL (3.5-5.0); Alkaline Phosphatase 112 U/L (38-126); Anion Gap 4 mmol/L; Blood Urea Nitrogen 14 mg/dL (9-20); Carbon Dioxide 24 mmol/L (22-30); Chloride 107 mmol/L (98-107); Glucose 75 mg/dL (74-99); Magnesium 1.8 mg/dL (1.6-2.3); Non-African American GFR(CKD) >90 (>60 ml/min/1.73 sqM); Potassium 4.2 mmol/L (3.5-5.1); Sodium 135 mmol/L (137-145); Total Bilirubin 0.6 mg/dL (0.2-1.3); Total Protein 6.4 g/dL (6.3-8.2)
[2023-12-05 09:20] LABS: Anisocytosis Slight; HCT 28.9 % (39.0-53.0); Hypochromasia Slight; MCH 30.4 pg (25.0-35.0); Macrocytosis Slight; Mean Platelet Volume 9.7; Platelet Count 287 k/uL (150-450); RBC 2.95 m/uL (4.30-5.90); RDW 16.8 % (11.5-15.5); WBC 12.1 k/uL (3.8-10.6)
[2023-12-05] MEDS: HYDROmorphone 1 MG/ML 1 ML SYRINGE IVP PRN (11:26)
--- NOTE | 2023-12-05 11:47 | P.PN ---
Subjective Progress Note Date: 12/05/23 Principal diagnosis: Left foot wound, necrotizing fasciitis Patient is seen and examined today as a follow-up. States his pain has been well-controlled. He is scheduled to have his wound VAC changed today and would like to shower. He has been afebrile. Final wound culture with MRSA. Hemoglobin stable 9.0. Objective - Vital Signs Vital signs: Vital Signs Temp 98.6 F 12/05/23 08:00 Pulse 104 H 12/05/23 08:00 Resp 18 12/05/23 08:00 BP 132/73 12/05/23 08:00 Pulse Ox 100 12/05/23 08:00 FiO2 Intake & Output 12/04/23 12/05/23 12/05/23 18:59 06:59 18:59 Intake Total 1480 110 Output Total 500 920 Balance 980 -920 110 Intake: Intake, IV Titration 800 Amount Sodium Chloride 0.9% 1, 300 000 ml @ 50 mls/hr IV . Q20H [facility] Rx#:[id number] Vancomycin 1,750 mg In 500 Sodium Chloride 0.9% 500 ml 500 ml @ 167 mls/hr IVPB Q8H [facility] Rx#: [id number] Oral 680 110 Output: Urine 500 920 Other: Voiding Method Urinal # Voids 1 1 # Bowel Movements 1 - Exam General appearance: The patient is alert, oriented, appears in no acute distress. HET: Head is normocephalic and atraumatic. Neck: Supple. Abdomen: Soft, nondistended. Extremities: Left foot with wound VAC in place with good suction with serosanguineous output. Neurological: No focal deficits. Strength and sensation are grossly intact. - Labs CBC & Chem 7: 12/05/23 07:10 12/05/23 07:10 Labs: Abnormal Lab Results - Last 24 Hours (Table) 12/05/23 12/05/23 Range/Units 07:10 07:10 WBC 12.1 H (3.8-10.6) k/uL RBC 2.95 L (4.30-5.90) m/uL Hgb 9.0 L (13.0-17.5) gm/dL Hct 28.9 L (39.0-53.0) % RDW 16.8 H (11.5-15.5) % Sodium 135 L (137-145) mmol/L Creatinine 0.58 L (0.66-1.25) mg/dL Calcium 8.0 L (8.4-10.2) mg/dL Albumin 2.8 L (3.5-5.0) g/dL Microbiology - Last 24 Hours (Table) 12/03/23 06:52 Blood Culture - Preliminary Blood 11/29/23 18:47 Anaerobic Culture - Final Foot - Left Assessment and Plan Assessment: 1. Left dorsal foot wound with abscess status post excisional debridement with washout of deep abscess 2. Necrotizing fasciitis of the left foot 3. IV drug user 4. Anemia, normocytic normochromic. Not likely from acute blood loss from foot wound. Plan: 1. Continue wound VAC as ordered, change Fridays. It has been discussed with patient that there is a possibility he will require below the knee amputation if his foot does not heal/improve. 2. Wound care consulted, appreciate their recommendations 3. Continue with pain control and medications as ordered and recommended from pain management 4. Continue with antibiotics per recommendations from infectious disease 5. Consult to hematology for normocytic normochromic anemia, appreciate their recommendations 6. Rest of medical management per primary medical team Thank you for this consultation, we will continue to follow. The impression and plan of care has been dictated as directed. Dr. Malhotra I performed a history and examination of this patient, discussed the same with the dictator. I agree with the dictator's note ,documented as a scribe. Any additional findings or plans will be noted.
--- NOTE | 2023-12-05 13:07 | P.PN ---
Subjective Progress Note Date: 12/05/23 Hospital Course: 33-year-old male with history of IV drug abuse with heroin and hepatitis C who initially presented with swelling and pain over his left foot. Patient subsequently found to have MRSA bacteremia and necrotizing fasciitis of the left foot. Patient has undergone debridement with vascular surgery and currently has wound VAC on. Infectious disease following. On IV antibiotics. Having significant pain. Subjective: Patient seen and examined at bedside. No acute events overnight. Still having 10 out of 10 pain in the left foot. Denies any other complaints. Pertinent positives and negatives as discussed above, a complete review of systems was performed and all other systems are negative. Vitals Signs Reviewed. General: Nontoxic, no distress, appears at stated age Derm: Warm, dry, left foot wound VAC in place. Head: Atraumatic, normocephalic, symmetric Eyes: EOMI, no lid lag, anicteric sclera Mouth: No lip lesion, mucus membranes moist Cardiovascular: S1S2 reg, no murmur Lungs: CTA bilateral, no rhonchi, no rales, no accessory muscle use Abdominal: Soft, nontender to palpation, no guarding, no appreciable organomegaly Ext: No gross muscle atrophy, no edema, no contractures Neuro: CN II-XI grossly intact, no focal neuro deficits Psych: Alert, oriented, appropriate affect Data Reviewed Today: Pertinent Labs: WBC 12.1, hemoglobin 9, platelet 287, sodium 135, creatinine 0.5., Magnesium 1.8, vancomycin trough 23.3 Imaging: No new imaging Assessment and Plan: Sepsis secondary to Necrotizing fasciitis of the left foot with MRSA abscess s/p debridement with washout of deep abscess 11/29/23 and Second debridement on the foot with wound VAC 12/01/2023 MRSA bacteremia - Blood cultures from 11/27 negative to date. -Vancomycin IV piggyback being dosed via trough and creatinine level, monitor for renal toxicity -Echocardiogram without signs of infectious endocarditis -ID following -Wound care recs: Continue with wound VAC with follow-up 3 times weekly. -Vascular surgery note reviewed: Possible need for BKA if the foot does not heal or improve. Continue with pain control. -Wound culture of left foot with growth of MRSA Hep C - Hx of active infection never received treatment - screen for HIV pending -Outpatient follow-up Opiate dependency with known IV heroin abuse prior to hospital stay Intractable pain related to necrotizing fasciitis of the left foot Sinus tachycardia -Tylenol 1000 mg decreased to every 8 hours scheduled, Toradol 15 mg IV every 6 hours scheduled, continue Neurontin 300 mg p.o. 3 times daily -Dilaudid decreased to 1 mg every 4 hours as needed for severe breakthrough pain -[place] to 10 mg oral 4 times daily as needed -Continue with fentanyl patch 50 mcg/h -clonidine 0.1mg p.o. 3 times daily for heroin withdrawal Acute blood loss anemia secondary to bleeding from the wound in addition to acute inflammatory anemia Active thrombocytosis -Hemoglobin stable, no signs of active bleeding -Hematology/oncology consultation reviewed. Iron studies reviewed from 11/29/2023 which are consistent with acute inflammatory anemia. -Status post 2 units of packed red blood cells CT chest showing right lower lobe consolidation -patient does not have any signs of pneumonia -outpatient follow-up CT scan in 3 months Hypokalemia, Resolved DVT ppx: Subcu heparin Code status: Full code Anticipated discharge place: Pending clinical course Anticipated discharge time: Pending clinical course Objective - Vital Signs Vital signs: Vital Signs Temp 97.6 F 12/05/23 11:27 Pulse 87 12/05/23 11:27 Resp 18 12/05/23 11:27 BP 127/74 12/05/23 11:27 Pulse Ox 100 12/05/23 11:27 FiO2 Intake & Output 12/04/23 12/05/23 12/05/23 18:59 06:59 18:59 Intake Total 1480 110 Output Total 500 920 Balance 980 -920 110 Intake: Intake, IV Titration 800 Amount Sodium Chloride 0.9% 1, 300 000 ml @ 50 mls/hr IV . Q20H [facility] Rx#:[id number] Vancomycin 1,750 mg In 500 Sodium Chloride 0.9% 500 ml 500 ml @ 167 mls/hr IVPB Q8H [facility] Rx#: [id number] Oral 680 110 Output: Urine 500 920 Other: Voiding Method Urinal # Voids 1 1 # Bowel Movements 1 - Labs CBC & Chem 7: 12/05/23 07:10 12/05/23 07:10 Labs: Abnormal Lab Results - Last 24 Hours (Table) 12/03/23 12/05/23 12/05/23 Range/Units 06:52 07:10 07:10 WBC 12.1 H (3.8-10.6) k/uL RBC 2.95 L (4.30-5.90) m/uL Hgb 9.0 L (13.0-17.5) gm/dL Hct 28.9 L (39.0-53.0) % RDW 16.8 H (11.5-15.5) % Sodium 135 L (137-145) mmol/L Creatinine 0.58 L (0.66-1.25) mg/dL Calcium 8.0 L (8.4-10.2) mg/dL Albumin 2.8 L (3.5-5.0) g/dL RBC Folate 880 H (280 - 791) ng/mL Microbiology - Last 24 Hours (Table) 12/03/23 06:52 Blood Culture - Preliminary Blood 11/29/23 18:47 Anaerobic Culture - Final Foot - Left
[2023-12-05] MEDS ORDERED: HYDROmorphone 1 MG/ML 1 ML SYRINGE ONE (13:45)
--- NOTE | 2023-12-05 13:56 | P.PN ---
Subjective Progress Note Date: 12/05/23 No acute events. Patient continues on IV antibiotics and wound VAC. Counts stable. WBC 12.1, hemoglobin 9.0, platelets 287,000. Objective - Vital Signs Vital signs: Vital Signs Temp 97.6 F 12/05/23 11:27 Pulse 87 12/05/23 11:27 Resp 18 12/05/23 11:27 BP 127/74 12/05/23 11:27 Pulse Ox 100 12/05/23 11:27 FiO2 Intake & Output 12/04/23 12/05/23 12/05/23 18:59 06:59 18:59 Intake Total 1480 110 Output Total 500 920 Balance 980 -920 110 Intake: Intake, IV Titration 800 Amount Sodium Chloride 0.9% 1, 300 000 ml @ 50 mls/hr IV . Q20H [facility] Rx#:[id number] Vancomycin 1,750 mg In 500 Sodium Chloride 0.9% 500 ml 500 ml @ 167 mls/hr IVPB Q8H [facility] Rx#: [id number] Oral 680 110 Output: Urine 500 920 Other: Voiding Method Urinal # Voids 1 1 # Bowel Movements 1 - Constitutional General appearance: Present: average body habitus, no acute distress - EENT Eyes: Present: anicteric sclerae, EOMI ENT: Present: hearing grossly normal - Respiratory Details: breathing is even and unlabored - Cardiovascular Details: skin warm and dry - Integumentary Integumentary Comment(s): large wound left foot, wound vac in place - Neurologic Neurologic: Present: CNII-XII intact - Musculoskeletal Musculoskeletal: Present: strength equal bilaterally - Psychiatric Psychiatric: Present: A&O x's 3 - Labs CBC & Chem 7: 12/05/23 07:10 12/05/23 07:10 Labs: Abnormal Lab Results - Last 24 Hours (Table) 12/05/23 12/05/23 Range/Units 07:10 07:10 WBC 12.1 H (3.8-10.6) k/uL RBC 2.95 L (4.30-5.90) m/uL Hgb 9.0 L (13.0-17.5) gm/dL Hct 28.9 L (39.0-53.0) % RDW 16.8 H (11.5-15.5) % Sodium 135 L (137-145) mmol/L Creatinine 0.58 L (0.66-1.25) mg/dL Calcium 8.0 L (8.4-10.2) mg/dL Albumin 2.8 L (3.5-5.0) g/dL Microbiology - Last 24 Hours (Table) 12/03/23 06:52 Blood Culture - Preliminary Blood 11/29/23 18:47 Anaerobic Culture - Final Foot - Left Assessment and Plan (1) Abnormal CT scan, chest Current Visit: Yes Status: Acute Code(s): R93.89 - ABNORMAL FINDINGS ON DX IMAGING OF OTH BODY STRUCTURES SNOMED Code(s): 03034209711871911 (2) Anemia Current Visit: Yes Status: Acute Code(s): D64.9 - ANEMIA, UNSPECIFIED SNOMED Code(s): 565555533 (3) Cellulitis of left foot Current Visit: Yes Status: Acute Code(s): L03.116 - CELLULITIS OF LEFT LOWER LIMB SNOMED Code(s): 51447748001257729 (4) MRSA bacteremia Current Visit: Yes Status: Acute Code(s): R78.81 - BACTEREMIA; B95.62 - METHICILLIN RESIS STAPH INFCT CAUSING DISEASES CLASSD [facility] SNOMED Code(s): 88766183132525018 Plan: Anemia: The patient was noted to have some anemia at the time of admission, with further drop noted during admission. There is no obvious bleeding, other than blood loss related to his foot procedure, which is not felt to be enough to explain the degree of drop in hemoglobin. At this time, clinically, the most likely explanation is progressive anemia of inflammation. Occult blood loss from the GI tract due to stress gastritis is also in the differential. -Agree with transfusion in the acute setting to keep hemoglobin greater than 7 -Anemia labs ordered, including iron studies and hemolysis markers to be done on labs drawn prior to transfusion. -Iron studies consistent with anemia of inflammation. Hemolysis workup negative -Continue to manage conservatively with close monitoring of CBC and supportive transfusions and would expect that hemoglobin will continue to improve as current medical condition resolves. Abnormal CT chest: A 2.2 cm density was noted on chest CT, in the central right lung lesion. This is nonspecific. We will plan on repeating a CT chest in 4 to 6 weeks as an outpatient. If presence of a persistent opacity is confirmed, then additional workup such as PET scan will be ordered.
[2023-12-05 15:55] LABS: HIV 2 AB Non-Reactive (Non-Reactive); HIV AB P24 Non-Reactive (Non-Reactive); HIV P24 AG Non-Reactive (Non-Reactive)
[2023-12-05] MEDS: HEPARIN SODIUM,PORCINE 5,000 UNIT/ML 1 ML VIAL SQ SCH (16:09)
[2023-12-05] MEDS: ACETAMINOPHEN TAB 500 MG TAB PO SCH (16:18)
[2023-12-05] MEDS: HYDROmorphone 1 MG/ML 1 ML SYRINGE IVP STA (19:01)
[2023-12-06 11:01] LABS: African American GFR (CKD) >90 (>60 ml/min/1.73 sqM); Anion Gap 3 mmol/L; Blood Urea Nitrogen 10 mg/dL (9-20); Calcium 8.4 mg/dL (8.4-10.2); Carbon Dioxide 27 mmol/L (22-30); Chloride 106 mmol/L (98-107); Glucose 76 mg/dL (74-99); Non-African American GFR(CKD) >90 (>60 ml/min/1.73 sqM); Potassium 4.5 mmol/L (3.5-5.1); Sodium 136 mmol/L (137-145)
[2023-12-06 11:03] LABS: Anisocytosis Slight; Basophils # (A) 0.1 k/uL (0-0.2); Basophils % (A) 1 %; Eosinophils # (A) 0.5 k/uL (0-0.7); Eosinophils % (A) 5 %; HCT 30.2 % (39.0-53.0); HGB 9.2 gm/dL (13.0-17.5); Hypochromasia Slight; Lymphocytes # (A) 1.5 k/uL (1.0-4.8); Lymphocytes % (A) 15 %; MCHC 30.5 g/dL (31.0-37.0); MCV 98.4 fL (80.0-100.0); Macrocytosis Slight; Mean Platelet Volume 8.7; Monocytes # (A) 0.6 k/uL (0-1.0); Monocytes % (A) 6 %; Neutrophils # (A) 6.9 k/uL (1.3-7.7); Neutrophils % (A) 71 %; RBC 3.07 m/uL (4.30-5.90); RDW 16.6 % (11.5-15.5); WBC 9.6 k/uL (3.8-10.6)
[2023-12-06 11:08] LABS: Platelet Count 785 k/uL (150-450)
--- NOTE | 2023-12-06 13:43 | P.PN ---
Subjective Progress Note Date: 12/06/23 Principal diagnosis: Left foot wound, necrotizing fasciitis Patient seen and examined today as a follow-up. Yesterday he underwent wound VAC dressing change and states he had quite a bit of pain. States he is concerned about the wound VAC and dressing changes. Patient plan is for discharge to subacute rehab for IV antibiotic therapy and wound care. So far patient is not been able to be placed. Awaiting placement at this time. Patient denies any fevers or chills, no abdominal pain, nausea or vomiting. No chest pain or shortness of breath. Continues with serosanguineous output from wound VAC. Objective - Vital Signs Vital signs: Vital Signs Temp 98.8 F 12/06/23 04:00 Pulse 97 12/06/23 04:00 Resp 18 12/06/23 04:00 BP 129/77 12/06/23 04:00 Pulse Ox 100 12/06/23 04:00 FiO2 Intake & Output 12/05/23 12/06/23 12/06/23 18:59 06:59 18:59 Intake Total 330 480 Output Total 1450 Balance 330 -970 Intake: Oral 330 480 Output: Urine 1450 Other: Voiding Method Urinal Urinal # Voids 1 - Exam General appearance: The patient is alert, oriented, appears in no acute distress. HET: Head is normocephalic and atraumatic. Neck: Supple. Abdomen: Soft, nondistended. Extremities: Left foot with wound VAC in place with good suction with serosanguineous output. Neurological: No focal deficits. Strength and sensation are grossly intact. - Labs CBC & Chem 7: 12/06/23 09:43 12/06/23 09:43 Labs: Abnormal Lab Results - Last 24 Hours (Table) 12/03/23 12/05/23 12/05/23 Range/Units 06:52 07:10 07:10 WBC 12.1 H (3.8-10.6) k/uL RBC 2.95 L (4.30-5.90) m/uL Hgb 9.0 L (13.0-17.5) gm/dL Hct 28.9 L (39.0-53.0) % RDW 16.8 H (11.5-15.5) % Sodium 135 L (137-145) mmol/L Creatinine 0.58 L (0.66-1.25) mg/dL Calcium 8.0 L (8.4-10.2) mg/dL Albumin 2.8 L (3.5-5.0) g/dL RBC Folate 880 H (280 - 791) ng/mL Microbiology - Last 24 Hours (Table) 12/03/23 06:52 Blood Culture - Preliminary Blood Assessment and Plan Assessment: 1. Left dorsal foot wound with abscess status post excisional debridement with washout of deep abscess 2. Necrotizing fasciitis of the left foot 3. IV drug user 4. Anemia, normocytic normochromic. Not likely from acute blood loss from foot wound. Plan: 1. Continue wound VAC as ordered, change Fridays. It has been discussed with patient that there is a possibility he will require below the knee amputation if his foot does not heal/improve. 2. Wound care consulted, appreciate their recommendations. Patient will need continued formal wound clinic follow-up and wound care. 3. Continue with pain control and medications as ordered and recommended from pain management 4. Continue with antibiotics per recommendations from infectious disease 5. Consult to hematology for normocytic normochromic anemia, appreciate their recommendations 6. Rest of medical management per primary medical team Discussed with patient importance formal wound care and 6 continued outpatient IV antibiotics with recommendation to subacute rehab due to patient's IV drug history. Discussed if patient is noncompliant there is a good possibility he would require a below the knee amputation in the future. He verbalized understanding. Thank you for this consultation, patient is cleared for discharge from vascular surgery. Recommend outpatient follow-up with wound care and follow-up in a couple weeks with vascular surgery. The impression and plan of care has been dictated as directed. Dr. Malhotra I performed a history and examination of this patient, discussed the same with the dictator. I agree with the dictator's note ,documented as a scribe. Any additional findings or plans will be noted.
--- NOTE | 2023-12-06 13:44 | P.PN ---
Subjective Progress Note Date: 12/06/23 Hospital course: Patient is a 33-year-old male with history of IV drug abuse with heroin and hepatitis C who initially presented with swelling and pain over his left foot. Patient subsequently found to have MRSA bacteremia and necrotizing fasciitis of the left foot. Patient underwent debridement of left foot on 12/01/2023 by vascular surgery and currently has wound VAC in place. Infectious disease following. On IV antibiotics. Physical exam: Patient seen and fully evaluated at bedside this morning. Wound VAC remains in place to left foot. Patient appears slightly agitated this morning and expressing frustration over need for rehab and possible location of rehab. Vital signs reviewed and stable. General: Nontoxic, no distress and appears stated age. Derm: Skin warm and dry, wound VAC in place left foot Head: Atraumatic, normocephalic and symmetric. Eyes: EOMs intact, no lid lag, and anicteric sclera Mouth: no lip lesions, mucus membranes moist Cardiovascular: regular rate and rhythm with normal S1S2, no murmur, positive posterior tibial pulses bilaterally, and cap refill < 2 seconds. Lungs: Respirations even, regular, and unlabored on room air. Lungs CTA bilaterally, no rhonchi, no rales, no wheezing, and no accessory muscle usage. Abdominal: soft, nontender to palpation, no guarding, no appreciable organomegaly Ext: Movement and sensation intact. No gross muscle atrophy, no edema, no contractures Neuro: Speech clear, face symmetrical and CN II-XII grossly intact with no noted focal neuro deficits Psych: Alert and oriented to person, place, time, and situation. Appropriate and pleasant affect. Assessment and Plan of Care: Sepsis secondary to Necrotizing fasciitis of the left foot with MRSA abscess s/p debridement with washout of deep abscess 11/29/23 and Second debridement on the foot with wound VAC 12/01/2023 MRSA bacteremia -Repeat Blood cultures from 11/27 and 12/02 are negative to date. -Continue Vancomycin 1750 mg IVPB every 8 hours while monitoring renal function and vancomycin trough closely to monitor for any signs of vancomycin associated renal toxicity. Currently vancomycin trough therapeutic at 17.5. -Echocardiogram without signs of infectious endocarditis -ID following, reviewed documentation in chart -Vascular surgery following, discussed plan of care with vascular surgeon and vascular surgeon [employer] at bedside, recommending continued aggressive medical management, if patient declines rehab and fails to improve they may need to discuss the possibility of BKA. -Wound care recs: Continue with wound VAC with follow-up 3 times weekly. -Wound culture of left foot with growth of MRSA Hep C -Hx of active infection never received treatment -HIV nonreactive -Outpatient follow-up Opiate dependency with known IV heroin abuse prior to hospital stay Intractable pain related to necrotizing fasciitis of the left foot Sinus tachycardia -Tylenol 1000 mg decreased to every 8 hours scheduled, Toradol 15 mg IV every 6 hours scheduled, continue Neurontin 300 mg p.o. 3 times daily -Dilaudid decreased to 1 mg every 4 hours as needed for severe breakthrough pain -Joy to 10 mg oral 4 times daily as needed -Continue with fentanyl patch 50 mcg/h -Clonidine 0.1mg p.o. 3 times daily for heroin withdrawal Acute blood loss anemia secondary to bleeding from the wound in addition to acute inflammatory anemia Active thrombocytosis, reactive -Hemoglobin stable, no signs of active bleeding -Hematology/oncology consultation reviewed. Iron studies reviewed from 11/29/2023 which are consistent with acute inflammatory anemia. -Status post 2 units of packed red blood cells, hemoglobin stable at 9.2. -Platelet count currently elevated at [address] chest showing right lower lobe consolidation -Patient does not have any signs of pneumonia -Recommend outpatient follow-up CT scan in 3 months Hypokalemia, Resolved Data and imaging reviewed: -Morning labs reviewed. CBC showing persistent anemia with hemoglobin stable at 9.2 platelet count showing thrombocytosis with elevated platelet count of 785 this morning. BMP showing sodium of 136 and stable renal function with BUN of 10, creatinine 0.48, GFR greater than 90. Vancomycin trough therapeutic at 17.5. HIV serology nonreactive. -Vital signs reviewed. Blood pressure 132/73, heart rate 107, respiratory rate 17, temp 98.6 F, and SpO2 of 100% on room air. CODE STATUS: Full code DVT prophylaxis: Heparin Anticipated discharge date: Clinical course to determine Anticipated discharge place: [facility] Patient was seen independently by Nurse Pracitioner. This document was prepared using [employer] dictation software. Please allow for errors in it assistant, while rare they do occur. .Jn Neff NP rendered care for this patient independently, reviewed the findings and plan as documented in the note above. I did not physically speak with or examine the patient on this date. Objective - Vital Signs Vital signs: Vital Signs Temp 98.8 F 12/06/23 04:00 Pulse 97 12/06/23 04:00 Resp 18 12/06/23 04:00 BP 129/77 12/06/23 04:00 Pulse Ox 100 12/06/23 04:00 FiO2 Intake & Output 12/05/23 12/06/23 12/06/23 18:59 06:59 18:59 Intake Total 330 480 Output Total 1450 Balance 330 -970 Intake: Oral 330 480 Output: Urine 1450 Other: Voiding Method Urinal Urinal # Voids 1 - Labs CBC & Chem 7: 12/06/23 09:43 12/06/23 09:43 Labs: Abnormal Lab Results - Last 24 Hours (Table) 12/03/23 12/05/23 12/05/23 Range/Units 06:52 07:10 07:10 WBC 12.1 H (3.8-10.6) k/uL RBC 2.95 L (4.30-5.90) m/uL Hgb 9.0 L (13.0-17.5) gm/dL Hct 28.9 L (39.0-53.0) % RDW 16.8 H (11.5-15.5) % Sodium 135 L (137-145) mmol/L Creatinine 0.58 L (0.66-1.25) mg/dL Calcium 8.0 L (8.4-10.2) mg/dL Albumin 2.8 L (3.5-5.0) g/dL RBC Folate 880 H (280 - 791) ng/mL Microbiology - Last 24 Hours (Table) 12/03/23 06:52 Blood Culture - Preliminary Blood
--- NOTE | 2023-12-06 15:35 | XR ---
EXAMINATION TYPE: XR chest 1V confirm line plcmt DATE OF EXAM: 12/06/2023 3:23 PM CLINICAL INDICATION:Male, 33 years old with history of picc placement; COMPARISON: Chest radiographs from 11/27/2023 TECHNIQUE: XR chest 1V confirm line plcmt Frontal view of the chest. FINDINGS: Lungs/Pleura: There is no evidence of pleural effusion, focal consolidation, or pneumothorax. Pulmonary vascularity: Unremarkable. Heart/mediastinum: Cardiomediastinal silhouette is unremarkable. Musculoskeletal: No acute osseous pathology. Other findings: Right PICC terminating at the superior vena cava. IMPRESSION: Appropriate placement of right PICC line. Improved aeration of the right lower lung.
--- NOTE | 2023-12-06 16:45 | P.PN ---
Subjective Progress Note Date: 12/06/23 Principal diagnosis: anemia In f/u pt reporting that his wound is healing well, tolerating the wound vac. Denies any bleeding, his Hgb has been stable after 4 units. He is needing prolonged IV antibiotic therapy. Objective - Vital Signs Vital signs: Vital Signs Temp 98.7 F 12/06/23 11:10 Pulse 106 H 12/06/23 11:10 Resp 18 12/06/23 11:10 BP 129/68 12/06/23 11:10 Pulse Ox 100 12/06/23 11:10 FiO2 Intake & Output 12/05/23 12/06/23 12/06/23 18:59 06:59 18:59 Intake Total 163 337 2840 Output Total 1450 Balance 330 -970 1054 Intake: Oral 816 799 6147 Output: Urine 1450 Other: Voiding Method Urinal Urinal Urinal # Voids 1 - Constitutional General appearance: Present: average body habitus, cooperative, no acute distress - EENT Eyes: Present: anicteric sclerae, EOMI ENT: Present: hearing grossly normal - Respiratory Respiratory: bilateral: CTA - Cardiovascular Rhythm: regular Heart sounds: normal: S1, S2 Abnormal Heart Sounds: Absent: systolic murmur, diastolic murmur, rub, S3 Gallop, S4 Gallop, click, other - Peripheral edema leg Peripheral Edema: bilateral: None - Integumentary Integumentary Comment(s): lt foot wound vac, skin is warm, pink Pt has multiple tattoos - Neurologic Neurologic: Present: CNII-XII intact - Musculoskeletal Musculoskeletal: Present: strength equal bilaterally - Psychiatric Psychiatric: Present: A&O x's 3, appropriate affect, intact judgment & insight - Labs CBC & Chem 7: 12/06/23 09:43 12/06/23 09:43 Labs: Abnormal Lab Results - Last 24 Hours (Table) 12/06/23 12/06/23 Range/Units 09:43 09:43 RBC 3.07 L (4.30-5.90) m/uL Hgb 9.2 L (13.0-17.5) gm/dL Hct 30.2 L (39.0-53.0) % MCHC 30.5 L (31.0-37.0) g/dL RDW 16.6 H (11.5-15.5) % Plt Count 785 H D (150-450) k/uL Sodium 136 L (137-145) mmol/L Creatinine 0.48 L (0.66-1.25) mg/dL Microbiology - Last 24 Hours (Table) 12/03/23 06:52 Blood Culture - Preliminary Blood Assessment and Plan (1) Cellulitis of left foot Current Visit: Yes Status: Acute Priority: High Code(s): L03.116 - CELLULI TIS OF LEFT LOWER LIMB SNOMED Code(s): 01724580054499596 (2) Anemia Current Visit: Yes Status: Acute Priority: Medium Code(s): D64.9 - ANEMIA, UNSPECIFIED SNOMED Code(s): 661272637 (3) Abnormal CT scan, chest Current Visit: Yes Status: Acute Priority: Medium Code(s): R93.89 - ABNORMAL FINDINGS ON DX IMAGING OF OTH BODY STRUCTURES SNOMED Code(s): 12129250296103910 Plan: Anemia, of inflammation -Elevated inflammatory markers, acute infection, wound vac, IV fluid, poor marrow response 2/2 marrow damage from drug abuse all contributing to anemia -S/P 4 units PRBCs for Hgb 6.2, Hgb currently 9.2. Overall stable Hgb. Transfuse for Hgb <7 -F/U with pt outpt to see if Hgb normalizes as pt recovers from acute illness Cellulitis -Has wound vac, abx, doing well overall. No recent fevers. Defer mgmt of the same to wound care/ID 2.2cm rt lung lesion -Recommend repeat CT in 6-8 weeks. -will f/u on the same
[2023-12-06] MEDS: VANCOMYCIN TROUGH DUE 1 EACH MISC MISCELLANE ONE (20:06)
--- NOTE | 2023-12-06 22:21 | P.PN ---
Subjective Progress Note Date: 12/05/23 Principal diagnosis: Reason for follow-up is left foot cellulitis and bacteremia Patient is a 33-year-old male with a past medical history significant for seizure disorder history of IV drug presented to hospital with worsening pain swelling redness to the left foot with a large blood-filled blister diagnosis cellulitis blood culture positive for MRSA, CT chest increased density right middle lobe correlate for pneumonia or atelectasis. Patient is status post excisional debridement of the left foot with washout of the deep abscess completed by vascular surgery on 11/29/2023. Patient is status post repeat sharp excisional debridement of left foot to the muscle procedure completed on 12/01/2023 On today's evaluation that is 12/05/2023,the patient denies any fever or any chills, patient is breathing comfortably on room air, the patient denies chest pain shortness of breath and no significant cough, patient denies abdominal pain, no nausea vomiting or diarrhea. Patient denies any worsening pain to the left foot. Patient white count is down to 12.1 creatinine 0.58 Objective - Vital Signs Vital signs: Vital Signs Temp 97.6 F 12/05/23 11:27 Pulse 87 12/05/23 11:27 Resp 18 12/05/23 11:27 BP 127/74 12/05/23 11:27 Pulse Ox 100 12/05/23 11:27 FiO2 Intake & Output 12/04/23 12/05/23 12/05/23 18:59 06:59 18:59 Intake Total 1480 220 Output Total 500 920 Balance 980 -920 220 Intake: Intake, IV Titration 800 Amount Sodium Chloride 0.9% 1, 300 000 ml @ 50 mls/hr IV . Q20H [facility] Rx#:[id number] Vancomycin 1,750 mg In 500 Sodium Chloride 0.9% 500 ml 500 ml @ 167 mls/hr IVPB Q8H [facility] Rx#: [id number] Oral 680 220 Output: Urine 500 920 Other: Voiding Method Urinal # Voids 1 1 # Bowel Movements 1 - Exam GENERAL DESCRIPTION: Middle-age male lying in bed in no distress RESPIRATORY SYSTEM: Unlabored breathing , decreased breath sounds at bases HEART: S1 S2 regular rate and rhythm , ABDOMEN: Soft , no tenderness EXTREMITIES: Left foot currently covered with a wound VAC - Labs CBC & Chem 7: 12/06/23 09:43 12/06/23 09:43 Labs: Abnormal Lab Results - Last 24 Hours (Table) 12/03/23 12/05/23 12/05/23 Range/Units 06:52 07:10 07:10 WBC 12.1 H (3.8-10.6) k/uL RBC 2.95 L (4.30-5.90) m/uL Hgb 9.0 L (13.0-17.5) gm/dL Hct 28.9 L (39.0-53.0) % RDW 16.8 H (11.5-15.5) % Sodium 135 L (137-145) mmol/L Creatinine 0.58 L (0.66-1.25) mg/dL Calcium 8.0 L (8.4-10.2) mg/dL Albumin 2.8 L (3.5-5.0) g/dL RBC Folate 880 H (280 - 791) ng/mL Microbiology - Last 24 Hours (Table) 12/03/23 06:52 Blood Culture - Preliminary Blood Assessment and Plan (1) Cellulitis of left foot Current Visit: Yes Status: Acute Priority: High Code(s): L03.116 - CELLULITIS OF LEFT LOWER LIMB SNOMED Code(s): 37234926564787258 (2) MRSA bacteremia Current Visit: Yes Status: Acute Code(s): R78.81 - BACTEREMIA; B95.62 - METHICILLIN RESIS STAPH INFCT CAUSING DISEASES CLASSD [facility] SNOMED Code(s): 73446832752082161 Plan: 1patient presented hospital with left foot pain swelling redness and did have a big blister concerning for cellulitis and possible deep infection such as abscess likely from gram-positive skin francine in this patient with history of IV drug use however mention has not injected in the area high risk of MRSA infecti on 2-patient with MRSA bacteremia source is likely left foot abscess and cellulitis 3-blood cultures has been repeated 11/28/2023 and has been negative so far g, patient is status post surgical debridement and drainage x 2 of the left foot abscess with deep culture which are currently growing MRSA 4-patient seen gradual clinical improvement white count is trending down, to continue with the vancomycin while watching his kidney function closely Dictation was produced using [employer] software. please excuse any grammatical, word or spelling errors. Time with Patient: Less than 30
--- NOTE | 2023-12-06 22:21 | P.PN ---
Subjective Progress Note Date: 12/04/23 Principal diagnosis: Reason for follow-up is left foot cellulitis and bacteremia Patient is a 33-year-old male with a past medical history significant for seizure disorder history of IV drug presented to hospital with worsening pain swelling redness to the left foot with a large blood-filled blister diagnosis cellulitis blood culture positive for MRSA, CT chest increased density right middle lobe correlate for pneumonia or atelectasis. Patient is status post excisional debridement of the left foot with washout of the deep abscess completed by vascular surgery on 11/29/2023. Patient is status post repeat sharp excisional debridement of left foot to the muscle procedure completed on 12/01/2023 On today's evaluation that is 12/04/2023, patient has been afebrile, patient is breathing comfortably and is currently on room air, patient denies having any significant cough no chest pain shortness of breath, patient denies nausea vomiting or diarrhea and no abdominal pain patient pain to the left foot has decreased in intensity. Patient did have a white count of 15.5 creatinine 0.58 Objective - Vital Signs Vital signs: Vital Signs Temp 98.4 F 12/04/23 15:28 Pulse 103 H 12/04/23 15:28 Resp 16 12/04/23 15:28 BP 136/74 12/04/23 15:28 Pulse Ox 100 12/04/23 15:28 FiO2 Intake & Output 12/03/23 12/04/23 12/04/23 18:59 06:59 18:59 Intake Total 846 759 8644 Output Total 2750 700 500 Balance -2274 80 862 Intake: Intake, IV Titration 800 Amount Sodium Chloride 0.9% 1, 300 000 ml @ 50 mls/hr IV . Q20H [facility] Rx#:[id number] Vancomycin 1,750 mg In 500 Sodium Chloride 0.9% 500 ml 500 ml @ 167 mls/hr IVPB Q8H [facility] Rx#: [id number] Oral 476 780 562 Output: Urine 2750 700 500 Other: Voiding Method Urinal Urinal # Voids 1 # Bowel Movements 1 - Exam GENERAL DESCRIPTION: Middle-age male lying in bed in no distress RESPIRATORY SYSTEM: Unlabored breathing , decreased breath sounds at bases HEART: S1 S2 regular rate and rhythm , ABDOMEN: Soft , no tenderness EXTREMITIES: Left foot currently covered with a wound VAC - Labs CBC & Chem 7: 06/04/24 09:43 12/06/23 09:43 Labs: Abnormal Lab Results - Last 24 Hours (Table) 12/04/23 12/04/23 Range/Units 05:29 05:29 WBC 15.5 H (3.8-10.6) k/uL RBC 3.08 L (4.30-5.90) m/uL Hgb 9.5 L (13.0-17.5) gm/dL Hct 29.5 L (39.0-53.0) % RDW 16.7 H (11.5-15.5) % Plt Count 532 H (150-450) k/uL Chloride 112 H (98-107) mmol/L Creatinine 0.58 L (0.66-1.25) mg/dL Glucose 114 H (74-99) mg/dL Calcium 8.1 L (8.4-10.2) mg/dL Alkaline Phosphatase 129 H (38-126) U/L Albumin 2.7 L (3.5-5.0) g/dL Microbiology - Last 24 Hours (Table) 11/29/23 18:47 Anaerobic Culture - Final Foot - Left 11/28/23 11:12 Blood Culture - Final Blood Assessment and Plan (1) Cellulitis of left foot Current Visit: Yes Status: Acute Priority: High Code(s): L03.116 - CELLULITIS OF LEFT LOWER LIMB SNOMED Code(s): 41612558667375410 (2) MRSA bacteremia Current Visit: Yes Status: Acute Code(s): R78.81 - BACTEREMIA; B95.62 - METHICILLIN RESIS STAPH INFCT CAUSING DISEASES CLASSD [facility] SNOMED Code(s): 04068043176616614 Plan: 1patient presented hospital with left foot pain swelling redness and did have a big blister concerning for cellulitis and possible deep infection such as abscess likely from gram-positive skin francine in this patient with history of IV drug use however mention has not injected in the area high risk of MRSA infection 2-patient with MRSA bacteremia source is likely left foot abscess and cellulitis 3-blood cultures has been repeated 11/28/2023 and has been negative so far g, patient is status post surgical debridement and drainage x 2 of the left foot abscess with deep culture which are currently growing MRSA 4-patient to continue with the vancomycin while watching his kidney function closely Dictation was produced using [employer] dictation software. please excuse any gram matical, word or spelling errors. Time with Patient: Less than 30
--- NOTE | 2023-12-06 22:22 | P.PN ---
Subjective Progress Note Date: 12/06/23 Principal diagnosis: Reason for follow-up is left foot cellulitis and bacteremia Patient is a 33-year-old male with a past medical history significant for seizure disorder history of IV drug presented to hospital with worsening pain swelling redness to the left foot with a large blood-filled blister diagnosis cellulitis blood culture positive for MRSA, CT chest increased density right middle lobe correlate for pneumonia or atelectasis. Patient is status post excisional debridement of the left foot with washout of the deep abscess completed by vascular surgery on 11/29/2023. Patient is status post repeat sharp excisional debridement of left foot to the muscle procedure completed on 12/01/2023 On today's evaluation that is 12/06/2023,the patient remains to be afebrile, patient is on room air not requiring supplemental oxygen and denies any shortness of breath no chest pain or cough.Patient denies having any nausea or vomiting, no abdominal pain and no diarrhea has been reported, patient complaining of more pain to the left foot after change of his wound VAC yesterday and asking for more pain medication. Patient white count normalized to 9.6 creatinine 0.48 blood culture repeat has been negative Objective - Vital Signs Vital signs: Vital Signs Temp 98.7 F 12/06/23 11:10 Pulse 106 H 12/06/23 11:10 Resp 18 12/06/23 11:10 BP 129/68 12/06/23 11:10 Pulse Ox 100 12/06/23 11:10 FiO2 Intake & Output 12/05/23 12/06/23 12/06/23 18:59 06:59 18:59 Intake Total 473 972 1209 Output Total 1450 Balance 330 -970 1054 Intake: Oral 467 208 0929 Output: Urine 1450 Other: Voiding Method Urinal Urinal Urinal # Voids 1 - Exam GENERAL DESCRIPTION: Middle-age male lying in bed in no distress RESPIRATORY SYSTEM: Unlabored breathing , decreased breath sounds at bases HEART: S1 S2 regular rate and rhythm , ABDOMEN: Soft , no tenderness EXTREMITIES: Left foot currently covered with a wound VAC, due to the patient taking the time of wound VAC changes shows overall wound with good granulation tissue no significant slough tissue - Labs CBC & Chem 7: 12/06/23 09:43 12/06/23 09:43 Labs: Abnormal Lab Results - Last 24 Hours (Table) 12/06/23 12/06/23 Range/Units 09:43 09:43 RBC 3.07 L (4.30-5.90) m/uL Hgb 9.2 L (13.0-17.5) gm/dL Hct 30.2 L (39.0-53.0) % MCHC 30.5 L (31.0-37.0) g/dL RDW 16.6 H (11.5-15.5) % Plt Count 785 H D (150-450) k/uL Sodium 136 L (137-145) mmol/L Creatinine 0.48 L (0.66-1.25) mg/dL Microbiology - Last 24 Hours (Table) 12/03/23 06:52 Blood Culture - Preliminary Blood Assessment and Plan (1) Cellulitis of left foot Current Visit: Yes Status: Acute Priority: High Code(s): L03.116 - CELLULITIS OF LEFT LOWER LIMB SNOMED Code(s): 13686382061207284 (2) MRSA bacteremia Current Visit: Yes Status: Acute Code(s): R78.81 - BACTEREMIA; B95.62 - METHICILLIN RESIS STAPH INFCT CAUSING DISEASES CLASSD [facility] SNOMED Code(s): 41698462132195756 Plan: 1patient presented hospital with left foot pain swelling redness and did have a big blister concerning for cellulitis and possible deep infection such as abscess likely from gram-positive skin francine in this patient with history of IV drug use however mention has not injected in the area high risk of MRSA infection 2-patient with MRSA bacteremia source is likely left foot abscess and cellulitis 3-blood cultures has been repeated 11/28/2023 and has been negative so far g, patient is status post surgical debridement and drainage x 2 of the left foot abscess with deep culture which are currently growing MRSA 4-patient has shown clinical improvement white count has normalized blood culture repeat has been negative patient to get a PICC line and finishes 6-week course of IV vancomycin therapy in the close outpatient follow-up Dictation was produced using [employer] software. please excuse any grammatical, word or spelling errors. Time with Patient: Less than 30
[2023-12-07] MEDS: HYDROmorphone 1 MG/ML 1 ML SYRINGE IVP PRN (10:10)
[2023-12-07 13:07] LABS: HCT 25.5 % (39.0-53.0); HGB 7.8 gm/dL (13.0-17.5); Hypochromasia Slight; MCH 30.7 pg (25.0-35.0); MCHC 30.8 g/dL (31.0-37.0); MCV 99.7 fL (80.0-100.0); Macrocytosis Slight; Mean Platelet Volume 8.2; Platelet Count 929 k/uL (150-450); RBC 2.55 m/uL (4.30-5.90); RDW 15.8 % (11.5-15.5); WBC 11.9 k/uL (3.8-10.6)
--- NOTE | 2023-12-07 13:19 | P.PN ---
Subjective Progress Note Date: 12/07/23 Principal diagnosis: Left foot wound, necrotizing fasciitis Patient seen and examined today as a follow-up. He was moved down to the observation unit. Pain has been well-managed. He is going to get his wound VAC changed today. He is still awaiting placement to extended care facility. He has been afebrile. He remains on IV antibiotics. No other changes. Objective - Vital Signs Vital signs: Vital Signs Temp 98.2 F 12/07/23 08:00 Pulse 107 H 12/07/23 08:00 Resp 18 12/07/23 08:00 BP 140/55 12/07/23 08:00 Pulse Ox 100 12/07/23 08:00 FiO2 Intake & Output 12/06/23 12/07/23 12/07/23 18:59 06:59 18:59 Intake Total 1294 Output Total 600 1850 Balance 694 -1850 Intake: Oral 1294 Output: Urine 600 1850 Other: Voiding Method Urinal Urinal - Exam General appearance: The patient is alert, oriented, appears in no acute distress. HET: Head is normocephalic and atraumatic. Neck: Supple. Abdomen: Soft, nondistended. Extremities: Left foot with wound VAC in place with good suction with serosan guineous output. Neurological: No focal deficits. Strength and sensation are grossly intact. - Labs CBC & Chem 7: 12/07/23 12:34 12/06/23 09:43 Labs: Abnormal Lab Results - Last 24 Hours (Table) 12/06/23 12/06/23 Range/Units 09:43 09:43 RBC 3.07 L (4.30-5.90) m/uL Hgb 9.2 L (13.0-17.5) gm/dL Hct 30.2 L (39.0-53.0) % MCHC 30.5 L (31.0-37.0) g/dL RDW 16.6 H (11.5-15.5) % Plt Count 785 H D (150-450) k/uL Sodium 136 L (137-145) mmol/L Creatinine 0.48 L (0.66-1.25) mg/dL Microbiology - Last 24 Hours (Table) 12/03/23 06:52 Blood Culture - Preliminary Blood Assessment and Plan Assessment: 1. Left dorsal foot wound with abscess status post excisional debridement with washout of deep abscess 2. Necrotizing fasciitis of the left foot 3. IV drug user 4. Anemia, normocytic normochromic. Not likely from acute blood loss from foot wound. Plan: 1. Continue wound VAC as ordered, change Fridays. 2. Patient will need continued formal wound clinic follow-up and wound care. 3. Continue with pain control and medications as ordered and recommended from pain management 4. Continue with antibiotics per recommendations from infectious disease 6. Rest of medical management per primary medical team Discussed with patient importance formal wound care and continued antibiotics with recommendation to subacute rehab due to patient's IV drug history. Discussed if patient is noncompliant there is a good possibility he would require a below the knee amputation in the future. He verbalized understanding. Thank you for this consultation, patient is cleared for discharge from vascular surgery. Recommend outpatient follow-up with wound care and follow-up in a couple weeks with vascular surgery. The impression and plan of care has been dictated as directed. Dr. Malhotra I performed a history and examination of this patient, discussed the same with the dictator. I agree with the dictator's note ,documented as a scribe. Any additional findings or plans will be noted.
--- NOTE | 2023-12-07 14:38 | P.PN ---
Subjective Progress Note Date: 12/07/23 Hospital course: Patient is a 33-year-old male with history of IV drug abuse with heroin and hepatitis C who initially presented with swelling and pain over his left foot. Patient subsequently found to have MRSA bacteremia and necrotizing fasciitis of the left foot. Patient underwent debridement of left foot on 12/01/2023 by vascular surgery and currently has wound VAC in place. Infectious disease following. On IV antibiotics. Patient is currently medically optimized for discharge. He will require extended course of IV antibiotics and is currently awaiting acceptance to senior care facility and insurance authorization for continued IV antibioti cs and wound VAC care. Physical exam: Patient seen and fully evaluated at bedside this morning. Wound VAC remains in place to left foot. Patient reports feeling anxious this morning over changing of wound VAC dressing scheduled for later today. He is currently awaiting placement in SNF at this time Vital signs reviewed and stable. General: Nontoxic, no distress and appears stated age. Derm: Skin warm and dry, wound VAC in place left foot Head: Atraumatic, normocephalic and symmetric. Eyes: EOMs intact, no lid lag, and anicteric sclera Mouth: no lip lesions, mucus membranes moist Cardiovascular: regular rate and rhythm with normal S1S2, no murmur, positive posterior tibial pulses bilaterally, and cap refill < 2 seconds. Lungs: Respirations even, regular, and unlabored on room air. Lungs CTA bilaterally, no rhonchi, no rales, no wheezing, and no accessory muscle usage. Abdominal: soft, nontender to palpation, no guarding, no appreciable organomegaly Ext: Movement and sensation intact. No gross muscle atrophy, no edema, no contractures Neuro: Speech clear, face symmetrical and CN II-XII grossly intact with no noted focal neuro deficits Psych: Alert and oriented to person, place, time, and situation. Appropriate and pleasant affect. Assessment and Plan of Care: Sepsis secondary to Necrotizing fasciitis of the left foot with MRSA abscess s/p debridement with washout of deep abscess 11/29/23 and Second debridement on the foot with wound VAC 12/01/2023 MRSA bacteremia -Repeat Blood cultures from 11/27 and 12/02 are negative to date. -Continue Vancomycin 1750 mg IVPB every 8 hours while monitoring renal function and vancomycin trough closely to monitor for any signs of vancomycin associated renal toxicity. Currently vancomycin trough therapeutic at 17.5. 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 -Wound care recs: Continue with wound VAC with follow-up 3 times weekly. Patient scheduled for wound VAC dressing change later today. -Wound culture of left foot with growth of MRSA Hep C -Hx of active infection never received treatment -HIV nonreactive -Outpatient follow-up Opiate dependency with known IV heroin abuse prior to hospital stay Intractable pain related to necrotizing fasciitis of the left foot Sinus tachycardia -Tylenol 1000 mg decreased to every 8 hours scheduled, Toradol 15 mg IV every 6 hours scheduled, continue Neurontin 300 mg p.o. 3 times daily -Dilaudid decreased to 1 mg every 4 hours as needed for severe breakthrough pain -[place] to 10 mg oral 4 times daily as needed -Continue with fentanyl patch 50 mcg/h -Clonidine 0.1mg p.o. 3 times daily for heroin withdrawal Acute blood loss anemia secondary to bleeding from the wound in addition to acute inflammatory anemia Active thrombocytosis, reactive -Hemoglobin stable, no signs of active bleeding -Hematology/oncology consultation reviewed. Iron studies reviewed from 11/29/2023 which are consistent with acute inflammatory anemia. -Status post 2 units of packed red blood cells, hemoglobin stable at 7.8. -Platelet count continues to elevate and currently [address] chest showing right lower lobe consolidation -Patient does not have any signs of pneumonia -Recommend outpatient follow-up CT scan in 3 months Hypokalemia, Resolved Data and imaging reviewed: -Morning labs reviewed. CBC showing persistent anemia with hemoglobin 7.8 and platelet count showing thrombocytosis with elevated platelet count of 929 this morning. Vancomycin trough therapeutic at 17.5. -Vital signs reviewed. Blood pressure 140/55, heart rate 107, respiratory rate 18, temp 98.2 F, and SpO2 100% on room air. CODE STATUS: Full code DVT prophylaxis: Heparin Anticipated discharge date: Pending acceptance to [facility] and insurance authorization Anticipated discharge place: [facility] Patient was seen independently by Nurse Pracitioner. This document was prepared using [employer] dictation software. Please allow for errors in general counselor, while rare they do occur. .Jn Neff NP rendered care for this patient independently, reviewed the findings and plan as documented in the note above. I did not physically speak with or examine the patient on this date. Objective - Vital Signs Vital signs: Vital Signs Temp 98.2 F 12/07/23 08:00 Pulse 107 H 12/07/23 08:00 Resp 18 12/07/23 08:00 BP 140/55 12/07/23 08:00 Pulse Ox 100 12/07/23 08:00 FiO2 Intake & Output 12/06/23 12/07/23 12/07/23 18:59 06:59 18:59 Intake Total 1294 Output Total 600 1850 Balance 694 -1850 Intake: Oral 1294 Output: Urine 600 1850 Other: Voiding Method Urinal Urinal - Labs CBC & Chem 7: 12/07/23 17:50 12/06/23 09:43 Labs: Abnormal Lab Results - Last 24 Hours (Table) 12/06/23 12/06/23 Range/Units 09:43 09:43 RBC 3.07 L (4.30-5.90) m/uL Hgb 9.2 L (13.0-17.5) gm/dL Hct 30.2 L (39.0-53.0) % MCHC 30.5 L (31.0-37.0) g/dL RDW 16.6 H (11.5-15.5) % Plt Count 785 H D (150-450) k/uL Sodium 136 L (137-145) mmol/L Creatinine 0.48 L (0.66-1.25) mg/dL Microbiology - Last 24 Hours (Table) 12/03/23 06:52 Blood Culture - Preliminary Blood
[2023-12-07 16:40] LABS: Glucose,Whole Blood 109 mg/dL (70-110)
[2023-12-07 16:50] LABS: Hepatitis B Surface Antigen Nonreactive (Nonreactive); Hepatitis C IgG Antibody Reactive (Nonreactive)
[2023-12-07 17:02] LABS: Hepatitis B Surface AB- Quant 25.1 mIU/mL
[2023-12-07] MEDS: LACTULOSE 20 GM/30 ML CUP PO ONE (17:09)
[2023-12-07 17:45] LABS: HIV 2 AB Non-Reactive (Non-Reactive); HIV AB P24 Non-Reactive (Non-Reactive); HIV P24 AG Non-Reactive (Non-Reactive)
[2023-12-07 18:28] LABS: Anisocytosis Slight; Basophils # (A) 0.1 k/uL (0-0.2); Basophils % (A) 1 %; Eosinophils # (A) 0.5 k/uL (0-0.7); Eosinophils % (A) 2 %; Hypochromasia Slight; Lymphocytes # (A) 2.8 k/uL (1.0-4.8); Lymphocytes % (A) 12 %; MCH 30.5 pg (25.0-35.0); MCHC 30.9 g/dL (31.0-37.0); MCV 98.8 fL (80.0-100.0); Macrocytosis Slight; Mean Platelet Volume 8.6; Monocytes # (A) 0.9 k/uL (0-1.0); Monocytes % (A) 4 %; Neutrophils # (A) 18.9 k/uL (1.3-7.7); Neutrophils % (A) 80 %; RBC 2.01 m/uL (4.30-5.90); RDW 16.2 % (11.5-15.5); WBC 23.6 k/uL (3.8-10.6)
[2023-12-07 18:39] LABS: HCT 19.9 % (39.0-53.0); Platelet Count 1415 k/uL (150-450)
[2023-12-07 18:42] LABS: HGB 6.1 gm/dL (13.0-17.5)
[2023-12-07 18:51] LABS: Amphetamine Screen,Urine Not Detected (NotDetected); Barbiturate Screen,Urine Not Detected (NotDetected); Benzodiazepines Screen,Urine Not Detected (NotDetected); Cocaine Screen,Urine Not Detected (NotDetected); Methadone Screen, Urine Not Detected (NotDetected); Opiate Screen,Urine Detected (NotDetected); Oxycodone Screen, Urine Not Detected (NotDetected); Phencyclidine Screen,Urine Not Detected (NotDetected); Tricyclic Antidepressant,Urine Detected (NotDetected); Urn Cannabinoid Scrn Not Detected (NotDetected)
[2023-12-07 20:29] LABS: Anisocytosis Slight; Basophils # (A) 0.1 k/uL (0-0.2); Basophils % (A) 0 %; Eosinophils # (A) 0.2 k/uL (0-0.7); Eosinophils % (A) 1 %; Lymphocytes # (A) 2.3 k/uL (1.0-4.8); Lymphocytes % (A) 10 %; MCH 30.9 pg (25.0-35.0); MCHC 31.9 g/dL (31.0-37.0); MCV 96.7 fL (80.0-100.0); Macrocytosis Slight; Mean Platelet Volume 7.9; Monocytes # (A) 0.8 k/uL (0-1.0); Monocytes % (A) 4 %; Neutrophils # (A) 18.7 k/uL (1.3-7.7); Neutrophils % (A) 83 %; RBC 1.86 m/uL (4.30-5.90); RDW 16.5 % (11.5-15.5); WBC 22.4 k/uL (3.8-10.6)
[2023-12-07 20:43] LABS: ALT 29 U/L (4-49); AST 48 U/L (17-59); African American GFR (CKD) >90 (>60 ml/min/1.73 sqM); Albumin 2.5 g/dL (3.5-5.0); Alkaline Phosphatase 80 U/L (38-126); Anion Gap 2 mmol/L; Blood Urea Nitrogen 32 mg/dL (9-20); Calcium 8.8 mg/dL (8.4-10.2); Carbon Dioxide 27 mmol/L (22-30); Chloride 106 mmol/L (98-107); Glucose 92 mg/dL (74-99); LDH 310 U/L (120-246); Non-African American GFR(CKD) >90 (>60 ml/min/1.73 sqM); Sodium 135 mmol/L (137-145); Total Bilirubin 0.4 mg/dL (0.2-1.3); Total Protein 5.8 g/dL (6.3-8.2)
[2023-12-07 21:04] LABS: Reticulocyte % 13.5 % (0.5-2.0)
[2023-12-07 21:06] LABS: Platelet Count 1165 k/uL (150-450)
[2023-12-07 21:07] LABS: HGB 5.7 gm/dL (13.0-17.5)
--- NOTE | 2023-12-07 21:07 | CT ---
EXAMINATION TYPE: CT brain wo con CT DLP: 1125.2 mGycm, Automated exposure control for dose reduction was used. DATE OF EXAM: 12/07/2023 8:37 PM COMPARISON: 07/05/2020. CLINICAL INDICATION:Male, 33 years old with history of visual disturbance, visual changes TECHNIQUE: Brain: Axial CT images of the brain were obtained with coronal and sagittal reformats created and rev iewed. Contrast used: None. Oral contrast used: None. FINDINGS: Brain: Extra-axial spaces: No abnormal extra-axial fluid collections. Ventricular system: Within normal limits Cerebral parenchyma: Mineralization the basal ganglia. No acute intraparenchymal hemorrhage or mass e ffect. The trejo-white junction is well differentiated. Cerebellum: Unremarkable. Mass effect: No evidence of midline shift. Intracranial vasculature: unremarkable Soft tissues: Normal. Calvarium/osseous structures: No depressed skull fracture. Paranasal sinuses and mastoid air cells: Mild scattered paranasal sinus disease. Visualized orbits: Orbital contents are intact. IMPRESSION: No acute intracranial process.
[2023-12-07 21:39] LABS: Partial Thromboplastin Time 22.9 sec (22.0-30.0); Prothrombin Time 11.2 sec (10.0-12.5)
[2023-12-08] MEDS: PANTOPRAZOLE 40 MG/10 ML VIAL IVP ONE (00:45)
[2023-12-08 04:09] LABS: Basophils # (A) 0.1 k/uL (0-0.2); Basophils % (A) 1 %; Eosinophils # (A) 0.3 k/uL (0-0.7); Eosinophils % (A) 3 %; Hypochromasia Slight; Lymphocytes # (A) 2.9 k/uL (1.0-4.8); Lymphocytes % (A) 23 %; MCH 30.8 pg (25.0-35.0); MCHC 31.2 g/dL (31.0-37.0); MCV 98.6 fL (80.0-100.0); Macrocytosis Slight; Mean Platelet Volume 7.7; Monocytes # (A) 0.7 k/uL (0-1.0); Monocytes % (A) 6 %; Neutrophils # (A) 8.1 k/uL (1.3-7.7); Neutrophils % (A) 64 %; Platelet Count 934 k/uL (150-450); RBC 1.93 m/uL (4.30-5.90); RDW 15.8 % (11.5-15.5); WBC 12.6 k/uL (3.8-10.6)
[2023-12-08 04:13] LABS: HGB 5.9 gm/dL (13.0-17.5)
[2023-12-08 04:35] LABS: ALT 34 U/L (4-49); AST 52 U/L (17-59); African American GFR (CKD) >90 (>60 ml/min/1.73 sqM); Albumin 2.4 g/dL (3.5-5.0); Alkaline Phosphatase 72 U/L (38-126); Anion Gap 3 mmol/L; Blood Urea Nitrogen 41 mg/dL (9-20); Calcium 8.2 mg/dL (8.4-10.2); Carbon Dioxide 23 mmol/L (22-30); Chloride 105 mmol/L (98-107); Glucose 93 mg/dL (74-99); Magnesium 1.9 mg/dL (1.6-2.3); Non-African American GFR(CKD) >90 (>60 ml/min/1.73 sqM); Potassium 4.9 mmol/L (3.5-5.1); Sodium 131 mmol/L (137-145); Total Bilirubin 0.4 mg/dL (0.2-1.3); Total Protein 5.2 g/dL (6.3-8.2)
--- NOTE | 2023-12-08 05:18 | P.PN ---
Progress Note - Text Progress Note Date: 12/08/23 Notified that the patient had a bloody bowel movement. FOBT subsequently positive. Protonix ordered. Additional 1U pRBCs ordered along with GI consult.
[2023-12-08] MEDS: PANTOPRAZOLE 40 MG/10 ML VIAL IVP SCH (08:23)
--- NOTE | 2023-12-08 08:33 | CT ---
EXAMINATION TYPE: CT angio abdomen pelvis CT DLP: 1469.1 mGycm, Automated exposure control for dose reduction was used. DATE OF EXAM: 12/08/2023 8:13 AM COMPARISON: None CLINICAL INDICATION:Male, 33 years old with history of Gi bleed; PHH, gi BLEED TECHNIQUE: Multiple thin slice sub-millimeter images were obtained after administration of contrast. 3-D reconstructed images and maximum intensity projection images were obtained. CT angio abdomen pel vis CT Contrast: Contrast used:100 mL of Isovue 370 with IV Contrast, Oral contrast used: without Oral Contrast None FINDINGS: LOWER CHEST: Right lower lung peripheral wedge-shaped airspace opacity measuring 30 25 x 20 mm. No ev idence of focal consolidation, pneumothorax or pleural effusion. LIVER: Unremarkable GALLBLADDER AND BILE DUCTS: Unremarkable. PANCREAS: Unremarkable. SPLEEN: Unremarkable. ADRENAL GLANDS: Unremarkable. KIDNEYS AND URETERS: No evidence of hydronephrosis or renal calculus. The ureters are unremarkable. PELVIS BLADDER: Unremarkable REPRODUCTIVE: Unremarkable. ABDOMEN & PELVIS STOMACH AND BOWEL: Evaluation of the gastrointestinal tract demonstrates no evidence of high density hemorrhage arterial phase or pooling of blood on delayed phases. No evidence of bowel obstruction. PERITONEUM: No evidence of pneumoperitoneum or free fluid. VASCULATURE: No evidence of aortic aneurysm. No evidence for aneurysmal dilation or occlusion. No petra dence for gastrointestinal hemorrhage. MUSCULOSKELETAL: No acute osseous abnormalities LYMPH NODES: No gross evidence for lymphadenopathy. SOFT TISSUE/ABDOMINAL WALL: Unremarkable IMPRESSION: 1. No evidence for gastrointestinal hemorrhage. 2. No acute abdominal process visualized. 3. Right anterior lower lung wedge-shaped airspace opacity correlate for infectious process. Correla te d-dimer to rule out underlying pulmonary infarct from pulmonary embolus.
[2023-12-08 14:00] LABS: Anisocytosis Slight; Basophils # (A) 0.2 k/uL (0-0.2); Basophils % (A) 1 %; Eosinophils # (A) 0.5 k/uL (0-0.7); Eosinophils % (A) 4 %; Hypochromasia Slight; Lymphocytes % (A) 29 %; MCH 30.5 pg (25.0-35.0); MCHC 31.9 g/dL (31.0-37.0); MCV 95.6 fL (80.0-100.0); Macrocytosis Slight; Monocytes # (A) 0.8 k/uL (0-1.0); Monocytes % (A) 6 %; Neutrophils # (A) 7.7 k/uL (1.3-7.7); Neutrophils % (A) 57 %; Platelet Count 951 k/uL (150-450); RDW 16.8 % (11.5-15.5); WBC 13.5 k/uL (3.8-10.6)
[2023-12-08 14:59] LABS: Glucose,Whole Blood 198 mg/dL (70-110)
--- NOTE | 2023-12-08 15:08 | P.PN ---
Subjective Progress Note Date: 12/08/23 Principal diagnosis: anemia In f/u pt today, pt is feeling frustrated because of recommendations for endoscopy. Hgb dropped yesterday, concerns for GI bleed. He is on his 2nd unit of blood. He reports that he has had black stool but, he reports that he looked it up and his antibiotic can do that. He mentioned a "puddle of blood" but it was not clear where that blood came from. Objective - Vital Signs Vital signs: Vital Signs Temp 98.1 F 12/08/23 08:42 Pulse 105 H 12/08/23 12:00 Resp 18 12/08/23 12:00 BP 125/80 12/08/23 12:00 Pulse Ox 100 12/08/23 12:00 FiO2 Intake & Output 12/07/23 12/08/23 12/08/23 18:59 06:59 18:59 Intake Total 500 310 310 Output Total 600 1300 2500 Balance -100 -473 -1430 Intake: Oral 500 Blood Product 310 310 Rc As-1 Unit 310 [id number] Rc As-1 Unit 310 [id number] Output: Urine 600 1300 2500 Other: Voiding Method Urinal # Bowel Movements 1 1 - Constitutional General appearance: Present: average body habitus, mild distress - EENT Eyes: Present: anicteric sclerae, EOMI ENT: Present: hearing grossly normal - Respiratory Details: resp even and unlabored - Cardiovascular Details: tachycardia - Peripheral edema leg Peripheral Edema: bilateral: None - Integumentary Integumentary: Present: pale - Neurologic Neurologic: Present: CNII-XII intact (grossly) - Musculoskeletal Musculoskeletal: Present: generalized weakness - Psychiatric Psychiatric Comment(s): irritable today Psychiatric: Present: A&O x's 3 - Labs CBC & Chem 7: 12/08/23 13:35 12/08/23 03:19 Labs: Abnormal Lab Results - Last 24 Hours (Table) 12/07/23 12/07/23 12/07/23 Range/Units 12:34 17:48 17:50 WBC 23.6 H (3.8-10.6) k/uL RBC 2.01 L (4.30-5.90) m/uL Hgb 6.1 L* D (13.0-17.5) gm/dL Hct 19.9 L* (39.0-53.0) % MCHC 30.9 L (31.0-37.0) g/dL RDW 16.2 H (11.5-15.5) % Plt Count 1415 H* (150-450) k/uL Neutrophils # 18.9 H (1.3-7.7) k/uL Retic Count (0.5-2.0) % Haptoglobin (31.2-198.0) mg/dL D-Dimer (<0.60) mg/L FEU Sodium (137-145) mmol/L BUN (9-20) mg/dL Creatinine (0.66-1.25) mg/dL Calcium (8.4-10.2) mg/dL Lactate Dehydrogenase (120-246) U/L Total Protein (6.3-8.2) g/dL Albumin (3.5-5.0) g/dL Urine Opiates Screen Detected H (NotDetected) U Tricyclic Antidepress Detected H (NotDetected) Hep Bs Antibody A (Negative) Hep B Core Total Ab Reactive A (Nonreactive) Hep C IgG Ab Reactive A (Nonreactive) Crossmatch 12/07/23 12/07/23 12/07/23 Range/Units 20:03 20:03 20:03 WBC 22.4 H (3.8-10.6) k/uL RBC 1.86 L (4.30-5.90) m/uL Hgb 5.7 L* (13.0-17.5) gm/dL Hct 18.0 L* (39.0-53.0) % MCHC (31.0-37.0) g/dL RDW 16.5 H (11.5-15.5) % Plt Count 1165 H* (150-450) k/uL Neutrophils # 18.7 H (1.3-7.7) k/uL Retic Count 13.5 H (0.5-2.0) % Haptoglobin (31.2-198.0) mg/dL D-Dimer 3.51 H (<0.60) mg/L FEU Sodium (137-145) mmol/L BUN (9-20) mg/dL Creatinine (0.66-1.25) mg/dL Calcium (8.4-10.2) mg/dL Lactate Dehydrogenase (120-246) U/L Total Protein (6.3-8.2) g/dL Albumin (3.5-5.0) g/dL Urine Opiates Screen (NotDetected) U Tricyclic Antidepress (NotDetected) Hep Bs Antibody (Negative) Hep B Core Total Ab (Nonreactive) Hep C IgG Ab (Nonreactive) Crossmatch 12/07/23 12/07/23 12/07/23 Range/Units 20:03 20:03 20:12 WBC (3.8-10.6) k/uL RBC (4.30-5.90) m/uL Hgb (13.0-17.5) gm/dL Hct (39.0-53.0) % MCHC (31.0-37.0) g/dL RDW (11.5-15.5) % Plt Count (150-450) k/uL Neutrophils # (1.3-7.7) k/uL Retic Count (0.5-2.0) % Haptoglobin 238.0 H (31.2-198.0) mg/dL D-Dimer (<0.60) mg/L FEU Sodium 135 L (137-145) mmol/L BUN 32 H (9-20) mg/dL Creatinine (0.66-1.25) mg/dL Calcium (8.4-10.2) mg/dL Lactate Dehydrogenase 310 H (120-246) U/L Total Protein 5.8 L (6.3-8.2) g/dL Albumin 2.5 L (3.5-5.0) g/dL Urine Opiates Screen (NotDetected) U Tricyclic Antidepress (NotDetected) Hep Bs Antibody (Negative) Hep B Core Total Ab (Nonreactive) Hep C IgG Ab (Nonreactive) Crossmatch See Detail 12/08/23 12/08/23 12/08/23 Range/Units 03:19 03:19 13:35 WBC 12.6 H 13.5 H (3.8-10.6) k/uL RBC 1.93 L 2.30 L (4.30-5.90) m/uL Hgb 5.9 L* 7.0 L (13.0-17.5) gm/dL Hct 19.0 L* 22.0 L (39.0-53.0) % MCHC (31.0-37.0) g/dL RDW 15.8 H 16.8 H (11.5-15.5) % Plt Count 934 H 951 H (150-450) k/uL Neutrophils # 8.1 H (1.3-7.7) k/uL Retic Count (0.5-2.0) % Haptoglobin (31.2-198.0) mg/dL D-Dimer (<0.60) mg/L FEU Sodium 131 L (137-145) mmol/L BUN 41 H (9-20) mg/dL Creatinine 0.57 L (0.66-1.25) mg/dL Calcium 8.2 L (8.4-10.2) mg/dL Lactate Dehydrogenase (120-246) U/L Total Protein 5.2 L (6.3-8.2) g/dL Albumin 2.4 L (3.5-5.0) g/dL Urine Opiates Screen (NotDetected) U Tricyclic Antidepress (NotDetected) Hep Bs Antibody (Negative) Hep B Core Total Ab (Nonreactive) Hep C IgG Ab (Nonreactive) Crossmatch - Imaging and Cardiology CT scan - abdomen: report reviewed CT Scan - head: report reviewed CT scan - pelvis: report reviewed Assessment and Plan (1) Cellulitis of left foot Current Visit: Yes Status: Acute Priority: High Code(s): L03.116 - CELLULITIS OF LEFT LOWER LIMB SNOMED Code(s): 66914443209117205 (2) Anemia Current Visit: Yes Status: Acute Priority: Medium Code(s): D64.9 - ANEMIA, UNSPECIFIED SNOMED Code(s): 062857263 (3) Abnormal CT scan, chest Current Visit: Yes Status: Acute Priority: Medium Code(s): R93.89 - ABNORMAL FINDINGS ON DX IMAGING OF OTH BODY STRUCTURES SNOMED Code(s): 70857518745673796 Plan: Anemia, of inflammation -Elevated inflammatory markers, acute infection, wound vac, IV fluid, poor marrow response 2/2 marrow damage from drug abuse all contributing to anemia -S/P 4 units PRBCs for Hgb 6.2. Hgb had precipitous drop starting last evening. Discussed case with Attending LEAD QA ANALYST. Hemolysis, DIC labs ordered-both negative. CT head neg. Occult was positive. GI was consulted for endo. Pt was "researching" online and believes vancomycin is causing his "black" stool, not bleeding. It was explained to pt is simplest terms that if this was just a side effect of a medication then his Hgb would not be dropping. It was stressed that his situation is concerning and it is recommended that he have endoscopy. Hgb was 5.7, after 1 unit Hgb 5.9. It was felt by pt response that he would be agreeable to endoscopy, did let GI LEAD QA ANALYST know. -There are plans to F/U with pt outpt for anemia and the lung lesion Cellulitis/narcotizing fascitis -Has wound vac, abx. ID following 2.2cm rt lung lesion -Recommend repeat CT in 6-8 weeks. -will f/u on the same DrTiana Attests: I have seen and examined pt, performed H&P, developed impression and plan of care. Discussed with dictator. Agree with documentation, dictated as a scribe.
--- NOTE | 2023-12-08 15:52 | P.PN ---
Subjective Progress Note Date: 12/07/23 Principal diagnosis: Reason for follow-up is left foot cellulitis and bacteremia Patient is a 33-year-old male with a past medical history significant for seizure disorder history of IV drug presented to hospital with worsening pain swelling redness to the left foot with a large blood-filled blister diagnosis cellulitis blood culture positive for MRSA, CT chest increased density right middle lobe correlate for pneumonia or atelectasis. Patient is status post excisional debridement of the left foot with washout of the deep abscess completed by vascular surgery on 11/29/2023. Patient is status post repeat sharp excisional debridement of left foot to the muscle procedure completed on 12/01/2023 On today's evaluation that is 12/07/2023, the patient continues to be afebrile, the patient is on room air and breathing comfortably, the Pt denies having any chest pain or cough, the patient denies having any abdominal pain no vomiting or any diarrhea has been reported by the nursing staff denies any worsening pain to the left foot area. Patient white count is up to 22.4 today hemoglobin is 5.7 Objective - Vital Signs Vital signs: Vital Signs Temp 98.2 F 12/07/23 08:00 Pulse 107 H 12/07/23 08:00 Resp 18 12/07/23 08:00 BP 140/55 12/07/23 08:00 Pulse Ox 100 12/07/23 08:00 FiO2 Intake & Output 12/06/23 12/07/23 12/07/23 18:59 06:59 18:59 Intake Total 1294 Output Total 600 1850 600 Balance 694 -1850 -600 Intake: Oral 1294 Output: Urine 600 1850 600 Other: Voiding Method Urinal Urinal - Exam GENERAL DESCRIPTION: Middle-age male lying in bed in no distress RESPIRATORY SYSTEM: Unlabored breathing , decreased breath sounds at bases HEART: S1 S2 regular rate and rhythm , ABDOMEN: Soft , no tenderness EXTREMITIES: Left foot currently covered with a wound VAC, due to the patient t aking the time of wound VAC changes shows overall wound with good granulation tissue no significant slough tissue - Labs CBC & Chem 7: 12/08/23 13:35 12/08/23 03:19 Labs: Abnormal Lab Results - Last 24 Hours (Table) 12/07/23 Range/Units 12:34 WBC 11.9 H (3.8-10.6) k/uL RBC 2.55 L (4.30-5.90) m/uL Hgb 7.8 L (13.0-17.5) gm/dL Hct 25.5 L (39.0-53.0) % MCHC 30.8 L (31.0-37.0) g/dL RDW 15.8 H (11.5-15.5) % Plt Count 929 H (150-450) k/uL Microbiology - Last 24 Hours (Table) 12/03/23 06:52 Blood Culture - Preliminary Blood Assessment and Plan (1) Cellulitis of left foot Current Visit: Yes Status: Acute Priority: High Code(s): L03.116 - CELLULITIS OF LEFT LOWER LIMB SNOMED Code(s): 42762259921373601 (2) MRSA bacteremia Current Visit: Yes Status: Acute Code(s): R78.81 - BACTEREMIA; B95.62 - METHICILLIN RESIS STAPH INFCT [facility] SN[facility] Code(s): 16422064056650690 Plan: 1patient presented hospital with left foot pain swelling redness and did have a big blister concerning for cellulitis and possible deep infection such as abscess likely from gram-positive skin francine in this patient with history of IV drug use however mention has not injected in the area high risk of MRSA infection 2-patient with MRSA bacteremia source is likely left foot abscess and cellulitis 3-blood cultures has been repeated 11/28/2023 and has been negative so far g, patient is status post surgical debridement and drainage x 2 of the left foot abscess with deep culture which are currently growing MRSA 4-patient noticed to have worsening of the white count possibly reactive to his GI bleed and significant drop in hemoglobin being managed by admitting team discussed with them for now continue with the vancomycin Dictation was produced using [employer] dictation software. please excuse any grammatical, word or spelling errors. Time with Patient: Less than 30
--- NOTE | 2023-12-08 15:53 | P.PN ---
Subjective Progress Note Date: 12/08/23 Principal diagnosis: Reason for follow-up is left foot cellulitis and bacteremia Patient is a 33-year-old male with a past medical history significant for seizure disorder history of IV drug presented to hospital with worsening pain swelling redness to the left foot with a large blood-filled blister diagnosis cellulitis blood culture positive for MRSA, CT chest increased density right middle lobe correlate for pneumonia or atelectasis. Patient is status post excisional debridement of the left foot with washout of the deep abscess completed by vascular surgery on 11/29/2023. Patient is status post repeat sharp excisional debridement of left foot to the muscle procedure completed on 12/01/2023 On today's evaluation that is 12/08/2023, Patient is afebrile patient is currently on room air and denies having any shortness of breath, the patient denies any chest pain or cough, the patient denies any nausea vomiting did not have any abdominal pain and no diarrhea, denies any worsening pain to the left foot. Patient mention his PICC line came out yesterday after he did have a fall while trying to get to the bathroom without any assistance. Patient white count is down to 13.5 hemoglobin 7.0 Objective - Vital Signs Vital signs: Vital Signs Temp 98.1 F 12/08/23 08:42 Pulse 114 H 12/08/23 10:52 Resp 18 12/08/23 10:52 BP 118/65 12/08/23 10:52 Pulse Ox 95 12/08/23 10:52 FiO2 Intake & Output 12/07/23 12/08/23 12/08/23 18:59 06:59 18:59 Intake Total 500 310 310 Output Total 600 1300 1875 Balance -100 990 -1560 Intake: Oral 500 Blood Product 310 310 Rc As-1 Unit 310 [id number] As-1 Unit 310 [id number] Output: Urine 600 1300 1875 Other: Voiding Method Urinal # Bowel Movements 1 1 - Exam GENERAL DESCRIPTION: Middle-age male lying in bed in no distress RESPIRATORY SYSTEM: Unlabored breathing , decreased breath sounds at bases HEART: S1 S2 regular rate and rhythm , ABDOMEN: Soft , no tenderness EXTREMITIES: Left foot currently covered with a wound VAC, due to the patient taking the time of wound VAC changes shows overall wound with good granulation tissue no significant slough tissue - Labs CBC & Chem 7: 12/08/23 13:35 12/08/23 03:19 Labs: Abnormal Lab Results - Last 24 Hours (Table) 12/07/23 12/07/23 12/07/23 Range/Units 12:34 17:48 17:50 WBC 23.6 H (3.8-10.6) k/uL RBC 2.01 L (4.30-5.90) m/uL Hgb 6.1 L* D (13.0-17.5) gm/dL Hct 19.9 L* (39.0-53.0) % MCHC 30.9 L (31.0-37.0) g/dL RDW 16.2 H (11.5-15.5) % Plt Count 1415 H* (150-450) k/uL Neutrophils # 18.9 H (1.3-7.7) k/uL Retic Count (0.5-2.0) % Haptoglobin (31.2-198.0) mg/dL D-Dimer (<0.60) mg/L FEU Sodium (137-145) mmol/L BUN (9-20) mg/dL Creatinine (0.66-1.25) mg/dL Calcium (8.4-10.2) mg/dL Lactate Dehydrogenase (120-246) U/L Total Protein (6.3-8.2) g/dL Albumin (3.5-5.0) g/dL Urine Opiates Screen Detected H (NotDetected) U Tricyclic Antidepress Detected H (NotDetected) Hep Bs Antibody A (Negative) Hep B Core Total Ab Reactive A (Nonreactive) Hep C IgG Ab Reactive A (Nonreactive) Crossmatch 12/07/23 12/07/23 12/07/23 Range/Units 20:03 20:03 20:03 WBC 22.4 H (3.8-10.6) k/uL RBC 1.86 L (4.30-5.90) m/uL Hgb 5.7 L* (13.0-17.5) gm/dL Hct 18.0 L* (39.0-53.0) % MCHC (31.0-37.0) g/dL RDW 16.5 H (11.5-15.5) % Plt Count 1165 H* (150-450) k/uL Neutrophils # 18.7 H (1.3-7.7) k/uL Retic Count 13.5 H (0.5-2.0) % Haptoglobin (31.2-198.0) mg/dL D-Dimer 3.51 H (<0.60) mg/L FEU Sodium (137-145) mmol/L BUN (9-20) mg/dL Creatinine (0.66-1.25) mg/dL Calcium (8.4-10.2) mg/dL Lactate Dehydrogenase (120-246) U/L Total Protein (6.3-8.2) g/dL Albumin (3.5-5.0) g/dL Urine Opiates Screen (NotDetected) U Tricyclic Antidepress (NotDetected) Hep Bs Antibody (Negative) Hep B Core Total Ab (Nonreactive) Hep C IgG Ab (Nonreactive) Crossmatch 12/07/23 12/07/23 12/07/23 Range/Units 20:03 20:03 20:12 WBC (3.8-10.6) k/uL RBC (4.30-5.90) m/uL Hgb (13.0-17.5) gm/dL Hct (39.0-53.0) % MCHC (31.0-37.0) g/dL RDW (11.5-15.5) % Plt Count (150-450) k/uL Neutrophils # (1.3-7.7) k/uL Retic Count (0.5-2.0) % Haptoglobin 238.0 H (31.2-198.0) mg/dL D-Dimer (<0.60) mg/L FEU Sodium 135 L (137-145) mmol/L BUN 32 H (9-20) mg/dL Creatinine (0.66-1.25) mg/dL Calcium (8.4-10.2) mg/dL Lactate Dehydrogenase 310 H (120-246) U/L Total Protein 5.8 L (6.3-8.2) g/dL Albumin 2.5 L (3.5-5.0) g/dL Urine Opiates Screen (NotDetected) U Tricyclic Antidepress (NotDetected) Hep Bs Antibody (Negative) Hep B Core Total Ab (Nonreactive) Hep C IgG Ab (Nonreactive) Crossmatch See Detail 12/08/23 12/08/23 Range/Units 03:19 03:19 WBC 12.6 H (3.8-10.6) k/uL RBC 1.93 L (4.30-5.90) m/uL Hgb 5.9 L* (13.0-17.5) gm/dL Hct 19.0 L* (39.0-53.0) % MCHC (31.0-37.0) g/dL RDW 15.8 H (11.5-15.5) % Plt Count 934 H (150-450) k/uL Neutrophils # 8.1 H (1.3-7.7) k/uL Retic Count (0.5-2.0) % Haptoglobin (31.2-198.0) mg/dL D-Dimer (<0.60) mg/L FEU Sodium 131 L (137-145) mmol/L BUN 41 H (9-20) mg/dL Creatinine 0.57 L (0.66-1.25) mg/dL Calcium 8.2 L (8.4-10.2) mg/dL Lactate Dehydrogenase (120-246) U/L Total Protein 5.2 L (6.3-8.2) g/dL Albumin 2.4 L (3.5-5.0) g/dL Urine Opiates Screen (NotDetected) U Tricyclic Antidepress (NotDetected) Hep Bs Antibody (Negative) Hep B Core Total Ab (Nonreactive) Hep C IgG Ab (Nonreactive) Crossmatch Assessment and Plan (1) Cellulitis of left foot Current Visit: Yes Status: Acute Priority: High Code(s): L03.116 - CELLULITIS OF LEFT LOWER LIMB SNOMED Code(s): 91676234743157626 (2) MRSA bacteremia Current Visit: Yes Status: Acute Code(s): R78.81 - BACTEREMIA; B95.62 - METHICILLIN RESIS STAPH INFCT CAUSING DISEASES CL[facility]SD [facility] SNOMED Code(s): 18674062606444497 Plan: 1patient presented hospital with left foot pain swelling redness and did have a big blister concerning for cellulitis and possible deep infection such as abscess likely from gram-positive skin francine in this patient with history of IV drug use however mention has not injected in the area high risk of MRSA in fection 2-patient with MRSA bacteremia source is likely left foot abscess and cellulitis 3-blood cultures has been repeated 11/28/2023 and has been negative so far g, patient is status post surgical debridement and drainage x 2 of the left foot abscess with deep culture which are currently growing MRSA 4-patient looks it is more likely reactive to GI bleed, white count improved without any changes antibiotic therapy blood culture has been repeated continue with vancomycin and monitor clinical course closely Dictation was produced using [employer] dictation software. please excuse any grammatical, word or spelling errors. Time with Patient: Less than 30
--- NOTE | 2023-12-08 16:07 | P.PN ---
Subjective Progress Note Date: 12/08/23 Principal diagnosis: Left foot wound, necrotizing fasciitis Patient seen and examined today as a follow-up. He had a drop in his hemoglobin yesterday to 5.7 was given 1 unit of blood with a repeat hemoglobin of 5.9. Nursing is reporting that patient had a large black stool yesterday. He states he has no abdominal pain, nausea or vomiting. He reports that his black stool is from his vancomycin. He underwent a CT angiogram abdomen pelvis with no active bleed noted. He has been afebrile. Foot pain has been well-controlled. Wound VAC is in place. Objective - Vital Signs Vital signs: Vital Signs Temp 98.1 F 12/08/23 08:42 Pulse 109 H 12/08/23 08:52 Resp 18 12/08/23 08:52 BP 124/73 12/08/23 08:52 Pulse Ox 98 12/08/23 08:52 FiO2 Intake & Output 12/07/23 12/08/23 12/08/23 18:59 06:59 18:59 Intake Total 500 310 0 Output Total 600 1300 Balance -100 -990 0 Intake: Oral 500 Blood Product 310 0 Rc As-1 Unit 0 [id number] Rc As-1 Unit 310 [id number] Output: Urine 600 1300 Other: Voiding Method Urinal # Bowel Movements 1 1 - Exam General appearance: The patient is alert, oriented, appears in no acute distress. HET: Head is normocephalic and atraumatic. Neck: Supple. Abdomen: Soft, nontender, nondistended. Extremities: Left foot with wound VAC in place with good suction with serosanguineous output. Neurological: No focal deficits. Alert and oriented x 3. - Labs CBC & Chem 7: 12/08/23 13:35 12/08/23 03:19 Labs: Abnormal Lab Results - Last 24 Hours (Table) 12/07/23 12/07/23 12/07/23 Range/Units 12:34 12:34 17:48 WBC 11.9 H (3.8-10.6) k/uL RBC 2.55 L (4.30-5.90) m/uL Hgb 7.8 L (13.0-17.5) gm/dL Hct 25.5 L (39.0-53.0) % MCHC 30.8 L (31.0-37.0) g/dL RDW 15.8 H (11.5-15.5) % Plt Count 929 H (150-450) k/uL Neutrophils # (1.3-7.7) k/uL Retic Count (0.5-2.0) % Haptoglobin (31.2-198.0) mg/dL D-Dimer (<0.60) mg/L FEU Sodium (137-145) mmol/L BUN (9-20) mg/dL Creatinine (0.66-1.25) mg/dL Calcium (8.4-10.2) mg/dL Lactate Dehydrogenase (120-246) U/L Total Protein (6.3-8.2) g/dL Albumin (3.5-5.0) g/dL Urine Opiates Screen Detected H (NotDetected) U Tricyclic Antidepress Detected H (NotDetected) Hep Bs Antibody A (Negative) Hep B Core Total Ab Reactive A (Nonreactive) Hep C IgG Ab Reactive A (Nonreactive) Crossmatch 12/07/23 12/07/23 12/07/23 Range/Units 17:50 20:03 20:03 WBC 23.6 H 22.4 H (3.8-10.6) k/uL RBC 2.01 L 1.86 L (4.30-5.90) m/uL Hgb 6.1 L* D 5.7 L* (13.0-17.5) gm/dL Hct 19.9 L* 18.0 L* (39.0-53.0) % MCHC 30.9 L (31.0-37.0) g/dL RDW 16.2 H 16.5 H (11.5-15.5) % Plt Count 1415 H* 1165 H* (150-450) k/uL Neutrophils # 18.9 H 18.7 H (1.3-7.7) k/uL Retic Count (0.5-2.0) % Haptoglobin (31.2-198.0) mg/dL D-Dimer 3.51 H (<0.60) mg/L FEU Sodium (137-145) mmol/L BUN (9-20) mg/dL Creatinine (0.66-1.25) mg/dL Calcium (8.4-10.2) mg/dL Lactate Dehydrogenase (120-246) U/L Total Protein (6.3-8.2) g/dL Albumin (3.5-5.0) g/dL Urine Opiates Screen (NotDetected) U Tricyclic Antidepress (NotDetected) Hep Bs Antibody (Negative) Hep B Core Total Ab (Nonreactive) Hep C IgG Ab (Nonreactive) Crossmatch 12/07/23 12/07/23 12/07/23 Range/Units 20:03 20:03 20:03 WBC (3.8-10.6) k/uL RBC (4.30-5.90) m/uL Hgb (13.0-17.5) gm/dL Hct (39.0-53.0) % MCHC (31.0-37.0) g/dL RDW (11.5-15.5) % Plt Count (150-450) k/uL Neutrophils # (1.3-7.7) k/uL Retic Count 13.5 H (0.5-2.0) % Haptoglobin 238.0 H (31.2-198.0) mg/dL D-Dimer (<0.60) mg/L FEU Sodium 135 L (137-145) mmol/L BUN 32 H (9-20) mg/dL Creatinine (0.66-1.25) mg/dL Calcium (8.4-10.2) mg/dL Lactate Dehydrogenase 310 H (120-246) U/L Total Protein 5.8 L (6.3-8.2) g/dL Albumin 2.5 L (3.5-5.0) g/dL Urine Opiates Screen (NotDetected) U Tricyclic Antidepress (NotDetected) Hep Bs Antibody (Negative) Hep B Core Total Ab (Nonreactive) Hep C IgG Ab (Nonreactive) Crossmatch 12/07/23 12/08/23 12/08/23 Range/Units 20:12 03:19 03:19 WBC 12.6 H (3.8-10.6) k/uL RBC 1.93 L (4.30-5.90) m/uL Hgb 5.9 L* (13.0-17.5) gm/dL Hct 19.0 L* (39.0-53.0) % MCHC (31.0-37.0) g/dL RDW 15.8 H (11.5-15.5) % Plt Count 934 H (150-450) k/uL Neutrophils # 8.1 H (1.3-7.7) k/uL Retic Count (0.5-2.0) % Haptoglobin (31.2-198.0) mg/dL D-Dimer (<0.60) mg/L FEU Sodium 131 L (137-145) mmol/L BUN 41 H (9-20) mg/dL Creatinine 0.57 L (0.66-1.25) mg/dL Calcium 8.2 L (8.4-10.2) mg/dL Lactate Dehydrogenase (120-246) U/L Total Protein 5.2 L (6.3-8.2) g/dL Albumin 2.4 L (3.5-5.0) g/dL Urine Opiates Screen (NotDetected) U Tricyclic Antidepress (NotDetected) Hep Bs Antibody (Negative) Hep B Core Total Ab (Nonreactive) Hep C IgG Ab (Nonreactive) Crossmatch See Detail Assessment and Plan Assessment: 1. Left dorsal foot wound with abscess status post excisional debridement with washout of deep abscess 2. Necrotizing fasciitis of the left foot 3. IV drug user 4. Anemia, normocytic normochromic. Not likely from acute blood loss from foot wound. 5. Melena Plan: 1. Continue wound VAC as ordered, change Fridays. 2. Patient will need continued formal wound clinic follow-up and wound care. 3. Continue with pain control and medications as ordered and recommended from pain management 4. Continue with antibiotics per recommendations from infectious disease 6. Rest of medical management per primary medical team Discussed with patient importance formal wound care and continued antibiotics with recommendation to subacute rehab due to patient's IV drug history. Discussed if patient is noncompliant there is a good possibility he would require a below the knee amputation in the future. He verbalized understanding. Thank you for this consultation. Recommend outpatient follow-up with wound care and follow-up in a couple weeks with vascular surgery. The impression and plan of care has been dictated as directed. Dr. Fritz Gerber performed a history and examination of this patient, discussed the same with the dictator. I agree with the dictator's note ,documented as a scribe. Any additional findings or plans will be noted.
[2023-12-08] MEDS ORDERED: PHENYLEPHRINE 10 MG/ML VIAL ONE (16:15)
[2023-12-08] MEDS ORDERED: NOREPINEPHRINE 1 MG/ML 4 ML VIAL IV ONE (16:15)
[2023-12-08] MEDS ORDERED: PROPOFOL 10 MG/ML 20 ML VIAL IV ONE (16:15)
[2023-12-08] MEDS ORDERED: KETAMINE HCL IN 0.9 % NACL 50 MG/5 ML SYRINGE ONE (16:15)
[2023-12-08] MEDS ORDERED: MIDAZOLAM 2 MG/2 ML VIAL ONE (16:15)
[2023-12-08] MEDS ORDERED: SUCCINYLCHOLINE CHLORIDE 200 MG/10 ML VIAL IV ONE (16:15)
[2023-12-08] MEDS ORDERED: ETOMIDATE 2 MG/ML 10 ML VIAL ONE (16:15)
--- NOTE | 2023-12-08 16:17 | P.PN ---
Subjective Progress Note Date: 12/08/23 Hospital Course: 33-year-old male with history of IV drug abuse with heroin and hepatitis C who initially presented with swelling and pain over his left foot. Patient subsequently found to have MRSA bacteremia and necrotizing fasciitis of the left foot. Patient has undergone debridement with vascular surgery and currently has wound VAC on. Blood cultures have been clear. Echocardiogram shows no signs of infective endocarditis. Infectious disease following. On IV antibiotics. Having significant pain. During his hospitalization, patient had anemia. Hematology was consulted. It was thought to be reactive. Hemoglobin did improve after getting transfusions. However, on 12/07/2023 his anemia worsened. He developed an episode of gio hematochezia, and now having melena. On 024. Patient had episode of syncope, with diaphoresis, tachycardia, hypotension, patient moved to the medical ICU. Getting more blood. GI consulted. Will likely need EGD stat. Subjective: Patient seen and examined at bedside. Patient having melanic stools as well as had bright red blood per rectum overnight. Currently diaphoretic, tachycardic and hypotensive. Pertinent positives and negatives as discussed above, a complete review of systems was performed and all other systems are negative. Vitals Signs Reviewed. General: Nontoxic, no distress, appears at stated age Derm: Warm, dry, left foot wound VAC in place. Head: Atraumatic, normocephalic, symmetric Eyes: EOMI, no lid lag, anicteric sclera Mouth: No lip lesion, mucus membranes moist Cardiovascular: S1S2 reg, no murmur Lungs: CTA bilateral, no rhonchi, no rales, no accessory muscle use Abdominal: Soft, nontender to palpation, no guarding, no appreciable organomegaly Ext: No gross muscle atrophy, no edema, no contractures Neuro: CN II-XI grossly intact, no focal neuro deficits Psych: Alert, oriented, appropriate affect Data Reviewed Today: Pertinent Labs: WBC 12.6, hemoglobin 5.9, platelet 934, sodium 131, creatinine 0.57, magnesium 1.9 Imaging: CTA abdomen pelvis does not show any evidence of GI hemorrhage, right anterior lower lung wedge-shaped airspace opacity concerning for pulmonary infarct from pulmonary embolism. Assessment and Plan: Acute blood loss anemia Acute GI bleed Hemorrhagic shock -Pending another blood transfusion, has had a total of 6 units so far -Discussed management directly with ICU and GI -Patient being transferred to medical ICU, on IV pantoprazole 40 twice daily, likely will need stat EGD -Off of Toradol and DVT prophylaxis -Was also seen by hematology previously Sepsis secondary to Necrotizing fasciitis of the left foot with MRSA abscess s/p debridement with washout of deep abscess 11/29/23 and Second debridement on the foot with wound VAC 12/01/2023 MRSA bacteremia - Blood cultures from 11/27 negative to date. -Vancomycin IV piggyback being dosed via trough and creatinine level, monitor for renal toxicity -Echocardiogram without signs of infectious endocarditis -ID following -Wound care recs: Continue with wound VAC with follow-up 3 times weekly. -Vascular surgery following, possible need for BKA if the foot does not heal or improve. Continue with pain control. -Wound culture of left foot with growth of MRSA Hep C - Hx of active infection never received treatment - screen for HIV pending -Outpatient follow-up Opiate dependency with known IV heroin abuse prior to hospital stay Intractable pain related to necrotizing fasciitis of the left foot Sinus tachycardia -Tylenol 1000 mg decreased to every 8 hours scheduled, continue Neurontin 300 mg p.o. 3 times daily -Dilaudid decreased to 1 mg every 4 hours as needed for severe breakthrough pain -[place] to 10 mg oral 4 times daily as needed -Continue with fentanyl patch 50 mcg/h -clonidine 0.1mg p.o. 3 times daily for heroin withdrawal Right lower lobe consolidation/pulmonary infarct -patient does not have any signs of pneumonia -outpatient follow-up CT scan in 3 months Hypokalemia, Resolved DVT ppx: SCDs Code status: Full code Anticipated discharge place: Pending clinical course Anticipated discharge time: Pending clinical course Objective - Vital Signs Vital signs: Vital Signs Temp 97.4 F L 12/08/23 15:40 Pulse 138 H 12/08/23 16:10 Resp 17 12/08/23 16:10 BP 92/40 12/08/23 16:10 Pulse Ox 100 12/08/23 16:10 FiO2 Intake & Output 12/07/23 12/08/23 12/08/23 18:59 06:59 18:59 Intake Total 500 310 310 Output Total 600 1300 2500 Balance -100 -448 -5660 Intake: Oral 500 Blood Product 310 310 Unit 0 Rc As-1 Unit 310 [id number] Rc As-1 Unit 310 [id number] Output: Urine 600 1300 2500 Other: Voiding Method Urinal # Bowel Movements 1 1 - Labs CBC & Chem 7: 12/08/23 13:35 12/08/23 03:19 Labs: Abnormal Lab Results - Last 24 Hours (Table) 12/07/23 12/07/23 12/07/23 Range/Units 12:34 17:48 17:50 WBC 23.6 H (3.8-10.6) k/uL RBC 2.01 L (4.30-5.90) m/uL Hgb 6.1 L* D (13.0-17.5) gm/dL Hct 19.9 L* (39.0-53.0) % MCHC 30.9 L (31.0-37.0) g/dL RDW 16.2 H (11.5-15.5) % Plt Count 1415 H* (150-450) k/uL Neutrophils # 18.9 H (1.3-7.7) k/uL Retic Count (0.5-2.0) % Haptoglobin (31.2-198.0) mg/dL D-Dimer (<0.60) mg/L FEU Sodium (137-145) mmol/L BUN (9-20) mg/dL Creatinine (0.66-1.25) mg/dL POC Glucose (mg/dL) (70-110) mg/dL Calcium (8.4-10.2) mg/dL Lactate Dehydrogenase (120-246) U/L Total Protein (6.3-8.2) g/dL Albumin (3.5-5.0) g/dL Urine Opiates Screen Detected H (NotDetected) U Tricyclic Antidepress Detected H (NotDetected) Hep Bs Antibody A (Negative) Hep B Core Total Ab Reactive A (Nonreactive) Hep C IgG Ab Reactive A (Nonreactive) Crossmatch 12/07/23 12/07/23 12/07/23 Range/Units 20:03 20:03 20:03 WBC 22.4 H (3.8-10.6) k/uL RBC 1.86 L (4.30-5.90) m/uL Hgb 5.7 L* (13.0-17.5) gm/dL Hct 18.0 L* (39.0-53.0) % MCHC (31.0-37.0) g/dL RDW 16.5 H (11.5-15.5) % Plt Count 1165 H* (150-450) k/uL Neutrophils # 18.7 H (1.3-7.7) k/uL Retic Count 13.5 H (0.5-2.0) % Haptoglobin (31.2-198.0) mg/dL D-Dimer 3.51 H (<0.60) mg/L FEU Sodium (137-145) mmol/L BUN (9-20) mg/dL Creatinine (0.66-1.25) mg/dL POC Glucose (mg/dL) (70-110) mg/dL Calcium (8.4-10.2) mg/dL Lactate Dehydrogenase (120-246) U/L Total Protein (6.3-8.2) g/dL Albumin (3.5-5.0) g/dL Urine Opiates Screen (NotDetected) U Tricyclic Antidepress (NotDetected) Hep Bs Antibody (Negative) Hep B Core Total Ab (Nonreactive) Hep C IgG Ab (Nonreactive) Crossmatch 12/07/23 12/07/23 12/07/23 Range/Units 20:03 20:03 20:12 WBC (3.8-10.6) k/uL RBC (4.30-5.90) m/uL Hgb (13.0-17.5) gm/dL Hct (39.0-53.0) % MCHC (31.0-37.0) g/dL RDW (11.5-15.5) % Plt Count (150-450) k/uL Neutrophils # (1.3-7.7) k/uL Retic Count (0.5-2.0) % Haptoglobin 238.0 H (31.2-198.0) mg/dL D-Dimer (<0.60) mg/L FEU Sodium 135 L (137-145) mmol/L BUN 32 H (9-20) mg/dL Creatinine (0.66-1.25) mg/dL POC Glucose (mg/dL) (70-110) mg/dL Calcium (8.4-10.2) mg/dL Lactate Dehydrogenase 310 H (120-246) U/L Total Protein 5.8 L (6.3-8.2) g/dL Albumin 2.5 L (3.5-5.0) g/dL Urine Opiates Screen (NotDetected) U Tricyclic Antidepress (NotDetected) Hep Bs Antibody (Negative) Hep B Core Total Ab (Nonreactive) Hep C IgG Ab (Nonreactive) Crossmatch See Detail 12/08/23 12/08/23 12/08/23 Range/Units 03:19 03:19 13:35 WBC 12.6 H 13.5 H (3.8-10.6) k/uL RBC 1.93 L 2.30 L (4.30-5.90) m/uL Hgb 5.9 L* 7.0 L (13.0-17.5) gm/dL Hct 19.0 L* 22.0 L (39.0-53.0) % MCHC (31.0-37.0) g/dL RDW 15.8 H 16.8 H (11.5-15.5) % Plt Count 934 H 951 H (150-450) k/uL Neutrophils # 8.1 H (1.3-7.7) k/uL Retic Count (0.5-2.0) % Haptoglobin (31.2-198.0) mg/dL D-Dimer (<0.60) mg/L FEU Sodium 131 L (137-145) mmol/L BUN 41 H (9-20) mg/dL Creatinine 0.57 L (0.66-1.25) mg/dL POC Glucose (mg/dL) (70-110) mg/dL Calcium 8.2 L (8.4-10.2) mg/dL Lactate Dehydrogenase (120-246) U/L Total Protein 5.2 L (6.3-8.2) g/dL Albumin 2.4 L (3.5-5.0) g/dL Urine Opiates Screen (NotDetected) U Tricyclic Antidepress (NotDetected) Hep Bs Antibody (Negative) Hep B Core Total Ab (Nonreactive) Hep C IgG Ab (Nonreactive) Crossmatch 12/08/23 Range/Units 14:47 WBC (3.8-10.6) k/uL RBC (4.30-5.90) m/uL Hgb (13.0-17.5) gm/dL Hct (39.0-53.0) % MCHC (31.0-37.0) g/dL RDW (11.5-15.5) % Plt Count (150-450) k/uL Neutrophils # (1.3-7.7) k/uL Retic Count (0.5-2.0) % Haptoglobin (31.2-198.0) mg/dL D-Dimer (<0.60) mg/L FEU Sodium (137-145) mmol/L BUN (9-20) mg/dL Creatinine (0.66-1.25) mg/dL POC Glucose (mg/dL) 198 H (70-110) mg/dL Calcium (8.4-10.2) mg/dL Lactate Dehydrogenase (120-246) U/L Total Protein (6.3-8.2) g/dL Albumin (3.5-5.0) g/dL Urine Opiates Screen (NotDetected) U Tricyclic Antidepress (NotDetected) Hep Bs Antibody (Negative) Hep B Core Total Ab (Nonreactive) Hep C IgG Ab (Nonreactive) Crossmatch
--- NOTE | 2023-12-08 16:22 | P.CNPUL ---
History of Present Illness Consult date: 12/08/23 Requesting physician: Aman Moss Chief complaint: GI bleed, hypotension. History of present illness: Pulmonary/critical care consult dated December 08, 2023. 33-year-old male has been in the hospital for a number of days. We were consulted today, for hypotension, and gastrointestinal bleed. The patient was transferred, from the floor, to the intensive care unit, room 263, where he is seen. Since being here in the hospital he has received a total of 7 units of blood. His hemoglobin this morning was 7. White count was 13.5, hematocrit 22, and platelet count was 951,000. Apparently Dr. Becker is coming in, to scope the patient, in the intensive care unit. His sodium was 131, potassium 4.9, chlorides 105, CO2 23, BUN 41, and creatinine 0.57. Albumin was 2.4. Stool was positive for occult blood. The patient initially came into the hospital on November 25, for some sort of injury to his left foot, with redness and swelling. Apparently according to the nurses, the patient has been refusing interventions such as EGD, and colonoscopy. The patient recently had a CT of the abdomen and pelvis, and shows no evidence of gastrointestinal bleeding, and no acute abdominal process was visualized. Review of Systems REVIEW OF SYSTEMS: CONSTITUTIONAL: [Negative.] NEUROLOGIC: [ Negative.] HEENT: [ Negative.] CARDIAC: Hypotension. PULMONARY: [Negative.] GI: Gastrointestinal bleed. : [Negative.] RHEUMATOLOGIC: [ Negative.] IMMUNOLOGIC: [ Negative.] ENDOCRINE: [Negative. ] DERMATOLOGIC: [Negative.] Past Medical History Past Medical History: No Reported History, Seizure Disorder Additional Past Medical History / Comment(s): hasn't had siezures since 2017 History of Any Multi-Drug Resistant Organisms: MRSA Date of last positivie culture/infection: 11/29/23 MDRO Source:: Left Foot Past Surgical History: No Surgical Hx Reported Past Psychological History: No Psychological Hx Reported Smoking Status: Never smoker Past Alcohol Use History: Occasional Past Drug Use History: Marijuana, Methamphetamine - Past Family History Mother History Unknown: Yes Medications and Allergies Home Medications Medication Instructions Recorded Confirmed Type No Known Home Medications 08/21/19 11/26/23 History Allergies Allergy/AdvReac Type Severity Reaction Status Date / Time Penicillins Allergy Unknown Verified 11/26/23 18:32 Childhood Physical Exam Osteopathic Statement: *. No significant issues noted on an osteopathic stru ctural exam other than those noted in the History and Physical/Consult. Vitals: Vital Signs Temp Pulse Pulse Pulse Resp BP BP 12/08/23 12:00 105 H 18 125/80 12/08/23 10:52 114 H 18 118/65 12/08/23 09:12 120 H 18 98/65 12/08/23 08:52 109 H 18 124/73 12/08/23 08:42 98.1 F 114 H 18 126/67 12/08/23 08:00 98.1 F 107 H 114 H 16 126/67 12/08/23 04:00 98.6 F 105 H 16 127/68 12/08/23 01:51 18 12/08/23 01:21 98.8 F 102 H 18 124/61 12/07/23 23:11 98.8 F 118 H 20 119/56 12/07/23 22:52 98.7 F 114 H 20 114/59 12/07/23 22:51 98.7 F 114 H 20 114/59 12/07/23 20:00 98.7 F 123 H 16 110/62 12/07/23 19:49 98.0 F 128 H 16 103/47 12/07/23 16:25 123 H 102/57 Pulse Ox 12/08/23 12:00 100 12/08/23 10:52 95 12/08/23 09:12 98 12/08/23 08:52 98 12/08/23 08:42 98 12/08/23 08:00 98 12/08/23 04:00 100 12/08/23 01:51 12/08/23 01:21 96 12/07/23 23:11 98 12/07/23 22:52 100 12/07/23 22:51 100 12/07/23 20:00 100 12/07/23 19:49 98 12/07/23 16:25 97 Intake and Output 12/08/23 12/08/23 12/08/23 06:59 14:59 22:59 Intake Total 310 310 0 Output Total 1300 2500 Balance -990 -2190 0 Intake: Blood Product 310 310 0 Unit 0 Rc As-1 Unit 310 [id number] Rc As-1 Unit 310 [id number] Output: Urine 1300 2500 Other: Voiding Method Urinal # Bowel Movements 1 No acute distress, oriented 3. Patient is currently on room air. No respiratory distress. HEENT examination is grossly unremarkable. Mucous membranes are moist. No oral lesions. Neck supple. Full range of motion. No adenopathy thyromegaly or neck vein distention. Cardiovascular examination reveals regular rhythm rate. S1-S2 normal. No S3 or S4. No discernible murmur noted. Heart rate is 138 bpm. Lungs reveal clear breath sounds. Breath sounds are equal bilaterally. No adventitious lung sounds including wheezes rhonchi or crackles. Saturations are 100% on room air. Abdomen soft, without bowel sounds. No masses. Extremities are intact. No cyanosis clubbing or edema. Skin is without rash or lesion. Neurologic examination is brief but nonfocal. Results - Laboratory Findings CBC and BMP: 12/08/23 13:35 12/08/23 03:19 PT/INR, D-dimer PT 11.2 sec (10.0-12.5) 12/07/23 20:03 INR 1.0 (<1.2) 12/07/23 20:03 D-Dimer 3.51 mg/L FEU (<0.60) H 12/07/23 20:03 Abnormal lab findings: Abnormal Labs 11/26/23 11/26/23 11/27/23 16:45 16:45 11:35 WBC 24.8 H RBC 3.45 L Hgb 10.9 L Hct 32.5 L MCHC RDW Plt Count Neutrophils # 22.7 H Neutrophils # (Manual) Lymphocytes # 0.7 L Lymphocytes # (Manual) Monocytes # (Manual) Eosinophils # (Manual) Metamyelocytes # (Man) Myelocytes # (Manual) ESR 74 H Retic Count Haptoglobin D-Dimer Sodium 135 L Potassium 3.0 L 3.1 L Chloride 109 H 111 H Carbon Dioxide 19 L 20 L BUN Creatinine 0.56 L Glucose 131 H 109 H POC Glucose (mg/dL) Calcium 8.1 L Iron TIBC Transferrin Ferritin Delta Bilirubin Alkaline Phosphatase Lactate Dehydrogenase C-Reactive Protein 31.8 H Total Protein 6.1 L Albumin 2.6 L RBC Folate Urine Opiates Screen U Tricyclic Antidepress Hep Bs Antibody Hep B Core Total Ab Hep C IgG Ab Crossmatch 11/28/23 11/28/23 11/29/23 11:12 11:12 07:11 WBC 19.2 H RBC 3.41 L Hgb 10.8 L Hct 32.1 L MCHC RDW Plt Count Neutrophils # 16.2 H Neutrophils # (Manual) Lymphocytes # Lymphocytes # (Manual) Monocytes # (Manual) Eosinophils # (Manual) Metamyelocytes # (Man) Myelocytes # (Manual) ESR 74 H Retic Count Haptoglobin D-Dimer Sodium 134 L 135 L Potassium 3.2 L 2.9 L Chloride 108 H 109 H Carbon Dioxide 21 L BUN Creatinine 0.58 L 0.56 L Glucose POC Glucose (mg/dL) Calcium 7.7 L 7.2 L Iron TIBC Transferrin Ferritin Delta Bilirubin Alkaline Phosphatase Lactate Dehydrogenase C-Reactive Protein 26.5 H Total Protein Albumin RBC Folate Urine Opiates Screen U Tricyclic Antidepress Hep Bs Antibody Hep B Core Total Ab Hep C IgG Ab Crossmatch 11/29/23 11/29/23 11/29/23 07:12 16:47 16:47 WBC 14.3 H RBC 2.94 L Hgb 9.5 L Hct 27.1 L MCHC RDW Plt Count Neutrophils # 11.5 H Neutrophils # (Manual) Lymphocytes # Lymphocytes # (Manual) Monocytes # (Manual) Eosinophils # (Manual) Metamyelocytes # (Man) Myelocytes # (Manual) ESR Retic Count Haptoglobin 302.0 H D-Dimer Sodium Potassium Chloride Carbon Dioxide BUN Creatinine Glucose POC Glucose (mg/dL) Calcium Iron 55 L TIBC 133 L Transferrin 94.9 L Ferritin 547.0 H Delta Bilirubin Alkaline Phosphatase Lactate Dehydrogenase C-Reactive Protein Total Protein Albumin RBC Folate Urine Opiates Screen U Tricyclic Antidepress Hep Bs Antibody Hep B Core Total Ab Hep C IgG Ab Crossmatch 11/29/23 11/30/23 11/30/23 16:47 08:07 08:07 WBC 15.8 H RBC 2.96 L Hgb 9.2 L Hct 28.1 L MCHC RDW Plt Count Neutrophils # Neutrophils # (Manual) 12.00 H Lymphocytes # Lymphocytes # (Manual) Monocytes # (Manual) 1.74 H Eosinophils # (Manual) Metamyelocytes # (Man) 0.32 H Myelocytes # (Manual) 0.16 H ESR Retic Count Haptoglobin D-Dimer Sodium 136 L Potassium Chloride 110 H Carbon Dioxide BUN Creatinine 0.48 L Glucose POC Glucose (mg/dL) Calcium 7.4 L Iron TIBC Transferrin Ferritin Delta Bilirubin 0.4 H Alkaline Phosphatase 182 H Lactate Dehydrogenase C-Reactive Protein Total Protein 5.5 L Albumin 2.1 L RBC Folate Urine Opiates Screen U Tricyclic Antidepress Hep Bs Antibody Hep B Core Total Ab Hep C IgG Ab Crossmatch 12/01/23 12/01/23 12/01/23 07:28 08:11 08:11 WBC 28.8 H RBC 1.97 L Hgb 6.2 L* D Hct 18.8 L* MCHC RDW Plt Count 461 H Neutrophils # Neutrophils # (Manual) 16.10 H Lymphocytes # Lymphocytes # (Manual) 5.76 H Monocytes # (Manual) 3.17 H Eosinophils # (Manual) 1.73 H Metamyelocytes # (Man) 0.86 H Myelocytes # (Manual) 1.73 H ESR Retic Count Haptoglobin D-Dimer Sodium Potassium Chloride 112 H Carbon Dioxide 19 L BUN 30 H Creatinine 0.48 L Glucose POC Glucose (mg/dL) Calcium 7.8 L Iron TIBC Transferrin Ferritin Delta Bilirubin Alkaline Phosphatase Lactate Dehydrogenase C-Reactive Protein Total Protein Albumin RBC Folate Urine Opiates Screen U Tricyclic Antidepress Hep Bs Antibody Hep B Core Total Ab Hep C IgG Ab Crossmatch See Detail 12/01/23 12/02/23 12/02/23 16:20 08:05 08:05 WBC 52.9 H* 32.6 H RBC 2.28 L 2.17 L Hgb 6.8 L* 6.6 L* Hct 21.9 L 20.0 L MCHC RDW Plt Count 625 H 462 H Neutrophils # Neutrophils # (Manual) 25.10 H Lymphocytes # Lymphocytes # (Manual) Monocytes # (Manual) 1.30 H Eosinophils # (Manual) 1.30 H Metamyelocytes # (Man) 0.65 H Myelocytes # (Manual) 0.98 H ESR Retic Count Haptoglobin D-Dimer Sodium 133 L Potassium Chloride Carbon Dioxide BUN Creatinine Glucose POC Glucose (mg/dL) Calcium 7.2 L Iron TIBC Transferrin Ferritin Delta Bilirubin Alkaline Phosphatase Lactate Dehydrogenase C-Reactive Protein Total Protein Albumin RBC Folate Urine Opiates Screen U Tricyclic Antidepress Hep Bs Antibody Hep B Core Total Ab Hep C IgG Ab Crossmatch 12/02/23 12/03/23 12/03/23 16:48 06:52 06:52 WBC 26.4 H RBC 2.98 L Hgb 8.9 L D Hct 26.8 L MCHC RDW 15.6 H Plt Count 457 H Neutrophils # Neutrophils # (Manual) 18.70 H Lymphocytes # Lymphocytes # (Manual) Monocytes # (Manual) Eosinophils # (Manual) Metamyelocytes # (Man) 1.58 H Myelocytes # (Manual) 1.06 H ESR Retic Count 0.1 L Haptoglobin D-Dimer Sodium 135 L Potassium Chloride Carbon Dioxide BUN Creatinine 0.60 L Glucose POC Glucose (mg/dL) Calcium 7.9 L Iron TIBC Transferrin Ferritin Delta Bilirubin Alkaline Phosphatase Lactate Dehydrogenase C-Reactive Protein 5.3 H Total Protein Albumin RBC Folate Urine Opiates Screen U Tricyclic Antidepress Hep Bs Antibody Hep B Core Total Ab Hep C IgG Ab Crossmatch 12/03/23 12/04/23 12/04/23 06:52 05:29 05:29 WBC 15.5 H RBC 3.08 L Hgb 9.5 L Hct 29.5 L MCHC RDW 16.7 H Plt Count 532 H Neutrophils # Neutrophils # (Manual) Lymphocytes # Lymphocytes # (Manual) Monocytes # (Manual) Eosinophils # (Manual) Metamyelocytes # (Man) Myelocytes # (Manual) ESR Retic Count Haptoglobin D-Dimer Sodium Potassium Chloride 112 H Carbon Dioxide BUN Creatinine 0.58 L Glucose 114 H POC Glucose (mg/dL) Calcium 8.1 L Iron TIBC Transferrin Ferritin Delta Bilirubin Alkaline Phosphatase 129 H Lactate Dehydrogenase C-Reactive Protein Total Protein Albumin 2.7 L RBC Folate 880 H Urine Opiates Screen U Tricyclic Antidepress Hep Bs Antibody Hep B Core Total Ab Hep C IgG Ab Crossmatch 12/05/23 12/05/23 12/06/23 07:10 07:10 09:43 WBC 12.1 H RBC 2.95 L 3.07 L Hgb 9.0 L 9.2 L Hct 28.9 L 30.2 L MCHC 30.5 L RDW 16.8 H 16.6 H Plt Count 785 H D Neutrophils # Neutrophils # (Manual) Lymphocytes # Lymphocytes # (Manual) Monocytes # (Manual) Eosinophils # (Manual) Metamyelocytes # (Man) Myelocytes # (Manual) ESR Retic Count Haptoglobin D-Dimer Sodium 135 L Potassium Chloride Carbon Dioxide BUN Creatinine 0.58 L Glucose POC Glucose (mg/dL) Calcium 8.0 L Iron TIBC Transferrin Ferritin Delta Bilirubin Alkaline Phosphatase Lactate Dehydrogenase C-Reactive Protein Total Protein Albumin 2.8 L RBC Folate Urine Opiates Screen U Tricyclic Antidepress Hep Bs Antibody Hep B Core Total Ab Hep C IgG Ab Crossmatch 12/06/23 12/07/23 12/07/23 09:43 12:34 12:34 WBC 11.9 H RBC 2.55 L Hgb 7.8 L Hct 25.5 L MCHC 30.8 L RDW 15.8 H Plt Count 929 H Neutrophils # Neutrophils # (Manual) Lymphocytes # Lymphocytes # (Manual) Monocytes # (Manual) Eosinophils # (Manual) Metamyelocytes # (Man) Myelocytes # (Manual) ESR Retic Count Haptoglobin D-Dimer Sodium 136 L Potassium Chloride Carbon Dioxide BUN Creatinine 0.48 L Glucose POC Glucose (mg/dL) Calcium Iron TIBC Transferrin Ferritin Delta Bilirubin Alkaline Phosphatase Lactate Dehydrogenase C-Reactive Protein Total Protein Albumin RBC Folate Urine Opiates Screen U Tricyclic Antidepress Hep Bs Antibody A Hep B Core Total Ab Reactive A Hep C IgG Ab Reactive A Crossmatch 12/07/23 12/07/23 12/07/23 17:48 17:50 20:03 WBC 23.6 H 22.4 H RBC 2.01 L 1.86 L Hgb 6.1 L* D 5.7 L* Hct 19.9 L* 18.0 L* MCHC 30.9 L RDW 16.2 H 16.5 H Plt Count 1415 H* 1165 H* Neutrophils # 18.9 H 18.7 H Neutrophils # (Manual) Lymphocytes # Lymphocytes # (Manual) Monocytes # (Manual) Eosinophils # (Manual) Metamyelocytes # (Man) Myelocytes # (Manual) ESR Retic Count Haptoglobin D-Dimer Sodium Potassium Chloride Carbon Dioxide BUN Creatinine Glucose POC Glucose (mg/dL) Calcium Iron TIBC Transferrin Ferritin Delta Bilirubin Alkaline Phosphatase Lactate Dehydrogenase C-Reactive Protein Total Protein Albumin RBC Folate Urine Opiates Screen Detected H U Tricyclic Antidepress Detected H Hep Bs Antibody Hep B Core Total Ab Hep C IgG Ab Crossmatch 12/07/23 12/07/23 12/07/23 20:03 20:03 20:03 WBC RBC Hgb Hct MCHC RDW Plt Count Neutrophils # Neutrophils # (Manual) Lymphocytes # Lymphocytes # (Manual) Monocytes # (Manual) Eosinophils # (Manual) Metamyelocytes # (Man) Myelocytes # (Manual) ESR Retic Count 13.5 H Haptoglobin D-Dimer 3.51 H Sodium 135 L Potassium Chloride Carbon Dioxide BUN 32 H Creatinine Glucose POC Glucose (mg/dL) Calcium Iron TIBC Transferrin Ferritin Delta Bilirubin Alkaline Phosphatase Lactate Dehydrogenase 310 H C-Reactive Protein Total Protein 5.8 L Albumin 2.5 L RBC Folate Urine Opiates Screen U Tricyclic Antidepress Hep Bs Antibody Hep B Core Total Ab Hep C IgG Ab Crossmatch 12/07/23 12/07/23 12/08/23 20:03 20:12 03:19 WBC RBC Hgb Hct MCHC RDW Plt Count Neutrophils # Neutrophils # (Manual) Lymphocytes # Lymphocytes # (Manual) Monocytes # (Manual) Eosinophils # (Manual) Metamyelocytes # (Man) Myelocytes # (Manual) ESR Retic Count Haptoglobin 238.0 H D-Dimer Sodium 131 L Potassium Chloride Carbon Dioxide BUN 41 H Creatinine 0.57 L Glucose POC Glucose (mg/dL) Calcium 8.2 L Iron TIBC Transferrin Ferritin Delta Bilirubin Alkaline Phosphatase Lactate Dehydrogenase C-Reactive Protein Total Protein 5.2 L Albumin 2.4 L RBC Folate Urine Opiates Screen U Tricyclic Antidepress Hep Bs Antibody Hep B Core Total Ab Hep C IgG Ab Crossmatch See Detail 12/08/23 12/08/23 12/08/23 03:19 13:35 14:47 WBC 12.6 H 13.5 H RBC 1.93 L 2.30 L Hgb 5.9 L* 7.0 L Hct 19.0 L* 22.0 L MCHC RDW 15.8 H 16.8 H Plt Count 934 H 951 H Neutrophils # 8.1 H Neutrophils # (Manual) Lymphocytes # Lymphocytes # (Manual) Monocytes # (Manual) Eosinophils # (Manual) Metamyelocytes # (Man) Myelocytes # (Manual) ESR Retic Count Haptoglobin D-Dimer Sodium Potassium Chloride Carbon Dioxide BUN Creatinine Glucose POC Glucose (mg/dL) 198 H Calcium Iron TIBC Transferrin Ferritin Delta Bilirubin Alkaline Phosphatase Lactate Dehydrogenase C-Reactive Protein Total Protein Albumin RBC Folate Urine Opiates Screen U Tricyclic Antidepress Hep Bs Antibody Hep B Core Total Ab Hep C IgG Ab Crossmatch Assessment and Plan Assessment: Acute gastrointestinal bleed. Hypotension, secondary to GI bleeding, the patient has received a total of 7 units of PRBCs. Sepsis, secondary to necrotizing fasciitis. Methicillin-resistant Staph aureus bacteremia. History of hepatitis C. History of opiate dependency. History of IV drug abuse. Plan: Plan dated December 08, 2023. The patient is seen today in the intensive care unit, room 263. My intention is to place a central line in this patient, as the patient has poor IV access. Additional recommendations and suggestions are forthcoming. I will continue to monitor and manage the patient in the intensive care unit. Labs, x-rays, and medications are reviewed. Prognosis is guarded. The patient has received a total of 7 units of PRBCs. The patient will have a scope done today, by gastr oenterology. Time with Patient: Greater than 30
--- NOTE | 2023-12-08 16:32 | P.CONS ---
History of Present Illness - Reason for Consult Consult date: 12/08/23 [facility] Requesting physician: Nic Austin - Chief Complaint Foot wound - History of Present Illness This is a 33-year-old male who had presented to the emergency department 12 days ago with complaints of a wound to his left foot. He has a past medical history including heroin and methamphetamine IV drug use, hepatitis C untreated, and remote history of seizure disorder. Patient was admitted with left foot infection and underwent surgical debridement with findings of necrotizing fasciitis. During this hospitalization he had a drop in his hemoglobin initially back on 530 24-6.2 from an admitting hemoglobin of 10.9. He had minimal blood loss during surgery and has had a wound VAC in place with only small amounts of serosanguineous output, not enough to account for blood loss. Vascular surgery then consulted hematology for a normal chronic normocytic anemia. Patient had required blood transfusion with improvement in his hemoglobin with continued monitoring. Yesterday he had a another drop in his hemoglobin with increase in his white count as well as platelets. Hemoglobin was down to 5.7. He has had a total of 6 units of blood during this admission. He denies any previous history of GI bleed. No previous history of ulcer. He is not on regular NSAID use. He is not on any anticoagulation. Apparently yesterday evening patient had a large black stool reported by nursing. Patient states that it was black but then looked normal. He also underwent a CT angiogram of the abdomen pelvis to evaluate for active GI bleed which was negative for active GI bleed. No previous history of upper or lower endoscopy. He denies any abdominal pain, nausea or vomiting. States he has had little appetite and not been eating much. Review of Systems REVIEW OF SYSTEMS: CARDIOPULMONARY: No chest pain or shortness of breath. Gastrointestinal: No abdominal pain. No nausea or vomiting. No hematemesis, coffee-ground emesis. No rectal bleeding. Reported black stool. GENITOURINARY: No dysuria or hematuria. MUSCULOSKELETAL: Reports normal range of motion. Left foot pain. SKIN: No rashes. No jaundice. Left foot wound, necrotizing fasciitis with wound VAC in place ENDOCRINE: No chills, fevers. No excessive weight gain or loss. No polydipsia or polyuria. PSYCHIATRIC: Unremarkable. NEUROLOGY: No change in mental status. Denies dizziness, headache. ENT: Vision unremarkable. CONSTITUTIONAL: No recent weight loss. No fever, chills, night sweats. Past Medical History Past Medical History: No Reported History, Seizure Disorder Additional Past Medical History / Comment(s): hasn't had siezures since 2018 History of Any Multi-Drug Resistant Organisms: MRSA Year Discovered:: 11/29/23 MDRO Source:: Left Foot Past Surgical History: No Surgical Hx Reported Past Psychological History: No Psychological Hx Reported Smoking Status: Never smoker Past Alcohol Use History: Occasional Past Drug Use History: Marijuana, Methamphetamine - Past Family History Mother History Unknown: Yes Medications and Allergies Home Medications Medication Instructions Recorded Confirmed Type No Known Home Medications 08/21/19 11/26/23 History Allergies Allergy/AdvReac Type Severity Reaction Status Date / Time Penicillins Allergy Unknown Verified 11/26/23 18:32 Childhood Physical Exam Vitals: Vital Signs Temp Pulse Pulse Resp BP BP Pulse Ox 12/08/23 08:52 109 H 18 124/73 98 12/08/23 08:42 98.1 F 114 H 18 126/67 98 12/08/23 04:00 98.6 F 105 H 16 127/68 100 12/08/23 01:51 18 12/08/23 01:21 98.8 F 102 H 18 124/61 96 12/07/23 23:11 98.8 F 118 H 20 119/56 98 12/07/23 22:52 98.7 F 114 H 20 114/59 100 12/07/23 22:51 98.7 F 114 H 20 114/59 100 12/07/23 20:00 98.7 F 123 H 16 110/62 100 12/07/23 19:49 98.0 F 128 H 16 103/47 98 12/07/23 16:25 123 H 102/57 97 12/07/23 15:48 98.5 F 133 H 21 121/70 100 Intake and Output 12/07/23 12/08/23 12/08/23 22:59 06:59 14:59 Intake Total 500 310 0 Output Total 1300 Balance 500 -990 0 Intake: Oral 500 Blood Product 0 310 0 Rc As-1 Unit 0 [id number] Rc As-1 Unit 0 310 [id number] Output: Urine 1300 Other: Voiding Method Urinal Urinal # Bowel Movements 1 1 General appearance: The patient is alert, oriented, appears in no acute distress. HET: Head is normocephalic and atraumatic. Conjunctiva pink. Sclera anicteric. Neck: Supple without lymphadenopathy. Trachea midline. Heart: Regular. Lungs: Equal expansion, normal respiratory effort. Abdomen: Soft, nontender, nondistended. Skin: No rashes. No jaundice. Extremities: Multiple tattoos on his extremities. Left foot with wound VAC in place Neurological: No focal deficits. Alert and oriented x3. Results CBC & Chem 7: 12/08/23 13:35 12/08/23 03:19 Labs: Abnormal Lab Results - Last 24 Hours (Table) 12/07/23 12/07/23 12/07/23 Range/Units 12:34 12:34 17:48 WBC 11.9 H (3.8-10.6) k/uL RBC 2.55 L (4.30-5.90) m/uL Hgb 7.8 L (13.0-17.5) gm/dL Hct 25.5 L (39.0-53.0) % MCHC 30.8 L (31.0-37.0) g/dL RDW 15.8 H (11.5-15.5) % Plt Count 929 H (150-450) k/uL Neutrophils # (1.3-7.7) k/uL Retic Count (0.5-2.0) % Haptoglobin (31.2-198.0) mg/dL D-Dimer (<0.60) mg/L FEU Sodium (137-145) mmol/L BUN (9-20) mg/dL Creatinine (0.66-1.25) mg/dL Calcium (8.4-10.2) mg/dL Lactate Dehydrogenase (120-246) U/L Total Protein (6.3-8.2) g/dL Albumin (3.5-5.0) g/dL Urine Opiates Screen Detected H (NotDetected) U Tricyclic Antidepress Detected H (NotDetected) Hep Bs Antibody A (Negative) Hep B Core Total Ab Reactive A (Nonreactive) Hep C IgG Ab Reactive A (Nonreactive) Crossmatch 12/07/23 12/07/23 12/07/23 Range/Units 17:50 20:03 20:03 WBC 23.6 H 22.4 H (3.8-10.6) k/uL RBC 2.01 L 1.86 L (4.30-5.90) m/uL Hgb 6.1 L* D 5.7 L* (13.0-17.5) gm/dL Hct 19.9 L* 18.0 L* (39.0-53.0) % MCHC 30.9 L (31.0-37.0) g/dL RDW 16.2 H 16.5 H (11.5-15.5) % Plt Count 1415 H* 1165 H* (150-450) k/uL Neutrophils # 18.9 H 18.7 H (1.3-7.7) k/uL Retic Count (0.5-2.0) % Haptoglobin (31.2-198.0) mg/dL D-Dimer 3.51 H (<0.60) mg/L FEU Sodium (137-145) mmol/L BUN (9-20) mg/dL Creatinine (0.66-1.25) mg/dL Calcium (8.4-10.2) mg/dL Lactate Dehydrogenase (120-246) U/L Total Protein (6.3-8.2) g/dL Albumin (3.5-5.0) g/dL Urine Opiates Screen (NotDetected) U Tricyclic Antidepress (NotDetected) Hep Bs Antibody (Negative) Hep B Core Total Ab (Nonreactive) Hep C IgG Ab (Nonreactive) Crossmatch 12/07/23 12/07/23 12/07/23 Range/Units 20:03 20:03 20:03 WBC (3.8-10.6) k/uL RBC (4.30-5.90) m/uL Hgb (13.0-17.5) gm/dL Hct (39.0-53.0) % MCHC (31.0-37.0) g/dL RDW (11.5-15.5) % Plt Count (150-450) k/uL Neutrophils # (1.3-7.7) k/uL Retic Count 13.5 H (0.5-2.0) % Haptoglobin 238.0 H (31.2-198.0) mg/dL D-Dimer (<0.60) mg/L FEU Sodium 135 L (137-145) mmol/L BUN 32 H (9-20) mg/dL Creatinine (0.66-1.25) mg/dL Calcium (8.4-10.2) mg/dL Lactate Dehydrogenase 310 H (120-246) U/L Total Protein 5.8 L (6.3-8.2) g/dL Albumin 2.5 L (3.5-5.0) g/dL Urine Opiates Screen (NotDetected) U Tricyclic Antidepress (NotDetected) Hep Bs Antibody (Negative) Hep B Core Total Ab (Nonreactive) Hep C IgG Ab (Nonreactive) Crossmatch 12/07/23 12/08/23 12/08/23 Range/Units 20:12 03:19 03:19 WBC 12.6 H (3.8-10.6) k/uL RBC 1.93 L (4.30-5.90) m/uL Hgb 5.9 L* (13.0-17.5) gm/dL Hct 19.0 L* (39.0-53.0) % MCHC (31.0-37.0) g/dL RDW 15.8 H (11.5-15.5) % Plt Count 934 H (150-450) k/uL Neutrophils # 8.1 H (1.3-7.7) k/uL Retic Count (0.5-2.0) % Haptoglobin (31.2-198.0) mg/dL D-Dimer (<0.60) mg/L FEU Sodium 131 L (137-145) mmol/L BUN 41 H (9-20) mg/dL Creatinine 0.57 L (0.66-1.25) mg/dL Calcium 8.2 L (8.4-10.2) mg/dL Lactate Dehydrogenase (120-246) U/L Total Protein 5.2 L (6.3-8.2) g/dL Albumin 2.4 L (3.5-5.0) g/dL Urine Opiates Screen (NotDetected) U Tricyclic Antidepress (NotDetected) Hep Bs Antibody (Negative) Hep B Core Total Ab (Nonreactive) Hep C IgG Ab (Nonreactive) Crossmatch See Detail Comments: CT angiogram abdomen and pelvis reports no evidence for gastrointestinal hemo rrhage. No acute abdominal process visualized. Right anterior lower lung wedge-shaped airspace opacity correlate for infectious process. Correlate D- dimer to rule out underlying pulmonary infarct from pulmonary embolism. Assessment and Plan (1) Anemia Narrative/Plan: 33-year-old male with a history of IV drug use and hepatitis C presented for a left foot infection found to have necrotizing fasciitis and MRSA bacteremia underwent surgical debridement. Following that he had wound VAC placed with expected output was serosanguineous drainage. No significant blood loss during surgery. Patient was then found to be anemic with a hemoglobin drop into the sixes and requiring blood transfusion. Patient then stabilized was seen by hematology with workup and thought that possibly anemia secondary to infectious process and inflammation as patient had no overt signs of GI bleed. Over the last 1 to 2 days duration patient apparently has been having black stools. He had a drop in his hemoglobin into the upper fives and has now required 6 units of blood during this hospitalization. He has not been on any anticoagulation and no NSAID use, no previous history of GI bleed or peptic ulcer disease. Unclear etiology of anemia however with reported melena recommend upper and lower endoscopy. Patient is not interested and having colonoscopy at this time and likely would be difficult due to the wound on his foot. He does have elevated BUN and black stool which is more consistent with an upper GI bleed. Will plan for upper endoscopy. Patient later in the afternoon was up to take a shower, patient had become weak and passed out was hypotensive and diaphoretic. He was transferred to the ICU. He will receive another unit of blood and be scheduled for upper endoscopy today. Current Visit: Yes Status: Acute Priority: Medium Code(s): D64.9 - ANEMIA, UNSPECIFIED SNOMED Code(s): 371697005 (2) Melena Current Visit: Yes Status: Acute Code(s): K92.1 - MELENA SNOMED Code(s): 2 610546 (3) IV drug user Current Visit: Yes Status: Acute Code(s): F19.90 - OTHER PSYCHOACTIVE SUBSTANCE USE, UNSPECIFIED, UNCOMPLICATED SNOMED Code(s): 745077526 (4) MRSA bacteremia Current Visit: Yes Status: Acute Code(s): R78.81 - BACTEREMIA; B95.62 - METHICILLIN RESIS STAPH INFCT CAUSING DISEASES CLASSD ELSR SNOMED Code(s): 20063787469138023 (5) Hepatitis C Current Visit: No Status: Acute Code(s): B19.20 - UNSPECIFIED VIRAL HEPATITIS C WITHOUT HEPATIC COMA SNOMED Code(s): 93886116 Plan: 1. Continue symptomatic and supportive care 2. Agree with blood transfusion 3. Repeat CBC this afternoon and daily, transfuse for hemoglobin less than 7 4. Protonix 40 mg daily 5. N.p.o. 6. Avoid NSAIDs 7. Agree with transfer to the ICU 8. Plan for urgent upper endoscopy 9. Further recommendations forthcoming Thank you for this consultation, we will continue to follow. Dr. Olga Becker I agree with the dictator's note, documented as a scribe by Denise Salazar.
[2023-12-08] MEDS ORDERED: Magnesium Replacement Protocol 1 EACH MISC MISCELLANE PRN (16:53)
[2023-12-08] MEDS ORDERED: IPRATROPIUM-ALBUTEROL 3 ML NEB INHALATION PRN (17:00)
--- NOTE | 2023-12-08 17:28 | P.PCN ---
Date of Procedure: 12/08/23 Procedure(s) Performed: BRIEF HISTORY: Patient is a 33-year-old, pleasant, white male admitted to hospital with left foot abscess. Regular hospital for the last 10 days he had intermittent black tarry stools but yesterday had 2 large episodes of melena. He dropped his hemoglobin to 5 point milligrams per deciliter and received 2 units of PRBCs yesterday. This morning he had another episode of large black tarry stools and hence GI was consulted. Patient was evaluated and scheduled for an upper endoscopy to tomorrow however in the meantime he had another massive episode of black tarry stools and became hypotensive and diaphoretic and patient was transferred to the intensive care unit. EGD is being performed in an emergency basis in the ICU.. PROCEDURE PERFORMED: Esophagogastroduodenoscopy with Endo Clip placement. PREOPERATIVE DIAGNOSIS: Acute upper GI bleed. IV sedation per anesthesia. PROCEDURE: After informed consent was obtained, the patient was brought into the endoscopy unit. IV sedation was administered by Anesthesia under continuous monitoring. Initially the Olympus GIF-140 video endoscope was inserted into the mouth. Esophagus intubated without any difficulty. It was gradually advanced into the stomach and duodenum and carefully examined. The bulb and the second part of the duodenum appeared normal. The scope at this time was withdrawn to the stomach, adequately insufflated with air, and upon careful examination, mucosa of the antrum, appeared normal. In the fundus of the stomach. Multiple large clots identified. At this time a therapeutic upper scope were used and was advanced into the stomach and the clots were all suctioned out with some difficulty. Several of the clots were pulled out along with the scope. Almost 45 minutes was spent removing and suctioning most of the clots. Following this thorough irrigation was performed. At this time the fundus of the stomach appeared normal. No gastric varices identified. No esophageal varices seen. Upon careful examination for almost 20 minutes I was not able to identify the exact source of bleeding. In the proximal body of the stomach there was a 5 to 6 mm superficial ulcer with a small pigmented spot identified and an Endo Clip was placed in this area. Adjacent to this area there was another 3 mm superficial ulceration identified and another Endo Clip was placed in this area. The scope was then withdrawn into the esophagus. The GE junction was located at 39 cm from the incisors. The esophagus appeared normal. There were no erosions or ulcerations seen and the patient tolerated the procedure well. IMPRESSION: 1. Multiple large clots in the fundus of the stomach s/p removal as described above. 2. 2 small superficial ulcerations in the proximal body of the stomach with no active bleeding s/p Endo Clip placement 3. No evidence of gastric or esophageal varices. RECOMMENDATIONS: The findings of this examination were discussed with the nursing staff. Patient's family not available for discussion.. He will continue Protonix 40 mg twice daily. NG tube follow continue suction. Monitor CBC every 6 hours and transfuse if the hemoglobin is less than 7.
[2023-12-08 18:26] LABS: ABG Base Excess -3.4 mmol/L; ABG HCO3 21 mmol/L (21-25); ABG Oxygen Saturation 100.8 % (94-97); ABG PCO2 34 mmHg (35-45); ABG TCO2 22 mmol/L (19-24); Allen Test Performed? Yes
[2023-12-08 18:28] LABS: ABG PO2 >420 mmHg (83-108)
[2023-12-08] MEDS ORDERED: HYDROmorphone 1 MG/ML 1 ML SYRINGE IVP PRN (18:52)
[2023-12-08] MEDS: CISATRACURIUM 2 MG/ML 5 ML VIAL IV ONE (19:07)
[2023-12-08] MEDS: HYDROmorphone 1 MG/ML 1 ML SYRINGE IVP PRN (19:08)
[2023-12-08] MEDS: PEG 3350 (236 GM/BTL) + LYTES 4,000 ML BOTTLE PO ONE (19:16)
[2023-12-08] MEDS: propofoL 100 ML IV ONE (19:16)
[2023-12-08] MEDS: LABETALOL 5 MG/ML VIAL MDV IVP ONE (19:22)
[2023-12-08] MEDS: LABETALOL 5 MG/ML VIAL MDV IVP STA (19:37)
[2023-12-08] MEDS: VANCOMYCIN 1,750 MG in SODIUM CHLORIDE 0.9% 500 ML 500 ML IVPB SCH (20:20)
[2023-12-08] MEDS: fentaNYL (PF). 1,000 MCG in SODIUM CHLORIDE 0.9% 80 ML IV SCH (20:29)
[2023-12-08] MEDS: MIDAZOLAM HCL 50 MG in SODIUM CHLORIDE 0.9% 40 ML IV SCH (20:30)
[2023-12-08] MEDS: NOREPINEPHRINE 4 MG in SODIUM CHLORIDE 0.9% 250 ML IV SCH (20:34)
--- NOTE | 2023-12-08 20:39 | XR ---
EXAMINATION TYPE: XR chest 1V confirm line plcmt DATE OF EXAM: 12/08/2023 7:24 PM CLINICAL INDICATION:Male, 33 years old with history of post central line insertion/intubation and NGT ; H COMPARISON: 12/06/2023 TECHNIQUE: XR chest 1V confirm line plcmt Portable AP radiograph of the chest.. FINDINGS: Lines/Tubes/Devices: ET tube tip 5.3 cm above the gilberto. Left subclavian central venous line with its tip over the SVC/RA junction. NG tube extends into the left upper quadrant with sidehole near the level of the GE juncti on and tip over the stomach laterally. Heart/mediastinum: Heart size is normal. Mediastinum appears normal. Pulmonary vascularity: Not increased, Lungs/Pleura: There is no evidence of pleural effusion, focal consolidation, or pneumothorax. Vague rounded density projected over the right lung base not clearly evident on the prior exam, favored to be nipple shadow or overlapping shadows. Musculoskeletal: No acute osseous abnormality demonstrated in the limits of the exam. Mild degenerat ron changes. Other findings: None. IMPRESSION: No acute cardiopulmonary abnormality. Lines and tubes in satisfactory positions as above.
[2023-12-08] MEDS: CHLORHEXIDINE GLUCONATE 15 ML CUP MUCOUS MEM SCH (20:40)
[2023-12-08] MEDS: CLEVIDIPINE BUTYRATE 25 MG in EMPTY BAG 1 BAG IV SCH (20:48)
[2023-12-08] MEDS: IPRATROPIUM-ALBUTEROL 3 ML NEB INHALATION SCH (21:36)
[2023-12-08 22:41] LABS: African American GFR (CKD) >90 (>60 ml/min/1.73 sqM); Anion Gap 1 mmol/L; Blood Urea Nitrogen 36 mg/dL (9-20); Calcium 7.6 mg/dL (8.4-10.2); Carbon Dioxide 21 mmol/L (22-30); Chloride 114 mmol/L (98-107); Glucose 97 mg/dL (74-99); Non-African American GFR(CKD) >90 (>60 ml/min/1.73 sqM); Potassium 4.9 mmol/L (3.5-5.1); Sodium 136 mmol/L (137-145)
[2023-12-08 22:59] LABS: Anisocytosis Slight; Basophils # (A) 0.1 k/uL (0-0.2); Basophils % (A) 1 %; Eosinophils # (A) 0.2 k/uL (0-0.7); Eosinophils % (A) 1 %; HCT 23.3 % (39.0-53.0); HGB 7.7 gm/dL (13.0-17.5); Lymphocytes # (A) 4.1 k/uL (1.0-4.8); Lymphocytes % (A) 22 %; MCH 29.8 pg (25.0-35.0); Monocytes % (A) 5 %; Neutrophils # (A) 12.3 k/uL (1.3-7.7); Neutrophils % (A) 68 %; Platelet Count 638 k/uL (150-450); RBC 2.57 m/uL (4.30-5.90); WBC 18.3 k/uL (3.8-10.6)
[2023-12-08 23:30] LABS: MCV 90.3 fL (80.0-100.0)
--- NOTE | 2023-12-08 23:58 | PCN ---
PROCEDURE NOTE PROCEDURE PERFORMED: Right radial arterial line. PREOPERATIVE DIAGNOSIS: Frequent blood draws and blood gas monitoring. POSTOPERATIVE DIAGNOSIS: Frequent blood draws and blood gas monitoring. DESCRIPTION OF PROCEDURE: We used the right radial artery, there was informed consent. The patient's procedure took place in room 263. Delio's test was performed to ensure adequate perfusion. The patient's right wrist was prepped and draped in sterile fashion. 1% Lidocaine was used to anesthetize the area. An 18G Arrow arterial line was introduced into the radial artery. The catheter was threaded over the guide wire and the needle was removed with appropriate pulsatile blood return. Blood loss was minimal. The catheter was then sutured in place to the skin and a sterile dressing applied. Perfusion to the extremity distal to the point of catheter insertion was checked and found to be adequate. There was good waveform and blood pressure reading. The patient tolerated procedure well. The catheter was sutured in place. Sterile dressing was applied by the nurse. There was no immediate complication. MMODL / IJN: [id number] /
--- NOTE | 2023-12-09 00:03 | PCN ---
PROCEDURE NOTE PROCEDURE PERFORMED: Left subclavian triple-lumen catheter. PREOPERATIVE DIAGNOSIS: Administration of fluids and pressors. POSTOPERATIVE DIAGNOSIS: Administration of fluids and pressors. DESCRIPTION OF PROCEDURE: There was informed consent. The patient's procedure took place in room 263. A time-out was completed verifying correct patient, procedure, site, positioning, and implant or special equipment if applicable. The patient was placed in a dependent position appropriate for triple lumen catheter placement based on the vein to be cannulated. The patient's left shoulder was prepped and draped in sterile fashion. 1% Lidocaine was used to anesthetize the surrounding skin area. A triple lumen 9F Cordis catheter was introduced into the left subclavian vein using Seldinger technique. The catheter was threaded smoothly over the guide wire and appropriate blood return was obtained. Each lumen of the catheter was evacuated of air and flushed with sterile saline. The catheter was then sutured in place to the skin and a sterile dressing applied. Perfusion to the extremity distal to the point of catheter insertion was checked and found to be adequate. There was good blood return from all 3 ports. The catheter was sutured in place. Sterile dressing was applied by the nurse. There was no immediate complication. The tip of the catheter was seen at the junction of superior vena cava and right atrium. MMODL / IJN: [id number] /
[2023-12-09 00:18] LABS: Glucose,Whole Blood 104 mg/dL (70-110)
[2023-12-09 04:27] LABS: Anisocytosis Slight; Basophils # (A) 0.1 k/uL (0-0.2); Basophils % (A) 1 %; Eosinophils # (A) 0.4 k/uL (0-0.7); Eosinophils % (A) 3 %; HCT 22.1 % (39.0-53.0); HGB 7.6 gm/dL (13.0-17.5); Lymphocytes # (A) 3.7 k/uL (1.0-4.8); Lymphocytes % (A) 29 %; MCH 31.3 pg (25.0-35.0); MCHC 34.2 g/dL (31.0-37.0); MCV 91.4 fL (80.0-100.0); Mean Platelet Volume 7.6; Monocytes # (A) 0.9 k/uL (0-1.0); Monocytes % (A) 7 %; Neutrophils # (A) 7.1 k/uL (1.3-7.7); Neutrophils % (A) 56 %; Platelet Count 634 k/uL (150-450); RBC 2.42 m/uL (4.30-5.90); RDW 16.1 % (11.5-15.5); WBC 12.6 k/uL (3.8-10.6)
[2023-12-09 04:37] LABS: African American GFR (CKD) >90 (>60 ml/min/1.73 sqM); Anion Gap 1 mmol/L; Blood Urea Nitrogen 31 mg/dL (9-20); Calcium 7.7 mg/dL (8.4-10.2); Carbon Dioxide 21 mmol/L (22-30); Chloride 113 mmol/L (98-107); Glucose 89 mg/dL (74-99); Non-African American GFR(CKD) >90 (>60 ml/min/1.73 sqM); Potassium 4.6 mmol/L (3.5-5.1); Sodium 135 mmol/L (137-145)
[2023-12-09 05:43] LABS: Glucose,Whole Blood 96 mg/dL (70-110)
[2023-12-09 06:18] LABS: ABG Base Excess -0.6 mmol/L; ABG HCO3 24 mmol/L (21-25); ABG Oxygen Saturation 100.3 % (94-97); ABG PCO2 36 mmHg (35-45); ABG PH 7.43 (7.35-7.45); ABG PO2 213 mmHg (83-108); ABG TCO2 25 mmol/L (19-24); Allen Test Performed? Yes
[2023-12-09 08:19] LABS: ALT 44 U/L (4-49); AST 63 U/L (17-59); African American GFR (CKD) >90 (>60 ml/min/1.73 sqM); Albumin 2.4 g/dL (3.5-5.0); Alkaline Phosphatase 73 U/L (38-126); Anion Gap 1 mmol/L; Blood Urea Nitrogen 28 mg/dL (9-20); Carbon Dioxide 23 mmol/L (22-30); Chloride 114 mmol/L (98-107); Glucose 89 mg/dL (74-99); Magnesium 2.1 mg/dL (1.6-2.3); Non-African American GFR(CKD) >90 (>60 ml/min/1.73 sqM); Potassium 4.8 mmol/L (3.5-5.1); Sodium 138 mmol/L (137-145); Total Bilirubin 0.5 mg/dL (0.2-1.3); Total Protein 5.3 g/dL (6.3-8.2)
--- NOTE | 2023-12-09 08:30 | XR ---
EXAMINATION TYPE: XR chest 1V portable DATE OF EXAM: 12/09/2023 5:25 AM CLINICAL INDICATION:Male, 33 years old with history of Tube placement; COMPARISON: Chest radiographs from 12/08/2023 TECHNIQUE: XR chest 1V portable Frontal view of the chest. FINDINGS: Lungs/Pleura: There is no evidence of pleural effusion, focal consolidation, or pneumothorax. Pulmonary vascularity: Unremarkable. Heart/mediastinum: Cardiomediastinal silhouette is unremarkable. Musculoskeletal: No acute osseous pathology. Other findings: None Lines/Tubes: Endotracheal tube with distal tip 7.7 cm above the gilberto. Nasogastric tube with its distal tip and side-port projecting under the diaphragm. Left internal jugular central venous catheter with distal tip at the cavoatrial junction. IMPRESSION: 1. Endotracheal tube 7.7 cm above the gilberto. Consider advancement of 5 cm for optimal placement. 2. Nasogastric tube in appropriate position. 3.
--- NOTE | 2023-12-09 11:10 | P.PN ---
Subjective Progress Note Date: 12/09/23 Principal diagnosis: Gastrointestinal bleed. Pulmonary/critical care consult dated December 08, 2023. 33-year-old male has been in the hospital for a number of days. We were consulted today, for hypotension, and gastrointestinal bleed. The patient was transferred, from the floor, to the intensive care unit, room 263, where he is seen. Since being here in the hospital he has received a total of 7 units of blood. His hemoglobin this morning was 7. White count was 13.5, hematocrit 22, and platelet count was 951,000. Apparently Dr. Becker is coming in, to scope the patient, in the intensive care unit. His sodium was 131, potassium 4.9, chlorides 105, CO2 23, BUN 41, and creatinine 0.57. Albumin was 2.4. Stool was positive for occult blood. The patient initially came into the hospital on November 25, for some sort of injury to his left foot, with redness and swelling. Ap parently according to the nurses, the patient has been refusing interventions such as EGD, and colonoscopy. The patient recently had a CT of the abdomen and pelvis, and shows no evidence of gastrointestinal bleeding, and no acute abdominal process was visualized. Progress note dated December 09, 2023. 33-year-old male who was brought to the intensive care unit yesterday, for gastrointestinal bleeding, and hypotension. The patient had an EGD at the bedside, done by gastroenterology, and 2 clips were placed in the stomach. A lot of blood, both old and new, were evacuated from the GI tract. The patient was maintained on the ventilator overnight. I placed a right radial arterial line, and a left subclavian triple-lumen catheter, yesterday. Current settings include volume assist-control, rate 20, tidal volume 400, FiO2 30%, PEEP of 5. Blood gases showed a pO2 of 213, pCO2 of 36, pH is 7.43. That was on 40% FiO2. The patient is on propofol at 60 mcg/kg/min, Versed at 6 mg an hour, and fentanyl at 2 mcg/kg/h. The patient is getting saline at 50 cc an hour. He is also on norepinephrine at about 2 mcg/min. We will attempt a daily interruption of sedation, and a spontaneous breathing trial today. White count is 12.6, hemoglobin 7.6, hematocrit 22.1, and platelet count 634,000. Sodium 138, potassium 4.8, chlorides 114, CO2 23, BUN 28, and creatinine 0.65. Calcium is 8. AST is 63. Albumin 2.4. The patient has received a total of 8 units of blood since being in the hospital. Wound culture from the left foot, and blood cultures are positive for methicillin-resistant Staph aureus. Chest x-ray shows a properly placed endotracheal tube. NG tube was noted. Objective - Vital Signs Vital signs: Vital Signs Temp 98.5 F 12/09/23 08:00 Pulse 118 H 12/09/23 09:00 Resp 23 12/09/23 09:00 BP 107/51 12/09/23 07:00 Pulse Ox 100 12/09/23 09:00 FiO2 30 12/09/23 08:32 Intake & Output 12/08/23 12/09/23 12/09/23 18:59 06:59 18:59 Intake Total 1080 1558.725 190.312 Output Total 3475 1715 875 Balance -2395 -156.275 -684.688 Weight 65.4 kg Intake: IV 1083 159 Sodium Chloride 0.9% 1, 550 150 000 ml @ 50 mls/hr IV . Q20H [facility] Rx#:[id number] Vancomycin 1,750 mg In 500 Sodium Chloride 0.9% 500 ml 500 ml @ 167 mls/hr IVPB Q8H [facility] Rx#: [id number] pressure bag 33 9 Intake, IV Titration 150 475.725 31.312 Amount Midazolam HCl 50 mg In 24.017 29.1 Sodium Chloride 0.9% 40 ml @ 1 MG/HR 1 mls/hr IV .Q24H [facility] Rx#:[id number] Norepinephrine 4 mg In 2.212 Sodium Chloride 0.9% 250 ml @ 0.15 MCG/KG/MIN 41. 477 mls/hr IV .Q6H8M [facility] Rx#:[id number] Sodium Chloride 0.9% 1, 150 50 000 ml @ 0 mls/hr IV .[facility] Rx#:[id number] fentaNYL (PF). 1,000 mcg 68.197 In Sodium Chloride 0.9% 80 ml @ 0.5 MCG/KG/HR 3. 25 mls/hr IV .Q24H [facility] Rx #:[id number] propofoL 1,000 mg In 333.511 Empty Bag 1 bag @ 15 MCG/ KG/MIN 6.532 mls/hr IV . [id number] [facility] Rx#:[id number] Blood Product 930 Rc As-1 Unit 310 [id number] Rc As-1 Unit 310 [id number] Rc As-1 Unit 310 [id number] Output: Urine 3475 1715 875 Other: Voiding Method Indwelling Catheter # Bowel Movements 1 ABP, PAP, CO, CI - Last Documented Arterial Blood Pressure 151/75 - Exam No acute distress, sedated, with an orally placed endotracheal tube. HEENT examination is grossly unremarkable. Neck supple. Full range of motion. No adenopathy thyromegaly or neck vein distention. Cardiovascular examination reveals regular rhythm rate. S1-S2 normal. No S3 or S4. No discernible murmur noted. Heart rate is 118. bpm. Lungs reveal clear breath sounds. Breath sounds are equal bilaterally. No adventitious lung sounds including wheezes rhonchi or crackles. Saturations are 100% on room air. Abdomen soft, without bowel sounds. No masses. Extremities are intact. No cyanosis clubbing or edema. The patient has a significant wound, noted on the dorsum of his left foot. Skin is without rash or lesion. Neurologic examination cannot be assessed at this time. - Labs CBC & Chem 7: 12/09/23 04:04 12/09/23 07:39 Labs: Abnormal Lab Results - Last 24 Hours (Table) 12/07/23 12/08/23 12/08/23 Range/Units 20:12 13:35 14:47 WBC 13.5 H (3.8-10.6) k/uL RBC 2.30 L (4.30-5.90) m/uL Hgb 7.0 L (13.0-17.5) gm/dL Hct 22.0 L (39.0-53.0) % RDW 16.8 H (11.5-15.5) % Plt Count 951 H (150-450) k/uL Neutrophils # (1.3-7.7) k/uL ABG pCO2 (35-45) mmHg ABG pO2 (83-108) mmHg ABG Total CO2 (19-24) mmol/L ABG O2 Saturation (94-97) % Sodium (137-145) mmol/L Chloride (98-107) mmol/L Carbon Dioxide (22-30) mmol/L BUN (9-20) mg/dL Creatinine (0.66-1.25) mg/dL POC Glucose (mg/dL) 198 H (70-110) mg/dL Calcium (8.4-10.2) mg/dL AST (17-59) U/L Total Protein (6.3-8.2) g/dL Albumin (3.5-5.0) g/dL Crossmatch See Detail 12/08/23 12/08/23 12/08/23 Range/Units 18:24 22:18 22:18 WBC 18.3 H (3.8-10.6) k/uL RBC 2.57 L (4.30-5.90) m/uL Hgb 7.7 L (13.0-17.5) gm/dL Hct 23.3 L (39.0-53.0) % RDW 16.0 H (11.5-15.5) % Plt Count 638 H (150-450) k/uL Neutrophils # 12.3 H (1.3-7.7) k/uL ABG pCO2 34 L (35-45) mmHg ABG pO2 >420 H (83-108) mmHg ABG Total CO2 (19-24) mmol/L ABG O2 Saturation 100.8 H (94-97) % Sodium 136 L (137-145) mmol/L Chloride 114 H (98-107) mmol/L Carbon Dioxide 21 L (22-30) mmol/L BUN 36 H (9-20) mg/dL Creatinine 0.56 L (0.66-1.25) mg/dL POC Glucose (mg/dL) (70-110) mg/dL Calcium 7.6 L (8.4-10.2) mg/dL AST (17-59) U/L Total Protein (6.3-8.2) g/dL Albumin (3.5-5.0) g/dL Crossmatch 12/09/23 12/09/23 12/09/23 Range/Units 04:04 04:04 06:14 WBC 12.6 H (3.8-10.6) k/uL RBC 2.42 L (4.30-5.90) m/uL Hgb 7.6 L (13.0-17.5) gm/dL Hct 22.1 L (39.0-53.0) % RDW 16.1 H (11.5-15.5) % Plt Count 634 H (150-450) k/uL Neutrophils # (1.3-7.7) k/uL ABG pCO2 (35-45) mmHg ABG pO2 213 H (83-108) mmHg ABG Total CO2 25 H (19-24) mmol/L ABG O2 Saturation 100.3 H (94-97) % Sodium 135 L (137-145) mmol/L Chloride 113 H (98-107) mmol/L Carbon Dioxide 21 L (22-30) mmol/L BUN 31 H (9-20) mg/dL Creatinine 0.64 L (0.66-1.25) mg/dL POC Glucose (mg/dL) (70-110) mg/dL Calcium 7.7 L (8.4-10.2) mg/dL AST (17-59) U/L Total Protein (6.3-8.2) g/dL Albumin (3.5-5.0) g/dL Crossmatch 12/09/23 Range/Units 07:39 WBC (3.8-10.6) k/uL RBC (4.30-5.90) m/uL Hgb (13.0-17.5) gm/dL Hct (39.0-53.0) % RDW (11.5-15.5) % Plt Count (150-450) k/uL Neutrophils # (1.3-7.7) k/uL ABG pCO2 (35-45) mmHg ABG pO2 (83-108) mmHg ABG Total CO2 (19-24) mmol/L ABG O2 Saturation (94-97) % Sodium (137-145) mmol/L Chloride 114 H (98-107) mmol/L Carbon Dioxide (22-30) mmol/L BUN 28 H (9-20) mg/dL Creatinine 0.65 L (0.66-1.25) mg/dL POC Glucose (mg/dL) (70-110) mg/dL Calcium 8.0 L (8.4-10.2) mg/dL AST 63 H (17-59) U/L Total Protein 5.3 L (6.3-8.2) g/dL Albumin 2.4 L (3.5-5.0) g/dL Crossmatch Microbiology - Last 24 Hours (Table) 12/07/23 20:10 Blood Culture - Preliminary Blood 12/03/23 06:52 Blood Culture - Final Blood Assessment and Plan Assessment: Acute gastrointestinal bleed. EGD revealed both new and old blood, and 2 clips were placed in the stomach. S/P intubation and mechanical ventilation, December 08, 2023. Hypotension, secondary to GI bleeding, the patient has received a total of 8 units of PRBCs. Sepsis, secondary to necrotizing fasciitis, of the left foot, status postdebridement. Methicillin-resistant Staphylococcus aureus bacteremia. History of hepatitis C. History of opiate dependency. History of IV drug abuse. Plan: Plan dated December 08, 2023. The patient is seen today in the intensive care unit, room 263. My intention is to place a central line in this patient, as the patient has poor IV access. Additional recommendations and suggestions are forthcoming. I will continue to monitor and manage the patient in the intensive care unit. Labs, x-rays, and medications are reviewed. Prognosis is guarded. The patient has received a total of 7 units of PRBCs. The patient will have a scope done today, by gastroenterology. Plan dated December 09, 2023. The patient had a bedside EGD done yesterday, by Dr. Becker. 2 clips were placed in the stomach, and both old blood, and new blood, was evacuated from the GI tract. The patient was intubated for the procedure, and I asked anesthesia, to keep the patient intubated, and we got a ventilator up to the bedside, connected the patient to the ventilator, I kept him on the ventilator, overnight. In addition, we will place a right radial art line, and a left subclavian triple- lumen catheter. The patient is seen today in the intensive care unit. He remains on propofol, Versed, and fentanyl. He is also on 2 mcg/min of norepinephrine. We will do a daily interruption of sedation. Will see for the patient is ready for weaning and extubation. The blood gases were excellent on 40%. The FiO2 was turned down to 30%. Labs, x-rays, medications are reviewed. We will continue to follow the patient, and make recommendations along the way. Time with Patient: Greater than 30
--- NOTE | 2023-12-09 11:14 | P.PN ---
Subjective Progress Note Date: 12/09/23 Hospital Course: 33-year-old male with history of IV drug abuse with heroin and hepatitis C who initially presented with swelling and pain over his left foot. Patient subsequently found to have MRSA bacteremia and necrotizing fasciitis of the left foot. Patient has undergone debridement with vascular surgery and currently has wound VAC on. Blood cultures have been clear. Echocardiogram shows no signs of infective endocarditis. Infectious disease following. On IV antibiotics. Having significant pain. During his hospitalization, patient had anemia. Hematology was consulted. It was thought to be reactive. Hemoglobin did improve after getting transfusions. However, on 12/07/2023 his anemia worsened. He developed an episode of gio hematochezia, and now having melena. On 024. Patient had episode of syncope, with diaphoresis, tachycardia, hypotension, patient moved to the medical ICU. Getting more blood. GI consulted. Had stat bedside EGD, which showed multiple large clots in the fundus of the stomach status post removal, 2 small superficial ulcerations in the proximal body of the stomach status post Endo Clip placement. Patient was intubated prior to the procedure. Subjective: Patient seen and examined at bedside. No acute events overnight. NG tube in p lace. Pertinent positives and negatives as discussed above, a complete review of systems was performed and all other systems are negative. Vitals Signs Reviewed. General: Intubated and sedated Derm: Warm, dry, left foot wound VAC in place. Head: Atraumatic, normocephalic, symmetric Eyes: Pupils equal and reactive Mouth: No lip lesion, mucus membranes moist Cardiovascular: S1S2 reg, tachycardic, no murmur Lungs: CTA bilateral, no rhonchi, no rales, no accessory muscle use, intubated, mechanically ventilated Abdominal: Soft, nondistended, no appreciable organomegaly Ext: No gross muscle atrophy, no edema, no contractures Neuro: Sedated Psych: Unable to assess Data Reviewed Today: Pertinent Labs: WBC 12.6, hemoglobin 7.6, platelet 634, sodium 135, bicarb 21, creatinine 0.64, blood sugars range between 89-1 04 Imaging: Chest x-ray independently interpreted, shows no opacities Assessment and Plan: Acute blood loss anemia Acute GI bleed Peptic ulcer disease status post Endo Clip Hemorrhagic shock, resolved -Patient has received a total of 8 units of PRBCs during this admission -Currently being monitored in medical ICU -on IV pantoprazole 40 twice daily -Continue to monitor CBCs, currently uptrending -Patient is currently intubated, on sedation, consider spontaneous breathing t rial if hemoglobin stays stable Sepsis secondary to Necrotizing fasciitis of the left foot with MRSA abscess s/p debridement with washout of deep abscess 11/29/23 and Second debridement on the foot with wound VAC 12/01/2023 MRSA bacteremia - Blood cultures from 11/27 negative to date. -Vancomycin IV piggyback being dosed via trough and creatinine level, monitor for renal toxicity -Echocardiogram without signs of infectious endocarditis -ID following -Wound care recs: Continue with wound VAC with follow-up 3 times weekly. -Vascular surgery following, possible need for BKA if the foot does not heal or improve. Continue with pain control. -Wound culture of left foot with growth of MRSA Hep C - Hx of active infection never received treatment - screen for HIV pending -Outpatient follow-up Opiate dependency with known IV heroin abuse prior to hospital stay Intractable pain related to necrotizing fasciitis of the left foot Sinus tachycardia -Tylenol 1000 mg decreased to every 8 hours scheduled, continue Neurontin 300 mg p.o. 3 times daily -Dilaudid decreased to 1 mg every 4 hours as needed for severe breakthrough pain -[place] to 10 mg oral 4 times daily as needed -Continue with fentanyl patch 50 mcg/h -clonidine 0.1mg p.o. 3 times daily for heroin withdrawal Right lower lobe consolidation/pulmonary infarct -patient does not have any signs of pneumonia -outpatient follow-up CT scan in 3 months Hypokalemia, Resolved DVT ppx: SCDs Code status: Full code Anticipated discharge place: Pending clinical course Anticipated discharge time: Pending clinical course Objective - Vital Signs Vital signs: Vital Signs Temp 98.5 F 12/09/23 08:00 Pulse 118 H 12/09/23 09:00 Resp 23 12/09/23 09:00 BP 107/51 12/09/23 07:00 Pulse Ox 100 12/09/23 09:00 FiO2 30 12/09/23 08:32 Intake & Output 12/08/23 12/09/23 12/09/23 18:59 06:59 18:59 Intake Total 3248 1558.725 190.312 Output Total 1384 1715 875 Balance -5353 -156.275 -684.688 Weight 65.4 kg Intake: IV 1083 159 Sodium Chloride 0.9% 1, 550 150 000 ml @ 50 mls/hr IV . Q20H [facility] Rx#:[id number] Vancomycin 1,750 mg In 500 Sodium Chloride 0.9% 500 ml 500 ml @ 167 mls/hr IVPB Q8H [facility] Rx#: [id number] pressure bag 33 9 Intake, IV Titration 150 475.725 31.312 Amount Midazolam HCl 50 mg In 24.017 29.1 Sodium Chloride 0.9% 40 ml @ 1 MG/HR 1 mls/hr IV .Q24H [facility] Rx#:[id number] Norepinephrine 4 mg In 2.212 Sodium Chloride 0.9% 250 ml @ 0.15 MCG/KG/MIN 41. 477 mls/hr IV .Q6H8M [facility] Rx#:[id number] Sodium Chloride 0.9% 1, 150 50 000 ml @ 0 mls/hr IV .[facility] Rx#:[id number] fentaNYL (PF). 1,000 mcg 68.197 In Sodium Chloride 0.9% 80 ml @ 0.5 MCG/KG/HR 3. 25 mls/hr IV .Q24H [facility] Rx #:[id number] propofoL 1,000 mg In 333.511 Empty Bag 1 bag @ 15 MCG/ KG/MIN 6.532 mls/hr IV . [id number] [facility] Rx#:[id number] Blood Product 930 Rc As-1 Unit 310 [id number] Rc As-1 Unit 310 [id number] Rc As-1 Unit 310 [id number] Output: Urine 3475 1715 875 Other: Voiding Method Indwelling Catheter # Bowel Movements 1 ABP, PAP, CO, CI - Last Documented Arterial Blood Pressure 151/75 - Labs CBC & Chem 7: 12/09/23 04:04 12/09/23 07:39 Labs: Abnormal Lab Results - Last 24 Hours (Table) 12/07/23 12/08/23 12/08/23 Range/Units 20:12 13:35 14:47 WBC 13.5 H (3.8-10.6) k/uL RBC 2.30 L (4.30-5.90) m/uL Hgb 7.0 L (13.0-17.5) gm/dL Hct 22.0 L (39.0-53.0) % RDW 16.8 H (11.5-15.5) % Plt Count 951 H (150-450) k/uL Neutrophils # (1.3-7.7) k/uL ABG pCO2 (35-45) mmHg ABG pO2 (83-108) mmHg ABG Total CO2 (19-24) mmol/L ABG O2 Saturation (94-97) % Sodium (137-145) mmol/L Chloride (98-107) mmol/L Carbon Dioxide (22-30) mmol/L BUN (9-20) mg/dL Creatinine (0.66-1.25) mg/dL POC Glucose (mg/dL) 198 H (70-110) mg/dL Calcium (8.4-10.2) mg/dL AST (17-59) U/L Total Protein (6.3-8.2) g/dL Albumin (3.5-5.0) g/dL Crossmatch See Detail 12/08/23 12/08/23 12/08/23 Range/Units 18:24 22:18 22:18 WBC 18.3 H (3.8-10.6) k/uL RBC 2.57 L (4.30-5.90) m/uL Hgb 7.7 L (13.0-17.5) gm/dL Hct 23.3 L (39.0-53.0) % RDW 16.0 H (11.5-15.5) % Plt Count 638 H (150-450) k/uL Neutrophils # 12.3 H (1.3-7.7) k/uL ABG pCO2 34 L (35-45) mmHg ABG pO2 >420 H (83-108) mmHg ABG Total CO2 (19-24) mmol/L ABG O2 Saturation 100.8 H (94-97) % Sodium 136 L (137-145) mmol/L Chloride 114 H (98-107) mmol/L Carbon Dioxide 21 L (22-30) mmol/L BUN 36 H (9-20) mg/dL Creatinine 0.56 L (0.66-1.25) mg/dL POC Glucose (mg/dL) (70-110) mg/dL Calcium 7.6 L (8.4-10.2) mg/dL AST (17-59) U/L Total Protein (6.3-8.2) g/dL Albumin (3.5-5.0) g/dL Crossmatch 12/09/23 12/09/23 12/09/23 Range/Units 04:04 04:04 06:14 WBC 12.6 H (3.8-10.6) k/uL RBC 2.42 L (4.30-5.90) m/uL Hgb 7.6 L (13.0-17.5) gm/dL Hct 22.1 L (39.0-53.0) % RDW 16.1 H (11.5-15.5) % Plt Count 634 H (150-450) k/uL Neutrophils # (1.3-7.7) k/uL ABG pCO2 (35-45) mmHg ABG pO2 213 H (83-108) mmHg ABG Total CO2 25 H (19-24) mmol/L ABG O2 Saturation 100.3 H (94-97) % Sodium 135 L (137-145) mmol/L Chloride 113 H (98-107) mmol/L Carbon Dioxide 21 L (22-30) mmol/L BUN 31 H (9-20) mg/dL Creatinine 0.64 L (0.66-1.25) mg/dL POC Glucose (mg/dL) (70-110) mg/dL Calcium 7.7 L (8.4-10.2) mg/dL AST (17-59) U/L Total Protein (6.3-8.2) g/dL Albumin (3.5-5.0) g/dL Crossmatch 12/09/23 Range/Units 07:39 WBC (3.8-10.6) k/uL RBC (4.30-5.90) m/uL Hgb (13.0-17.5) gm/dL Hct (39.0-53.0) % RDW (11.5-15.5) % Plt Count (150-450) k/uL Neutrophils # (1.3-7.7) k/uL ABG pCO2 (35-45) mmHg ABG pO2 (83-108) mmHg ABG Total CO2 (19-24) mmol/L ABG O2 Saturation (94-97) % Sodium (137-145) mmol/L Chloride 114 H (98-107) mmol/L Carbon Dioxide (22-30) mmol/L BUN 28 H (9-20) mg/dL Creatinine 0.65 L (0.66-1.25) mg/dL POC Glucose (mg/dL) (70-110) mg/dL Calcium 8.0 L (8.4-10.2) mg/dL AST 63 H (17-59) U/L Total Protein 5.3 L (6.3-8.2) g/dL Albumin 2.4 L (3.5-5.0) g/dL Crossmatch Microbiology - Last 24 Hours (Table) 12/07/23 20:10 Blood Culture - Preliminary Blood 12/03/23 06:52 Blood Culture - Final Blood
[2023-12-09 11:34] LABS: Glucose,Whole Blood 120 mg/dL (70-110)
[2023-12-09] MEDS: VANCOMYCIN TROUGH DUE 1 EACH MISC MISCELLANE ONE (11:34)
--- NOTE | 2023-12-09 12:04 | P.PN ---
Subjective Progress Note Date: 12/09/23 Principal diagnosis: Left foot wound, necrotizing fasciitis Patient was seen and examined today as a follow-up. He was transferred to the intensive care unit yesterday afternoon after he had a syncopal episode, became diaphoretic and hypotensive. He then underwent upper endoscopy with findings of multiple large clots in the fundus of the stomach status post removal and 2 sma ll superficial ulcerations in the proximal body of the stomach with no active bleeding status post Endo Clip placement. No evidence of gastric or esophageal varices. Patient remains sedated and intubated. Currently on pressors. Wound VAC intact with good suction. Left lower extremity without any erythema or swelling. Objective - Vital Signs Vital signs: Vital Signs Temp 97.5 F L 12/09/23 04:00 Pulse 101 H 12/09/23 06:00 Resp 19 12/09/23 06:00 BP 106/67 12/09/23 06:00 Pulse Ox 100 12/09/23 06:00 FiO2 30 12/09/23 06:20 Intake & Output 12/08/23 12/08/23 12/09/23 06:59 18:59 06:59 Intake Total 310 1080 1558.725 Output Total 1300 3475 1715 Balance -990 -2395 -156.275 Weight 65.4 kg Intake: IV 1083 Sodium Chloride 0.9% 1, 550 000 ml @ 50 mls/hr IV . Q20H [facility] Rx#:[id number] Vancomycin 1,750 mg In 500 Sodium Chloride 0.9% 500 ml 500 ml @ 167 mls/hr IVPB Q8H [facility] Rx#: [id number] pressure bag 33 Intake, IV Titration 150 475.725 Amount Midazolam HCl 50 mg In 24.017 Sodium Chloride 0.9% 40 ml @ 1 MG/HR 1 mls/hr IV .Q24H [facility] Rx#:[id number] Sodium Chloride 0.9% 1, 150 50 000 ml @ 0 mls/hr IV .[facility] Rx#:[id number] fentaNYL (PF). 1,000 mcg 68.197 In Sodium Chloride 0.9% 80 ml @ 0.5 MCG/KG/HR 3. 25 mls/hr IV .Q24H [facility] Rx #:[id number] propofoL 1,000 mg In 333.511 Empty Bag 1 bag @ 15 MCG/ KG/MIN 6.532 mls/hr IV . [id number] [facility] Rx#:[id number] Blood Product 310 930 Rc As-1 Unit 310 [id number] Rc As-1 Unit 310 [id number] Rc As-1 Unit 310 [id number] Rc As-1 Unit 310 [id number] Output: Urine 1300 3475 1715 Other: Voiding Method Urinal Indwelling Catheter # Bowel Movements 1 1 ABP, PAP, CO, CI - Last Documented Arterial Blood Pressure 95/39 - Exam General appearance: The patient is sedated and intubated. HET: Head is normocephalic and atraumatic. Neck: Supple. Abdomen: Soft, nondistended. Extremities: Left foot with wound VAC in place with good suction with serosanguineous output. Dressing removed. Wound on dorsal aspect of foot with good granulation, pink, tendon exposure, small area proximal to third through fifth toes with scant amount of bleeding. No swelling to the lower extremity, no erythema. Good capillary refill Neurological: Sedated and intubated. - Labs CBC & Chem 7: 12/09/23 04:04 12/09/23 07:39 Labs: Abnormal Lab Results - Last 24 Hours (Table) 12/07/23 12/08/23 12/08/23 Range/Units 20:12 13:35 14:47 WBC 13.5 H (3.8-10.6) k/uL RBC 2.30 L (4.30-5.90) m/uL Hgb 7.0 L (13.0-17.5) gm/dL Hct 22.0 L (39.0-53.0) % RDW 16.8 H (11.5-15.5) % Plt Count 951 H (150-450) k/uL Neutrophils # (1.3-7.7) k/uL ABG pCO2 (35-45) mmHg ABG pO2 (83-108) mmHg ABG Total CO2 (19-24) mmol/L ABG O2 Saturation (94-97) % Sodium (137-145) mmol/L Chloride (98-107) mmol/L Carbon Dioxide (22-30) mmol/L BUN (9-20) mg/dL Creatinine (0.66-1.25) mg/dL POC Glucose (mg/dL) 198 H (70-110) mg/dL Calcium (8.4-10.2) mg/dL Crossmatch See Detail 12/08/23 12/08/23 12/08/23 Range/Units 18:24 22:18 22:18 WBC 18.3 H (3.8-10.6) k/uL RBC 2.57 L (4.30-5.90) m/uL Hgb 7.7 L (13.0-17.5) gm/dL Hct 23.3 L (39.0-53.0) % RDW 16.0 H (11.5-15.5) % Plt Count 638 H (150-450) k/uL Neutrophils # 12.3 H (1.3-7.7) k/uL ABG pCO2 34 L (35-45) mmHg ABG pO2 >420 H (83-108) mmHg ABG Total CO2 (19-24) mmol/L ABG O2 Saturation 100.8 H (94-97) % Sodium 136 L (137-145) mmol/L Chloride 114 H (98-107) mmol/L Carbon Dioxide 21 L (22-30) mmol/L BUN 36 H (9-20) mg/dL Creatinine 0.56 L (0.66-1.25) mg/dL POC Glucose (mg/dL) (70-110) mg/dL Calcium 7.6 L (8.4-10.2) mg/dL Crossmatch 12/09/23 12/09/23 12/09/23 Range/Units 04:04 04:04 06:14 WBC 12.6 H (3.8-10.6) k/uL RBC 2.42 L (4.30-5.90) m/uL Hgb 7.6 L (13.0-17.5) gm/dL Hct 22.1 L (39.0-53.0) % RDW 16.1 H (11.5-15.5) % Plt Count 634 H (150-450) k/uL Neutrophils # (1.3-7.7) k/uL ABG pCO2 (35-45) mmHg ABG pO2 213 H (83-108) mmHg ABG Total CO2 25 H (19-24) mmol/L ABG O2 Saturation 100.3 H (94-97) % Sodium 135 L (137-145) mmol/L Chloride 113 H (98-107) mmol/L Carbon Dioxide 21 L (22-30) mmol/L BUN 31 H (9-20) mg/dL Creatinine 0.64 L (0.66-1.25) mg/dL POC Glucose (mg/dL) (70-110) mg/dL Calcium 7.7 L (8.4-10.2) mg/dL Crossmatch Microbiology - Last 24 Hours (Table) 12/07/23 20:10 Blood Culture - Preliminary Blood 12/03/23 06:52 Blood Culture - Final Blood Assessment and Plan Assessment: 1. Left dorsal foot wound with abscess status post excisional debridement with washout of deep abscess 2. Necrotizing fasciitis of the left foot 3. IV drug user 4. Anemia, normocytic normochromic. Not likely from acute blood loss from foot wound. 5. Melena Plan: 1. Continue wound VAC as ordered, change Fridays. 2. Patient will need continued formal wound clinic follow-up and wound care. 3. Continue with pain control and medications as ordered and recommended from pain management 4. Continue with antibiotics per recommendations from infectious disease 6. Rest of medical management per primary medical team Thank you for this consultation. Recommend outpatient follow-up with wound care and follow-up in a couple weeks with vascular surgery. The impression and plan of care has been dictated as directed. Dr. Martinez I performed a history and examination of this patient, discussed the same with the dictator. I agree with the dictator's note ,documented as a scribe. Any additional findings or plans will be noted.
--- NOTE | 2023-12-09 12:20 | P.PN ---
Subjective Progress Note Date: 12/09/23 Principal diagnosis: Anemia, GI bleed This is a 33-year-old male who had presented to the emergency department 12 days ago with complaints of a wound to his left foot. He has a past medical history including heroin and methamphetamine IV drug use, hepatitis C untreated, and rem ote history of seizure disorder. Patient was admitted with left foot infection and underwent surgical debridement with findings of necrotizing fasciitis. During this hospitalization he had a drop in his hemoglobin initially back on 530 24-6.2 from an admitting hemoglobin of 10.9. He had minimal blood loss during surgery and has had a wound VAC in place with only small amounts of serosanguineous output, not enough to account for blood loss. Vascular surgery then consulted hematology for a normal chronic normocytic anemia. Patient had required blood transfusion with improvement in his hemoglobin with continued monitoring. Yesterday he had a another drop in his hemoglobin with increase in his white count as well as platelets. Hemoglobin was down to 5.7. He has had a total of 6 units of blood during this admission. He denies any previous history of GI bleed. No previous history of ulcer. He is not on regular NSAID use. He is not on any anticoagulation. Apparently yesterday evening patient had a large black stool reported by nursing. Patient states that it was black but then looked normal. He also underwent a CT angiogram of the abdomen pelvis to evaluate for active GI bleed which was negative for active GI bleed. No previous history of upper or lower endoscopy. He denies any abdominal pain, nausea or vomiting. States he has had little appetite and not been eating much. 12/09/2023 Patient is seen and examined today as a follow-up in the ICU. Yesterday he underwent upper endoscopy with findings of of multiple large clots in the fundus of the stomach status post removal and 2 small superficial ulcerations in the proximal body of the stomach with no active bleeding status post Endo Clip placement. He is currently sedated and intubated. He is having minimal output from NG tube. Nursing reports no further bowel movements or any bleeding noted through the night. He is on low-dose of pressors. He has been afebrile. Hemoglobin is stable. He is status post 8 units of blood this admission. Today's labs WBC 12.6 hemoglobin 7.6 platelet count 634,000 sodium 138 potassium 4.8 BUN 28 creatinine 0.65 magnesium 2.1 total bilirubin 0.5 AST 63 ALT 44 and a lkaline phosphatase 73 Objective - Vital Signs Vital signs: Vital Signs Temp 97.5 F L 12/09/23 04:00 Pulse 101 H 12/09/23 06:00 Resp 19 12/09/23 06:00 BP 106/67 12/09/23 06:00 Pulse Ox 100 12/09/23 06:00 FiO2 30 12/09/23 06:20 Intake & Output 12/08/23 12/08/23 12/09/23 06:59 18:59 06:59 Intake Total 310 1080 1558.725 Output Total 1300 3475 1715 Balance -990 -0384 -156.275 Weight 65.4 kg Intake: IV 1083 Sodium Chloride 0.9% 1, 550 000 ml @ 50 mls/hr IV . Q20H [facility] Rx#:[id number] Vancomycin 1,750 mg In 500 Sodium Chloride 0.9% 500 ml 500 ml @ 167 mls/hr IVPB Q8H [facility] Rx#: [id number] pressure bag 33 Intake, IV Titration 150 475.725 Amount Midazolam HCl 50 mg In 24.017 Sodium Chloride 0.9% 40 ml @ 1 MG/HR 1 mls/hr IV .Q24H [facility] Rx#:[id number] Sodium Chloride 0.9% 1, 150 50 000 ml @ 0 mls/hr IV .[facility] Rx#:[id number] fentaNYL (PF). 1,000 mcg 68.197 In Sodium Chloride 0.9% 80 ml @ 0.5 MCG/KG/HR 3. 25 mls/hr IV .Q24H [facility] Rx #:[id number] propofoL 1,000 mg In 333.511 Empty Bag 1 bag @ 15 MCG/ KG/MIN 6.532 mls/hr IV . [id number] [facility] Rx#:[id number] Blood Product 310 930 Rc As-1 Unit 310 [id number] Rc As-1 Unit 310 [id number] Rc As-1 Unit 310 [id number] Rc As-1 Unit 310 [id number] Output: Urine 1300 3475 1715 Other: Voiding Method Urinal Indwelling Catheter # Bowel Movements 1 1 ABP, PAP, CO, CI - Last Documented Arterial Blood Pressure 95/39 - Exam General appearance: The patient is sedated and intubated. HET: Head is normocephalic and atraumatic. Neck: Supple without lymphadenopathy. Abdomen: Soft, nondistended. Extremities: Normal skin color and turgor. Left foot wound with wound VAC in place. Skin: No rashes, no jaundice Neurological: Sedated and intubated. - Labs CBC & Chem 7: 12/09/23 04:04 12/09/23 07:39 Labs: Abnormal Lab Results - Last 24 Hours (Table) 12/07/23 12/08/23 12/08/23 Range/Units 20:12 13:35 14:47 WBC 13.5 H (3.8-10.6) k/uL RBC 2.30 L (4.30-5.90) m/uL Hgb 7.0 L (13.0-17.5) gm/dL Hct 22.0 L (39.0-53.0) % RDW 16.8 H (11.5-15.5) % Plt Count 951 H (150-450) k/uL Neutrophils # (1.3-7.7) k/uL ABG pCO2 (35-45) mmHg ABG pO2 (83-108) mmHg ABG Total CO2 (19-24) mmol/L ABG O2 Saturation (94-97) % Sodium (137-145) mmol/L Chloride (98-107) mmol/L Carbon Dioxide (22-30) mmol/L BUN (9-20) mg/dL Creatinine (0.66-1.25) mg/dL POC Glucose (mg/dL) 198 H (70-110) mg/dL Calcium (8.4-10.2) mg/dL Crossmatch See Detail 12/08/23 12/08/23 12/08/23 Range/Units 18:24 22:18 22:18 WBC 18.3 H (3.8-10.6) k/uL RBC 2.57 L (4.30-5.90) m/uL Hgb 7.7 L (13.0-17.5) gm/dL Hct 23.3 L (39.0-53.0) % RDW 16.0 H (11.5-15.5) % Plt Count 638 H (150-450) k/uL Neutrophils # 12.3 H (1.3-7.7) k/uL ABG pCO2 34 L (35-45) mmHg ABG pO2 >420 H (83-108) mmHg ABG Total CO2 (19-24) mmol/L ABG O2 Saturation 100.8 H (94-97) % Sodium 136 L (137-145) mmol/L Chloride 114 H (98-107) mmol/L Carbon Dioxide 21 L (22-30) mmol/L BUN 36 H (9-20) mg/dL Creatinine 0.56 L (0.66-1.25) mg/dL POC Glucose (mg/dL) (70-110) mg/dL Calcium 7.6 L (8.4-10.2) mg/dL Crossmatch 12/09/23 12/09/23 12/09/23 Range/Units 04:04 04:04 06:14 WBC 12.6 H (3.8-10.6) k/uL RBC 2.42 L (4.30-5.90) m/uL Hgb 7.6 L (13.0-17.5) gm/dL Hct 22.1 L (39.0-53.0) % RDW 16.1 H (11.5-15.5) % Plt Count 634 H (150-450) k/uL Neutrophils # (1.3-7.7) k/uL ABG pCO2 (35-45) mmHg ABG pO2 213 H (83-108) mmHg ABG Total CO2 25 H (19-24) mmol/L ABG O2 Saturation 100.3 H (94-97) % Sodium 135 L (137-145) mmol/L Chloride 113 H (98-107) mmol/L Carbon Dioxide 21 L (22-30) mmol/L BUN 31 H (9-20) mg/dL Creatinine 0.64 L (0.66-1.25) mg/dL POC Glucose (mg/dL) (70-110) mg/dL Calcium 7.7 L (8.4-10.2) mg/dL Crossmatch Microbiology - Last 24 Hours (Table) 12/07/23 20:10 Blood Culture - Preliminary Blood 12/03/23 06:52 Blood Culture - Final Blood Assessment and Plan (1) Anemia Narrative/Plan: 33-year-old male with a history of IV drug use and hepatitis C presented for a left foot infection found to have necrotizing fasciitis and MRSA bacteremia underwent surgical debridement. Following that he had wound VAC placed with expected output was serosanguineous drainage. No significant blood loss during surgery. Patient was then found to be anemic with a hemoglobin drop into the sixes and requiring blood transfusion. Patient then stabilized was seen by hematology with workup and thought that possibly anemia secondary to infectious process and inflammation as patient had no overt signs of GI bleed. Over the last 1 to 2 days duration patient apparently has been having black stools. He had a drop in his hemoglobin into the upper fives and has now required 6 units of blood during this hospitalization. He has not been on any anticoagulation and no NSAID use, no previous history of GI bleed or peptic ulcer disease. Unclear etiology of anemia however with reported melena recommend upper and lo wer endoscopy. Patient is not interested and having colonoscopy at this time and likely would be difficult due to the wound on his foot. He does have elevated BUN and black stool which is more consistent with an upper GI bleed. Will plan for upper endoscopy. Patient later in the afternoon was up to take a shower, patient had become weak and passed out was hypotensive and diaphoretic. He was transferred to the ICU. And underwent upper endoscopy with findings of multiple clots and 2 small ulcers without any active bleeding with Endo Clip placement. Currently hemoglobin is stable, he has received 8 units of blood this admission. If any further bleeding occurs patient should be transferred to a tertiary center for possible embolization. Current Visit: Yes Status: Acute Priority: Medium Code(s): D64.9 - ANEMIA, UNSPECIFIED SNOMED Code(s): 521374060 (2) Melena Current Visit: Yes Status: Acute Code(s): K92.1 - MELENA SNOMED Code(s): 2211334 (3) IV drug user Current Visit: Yes Status: Acute Code(s): F19.90 - OTHER PSYCHOACTIVE SUB STANCE USE, UNSPECIFIED, UNCOMPLICATED SNOMED Code(s): 400285387 (4) MRSA bacteremia Current Visit: Yes Status: Acute Code(s): R78.81 - BACTEREMIA; B95.62 - METHICILLIN RESIS STAPH INFCT CAUSING DISEASES CLASSD [facility] SNOMED Code(s): 87927228714589378 (5) Hepatitis C Current Visit: No Status: Acute Code(s): B19.20 - UNSPECIFIED VIRAL HEPATITIS C WITHOUT HEPATIC COMA SNOMED Code(s): 19952472 Plan: 1. Continue symptomatic and supportive care 2. Continue NG tube for now 3. Continue to monitor for GI bleed 4. Daily CBC, transfuse for hemoglobin less than 7 5. Continue with Protonix 40 mg twice daily 6. Patient is status post upper endoscopy with findings of multiple large blood clots in the fundus of the stomach status post removal, 2 small ulcers in proximal body of the stomach with no active bleeding with Endo Clip placement 7. Avoid NSAIDs 8. Continue ICU management 9. If patient has further bleeding recommend transfer to tertiary center for possible embolization Thank you for allowing us to participate in the care of the patient, the GI service will sign off, gastroenterology will not be available at the hospital this weekend and through next week. If further evaluation by gastroenterology is required the patient will need transfer as per the primary team's discretion. Dr. Olga Becker I agree with the dictator's note, documented as a scribe by Denise Salazar.
[2023-12-09] MEDS: HYDROmorphone 1 MG/ML 1 ML SYRINGE IVP PRN (14:29)
--- NOTE | 2023-12-09 15:05 | P.PN ---
Subjective Progress Note Date: 12/09/23 Principal diagnosis: Reason for follow-up is left foot cellulitis and bacteremia Patient is a 33-year-old male with a past medical history significant for seizure disorder history of IV drug presented to hospital with worsening pain swelling redness to the left foot with a large blood-filled blister diagnosis cellulitis blood culture positive for MRSA, CT chest increased density right middle lobe correlate for pneumonia or atelectasis. Patient is status post excisional debridement of the left foot with washout of the deep abscess completed by vascular surgery on 11/29/2023. Patient is status post repeat sharp excisional debridement of left foot to the muscle procedure completed on 12/01/2023,Patient is status post EGD with evidence of multiple large clots in th e fundus of the stomach to superficial ulceration status post Endo Clip post procedure the patient has been on the vent and in the ICU. On today's evaluation that is 12/09/2023, patient has been afebrile, patient is intubated on the vent FiO2 is currently down to 30% no significant purulent secretions through the ET patient not requiring any pressor support no other changes reported by the nursing staff. Patient white count is down to 12.6, creatinine 0.6 5 repeat blood cultures so far negative Objective - Vital Signs Vital signs: Vital Signs Temp 98.5 F 12/09/23 08:00 Pulse 114 H 12/09/23 12:12 Resp 19 12/09/23 11:00 BP 131/80 12/09/23 11:00 Pulse Ox 100 12/09/23 11:00 FiO2 30 12/09/23 12:02 Intake & Output 12/08/23 12/09/23 12/09/23 18:59 06:59 18:59 Intake Total 1080 1558.725 530.962 Output Total 3475 1715 1175 Balance -2395 -156.275 -644.038 Weight 65.4 kg Intake: IV 1083 265 Sodium Chloride 0.9% 1, 550 250 000 ml @ 50 mls/hr IV . Q20H [facility] Rx#:[id number] Vancomycin 1,750 mg In 500 Sodium Chloride 0.9% 500 ml 500 ml @ 167 mls/hr IVPB Q8H [facility] Rx#: [id number] pressure bag 33 15 Intake, IV Titration 150 475.725 265.962 Amount Midazolam HCl 50 mg In 24.017 43.6 Sodium Chloride 0.9% 40 ml @ 1 MG/HR 1 mls/hr IV .Q24H [facility] Rx#:[id number] Norepinephrine 4 mg In 17.143 Sodium Chloride 0.9% 250 ml @ 0.15 MCG/KG/MIN 41. 477 mls/hr IV .Q6H8M [facility]ED [facility] Rx#:[id number] Sodium Chloride 0.9% 1, 150 50 000 ml @ 0 mls/hr IV .[facility] Rx#:[id number] fentaNYL (PF). 1,000 mcg 68.197 88.345 In Sodium Chloride 0.9% 80 ml @ 0.5 MCG/KG/HR 3. 25 mls/hr IV .Q24H [facility]ED [facility] Rx #:[id number] propofoL 1,000 mg In 333.511 116.874 Empty Bag 1 bag @ 15 MCG/ KG/MIN 6.532 mls/hr IV . [id number] REPLACED BY [facility] Rx#:[id number] Blood Product 930 Rc As-1 Unit 310 [id number] Rc As-1 Unit 310 [id number] Rc As-1 Unit 310 [id number] Output: Urine 3475 1715 1175 Other: Voiding Method Indwelling Catheter Indwelling Catheter # Bowel Movements 1 ABP, PAP, CO, CI - Last Documented Arterial Blood Pressure 162/85 - Exam GENERAL DESCRIPTION: Middle-age male intubated on the vent RESPIRATORY SYSTEM: Unlabored breathing , decreased breath sounds at bases HEART: S1 S2 regular rate and rhythm , ABDOMEN: Soft , no tenderness EXTREMITIES: Left foot currently covered with a wound VAC, - Labs CBC & Chem 7: 12/09/23 04:04 12/09/23 07:39 Labs: Abnormal Lab Results - Last 24 Hours (Table) 12/07/23 12/08/23 12/08/23 Range/Units 20:12 13:35 14:47 WBC 13.5 H (3.8-10.6) k/uL RBC 2.30 L (4.30-5.90) m/uL Hgb 7.0 L (13.0-17.5) gm/dL Hct 22.0 L (39.0-53.0) % RDW 16.8 H (11.5-15.5) % Plt Count 951 H (150-450) k/uL Neutrophils # (1.3-7.7) k/uL ABG pCO2 (35-45) mmHg ABG pO2 (83-108) mmHg ABG Total CO2 (19-24) mmol/L ABG O2 Saturation (94-97) % Sodium (137-145) mmol/L Chloride (98-107) mmol/L Carbon Dioxide (22-30) mmol/L BUN (9-20) mg/dL Creatinine (0.66-1.25) mg/dL POC Glucose (mg/dL) 198 H (70-110) mg/dL Calcium (8.4-10.2) mg/dL AST (17-59) U/L Total Protein (6.3-8.2) g/dL Albumin (3.5-5.0) g/dL Crossmatch See Detail 12/08/23 12/08/23 12/08/23 Range/Units 18:24 22:18 22:18 WBC 18.3 H (3.8-10.6) k/uL RBC 2.57 L (4.30-5.90) m/uL Hgb 7.7 L (13.0-17.5) gm/dL Hct 23.3 L (39.0-53.0) % RDW 16.0 H (11.5-15.5) % Plt Count 638 H (150-450) k/uL Neutrophils # 12.3 H (1.3-7.7) k/uL ABG pCO2 34 L (35-45) mmHg ABG pO2 >420 H (83-108) mmHg ABG Total CO2 (19-24) mmol/L ABG O2 Saturation 100.8 H (94-97) % Sodium 136 L (137-145) mmol/L Chloride 114 H (98-107) mmol/L Carbon Dioxide 21 L (22-30) mmol/L BUN 36 H (9-20) mg/dL Creatinine 0.56 L (0.66-1.25) mg/dL POC Glucose (mg/dL) (70-110) mg/dL Calcium 7.6 L (8.4-10.2) mg/dL AST (17-59) U/L Total Protein (6.3-8.2) g/dL Albumin (3.5-5.0) g/dL Crossmatch 12/09/23 12/09/23 12/09/23 Range/Units 04:04 04:04 06:14 WBC 12.6 H (3.8-10.6) k/uL RBC 2.42 L (4.30-5.90) m/uL Hgb 7.6 L (13.0-17.5) gm/dL Hct 22.1 L (39.0-53.0) % RDW 16.1 H (11.5-15.5) % Plt Count 634 H (150-450) k/uL Neutrophils # (1.3-7.7) k/uL ABG pCO2 (35-45) mmHg ABG pO2 213 H (83-108) mmHg ABG Total CO2 25 H (19-24) mmol/L ABG O2 Saturation 100.3 H (94-97) % Sodium 135 L (137-145) mmol/L Chloride 113 H (98-107) mmol/L Carbon Dioxide 21 L (22-30) mmol/L BUN 31 H (9-20) mg/dL Creatinine 0.64 L (0.66-1.25) mg/dL POC Glucose (mg/dL) (70-110) mg/dL Calcium 7.7 L (8.4-10.2) mg/dL AST (17-59) U/L Total Protein (6.3-8.2) g/dL Albumin (3.5-5.0) g/dL Crossmatch 12/09/23 12/09/23 Range/Units 07:39 11:33 WBC (3.8-10.6) k/uL RBC (4.30-5.90) m/uL Hgb (13.0-17.5) gm/dL Hct (39.0-53.0) % RDW (11.5-15.5) % Plt Count (150-450) k/uL Neutrophils # (1.3-7.7) k/uL ABG pCO2 (35-45) mmHg ABG pO2 (83-108) mmHg ABG Total CO2 (19-24) mmol/L ABG O2 Saturation (94-97) % Sodium (137-145) mmol/L Chloride 114 H (98-107) mmol/L Carbon Dioxide (22-30) mmol/L BUN 28 H (9-20) mg/dL Creatinine 0.65 L (0.66-1.25) mg/dL POC Glucose (mg/dL) 120 H (70-110) mg/dL Calcium 8.0 L (8.4-10.2) mg/dL AST 63 H (17-59) U/L Total Protein 5.3 L (6.3-8.2) g/dL Albumin 2.4 L (3.5-5.0) g/dL Crossmatch Microbiology - Last 24 Hours (Table) 12/07/23 20:10 Blood Culture - Preliminary Blood 12/03/23 06:52 Blood Culture - Final Blood Assessment and Plan (1) Cellulitis of left foot Current Visit: Yes Status: Acute Priority: High Code(s): L03.116 - CELLULITIS OF LEFT LOWER LIMB SNOMED Code(s): 12098298322909729 (2) MRSA bacteremia Current Visit: Yes Status: Acute Code(s): R78.81 - BACTEREMIA; B95.62 - METHICILLIN RESIS STAPH INFCT CAUSING DISEASES CL[facility]SD [facility] SNOMED Code(s): 02776381943606384 Plan: 1patient presented hospital with left foot pain swelling redness and did have a big blister concerning for cellulitis and possible deep infection such as abscess likely from gram-positive skin francine in this patient with history of IV drug use however mention has not injected in the area high risk of MRSA infection 2-patient with MRSA bacteremia source is likely left foot abscess and cellulitis 3-blood cultures has been repeated 11/28/2023 and has been negative so far negative patient is status post surgical debridement and drainage x 2 of the left foot abscess with deep culture which are currently growing MRSA 4-patient did require EGD intubation for his acute GI bleed patient to continue with the vancomycin at this time and monitor clinical course closely Dictation was produced using [employer] dictation software. please excuse any grammatical, word or spelling errors. Time with Patient: Less than 30
[2023-12-09] MEDS: VANCOMYCIN 1,750 MG in SODIUM CHLORIDE 0.9% 500 ML 500 ML IVPB SCH (16:25)
--- NOTE | 2023-12-09 17:39 | P.PN ---
Subjective Progress Note Date: 12/09/23 Principal diagnosis: anemia, foot wound Patient seen in ICU at today's visit. Patient was transferred to ICU after syncopal episode after large bloody bowel movement. Patient was extubated this morning. Currently patient is somewhat agitated and is having some confused spe ech but is answering questions appropriately. Patient has received total of 8 units of PRBC since admission. Today hemoglobin stable at 7.6, platelets 634,000. Patient underwent EGD which found clots in the fundus of the stomach and 2 ulcerations in the stomach with no active bleed with Endo Clip placed. Objective - Vital Signs Vital signs: Vital Signs Temp 98.6 F 12/09/23 12:00 Pulse 121 H 12/09/23 14:00 Resp 27 H 12/09/23 14:00 BP 135/71 12/09/23 13:00 Pulse Ox 100 12/09/23 14:00 FiO2 30 12/09/23 13:10 Intake & Output 12/08/23 12/09/23 12/09/23 18:59 06:59 18:59 Intake Total 1080 1558.725 711.162 Output Total 3475 1715 1725 Balance -2395 -156.275 -1013.838 Weight 65.4 kg Intake: IV 1083 424 Sodium Chloride 0.9% 1, 550 400 000 ml @ 50 mls/hr IV . Q20H [facility] Rx#:[id number] Vancomycin 1,750 mg In 500 Sodium Chloride 0.9% 500 ml 500 ml @ 167 mls/hr IVPB Q8H [facility] Rx#: [id number] pressure bag 33 24 Intake, IV Titration 150 475.725 287.162 Amount Midazolam HCl 50 mg In 24.017 45.233 Sodium Chloride 0.9% 40 ml @ 1 MG/HR 1 mls/hr IV .Q24H [facility] Rx#:[id number] Norepinephrine 4 mg In 17.143 Sodium Chloride 0.9% 250 ml @ 0.15 MCG/KG/MIN 41. 477 mls/hr IV .Q6H8M [facility] Rx#:[id number] Sodium Chloride 0.9% 1, 150 50 000 ml @ 0 mls/hr IV .[facility] Rx#:[id number] fentaNYL (PF). 1,000 mcg 68.197 94.195 In Sodium Chloride 0.9% 80 ml @ 0.5 MCG/KG/HR 3. 25 mls/hr IV .Q24H [facility] Rx #:[id number] propofoL 1,000 mg In 333.511 130.591 Empty Bag 1 bag @ 15 MCG/ KG/MIN 6.532 mls/hr IV . [id number] [facility] Rx#:[id number] Blood Product 930 Rc As-1 Unit 310 [id number] Rc As-1 Unit 310 [id number] Rc As-1 Unit 310 [id number] Output: Urine 7665 1715 1725 Other: Voiding Method Indwelling Catheter Indwelling Catheter # Bowel Movements 1 ABP, PAP, CO, CI - Last Documented Arterial Blood Pressure 145/61 - Constitutional General appearance: Present: average body habitus, no acute distress - EENT Eyes: Present: anicteric sclerae, EOMI ENT: Present: hearing grossly normal - Respiratory Details: breathing is even and unlabored - Cardiovascular Details: skin warm and dry - Integumentary Integumentary: Present: pale - Neurologic Neurologic: Present: CNII-XII intact - Musculoskeletal Musculoskeletal: Present: strength equal bilaterally - Psychiatric Psychiatric: Present: A&O x's 3 - Labs CBC & Chem 7: 12/09/23 04:04 12/09/23 07:39 Labs: Abnormal Lab Results - Last 24 Hours (Table) 12/07/23 12/08/23 12/08/23 Range/Units 20:12 14:47 18:24 WBC (3.8-10.6) k/uL RBC (4.30-5.90) m/uL Hgb (13.0-17.5) gm/dL Hct (39.0-53.0) % RDW (11.5-15.5) % Plt Count (150-450) k/uL Neutrophils # (1.3-7.7) k/uL ABG pCO2 34 L (35-45) mmHg ABG pO2 >420 H (83-108) mmHg ABG Total CO2 (19-24) mmol/L ABG O2 Saturation 100.8 H (94-97) % Sodium (137-145) mmol/L Chloride (98-107) mmol/L Carbon Dioxide (22-30) mmol/L BUN (9-20) mg/dL Creatinine (0.66-1.25) mg/dL POC Glucose (mg/dL) 198 H (70-110) mg/dL Calcium (8.4-10.2) mg/dL AST (17-59) U/L Total Protein (6.3-8.2) g/dL Albumin (3.5-5.0) g/dL Crossmatch See Detail 12/08/23 12/08/23 12/09/23 Range/Units 22:18 22:18 04:04 WBC 18.3 H 12.6 H (3.8-10.6) k/uL RBC 2.57 L 2.42 L (4.30-5.90) m/uL Hgb 7.7 L 7.6 L (13.0-17.5) gm/dL Hct 23.3 L 22.1 L (39.0-53.0) % RDW 16.0 H 16.1 H (11.5-15.5) % Plt Count 638 H 634 H (150-450) k/uL Neutrophils # 12.3 H (1.3-7.7) k/uL ABG pCO2 (35-45) mmHg ABG pO2 (83-108) mmHg ABG Total CO2 (19-24) mmol/L ABG O2 Saturation (94-97) % Sodium 136 L (137-145) mmol/L Chloride 114 H (98-107) mmol/L Carbon Dioxide 21 L (22-30) mmol/L BUN 36 H (9-20) mg/dL Creatinine 0.56 L (0.66-1.25) mg/dL POC Glucose (mg/dL) (70-110) mg/dL Calcium 7.6 L (8.4-10.2) mg/dL AST (17-59) U/L Total Protein (6.3-8.2) g/dL Albumin (3.5-5.0) g/dL Crossmatch 12/09/23 12/09/23 12/09/23 Range/Units 04:04 06:14 07:39 WBC (3.8-10.6) k/uL RBC (4.30-5.90) m/uL Hgb (13.0-17.5) gm/dL Hct (39.0-53.0) % RDW (11.5-15.5) % Plt Count (150-450) k/uL Neutrophils # (1.3-7.7) k/uL ABG pCO2 (35-45) mmHg ABG pO2 213 H (83-108) mmHg ABG Total CO2 25 H (19-24) mmol/L ABG O2 Saturation 100.3 H (94-97) % Sodium 135 L (137-145) mmol/L Chloride 113 H 114 H (98-107) mmol/L Carbon Dioxide 21 L (22-30) mmol/L BUN 31 H 28 H (9-20) mg/dL Creatinine 0.64 L 0.65 L (0.66-1.25) mg/dL POC Glucose (mg/dL) (70-110) mg/dL Calcium 7.7 L 8.0 L (8.4-10.2) mg/dL AST 63 H (17-59) U/L Total Protein 5.3 L (6.3-8.2) g/dL Albumin 2.4 L (3.5-5.0) g/dL Crossmatch 12/09/23 Range/Units 11:33 WBC (3.8-10.6) k/uL RBC (4.30-5.90) m/uL Hgb (13.0-17.5) gm/dL Hct (39.0-53.0) % RDW (11.5-15.5) % Plt Count (150-450) k/uL Neutrophils # (1.3-7.7) k/uL ABG pCO2 (35-45) mmHg ABG pO2 (83-108) mmHg ABG Total CO2 (19-24) mmol/L ABG O2 Saturation (94-97) % Sodium (137-145) mmol/L Chloride (98-107) mmol/L Carbon Dioxide (22-30) mmol/L BUN (9-20) mg/dL Creatinine (0.66-1.25) mg/dL POC Glucose (mg/dL) 120 H (70-110) mg/dL Calcium (8.4-10.2) mg/dL AST (17-59) U/L Total Protein (6.3-8.2) g/dL Albumin (3.5-5.0) g/dL Crossmatch Microbiology - Last 24 Hours (Table) 12/07/23 20:10 Blood Culture - Preliminary Blood 12/03/23 06:52 Blood Culture - Final Blood Assessment and Plan (1) Abnormal CT scan, chest Current Visit: Yes Status: Acute Priority: Medium Code(s): R93.89 - ABNORMAL FINDINGS ON DX IMAGING OF OTH BODY STRUCTURES SNOMED Code(s): 92050832941903402 (2) Anemia Current Visit: Yes Status: Acute Priority: Medium Code(s): D64.9 - ANEMIA, UNSPECIFIED SNOMED Code(s): 414034774 (3) Cellulitis of left foot Current Visit: Yes Status: Acute Priority: High Code(s): L03.116 - CELLULITIS OF LEFT LOWER LIMB SNOMED Code(s): 36576496283876059 (4) MRSA bacteremia Current Visit: Yes Status: Acute Code(s): R78.81 - BACTEREMIA; B95.62 - METHICILLIN RESIS STAPH INFCT CAUSING DISEASES [facility] SNOMED Code(s): 93041600921339646 Plan: Anemia, of inflammation -Elevated inflammatory markers, acute infection, wound vac, IV fluid, poor marrow response 2/2 marrow damage from drug abuse all contributing to anemia -S/P 8 units PRBCs since admission. Hgb today 7.6. Hemolysis, DIC labs ordered- both negative. CT head neg. Occult was positive. GI was consulted for endo. Pt was "researching" online and believes vancomycin is causing his "black" stool, not bleeding. It was explained to pt is simplest terms that if this was just a side effect of a medication then his Hgb would not be dropping. He eventually was agreeable with EGD -Patient underwent EGD with Dr. Becker on 12/07 which showed multiple large clots in the fundus of the stomach status post removal. 2 small superficial ulcerations in the proximal body of the stomach with no active bleeding s/p Endo Clip placement. No evidence of gastric or esophageal varices noted. -There are plans to F/U with pt outpt for anemia and the lung lesion -Continue to monitor CBC daily. Please transfuse for hgb less than 7 or if symptomatic Cellulitis/narcotizing fascitis -Has wound vac, abx. ID following 2.2cm rt lung lesion -Recommend repeat CT in 6-8 weeks. -Will f/u on the same
[2023-12-09] MEDS: ALPRAZolam 1 MG TAB PO PRN (19:05)
[2023-12-10] MEDS: MORPHINE SULFATE 2 MG/ML SYRINGE IVP STA (02:13)
[2023-12-10 05:04] LABS: Anisocytosis Slight; Basophils # (A) 0.1 k/uL (0-0.2); Basophils % (A) 1 %; Eosinophils # (A) 0.5 k/uL (0-0.7); Eosinophils % (A) 4 %; Lymphocytes # (A) 3.6 k/uL (1.0-4.8); Lymphocytes % (A) 29 %; MCH 31.8 pg (25.0-35.0); MCHC 34.1 g/dL (31.0-37.0); MCV 93.1 fL (80.0-100.0); Macrocytosis Slight; Mean Platelet Volume 7.9; Monocytes # (A) 0.8 k/uL (0-1.0); Monocytes % (A) 6 %; Neutrophils % (A) 57 %; Platelet Count 561 k/uL (150-450); Poikilocytosis Slight; RBC 1.98 m/uL (4.30-5.90); RDW 18.3 % (11.5-15.5); WBC 12.4 k/uL (3.8-10.6)
[2023-12-10 05:22] LABS: African American GFR (CKD) >90 (>60 ml/min/1.73 sqM); Anion Gap 4 mmol/L; Blood Urea Nitrogen 15 mg/dL (9-20); Calcium 7.5 mg/dL (8.4-10.2); Carbon Dioxide 21 mmol/L (22-30); Chloride 109 mmol/L (98-107); Glucose 123 mg/dL (74-99); HCT 18.5 % (39.0-53.0); HGB 6.3 gm/dL (13.0-17.5); Non-African American GFR(CKD) >90 (>60 ml/min/1.73 sqM); Sodium 134 mmol/L (137-145)
[2023-12-10 05:26] LABS: Glucose,Whole Blood 131 mg/dL (70-110)
[2023-12-10 07:50] VITALS: BP 115/65
[2023-12-10] MEDS: IPRATROPIUM-ALBUTEROL 3 ML NEB INHALATION SCH (08:22)
--- NOTE | 2023-12-10 11:49 | P.PN ---
Subjective Progress Note Date: 12/10/23 Principal diagnosis: Gastrointestinal bleed. Pulmonary/critical care consult dated December 08, 2023. 33-year-old male has been in the hospital for a number of days. We were consulted today, for hypotension, and gastrointestinal bleed. The patient was transferred, from the floor, to the intensive care unit, room 263, where he is seen. Since being here in the hospital he has received a total of 7 units of blood. His hemoglobin this morning was 7. White count was 13.5, hematocrit 22, and platelet count was 951,000. Apparently Dr. Becker is coming in, to scope the patient, in the intensive care unit. His sodium was 131, potassium 4.9, chlorides 105, CO2 23, BUN 41, and creatinine 0.57. Albumin was 2.4. Stool was positive for occult blood. The patient initially came into the hospital on November 25, for some sort of injury to his left foot, with redness and swelling. Ap parently according to the nurses, the patient has been refusing interventions such as EGD, and colonoscopy. The patient recently had a CT of the abdomen and pelvis, and shows no evidence of gastrointestinal bleeding, and no acute abdominal process was visualized. Progress note dated December 09, 2023. 33-year-old male who was brought to the intensive care unit yesterday, for gastrointestinal bleeding, and hypotension. The patient had an EGD at the bedside, done by gastroenterology, and 2 clips were placed in the stomach. A lot of blood, both old and new, were evacuated from the GI tract. The patient was maintained on the ventilator overnight. I placed a right radial arterial line, and a left subclavian triple-lumen catheter, yesterday. Current settings include volume assist-control, rate 20, tidal volume 400, FiO2 30%, PEEP of 5. Blood gases showed a pO2 of 213, pCO2 of 36, pH is 7.43. That was on 40% FiO2. The patient is on propofol at 60 mcg/kg/min, Versed at 6 mg an hour, and fentanyl at 2 mcg/kg/h. The patient is getting saline at 50 cc an hour. He is also on norepinephrine at about 2 mcg/min. We will attempt a daily interruption of sedation, and a spontaneous breathing trial today. White count is 12.6, hemoglobin 7.6, hematocrit 22.1, and platelet count 634,000. Sodium 138, potassium 4.8, chlorides 114, CO2 23, BUN 28, and creatinine 0.65. Calcium is 8. AST is 63. Albumin 2.4. The patient has received a total of 8 units of blood since being in the hospital. Wound culture from the left foot, and blood cultures are positive for methicillin-resistant Staph aureus. Chest x-ray shows a properly placed endotracheal tube. NG tube was noted. Progress note dated December 10, 2023. 33-year-old male who was brought to the intensive care unit, 2 days ago, for re spiratory failure, hypotension, and GI bleed. The patient was successfully extubated yesterday. Unfortunately, his hemoglobin continues to drop. This morning, it was 6.3. He has received his ninth unit of blood today. He was extubated successfully on December 08. He is on room air. He is on saline at 50 cc an hour. I did discuss the case with the hospitalist, and the plan is to shift the patient to [facility] if possible. White count 12.4, hemoglobin 6.3, hematocrit 18.5, and platelet count 561,000. Sodium 134, potassium 4, chloride 109, CO2 21, BUN 15, creatinine 0.68. Glucose 131. Objective - Vital Signs Vital signs: Vital Signs Temp 98.9 F 12/10/23 10:00 Pulse 115 H 12/10/23 10:00 Resp 18 12/10/23 10:00 BP 115/65 12/10/23 07:20 Pulse Ox 99 12/10/23 10:00 FiO2 30 12/09/23 13:10 Intake & Output 12/09/23 12/10/23 12/10/23 18:59 06:59 18:59 Intake Total 1273.162 636 692 Output Total 1825 1150 450 Balance -551.838 -514 242 Weight 70.8 kg Intake: IV 986 636 212 Sodium Chloride 0.9% 1, 450 600 200 000 ml @ 50 mls/hr IV . Q20H [facility] Rx#:[id number] Vancomycin 1,750 mg In 500 Sodium Chloride 0.9% 500 ml 500 ml @ 167 mls/hr IVPB Q8H [facility] Rx#: [id number] pressure bag 36 36 12 Intake, IV Titration 287.162 Amount Midazolam HCl 50 mg In 45.233 Sodium Chloride 0.9% 40 ml @ 1 MG/HR 1 mls/hr IV .Q24H [facility] Rx#:[id number] Norepinephrine 4 mg In 17.143 Sodium Chloride 0.9% 250 ml @ 0.15 MCG/KG/MIN 41. 477 mls/hr IV .Q6H8M [facility] Rx#:[id number] fentaNYL (PF). 1,000 mcg 94.195 In Sodium Chloride 0.9% 80 ml @ 0.5 MCG/KG/HR 3. 25 mls/hr IV .Q24H [facility] Rx #:[id number] propofoL 1,000 mg In 130.591 Empty Bag 1 bag @ 15 MCG/ KG/MIN 6.532 mls/hr IV . [id number] [facility] Rx#:[id number] Oral 120 Blood Product 0 310 Rc As-1 Unit 0 310 [id number] Other 50 Rc As-1 Unit 50 [id number] Output: Urine 1825 1150 450 Other: Voiding Method Urinal Urinal Urinal # Voids 1 2 ABP, PAP, CO, CI - Last Documented Arterial Blood Pressure 115/47 - Exam No acute distress, on room air, without any respiratory distress. HEENT examination is grossly unremarkable. Neck supple. Full range of motion. No adenopathy thyromegaly or neck vein distention. Cardiovascular examination reveals regular rhythm rate. S1-S2 normal. No S3 or S4. No discernible murmur noted. Heart rate is 110. bpm. Lungs reveal clear breath sounds. Breath sounds are equal bilaterally. No adventitious lung sounds including wheezes rhonchi or crackles. Saturations are 99 % on room air. Abdomen soft, without bowel sounds. No masses. Extremities are intact. No cyanosis clubbing or edema. The patient has a significant wound, noted on the dorsum of his left foot. Skin is without rash or lesion. Neurologic examination is brief but nonfocal. - Labs CBC & Chem 7: 12/10/23 04:25 12/10/23 04:25 Labs: Abnormal Lab Results - Last 24 Hours (Table) 12/07/23 12/10/23 12/10/23 Range/Units 20:12 04:25 04:25 WBC 12.4 H (3.8-10.6) k/uL RBC 1.98 L (4.30-5.90) m/uL Hgb 6.3 L* (13.0-17.5) gm/dL Hct 18.5 L* (39.0-53.0) % RDW 18.3 H (11.5-15.5) % Plt Count 561 H (150-450) k/uL Sodium 134 L (137-145) mmol/L Chloride 109 H (98-107) mmol/L Carbon Dioxide 21 L (22-30) mmol/L Glucose 123 H (74-99) mg/dL POC Glucose (mg/dL) (70-110) mg/dL Calcium 7.5 L (8.4-10.2) mg/dL Crossmatch See Detail 12/10/23 Range/Units 05:24 WBC (3.8-10.6) k/uL RBC (4.30-5.90) m/uL Hgb (13.0-17.5) gm/dL Hct (39.0-53.0) % RDW (11.5-15.5) % Plt Count (150-450) k/uL Sodium (137-145) mmol/L Chloride (98-107) mmol/L Carbon Dioxide (22-30) mmol/L Glucose (74-99) mg/dL POC Glucose (mg/dL) 131 H (70-110) mg/dL Calcium (8.4-10.2) mg/dL Crossmatch Microbiology - Last 24 Hours (Table) 12/07/23 20:10 Blood Culture - Preliminary Blood Assessment and Plan Assessment: Acute gastrointestinal bleed. EGD revealed both new and old blood, and 2 clips were placed in the stomach. S/P intubation and mechanical ventilation, December 08, 2023, with successful extubation on December 09, 2023. Hypotension, secondary to GI bleeding, the patient has received a total of 9 units of PRBCs. Sepsis, secondary to necrotizing fasciitis, of the left foot, status postdebridement. Methicillin-resistant Staphylococcus aureus bacteremia. History of hepatitis C. History of opiate dependency. History of IV drug abuse. Plan: Plan dated December 08, 2023. The patient is seen today in the intensive care unit, room 263. My intention is to place a central line in this patient, as the patient has poor IV access. Additional recommendations and suggestions are forthcoming. I will continue to monitor and manage the patient in the intensive care unit. Labs, x-rays, and medications are reviewed. Prognosis is guarded. The patient has received a total of 7 units of PRBCs. The patient will have a scope done today, by gastroenterology. Plan dated December 09, 2023. The patient had a bedside EGD done yesterday, by Dr. Becker. 2 clips were placed in the stomach, and both old blood, and new blood, was evacuated from the GI tract. The patient was intubated for the procedure, and I asked anesthesia, to keep the patient intubated, and we got a ventilator up to the bedside, connected the patient to the ventilator, I kept him on the ventilator, overnight. In addition, we will place a right radial art line, and a left subclavian triple- lumen catheter. The patient is seen today in the intensive care unit. He remains on propofol, Versed, and fentanyl. He is also on 2 mcg/min of norepinephrine. We will do a daily interruption of sedation. Will see for the patient is ready for weaning and extubation. The blood gases were excellent on 40%. The FiO2 was turned down to 30%. Labs, x-rays, medications are reviewed. We will continue to follow the patient, and make recommendations along the way. Plan dated December 09, 2023. The patient's hemoglobin is again low. He is getting another unit of blood. This will be 9 total units since he was admitted. The patient is on room air. He was successfully extubated yesterday. Labs, x-rays, medications are reviewed. The patient's hemoglobin today was 6.3. I spoke to the hospitalist, and because we do not have GI coverage, the patient will be transferred to an outside hospital. Additional recommendations and suggestions are forthcoming. Time with Patient: Less than 30
--- NOTE | 2023-12-10 12:13 | P.PN ---
Subjective Progress Note Date: 12/10/23 Hospital Course: 33-year-old male with history of IV drug abuse with heroin and hepatitis C who initially presented with swelling and pain over his left foot. Patient subsequently found to have MRSA bacteremia and necrotizing fasciitis of the left foot. Patient has undergone debridement with vascular surgery and currently has wound VAC on. Blood cultures have been clear. Echocardiogram shows no signs of infective endocarditis. Infectious disease following. On IV antibiotics. Having significant pain. During his hospitalization, patient had anemia. Hematology was consulted. It was thought to be reactive. Hemoglobin did improve after getting transfusions. However, on 12/07/2023 his anemia worsened. He developed an episode of gio hematochezia, and now having melena. On 024. Patient had episode of syncope, with diaphoresis, tachycardia, hypotension, patient moved to the medical ICU. Getting more blood. GI consulted. Had stat bedside EGD, which showed multiple large clots in the fundus of the stomach status post removal, 2 small superficial ulcerations in the proximal body of the stomach status post Endo Clip placement. Patient was intubated prior to the procedure. Patient is now extubated. Still having drop in hemoglobin. Likely ongoing GI bleed. No GI service available, patient to be transferred to [facility]. Patient accepted by Dr. Fuller in the SICU team at [facility]. Pending bed availability. Subjective: Patient seen and examined at bedside. No acute events overnight. Pertinent positives and negatives as discussed above, a complete review of systems was performed and all other systems are negative. Vitals Signs Reviewed. General: Intubated and sedated Derm: Warm, dry, left foot wound VAC in place. Head: Atraumatic, normocephalic, symmetric Eyes: Pupils equal and reactive Mouth: No lip lesion, mucus membranes moist Cardiovascular: S1S2 reg, tachycardic, no murmur Lungs: CTA bilateral, no rhonchi, no rales, no accessory muscle use, intubated, mechanically ventilated Abdominal: Soft, nondistended, no appreciable organomegaly Ext: No gross muscle atrophy, no edema, no contractures Neuro: Sedated Psych: Unable to assess Data Reviewed Today: Pertinent Labs: WBC 12.4, hemoglobin 6.3, platelet 561, sodium 134, bicarb 21, BUN 15, creatinine 0.68, blood sugars range between 1 20-1 31 Imaging: No new imaging Assessment and Plan: Patient is critically ill, needs close monitoring. Prognosis guarded Acute blood loss anemia Acute GI bleed Peptic ulcer disease status post Endo Clip Hemorrhagic shock, resolved -Patient has received a total of 8 units of PRBCs during this admission, receiving another unit -Currently being monitored in medical ICU -on IV pantoprazole 40 twice daily -Continue to monitor CBCs -Discussed management with pulmonology, patient to be transferred to [facility]. Sepsis secondary to Necrotizing fasciitis of the left foot with MRSA abscess s/p debridement with washout of deep abscess 11/29/23 and Second debridement on the foot with wound VAC 12/01/2023 MRSA bacteremia - Blood cultures from 11/27 negative to date. -Vancomycin IV piggyback being dosed via trough and creatinine level, monitor for renal toxicity -Echocardiogram without signs of infectious endocarditis -ID following -Wound care recs: Continue with wound VAC with follow-up 3 times weekly. -Vascular surgery following, possible need for BKA if the foot does not heal or improve. Continue with pain control. -Wound culture of left foot with growth of MRSA Hep C - Hx of active infection never received treatment - screen for HIV pending -Outpatient follow-up Opiate dependency with known IV heroin abuse prior to hospital stay Intractable pain related to necrotizing fasciitis of the left foot Sinus tachycardia -Tylenol 1000 mg decreased to every 8 hours scheduled, continue Neurontin 300 mg p.o. 3 times daily -Dilaudid decreased to 1 mg every 4 hours as needed for severe breakthrough pain -Lyman to 10 mg oral 4 times daily as needed -Continue with fentanyl patch 50 mcg/h -clonidine 0.1mg p.o. 3 times daily for heroin withdrawal Right lower lobe consolidation/pulmonary infarct -patient does not have any signs of pneumonia -outpatient follow-up CT scan in 3 months Hypokalemia, Resolved DVT ppx: SCDs Code status: Full code Anticipated discharge place: Pending clinical course Anticipated discharge time: Pending clinical course Objective - Vital Signs Vital signs: Vital Signs Temp 98.9 F 12/10/23 10:00 Pulse 111 H 12/10/23 12:01 Resp 18 12/10/23 10:00 BP 115/65 12/10/23 07:20 Pulse Ox 99 12/10/23 10:00 FiO2 30 12/09/23 13:10 Intake & Output 12/09/23 12/10/23 12/10/23 18:59 06:59 18:59 Intake Total 1273.162 636 692 Output Total 1825 1150 450 Balance -551.838 -514 242 Weight 70.8 kg Intake: IV 986 636 212 Sodium Chloride 0.9% 1, 450 600 200 000 ml @ 50 mls/hr IV . Q20H [facility] Rx#:[id number] Vancomycin 1,750 mg In 500 Sodium Chloride 0.9% 500 ml 500 ml @ 167 mls/hr IVPB Q8H [facility] Rx#: [id number] pressure bag 36 36 12 Intake, IV Titration 287.162 Amount Midazolam HCl 50 mg In 45.233 Sodium Chloride 0.9% 40 ml @ 1 MG/HR 1 mls/hr IV .Q24H [facility] Rx#:[id number] Norepinephrine 4 mg In 17.143 Sodium Chloride 0.9% 250 ml @ 0.15 MCG/KG/MIN 41. 477 mls/hr IV .Q6H8M [facility] Rx#:[id number] fentaNYL (PF). 1,000 mcg 94.195 In Sodium Chloride 0.9% 80 ml @ 0.5 MCG/KG/HR 3. 25 mls/hr IV .Q24H [facility] Rx #:[id number] propofoL 1,000 mg In 130.591 Empty Bag 1 bag @ 15 MCG/ KG/MIN 6.532 mls/hr IV . [id number] [facility] Rx#:[id number] Oral 120 Blood Product 0 310 Rc As-1 Unit 0 310 [id number] Other 50 Rc As-1 Unit 50 [id number] Output: Urine 1825 1150 450 Other: Voiding Method Urinal Urinal Urinal # Voids 1 2 ABP, PAP, CO, CI - Last Documented Arterial Blood Pressure 115/47 - Labs CBC & Chem 7: 12/10/23 04:25 12/10/23 04:25 Labs: Abnormal Lab Results - Last 24 Hours (Table) 12/07/23 12/10/23 12/10/23 Range/Units 20:12 04:25 04:25 WBC 12.4 H (3.8-10.6) k/uL RBC 1.98 L (4.30-5.90) m/uL Hgb 6.3 L* (13.0-17.5) gm/dL Hct 18.5 L* (39.0-53.0) % RDW 18.3 H (11.5-15.5) % Plt Count 561 H (150-450) k/uL Sodium 134 L (137-145) mmol/L Chloride 109 H (98-107) mmol/L Carbon Dioxide 21 L (22-30) mmol/L Glucose 123 H (74-99) mg/dL POC Glucose (mg/dL) (70-110) mg/dL Calcium 7.5 L (8.4-10.2) mg/dL Crossmatch See Detail 12/10/23 Range/Units 05:24 WBC (3.8-10.6) k/uL RBC (4.30-5.90) m/uL Hgb (13.0-17.5) gm/dL Hct (39.0-53.0) % RDW (11.5-15.5) % Plt Count (150-450) k/uL Sodium (137-145) mmol/L Chloride (98-107) mmol/L Carbon Dioxide (22-30) mmol/L Glucose (74-99) mg/dL POC Glucose (mg/dL) 131 H (70-110) mg/dL Calcium (8.4-10.2) mg/dL Crossmatch Microbiology - Last 24 Hours (Table) 12/07/23 20:10 Blood Culture - Preliminary Blood
[2023-12-10 12:29] LABS: Glucose,Whole Blood 115 mg/dL (70-110)
[2023-12-10 12:50] LABS: Anisocytosis Slight; Basophils # (A) 0.1 k/uL (0-0.2); Basophils % (A) 1 %; Eosinophils # (A) 0.4 k/uL (0-0.7); Eosinophils % (A) 4 %; HCT 21.2 % (39.0-53.0); Lymphocytes # (A) 2.7 k/uL (1.0-4.8); Lymphocytes % (A) 25 %; MCH 30.9 pg (25.0-35.0); MCHC 33.2 g/dL (31.0-37.0); MCV 93.2 fL (80.0-100.0); Mean Platelet Volume 7.4; Monocytes # (A) 0.6 k/uL (0-1.0); Monocytes % (A) 6 %; Neutrophils # (A) 6.5 k/uL (1.3-7.7); Neutrophils % (A) 62 %; Platelet Count 532 k/uL (150-450); RBC 2.27 m/uL (4.30-5.90); RDW 17.4 % (11.5-15.5); WBC 10.5 k/uL (3.8-10.6)
[2023-12-10 13:26] VITALS: TEMP 98.5
[2023-12-10 14:08] VITALS: PULSE 117; RESP 24
--- NOTE | 2023-12-10 17:41 | P.DS ---
Providers Date of admission: 11/26/23 17:25 Expected date of discharge: 12/10/23 Attending physician: Lelo Feldman MD Consults: 11/26/23 18:06 Consult Physician Stat Consulting Provider: Dilma Caceres Consult Reason/Comments: cellulitis, ?endocarditis Do you want consulting provider notified?: Yes, Notify in am 11/29/23 15:26 Consult Physician Urgent Consulting Provider: Shantell Malhotra Consult Reason/Comments: Left foot abscess Do you want consulting provider notified?: Yes 12/02/23 10:50 Consult Physician Routine Consulting Provider: Eliezer Villagran Consult Reason/Comments: Anemia, do not think related to blood loss from wound Do you want consulting provider notified?: Yes 12/08/23 05:16 Consult Physician Urgent Consulting Provider: Macy Becker Consult Reason/Comments: GIB Do you want consulting provider notified?: Yes 12/08/23 16:14 Consult Physician Routine Consulting Provider: Gopi Kyle Consult Reason/Comments: icu management Do you want consulting provider notified?: Already Contacted Primary care physician: Stated None Hospital Course: Discharge Diagnosis: Acute blood loss anemia Acute GI bleed Peptic ulcer disease status post Endo Clip Hemorrhagic shock, resolved Sepsis secondary to Necrotizing fasciitis of the left foot with MRSA abscess s/p debridement with washout of deep abscess 11/29/23 and Second debridement on the foot with wound VAC 12/01/2023 MRSA bacteremia Hep C Opiate dependency with known IV heroin abuse prior to hospital stay Intractable pain related to necrotizing fasciitis of the left foot Right lower lobe consolidation/pulmonary infarct Hypokalemia Hospital Course: 33-year-old male with history of IV drug abuse with heroin and hepatitis C who initially presented with swelling and pain over his left foot. Patient subsequently found to have MRSA bacteremia and necrotizing fasciitis of the left foot. Patient has undergone debridement with vascular surgery and currently has wound VAC on. Blood cultures have been clear. Echocardiogram shows no signs of infective endocarditis. Infectious disease following. On IV antibiotics. Having significant pain. During his hospitalization, patient had anemia. Hematology was consulted. It was thought to be reactive. Hemoglobin did improve after getting transfusions. However, on 12/07/2023 his anemia worsened. He developed an episode of gio hematochezia, and now having melena. On 12/08/2023. Patient had episode of syncope, with diaphoresis, tachycardia, hypotension, patient moved to the medical ICU. Getting more blood. GI consulted. Had stat bedside EGD, which showed multiple large clots in the fundus of the stomach status post removal, 2 small superficial ulcerations in the proximal body of the stomach status post Endo Clip placement. Patient was intubated prior to the procedure. Patient is now extubated. Still having drop in hemoglobin. Likely ongoing GI bleed. No GI service available, patient to be transferred to [facility]. Patient accepted by Dr. Fuller in the SICU team at [facility]. Patient transferred. Patient Condition at Discharge: Critical Plan - Discharge Summary New Discharge Prescriptions: No Action No Known Home Medications Discharge Medication List No Known Home Medications 08/21/19 [History] Follow up Appointment(s)/Referral(s): Shantell Malhotra DO [STAFF PHYSICIAN] - 2 Weeks None,Stated [Primary Care Provider] - 1-2 days [facility] [NON-STAFF] - 1 Week Discharge Disposition: TRANSFER TO SHORT TERM HOSP
--- NOTE | 2023-12-12 19:11 | CDI ---
Documentation Clarification Form Date: 12/12/2023 06:52:32 PM From: Alda Gan Phone: Admit Date: 11/26/2023 05:25:00 PM Patient Name: Bhanu Smith Visit Number: [id number] Discharge Date: 12/10/2023 02:05:00 PM ATTENTION: The Clinical Documentation Specialists (CDI) and [facility] Coding Staff appreciate your assistance in clarifying documentation. Please respond to the clarification below the line at the bottom and electronically sign. The CDI & [facility] Coding staff will review the response and follow-up if needed. Please note: Queries are made part of the Legal Health Record. If you have any questions, please contact the author of this message via ITS. Dr. Lelo Feldman Your patient has respiratory failure per Progress Note 6/8. Clarification regarding the type of respiratory failure is requested. History/Risk Factors: 33yo M, MRSA sepsisd/tNecrotizing fasciitisleft foot. GIB w ABLA, PUD, Hemorrhagic shock,Hep C, Opiate dependencywith known IV heroinabuse, RUL consolidation/pulmonary infarct, hypokalemia Tobacco use: yes Clinical Indicators: Vital signs: Temp 98.9 FPulse 115 HResp 18BP 115/65 Pulse Ox 99FiO2 30 ABG/CBG: Blood gases showed a pO2 of 213, pCO2 of 36, pH is 7.43.That was on 40% FiO2. Treatment: Patient was maintained on the ventilator overnight. Iplaceda right radialarterial line, and a left subclavian triple-lumen catheter, yesterday. Current settings include volume assist-control, rate 20, tidal volume 400, FiO2 30%,PEEPof 5. Blood gases showed a pO2 of 213, pCO2 of 36, pH is 7.43.That was on 40% FiO2. Please clarify which diagnosis is most appropriate? [ ] Acute Hypoxic Respiratory Failure [ ] Acute Hypercapnic Respiratory Failure [ ] Acute on Chronic Respiratory Failure [ ] Other, please specify [ x] Unable to determine (Template Last Revised: July 2023) MTDD
--- NOTE | 2023-12-17 22:28 | P.PN ---
Subjective Progress Note Date: 12/10/23 Principal diagnosis: Reason for follow-up is left foot cellulitis and bacteremia Patient is a 33-year-old male with a past medical history significant for seizure disorder history of IV drug presented to hospital with worsening pain swelling redness to the left foot with a large blood-filled blister diagnosis cellulitis blood culture positive for MRSA, CT chest increased density right middle lobe correlate for pneumonia or atelectasis. Patient is status post excisional debridement of the left foot with washout of the deep abscess completed by vascular surgery on 11/29/2023. Patient is status post repeat sharp excisional debridement of left foot to the muscle procedure completed on 12/01/2023,Patient is status post EGD with evidence of multiple large clots in th e fundus of the stomach to superficial ulceration status post Endo Clip post procedure the patient has been on the vent and in the ICU. On today's evaluation that is 12/10/2023, patient continues to be afebrile, patient is breathing comfortably on room air, patient denies cough no chest pain shortness of breath, patient denies nausea vomiting or any diarrhea Patient white count has normalized repeat blood culture negative Objective - Vital Signs Vital signs: Vital Signs Temp 98.9 F 12/10/23 10:00 Pulse 115 H 12/10/23 10:00 Resp 18 12/10/23 10:00 BP 115/65 12/10/23 07:20 Pulse Ox 99 12/10/23 10:00 FiO2 30 12/09/23 13:10 Intake & Output 12/09/23 12/10/23 12/10/23 18:59 06:59 18:59 Intake Total 1273.162 636 692 Output Total 1825 1150 450 Balance -551.838 -514 242 Weight 70.8 kg Intake: IV 986 636 212 Sodium Chloride 0.9% 1, 450 600 200 000 ml @ 50 mls/hr IV . Q20H [facility] Rx#:[id number] Vancomycin 1,750 mg In 500 Sodium Chloride 0.9% 500 ml 500 ml @ 167 mls/hr IVPB Q8H [facility] Rx#: [id number] pressure bag 36 36 12 Intake, IV Titration 287.162 Amount Midazolam HCl 50 mg In 45.233 Sodium Chloride 0.9% 40 ml @ 1 MG/HR 1 mls/hr IV .Q24H [facility] Rx#:[id number] Norepinephrine 4 mg In 17.143 Sodium Chloride 0.9% 250 ml @ 0.15 MCG/KG/MIN 41. 477 mls/hr IV .Q6H8M [facility] Rx#:[id number] fentaNYL (PF). 1,000 mcg 94.195 In Sodium Chloride 0.9% 80 ml @ 0.5 MCG/KG/HR 3. 25 mls/hr IV .Q24H [facility] Rx #:[id number] propofoL 1,000 mg In 130.591 Empty Bag 1 bag @ 15 MCG/ KG/MIN 6.532 mls/hr IV . [id number] [facility] Rx#:[id number] Oral 120 Blood Product 0 310 Rc As-1 Unit 0 310 [id number] Other 50 Rc As-1 Unit 50 [id number] Output: Urine 1825 1150 450 Other: Voiding Method Urinal Urinal # Voids 1 2 ABP, PAP, CO, CI - Last Documented Arterial Blood Pressure 115/47 - Exam GENERAL DESCRIPTION: Middle-age male intubated on the vent RESPIRATORY SYSTEM: Unlabored breathing , decreased breath sounds at bases HEART: S1 S2 regular rate and rhythm , ABDOMEN: Soft , no tenderness EXTREMITIES: Left foot currently covered with a wound VAC, - Labs CBC & Chem 7: 12/10/23 12:20 12/10/23 04:25 Labs: Abnormal Lab Results - Last 24 Hours (Table) 12/07/23 12/09/23 12/10/23 Range/Units 20:12 11:33 04:25 WBC 12.4 H (3.8-10.6) k/uL RBC 1.98 L (4.30-5.90) m/uL Hgb 6.3 L* (13.0-17.5) gm/dL Hct 18.5 L* (39.0-53.0) % RDW 18.3 H (11.5-15.5) % Plt Count 561 H (150-450) k/uL Sodium (137-145) mmol/L Chloride (98-107) mmol/L Carbon Dioxide (22-30) mmol/L Glucose (74-99) mg/dL POC Glucose (mg/dL) 120 H (70-110) mg/dL Calcium (8.4-10.2) mg/dL Crossmatch See Detail 12/10/23 12/10/23 Range/Units 04:25 05:24 WBC (3.8-10.6) k/uL RBC (4.30-5.90) m/uL Hgb (13.0-17.5) gm/dL Hct (39.0-53.0) % RDW (11.5-15.5) % Plt Count (150-450) k/uL Sodium 134 L (137-145) mmol/L Chloride 109 H (98-107) mmol/L Carbon Dioxide 21 L (22-30) mmol/L Glucose 123 H (74-99) mg/dL POC Glucose (mg/dL) 131 H (70-110) mg/dL Calcium 7.5 L (8.4-10.2) mg/dL Crossmatch Microbiology - Last 24 Hours (Table) 12/07/23 20:10 Blood Culture - Preliminary Blood Assessment and Plan (1) Cellulitis of left foot Status: Acute Priority: High Code(s): L03.116 - CELLULITIS OF LEFT LOWER LIMB SNOMED Code(s): 01635876121629337 (2) MRSA bacteremia Status: Acute Code(s): R78.81 - BACTEREMIA; B95.62 - METHICILLIN RESIS STAPH INFCT CAUSING DISEASES CLASSD ELSR SNOMED Code(s): 88794221286710377 Plan: 1patient presented hospital with left foot pain swelling redness and did have a big blister concerning for cellulitis and possible deep infection such as abscess likely from gram-positive skin francine in this patient with history of IV drug use however mention has not injected in the area high risk of MRSA infection 2-patient with MRSA bacteremia source is likely left foot abscess and cellulitis 3-blood cultures has been repeated 11/28/2023 and has been negative so far negative patient is status post surgical debridement and drainage x 2 of the left foot abscess with deep culture which are currently growing MRSA 4-patient will need possible transfer because of GI bleed patient is currently covered with the vancomycin at this time and monitor clinical course closely Dictation was produced using [employer] dictation software. please excuse any grammatical, word or spelling errors. Time with Patient: Less than 30
--- NOTE | 2023-12-19 13:56 | CDI ---
Documentation Clarification Form Date: 12/19/2023 01:49:26 PM From: Allyn Pro RN, CCDS Phone: [phone] Admit Date: 11/26/2023 05:25:00 PM Patient Name: Bhanu Smith Visit Number: [id number] Discharge Date: 12/10/2023 02:05:00 PM ATTENTION: The Clinical Documentation Specialists (CDI) and [facility] Coding Staff appreciate your assistance in clarifying documentation. Please respond to the clarification below the line at the bottom and electronically sign. The CDI & [facility] Coding staff will review the response and follow-up if needed. Please note: Queries are made part of the Legal Health Record. If you have any questions, please contact the author of this message via ITS. Dr. Aman Moss Pulmonary infarct is documented in several progress notes starting on 12/07. Additional clarification is requested. History/Risk Factors: 33-year-old male with history of IV drug abuse with heroin and hepatitis C who initially presented with swelling and pain over his left foot. Patient subsequently found to have MRSA bacteremia and necrotizing fasciitis of the left foot. Patient underwent a debridement with vascular surgery and was on a wound VAC. Patient developed GI bleed and was transferred to [facility] for likely ongoing GI bleed. Clinical Indicators: 11/26 CXR: Mild right lower lobe infiltrate hypoechoic atelectasis or pneumonia. 11/[address]: Increased density along the peripheral anterior right middle lobe. Correlate for pneumonia or atelectasis.Underlying mass should be considered. 12/05 CXR: Improved aeration of the right lower lung. 12/06 D-dimer: 3.51 12/07 CTA abdomen/pelvis: Right anterior lower lung wedge-shaped airspace opacity correlate for infectious process.Correlate d-dimer to rule out underlying pulmonary infarct from pulmonary embolus. 12/07 CXR: No acute cardiopulmonary abnormality. 12/07 GI: "Correlate D-dimer to rule out underlying pulmonary infarct from pulmonary embolism." 12/07 IM: "CTA abdomen pelvis does not show any evidence of GI hemorrhage, right anterior lower lung wedge-shaped airspace opacity concerning for pulmonary infarct from pulmonary embolism." 12/09 Discharge summary: "Right lower lobe consolidation/pulmonary infarct." Treatment: per discharge summary, outpatient follow-up CT scan in 3 months; monitor labs and imaging during admission Please clarify if pulmonary infarct was a valid diagnosis and whether it was present on admission: [ ] No, pulmonary infarct was ruled out [ x ] Yes, pulmonary infarct was ruled in and present on admission [ ] Yes, pulmonary infarct was ruled in and not present on admission [ ] Other (please specify diagnosis) [ ] Unable to determine MTDD
== END 2023-12-10 14:05 | disposition short-term general hospital (02) | DRG 853 ==
LOC: EC 15:33 → 3SCARD 17:25 → 1SOBS 12-07 08:33 → 3SCARD 12-07 20:41 → 2SICU 12-08 14:59
PROVIDERS: ADMIT Internal Medicine; ATTEND Internal Medicine
PROC: 0J9R0ZZ Drainage of Left Foot Subcutaneous Tissue and Fascia, Open Approach (ICD-10-PCS; 2023-11-29)
PROC: 0HBNXZZ Excision of Left Foot Skin, External Approach (ICD-10-PCS; principal; 2023-11-29 09:30)
PROC: 0KBW0ZZ Excision of Left Foot Muscle, Open Approach (ICD-10-PCS; 2023-12-01)
PROC: 30233N1 Transfusion of Nonautologous Red Blood Cells into Peripheral Vein, Percutaneous Approach (ICD-10-PCS; 2023-12-01)
PROC: 05HB33Z Insertion of Infusion Device into Right Basilic Vein, Percutaneous Approach (ICD-10-PCS; 2023-12-06)
PROC: 03HY32Z Insertion of Monitoring Device into Upper Artery, Percutaneous Approach (ICD-10-PCS; 2023-12-08)
PROC: 4A133B1 Monitoring of Arterial Pressure, Peripheral, Percutaneous Approach (ICD-10-PCS; 2023-12-08)
PROC: 4A133J1 Monitoring of Arterial Pulse, Peripheral, Percutaneous Approach (ICD-10-PCS; 2023-12-08)
PROC: 02HV33Z Insertion of Infusion Device into Superior Vena Cava, Percutaneous Approach (ICD-10-PCS; 2023-12-08)
PROC: 3E043XZ Introduction of Vasopressor into Central Vein, Percutaneous Approach (ICD-10-PCS; 2023-12-08)
PROC: 0W3P8ZZ Control Bleeding in Gastrointestinal Tract, Via Natural or Artificial Opening Endoscopic (ICD-10-PCS; 2023-12-08)
PROC: 0D9670Z Drainage of Stomach with Drainage Device, Via Natural or Artificial Opening (ICD-10-PCS; 2023-12-08)
PROC: 0DD68ZX Extraction of Stomach, Via Natural or Artificial Opening Endoscopic, Diagnostic (ICD-10-PCS; 2023-12-08)
DX: A41.02 Sepsis due to Methicillin resistant Staphylococcus aureus (principal); I26.99 Other pulmonary embolism without acute cor pulmonale; R57.8 Other shock; M72.6 Necrotizing fasciitis; K25.4 Chronic or unspecified gastric ulcer with hemorrhage; J96.90 Respiratory failure, unspecified, unspecified whether with hypoxia or hypercapnia; T82.524A Displacement of infusion catheter, initial encounter; F11.23 Opioid dependence with withdrawal; L03.116 Cellulitis of left lower limb; D62 Acute posthemorrhagic anemia; L02.612 Cutaneous abscess of left foot; L97.523 Non-pressure chronic ulcer of other part of left foot with necrosis of muscle; B19.20 Unspecified viral hepatitis C without hepatic coma; F17.210 Nicotine dependence, cigarettes, uncomplicated; E87.6 Hypokalemia; D75.839 Thrombocytosis, unspecified; W18.30XA Fall on same level, unspecified, initial encounter; Y92.231 Patient bathroom in hospital as the place of occurrence of the external cause; Y71.1 Therapeutic (nonsurgical) and rehabilitative cardiovascular devices associated with adverse incidents; Y04.0XXA Assault by unarmed brawl or fight, initial encounter; Z86.69 Personal history of other diseases of the nervous system and sense organs; Z88.0 Allergy status to penicillin
CPT/HCPCS: 36410; 36415; 36573; 36600; 43255; 70450; 71045; 71260; 74174; 76937; 80048; 80053; 80076; 80202; 80306; 82272; 82607; 82728; 82747; 82805; 83010; 83540; 83550; 83605; 83615; 83735; 83921; 85025; 85027; 85045; 85379; 85384; 85610; 85652; 85730; 86140; 86704; 86706; 86803; 86850; 86900; 86901; 86920; 87040; 87070; 87075; 87077; 87186; 87205; 87340; 87390; 87522; 93005; 93306; 94003; 94640; 96365; 96366; 96367; 96372; 96375; 96376; 99285

== ENCOUNTER 2023-12-17 08:50 | Emergency (ER) | payer OTHER ==
[2023-12-17 08:56] VITALS: BP 133/76; PULSE 116; RESP 20; TEMP 98
--- NOTE | 2023-12-17 09:32 | ED ---
Recheck HPI - General Chief Complaint: Recheck/Abnormal Lab/Rx Stated Complaint: Wound Time Seen by Provider: 12/17/23 09:13 Source: patient, RN notes reviewed Mode of arrival: wheelchair Limitations: no limitations - History of Present Illness Initial Comments: This is a 33-year-old male who presents to the emergency department needing the dressing changed on his left foot. Patient was admitted to this facility on 11/26/23 for cellulitis to the left foot. He underwent debridement with vascular surgery and had a wound VAC placed. In the process he was transferred to [facility] due to a GI bleed, which he states is stable. He was discharged from that facility yesterday and has no ongoing problems related to this. He was not discharged with a wound VAC, and states that he is going to have a visiting nurse come Tuesday, Tuesday, and Tuesday. This will be in 2 days from now and he will be given the wound VAC then. States that yesterday he dropped his foot in the bath and his bandages are soaked. He would like to have his dressing changed today. Denies any other complaints. - Related Data Home Medications Medication Instructions Recorded Confirmed No Known Home Medications 08/21/19 11/26/23 Allergies Allergy/AdvReac Type Severity Reaction Status Date / Time Penicillins Allergy Unknown Verified 12/17/23 08:56 Childhood Review of Systems ROS Statement: Those systems with pertinent positive or pertinent negative responses have been documented in the HPI. ROS Other: All systems not noted in ROS Statement are negative. Past Medical History Past Medical History: No Reported History, Seizure Disorder Additional Past Medical History / Comment(s): hasn't had siezures since 2018 History of Any Multi-Drug Resistant Organisms: MRSA Date of last positivie culture/infection: 11/29/23 MDRO Source:: Left Foot Past Surgical History: Orthopedic Surgery Past Psychological History: No Psychological Hx Reported Smoking Status: Never smoker Past Alcohol Use History: Occasional Past Drug Use History: Marijuana, Methamphetamine - Past Family History Mother History Unknown: Yes General Exam Limitations: no limitations General appearance: alert, in no apparent distress Head exam: Present: atraumatic, normocephalic, normal inspection Respiratory exam: Present: normal lung sounds bilaterally. Absent: respiratory distress, wheezes, rales, rhonchi, stridor Cardiovascular Exam: Present: regular rate, normal rhythm, normal heart sounds. Absent: systolic murmur, diastolic murmur, rubs, gallop, clicks Neurological exam: Present: alert, oriented X3, CN II-XII intact Psychiatric exam: Present: normal affect, normal mood Course Vital Signs 12/17/23 08:53 Temperature 98 F Pulse Rate 116 H Respiratory 20 Rate Blood Pressure 133/76 O2 Sat by Pulse 99 Oximetry Medical Decision Making - Medical Decision Making This is a 33 year old male who presents to the emergency department for a dressing change to the left foot. Was pt. sent in by a medical professional or institution? @ -No Did you speak to anyone other than the patient for history? @ -No Did you review nursing and triage notes? @ -Yes, and I agree, it is accurate with regards to the patient's symptoms. Were old charts reviewed? @ -No Differential Diagnosis? @ -Differential Wound: Cellulitis, abscess, burn, insect bite, abrasion, this is not meant to be an all-inclusive list. EKG interpreted by me (3pts min.)? @ -Not obtained X-rays interpreted by me (1pt min.)? @ -Not obtained CT interpreted by me (1pt min.)? @ -Not obtained U/S interpreted by me (1pt. min.)? @ -Not obtained What testing was considered but not performed? (CT, X-rays, U/S, labs)? Why? @ -None What meds were considered but not given? Why? @ -None Did you discuss the management of the patient with other professionals? @ -No Did you reconcile home meds? @ -No Was smoking cessation discussed for >3mins.? @ -I discussed smoking cessation for greater than 3 minutes. The risk of smoking were discussed with the patient including but not limited to risks of cancer, stroke, coronary artery disease and COPD. Also discussed with patient were multiple methods of quitting smoking. Lastly we discussed the financial cost of smoking. Was critical care preformed (if so, how long)? @ -No Were there social determinants of health that impacted care today? How? (Homelessness, low income, unemployed, alcoholism, drug addiction, transportation, low edu. Level, literacy, decrease access to med. care, group home, rehab)? @ -IV drug use, contributing to the severity of the left lower extremity cellulitis requiring debridement. Was there de-escalation of care discussed even if they declined? (Discuss DNR or withdrawal of care, Hospice)? @ -No What co-morbidities impacted this encounter? (DM, HTN, Smoking, COPD, CAD, Cancer, CVA, Hep., AIDS, mental health diagnosis, sleep apnea, morbid obesity)? @ -Smoking, IVDU Was patient admitted / discharged? @ -Discharged. Patient will be receiving his wound VAC in 2 days from visiting nurses. He is requesting dressing changes because he dropped his foot in the bath yesterday and the dressing is currently soaked. Wet-to-dry dressing applied by nursing staff. Patient discharged home in stable condition and advised to contact the visiting nurses company he was referred to to make sure they come on Tuesday as scheduled. Undiagnosed new problem with uncertain prognosis? @ -None Drug Therapy requiring intensive monitoring for toxicity (Heparin, Nitro, Insulin, Cardizem)? @ -None Were any procedures done? @ -None Diagnosis/symptom? @ -Wound dressing change, cellulitis Acute, or Chronic, or Acute on Chronic? @ -Acute Uncomplicated (without systemic symptoms) or Complicated (systemic symptoms)? @ -Uncomplicated Side effects of treatment? @ -None Exacerbation, Progression, or Severe Exacerbation] @ -Not applicable Poses a threat to life or bodily function? @ -No Return precautions reviewed in depth, the patient is instructed to return to the emergency department with any new, worsening, or concerning symptoms. Patient verbalized understanding. This case was discussed in detail with the attending ED physician, Dr. Haines. Presentation, findings, and treatment plan discussed in detail as well. Disposition Clinical Impression: Cellulitis of left foot, Change or removal of wound dressing, Nicotine dependence Disposition: HOME SELF-CARE Instructions (If sedation given, give patient instructions): Negative Pressure Wound Therapy (DC) Additional Instructions: Return to the emergency department with any new, worsening, or concerning symptoms. Follow up with your primary care provider in 1-2 days. Is patient prescribed a controlled substance at d/c from ED?: No Referrals: None,Stated [Primary Care Provider] - 1-2 days Time of Disposition: 09:40
== END 2023-12-17 09:54 | disposition home or self-care (01) ==
LOC: EC 08:50
DX: Z48.00 Encounter for change or removal of nonsurgical wound dressing (principal); L03.116 Cellulitis of left lower limb; F17.200 Nicotine dependence, unspecified, uncomplicated; F12.90 Cannabis use, unspecified, uncomplicated; F15.90 Other stimulant use, unspecified, uncomplicated; Z88.0 Allergy status to penicillin
CPT/HCPCS: 99282

== ENCOUNTER 2023-12-19 20:37 | Emergency (ER) | payer OTHER ==
--- NOTE | 2023-12-19 21:29 | ED ---
General Adult HPI <Zach Valdez - Last Filed: 12/19/23 21:30> - General Source: patient, RN notes reviewed Mode of arrival: ambulatory Limitations: no limitations <Favio Duron - Last Filed: 12/19/23 22:37> - General Stated complaint: Wound on L Foot Time Seen by Provider: 12/19/23 21:25 - History of Present Illness Initial comments: Quick note 33-year-old male with past medical history significant for recent necrotizing fa sciitis of the left foot status postdebridement presenting to the ED with a chief complaints of wound concern. Reports that he has a visiting wound nurse at home. He reports that he was supposed to get a wound VAC however has not gotten one yet prompting presentation to the ED for further evaluation. Otherwise denies fever and chills. Denies worsening pain of his left foot. (Zach Valdez) Patient is a 33-year-old male presenting to the emergency department with mathew rns for bandage change. Patient states he has had a couple debridements, last was done Tuesday. Patient is post to get a wound VAC however has not had it yet. Patient was told to come in for dressing change. Patient does have some discomfort however discomfort is chronic and not worse than previous. No fevers. Patient states he has been walking on his foot a lot. (Favio Duron) - Related Data Home Medications Medication Instructions Recorded Confirmed No Known Home Medications 08/21/19 11/26/23 Allergies Allergy/AdvReac Type Severity Reaction Status Date / Time Penicillins Allergy Unknown Verified 12/17/23 08:56 Childhood Review of Systems ROS Other: All systems not noted in ROS Statement are negative. <Zach Valdez - Last Filed: 12/19/23 21:30> ROS Other: All systems not noted in ROS Statement are negative. Constitutional: Denies: fever Eyes: Denies: eye pain ENT: Denies: ear pain Respiratory: Denies: cough Cardiovascular: Denies: chest pain Skin: Reports: as per HPI <Favio Duron - Last Filed: 12/19/23 22:37> ROS Statement: Those systems with pertinent positive or pertinent negative responses have been documented in the HPI. Past Medical History Past Medical History: No Reported History, Seizure Disorder Additional Past Medical History / Comment(s): hasn't had siezures since 2018 History of Any Multi-Drug Resistant Organisms: MRSA Date of last positivie culture/infection: 11/29/23 MDRO Source:: Left Foot Past Surgical History: Orthopedic Surgery Past Psychological History: No Psychological Hx Reported Smoking Status: Never smoker Past Alcohol Use History: Occasional Past Drug Use History: Marijuana, Methamphetamine - Past Family History Mother History Unknown: Yes <Zach Valdez - Last Filed: 12/19/23 21:30> General Exam <Zach Valdez - Last Filed: 12/19/23 21:30> Limitations: no limitations General appearance: alert, in no apparent distress Head exam: Present: normocephalic Eye exam: Present: normal appearance Neck exam: Present: normal inspection Respiratory exam: Present: normal lung sounds bilaterally Cardiovascular Exam: Present: regular rate, normal rhythm GI/Abdominal exam: Present: soft. Absent: tenderness Extremities exam: Absent: calf tenderness Neurological exam: Present: alert Skin exam: Present: other (Wound dorsum of left foot, with exposed muscle and some tendon. No significant abnormal drainage or erythema or odor) <Favio Duron - Last Filed: 12/19/23 22:37> - General Exam Comments Initial Comments: Visual Physical Exam Vital signs reviewed General: Well-appearing, nontoxic, no acute distress. Head: Normocephalic, atraumatic Eyes: PERRLA, EOMI ENT: Airway patent Chest: Nonlabored breathing Skin: No visual rash, normal skin tone Neuro: Alert and oriented 3 Musculoskeletal: No gross abnormalities (Zach Valdez) Course Vital Signs 12/19/23 21:24 Temperature 98.7 F Pulse Rate 110 H Respiratory 18 Rate Blood Pressure 105/65 O2 Sat by Pulse 98 Oximetry Medical Decision Making <Zach Valdez - Last Filed: 12/19/23 21:30> - Lab Data Result diagrams: 12/19/23 21:45 <Favio Duron - Last Filed: 12/19/23 22:37> - Medical Decision Making Quicknote portion performed. Signed Zach Valdez PA-C (Zach Valdez) Was pt. sent in by a medical professional or institution (ASHLEY Bernard, BEAM SEALER, urgent care, hospital, or alf...) When possible be specific @ -Patient was told to have his bandage change if the wound VAC was not available in 2 days by the wound nurse Did you speak to anyone other than the patient for history (EMS, parent, family, police, friend...)? What history was obtained from this source @ -No Did you review nursing and triage notes (agree or disagree)? Why? @ -I reviewed and agree with nursing and triage notes Were old charts reviewed (outside hosp., previous admission, EMS record, old EKG, old radiological studies, urgent care reports/EKG's, alf records)? Report findings @ -Previous admissions reviewed Differential Diagnosis (chest pain, altered mental status, abdominal pain women, abdominal pain men, vaginal bleeding, weakness, fever, dyspnea, syncope, headache, dizziness, GI bleed, back pain, seizure, CVA, palpatations, mental health, musculoskeletal)? @ -Differential Fever: Pneumonia, viral URI, endocarditis, myocarditis, pericarditis, otitis, sinusitis, peritonsillar Abscess, retropharyngeal Abscess, epiglottitis, peritonitis, appendicitis, Christin cystitis, diverticulitis, hepatitis, colitis, UTI, PID, TOA, pyelonephritis, prostatitis, epididymitis, meningitis, encephalitis, pulmonary embolism, CVA, thyroid storm, pancreatitis, adrenal crisis, cavernous sinus thrombosis, this is not meant to be an all-inclusive list. EKG interpreted by me (3pts min.). @ -As above X-rays interpreted by me (1pt min.). @ -None done CT interpreted by me (1pt min.). @ -None done U/S interpreted by me (1pt. min.). @ -None done What testing was considered but not performed or refused? (CT, X-rays, U/S, labs)? Why? @ -None What meds were considered but not given or refused? Why? @ -None Did you discuss the management of the patient with other professionals (professionals i.e. , PA, BEAM SEALER, lab, RT, psych nurse, social science professor, alteration worker, teacher, financial services officer, caseworker)? Give summary @ -No Was smoking cessation discussed for >3mins.? @ -No Was critical care preformed (if so, how long)? @ -No Were there social determinants of health that impacted care today? How? (Homelessness, low income, unemployed, alcoholism, drug addiction, t ransportation, low edu. Level, literacy, decrease access to med. care, fdc, rehab)? @ -No Was there de-escalation of care discussed even if they declined (Discuss DNR or withdrawal of care, Hospice)? DNR status @ -No What co-morbidities impacted this encounter? (DM, HTN, Smoking, COPD, CAD, Cance r, CVA, ARF, Chemo, Hep., AIDS, mental health diagnosis, sleep apnea, morbid obesity)? @ -None Was patient admitted / discharged? Hospital course, mention meds given and route, prescriptions, significant lab abnormalities, going to OR and other pertinent info. @ -Patient presents for bandage change. This will be done. Patient is advised close follow-up. Patient states he has tried to follow-up with [facility] Carballo and will continue to do so. Patient will be provided follow-up for local area and advised to return to wound center Undiagnosed new problem with uncertain prognosis? @ -No Drug Therapy requiring intensive monitoring for toxicity (Heparin, Nitro, Insulin, Cardizem)? @ -No Were any procedures done? @ -No Diagnosis/symptom? @ -Left foot wound Acute, or Chronic, or Acute on Chronic? @ -Acute on chronic Uncomplicated (without systemic symptoms) or Complicated (systemic symptoms)? @ -Default Side effects of treatment? @ -No Exacerbation, Progression, or Severe Exacerbation? @ -No Poses a threat to life or bodily function? How? (Chest pain, [place], [place], pneumonia, PE, COPD, DKA, ARF, appy, cholecystitis, CVA, Diverticulitis, Homicidal, Suicidal, threat to staff... and all critical care pts) @ -No (Favio Duron) - Lab Data Lab Results 12/19/23 Range/Units 21:45 WBC 11.7 H (3.8-10.6) k/uL RBC 3.52 L (4.30-5.90) m/uL Hgb 10.5 L D (13.0-17.5) gm/dL Hct 33.3 L (39.0-53.0) % MCV 94.8 (80.0-100.0) fL MCH 29.9 (25.0-35.0) pg MCHC 31.6 (31.0-37.0) g/dL RDW 15.4 (11.5-15.5) % Plt Count 638 H (150-450) k/uL MPV 7.5 Hypochromasia Slight Disposition <Zach Valdez - Last Filed: 12/19/23 21:30> Is patient prescribed a controlled substance at d/c from ED?: No Time of Disposition: 22:36 <Favio Duron - Last Filed: 12/19/23 22:37> Clinical Impression: Wound of left foot Disposition: HOME SELF-CARE Condition: Stable Instructions (If sedation given, give patient instructions): Chronic Wound Care (ED) Additional Instructions: Please follow-up with wound nurse tomorrow. Please ensure that you will be getting your wound VAC. Please also follow-up with primary care physician, local numbers provided. Consider follow-up with wound center as well. Return for fever, increased pain, odor, redness, worsening or changing symptoms or other concerns. Referrals: Gurpreet Lewis MD [STAFF PHYSICIAN] - 1-2 days Sukumar Taylor DO [REFERRING] - 1-2 days
[2023-12-19 21:32] VITALS: TEMP 98.7
[2023-12-19 22:01] LABS: Basophils % (A) 0 %; Eosinophils # (A) 0.8 k/uL (0-0.7); Eosinophils % (A) 7 %; HCT 33.3 % (39.0-53.0); Hypochromasia Slight; Lymphocytes # (A) 1.7 k/uL (1.0-4.8); Lymphocytes % (A) 15 %; MCH 29.9 pg (25.0-35.0); MCHC 31.6 g/dL (31.0-37.0); MCV 94.8 fL (80.0-100.0); Mean Platelet Volume 7.5; Monocytes # (A) 0.4 k/uL (0-1.0); Monocytes % (A) 4 %; Neutrophils # (A) 8.6 k/uL (1.3-7.7); Neutrophils % (A) 74 %; Platelet Count 638 k/uL (150-450); RBC 3.52 m/uL (4.30-5.90); RDW 15.4 % (11.5-15.5); WBC 11.7 k/uL (3.8-10.6)
[2023-12-19 22:24] LABS: HGB 10.5 gm/dL (13.0-17.5)
[2023-12-19 23:07] VITALS: BP 133/65; PULSE 132; RESP 20
== END 2023-12-19 22:58 | disposition home or self-care (01) ==
LOC: EC 20:37
DX: S91.302A Unspecified open wound, left foot, initial encounter (principal); Z88.0 Allergy status to penicillin; X58.XXXA Exposure to other specified factors, initial encounter
CPT/HCPCS: 36415; 85025; 99283

== ENCOUNTER 2023-12-22 15:53 | Emergency (ER) | payer OTHER ==
[2023-12-22 16:02] VITALS: RESP 18
--- NOTE | 2023-12-22 16:25 | ED ---
Wound/Laceration HPI - General Chief Complaint: Wound/Laceration Stated Complaint: L Foot Wound Time Seen by Provider: 12/22/23 16:00 Source: patient, RN notes reviewed Mode of arrival: ambulatory Limitations: no limitations - History of Present Illness Initial Comments: 33-year-old male presenting with left foot wound. Patient states he has a history of necrotizing fasciitis status postdebridement on left foot. He had appointment with the wound center yesterday, however he reports he missed this appointment and has an appointment tomorrow. He was instructed to come to the ER for dressing change today. Denies increasing pain to the area, fevers, chills, vomiting. - Related Data Home Medications Medication Instructions Recorded Confirmed No Known Home Medications 08/21/19 11/26/23 Allergies Allergy/AdvReac Type Severity Reaction Status Date / Time Penicillins Allergy Unknown Verified 12/22/23 16:02 Childhood Review of Systems ROS Statement: Those systems with pertinent positive or pertinent negative responses have been documented in the HPI. ROS Other: All systems not noted in ROS Statement are negative. Past Medical History Past Medical History: No Reported History, Seizure Disorder Additional Past Medical History / Comment(s): hasn't had siezures since 2018 History of Any Multi-Drug Resistant Organisms: MRSA Date of last positivie culture/infection: 11/29/23 MDRO Source:: Left Foot Past Surgical History: Orthopedic Surgery Additional Past Surgical History / Comment(s): left foot: necrotizing fascitis. Past Psychological History: No Psychological Hx Reported Smoking Status: Current every day smoker Past Alcohol Use History: Occasional Past Drug Use History: Marijuana, Methamphetamine - Past Family History Mother History Unknown: Yes General Exam Limitations: no limitations General appearance: alert, in no apparent distress Head exam: Present: atraumatic, normocephalic, normal inspection Eye exam: Present: normal appearance, PERRL, EOMI. Absent: scleral icterus, conjunctival injection, periorbital swelling Left Knee exam: Present: normal inspection, full ROM. Absent: tenderness, swelling Lower Leg exam: Present: normal inspection, full ROM. Absent: tenderness, swelling Foot/Toe exam: Present: full ROM, tenderness. Absent: normal inspection (Grade 2 ulceration present on lateral aspect of left foot with active drainage.), swelling, deformity Neurovascular tendon exam: Present: no vascular compromise. Absent: abnormal cap refill, sensory deficit Course Vital Signs 12/22/23 12/22/23 15:58 16:42 Temperature 98.2 F 98.1 F Pulse Rate 134 H 121 H Respiratory 18 18 Rate Blood Pressure 155/87 145/81 O2 Sat by Pulse 98 98 Oximetry Medical Decision Making - Medical Decision Making Was pt. sent in by a medical professional or institution (ASHLEY Bernard, CRIME LAB TECHNICIAN, urgent care, hospital, or senior living...) When possible be specific @ -No Did you speak to anyone other than the patient for history (EMS, parent, family, police, friend...)? What history was obtained from this source @ -No Did you review nursing and triage notes (agree or disagree)? Why? @ -I reviewed and agree with nursing and triage notes Were old charts reviewed (outside hosp., previous admission, EMS record, old EKG, old radiological studies, urgent care reports/EKG's, senior living records)? Report findings @ -No old charts were reviewed Differential Diagnosis (chest pain, altered mental status, abdominal pain women, abdominal pain men, vaginal bleeding, weakness, fever, dyspnea, syncope, headache, dizziness, GI bleed, back pain, seizure, CVA, palpatations, mental health, musculoskeletal)? @ -Cellulitis, abscess, ulceration, laceration, sepsis EKG interpreted by me (3pts min.). @ -None X-rays interpreted by me (1pt min.). @ -None done CT interpreted by me (1pt min.). @ -None done U/S interpreted by me (1pt. min.). @ -None done What testing was considered but not performed or refused? (CT, X-rays, U/S, labs)? Why? @ -CBC ordered however patient refused What meds were considered but not given or refused? Why? @ -None Did you discuss the management of the patient with other professionals (joe villagranonals i.e. ASHLEY Bernard, CRIME LAB TECHNICIAN, lab, RT, psych nurse, social science teacher, synchronous motor assembler, teacher, learning officer, housing case manager)? Give summary @ -No Was smoking cessation discussed for >3mins.? @ -No Was critical care preformed (if so, how long)? @ -No Were there social determinants of health that impacted care today? How? (Homelessness, low income, unemployed, alcoholism, drug addiction, transportation, low edu. Level, literacy, decrease access to med. care, senior living, rehab)? @ -No Was there de-escalation of care discussed even if they declined (Discuss DNR or withdrawal of care, Hospice)? DNR status @ -No What co-morbidities impacted this encounter? (DM, HTN, Smoking, COPD, CAD, Cancer, CVA, ARF, Chemo, Hep., AIDS, mental health diagnosis, sleep apnea, morbid obesity)? @ -None Was patient admitted / discharged? Hospital course, mention meds given and route, prescriptions, significant lab abnormalities, going to OR and other pertinent info. @ -Patient was discharged. Patient was seen and evaluated for left foot wound. Patient has history of necrotizing fasciitis and recently underwent debridement. He has an appointment at wound center tomorrow but would like his dressing changed today. There are no red flag symptoms. Patient declined a CBC today. Dressing was changed and patient was encouraged to follow-up tomorrow for wound center appointment. Strict return/alarm symptoms discussed with patient in detail and he shows understanding and agrees to plan. Case discussed with my attending Dr. Haines. Patient discharged in stable condition. Undiagnosed new problem with uncertain prognosis? @ -No Drug Therapy requiring intensive monitoring for toxicity (Heparin, Nitro, Insulin, Cardizem)? @ -No Were any procedures done? @ -No Diagnosis/symptom? @ -Left foot ulceration Acute, or Chronic, or Acute on Chronic? @ -Acute Uncomplicated (without systemic symptoms) or Complicated (systemic symptoms)? @ -Uncomplicated Side effects of treatment? @ -No Exacerbation, Progression, or Severe Exacerbation? @ -No Poses a threat to life or bodily function? How? (Chest pain, [place], [place], pneumonia, PE, COPD, DKA, ARF, appy, cholecystitis, CVA, Diverticulitis, Homicidal, Suicidal, threat to staff... and all critical care pts) @ -Low likelihood Disposition Clinical Impression: Ulcer of left foot Disposition: HOME SELF-CARE Condition: Stable Instructions (If sedation given, give patient instructions): Acute Wounds (ED) Additional Instructions: Please follow-up for wound center appointment tomorrow. Please return to the Emergency Department if symptoms worsen or any other concerns. Is patient prescribed a controlled substance at d/c from ED?: No Referrals: None,Stated [Primary Care Provider] - 1-2 days Time of Disposition: 16:34
[2023-12-22 16:45] VITALS: BP 145/81; PULSE 121; TEMP 98.1
== END 2023-12-22 18:40 | disposition home or self-care (01) ==
LOC: EC 15:53
DX: L97.529 Non-pressure chronic ulcer of other part of left foot with unspecified severity (principal); F17.200 Nicotine dependence, unspecified, uncomplicated; F12.90 Cannabis use, unspecified, uncomplicated; F15.90 Other stimulant use, unspecified, uncomplicated; Z88.0 Allergy status to penicillin
CPT/HCPCS: 99282

== ENCOUNTER 2024-01-01 15:10 | Emergency (ER) | payer OTHER ==
[2024-01-01 15:14] VITALS: BP 140/78; PULSE 116; RESP 17; TEMP 98.3
--- NOTE | 2024-01-01 15:49 | ED ---
Recheck HPI - General Chief Complaint: Recheck/Abnormal Lab/Rx Stated Complaint: bleeding wound Time Seen by Provider: 01/01/24 15:23 Source: patient, RN notes reviewed Mode of arrival: ambulatory Limitations: no limitations - History of Present Illness Initial Comments: This is a 33-year-old male presents emergency department chief complaint of chronic left wound complication. Patient states that he has an at home nurse visit 2 times a week with his most recent visit being on Tuesday. He states that today he noticed there was darker discoloration of drainage from his bandages and he was concerned that the wound may be bleeding. He denies any injury to the foot or hitting it. Patient states that his appointment with wound care is scheduled for tomorrow. Patient is not on antibiotics as this time. Denies fevers, chills, body aches, nausea and vomiting. - Related Data Home Medications Medication Instructions Recorded Confirmed Pantoprazole [Protonix] 40 mg PO DAILY 12/26/23 12/26/23 buprenorphine HCL [Subutex] 12/26/23 hydrOXYzine HCL [Atarax] 50 mg PO 12/26/23 methocarbamoL 500 mg PO 12/26/23 traZODone HCL 100 mg PO 12/26/23 Allergies Allergy/AdvReac Type Severity Reaction Status Date / Time Penicillins Allergy Unknown Verified 01/01/24 15:14 Childhood Review of Systems ROS Statement: Those systems with pertinent positive or pertinent negative responses have been documented in the HPI. ROS Other: All systems not noted in ROS Statement are negative. Past Medical History Past Medical History: No Reported History, Seizure Disorder Additional Past Medical History / Comment(s): hasn't had siezures since 2017, GI Bleed History of Any Multi-Drug Resistant Organisms: MRSA Date of last positivie culture/infection: 11/29/23 MDRO Source:: Left Foot Past Surgical History: Orthopedic Surgery Additional Past Surgical History / Comment(s): left foot: necrotizing fascitis. Past Psychological History: No Psychological Hx Reported Smoking Status: Current every day smoker, Former smoker Past Alcohol Use History: None Reported, Occasional Past Drug Use History: Marijuana, Methamphetamine - Past Family History Mother History Unknown: Yes General Exam Limitations: no limitations General appearance: alert, in no apparent distress Head exam: Present: atraumatic, normocephalic, normal inspection Eye exam: Present: normal appearance, PERRL, EOMI. Absent: scleral icterus, conjunctival injection, periorbital swelling ENT exam: Present: normal exam, mucous membranes moist Neck exam: Present: normal inspection. Absent: tenderness, meningismus, lymphadenopathy Respiratory exam: Present: normal lung sounds bilaterally. Absent: respiratory distress, wheezes, rales, rhonchi, stridor Cardiovascular Exam: Present: regular rate, normal rhythm, normal heart sounds. Absent: systolic murmur, diastolic murmur, rubs, gallop, clicks GI/Abdominal exam: Present: soft, normal bowel sounds. Absent: distended, tenderness, guarding, rebound, rigid Left Foot/Toe exam: Present: tenderness, erythema. Absent: normal inspection Skin exam: Present: warm, dry, other ( left anterior foot wound measuring 6 cm by 5 cm, area is erythematous with no signs of purulent drainage ) Course Vital Signs 01/01/24 15:11 Temperature 98.3 F Pulse Rate 116 H Respiratory 17 Rate Blood Pressure 140/78 O2 Sat by Pulse 100 Oximetry Medical Decision Making - Medical Decision Making Was pt. sent in by a medical professional or institution (, PA, SCOUT SNIPER, urgent care, hospital, or [facility]...) When possible be specific @ -No Did you speak to anyone other than the patient for history (EMS, parent, family, police, friend...)? What history was obtained from this source @ -No Did you review nursing and triage notes (agree or disagree)? Why? @ -I reviewed and agree with nursing and triage notes Were old charts reviewed (outside hosp., previous admission, EMS record, old EKG, old radiological studies, urgent care reports/EKG's, [facility] records)? Report findings @ -No old charts were reviewed Differential Diagnosis (chest pain, altered mental status, abdominal pain women, abdominal pain men, vaginal bleeding, weakness, fever, dyspnea, syncope, headache, dizziness, GI bleed, back pain, seizure, CVA, palpatations, mental health, musculoskeletal)? @ -cellulitis, chronic wound, this list is not all inclusive. EKG interpreted by me (3pts min.). @ -none X-rays interpreted by me (1pt min.). @ -None done CT interpreted by me (1pt min.). @ -None done U/S interpreted by me (1pt. min.). @ -None done What testing was considered but not performed or refused? (CT, X-rays, U/S, labs)? Why? @ -labs and xray were considered but deferred at this time due to patient not experiencing systemic symptoms concerning for bacteremia or further infection. What meds were considered but not given or refused? Why? @ -None Did you discuss the management of the patient with other professionals (professionals i.e. Dr., PA, SCOUT SNIPER, lab, RT, psych nurse, social insurance specialist, machining department supervisor, teacher, protection officer, continuous pillowcase cutter)? Give summary @ -No Was smoking cessation discussed for >3mins.? @ -No Was critical care preformed (if so, how long)? @ -No Were there social determinants of health that impacted care today? How? (Homelessness, low income, unemployed, alcoholism, drug addiction, transportation, low edu. Level, literacy, decrease access to med. care, [facility], rehab)? @ -No Was there de-escalation of care discussed even if they declined (Discuss DNR or withdrawal of care, Hospice)? DNR status @ -No What co-morbidities impacted this encounter? (DM, HTN, Smoking, COPD, CAD, Cancer, CVA, ARF, Chemo, Hep., AIDS, mental health diagnosis, sleep apnea, morbid obesity)? @ -None Was patient admitted / discharged? Hospital course, mention meds given and route, prescriptions, significant lab abnormalities, going to OR and other pertinent info. @ -Discharge. 33-year-old male with a chronic wound to the left anterior foot. Area was unwrapped and examined with no signs of active bleeding. Wound is well-appearing and hyper vascularized, no signs of purulent drainage. Recommend that patient follows up with medical authorization specialist tomorrow as scheduled. Area was thoroughly wrapped and patient was advised to return to the emergency department if symptoms worsen or not improving. Case discussed with Dr. Haines Undiagnosed new problem with uncertain prognosis? @ -No Drug Therapy requiring intensive monitoring for toxicity (Heparin, Nitro, I nsulin, Cardizem)? @ -No Were any procedures done? @ -No Diagnosis/symptom? @ -chronic wound Acute, or Chronic, or Acute on Chronic? @ -acute Uncomplicated (without systemic symptoms) or Complicated (systemic symptoms)? @ -uncomplicated Side effects of treatment? @ -No Exacerbation, Progression, or Severe Exacerbation? @ -No Poses a threat to life or bodily function? How? (Chest pain, [place], [place], pneumonia, PE, COPD, DKA, ARF, appy, cholecystitis, CVA, Diverticulitis, Homicidal, Suicidal, threat to staff... and all critical care pts) @ -No Disposition Clinical Impression: Chronic wound Disposition: HOME SELF-CARE Condition: Good Instructions (If sedation given, give patient instructions): Chronic Wound Care (ED) Additional Instructions: Return to the emergency department if your symptoms worsen or improve. Keep your scheduled follow-up appoint with marketing services specialist tomorrow for further evaluation. Is patient prescribed a controlled substance at d/c from ED?: No Referrals: None,Stated [Primary Care Provider] - 1-2 days Time of Disposition: 15:48
[2024-01-01] MEDS: buprenorphine HCL 0.3 MG/ML VIAL IM STA (16:08)
== END 2024-01-01 16:46 | disposition home or self-care (01) ==
LOC: EC 15:10
DX: L97.929 Non-pressure chronic ulcer of unspecified part of left lower leg with unspecified severity (principal); F17.200 Nicotine dependence, unspecified, uncomplicated; Z88.0 Allergy status to penicillin
CPT/HCPCS: 99282

== ENCOUNTER 2024-01-08 10:07 | Emergency (ER) | payer OTHER ==
[2024-01-08 10:46] VITALS: BP 114/74; PULSE 118; RESP 20; TEMP 97.9
--- NOTE | 2024-01-08 10:50 | ED ---
General Adult HPI - General Chief complaint: Extremity Injury, Lower Stated complaint: L foot pain Time Seen by Provider: 01/08/24 10:10 Source: patient Mode of arrival: wheelchair Limitations: no limitations - History of Present Illness Initial comments: Dictation was produced using [email or web address] dictation software. please excuse any grammatical, word or spelling errors. Chief Complaint: 33-year-old male presents with left foot pain History of Present Illness: Patient 33-year-old male presents with left foot pain. Patient states that he has had a chronic left foot infection that has been managed by wound care. Patient states that he ran out of his pain medications. Ran out of buprenorphine that he was prescribed from [facility]. Has not had any pain medications for approximately 1 week. Patient denies any fever chills or night sweats. States that his wound hurts. He has been changing his dressing frequently. States that the wound appears to look baseline. The ROS documented in this emergency department record has been reviewed and confirmed by me. Those systems with pertinent positive or negative responses have been documented in the HPI. All other systems are other negative and/or noncontributory. - Related Data Home Medications Medication Instructions Recorded Confirmed Pantoprazole [Protonix] 40 mg PO DAILY 12/26/23 12/26/23 buprenorphine HCL [Subutex] 12/26/23 hydrOXYzine HCL [Atarax] 50 mg PO 12/26/23 methocarbamoL 500 mg PO 12/26/23 traZODone HCL 100 mg PO 12/26/23 Allergies Allergy/AdvReac Type Severity Reaction Status Date / Time Penicillins Allergy Unknown Verified 01/01/24 15:14 Childhood Review of Systems ROS Statement: Those systems with pertinent positive or pertinent negative responses have been documented in the HPI. ROS Other: All systems not noted in ROS Statement are negative. Past Medical History Past Medical History: No Reported History, Seizure Disorder Additional Past Medical History / Comment(s): hasn't had siezures since 2017, GI Bleed History of Any Multi-Drug Resistant Organisms: MRSA Date of last positivie culture/infection: 11/29/23 MDRO Source:: Left Foot Past Surgical History: Orthopedic Surgery Additional Past Surgical History / Comment(s): left foot: necrotizing fascitis. Past Psychological History: No Psychological Hx Reported Smoking Status: Current every day smoker, Former smoker Past Alcohol Use History: None Reported, Occasional - Past Family History Mother History Unknown: Yes General Exam - General Exam Comments Initial Comments: General: Well-appearing, nontoxic, no acute distress. Head: Normocephalic, atraumatic Eyes: PERRLA, EOMI ENT: Airway patent Chest: Nonlabored breathing Skin: No visual rash, normal skin tone Neuro: Alert and oriented 3 Musculoskeletal: No gross abnormalities Left foot: Large dorsal foot wound with well-healing granulation tissue. No surrounding erythema or drainage. Limitations: no limitations Course Vital Signs 01/08/24 10:19 Temperature 97.9 F Pulse Rate 118 H Respiratory 20 Rate Blood Pressure 114/74 O2 Sat by Pulse 99 Oximetry Medical Decision Making - Medical Decision Making Was pt. sent in by a medical professional or institution (, PA, DRY CAN TENDER, urgent care, hospital, or residential...) When possible be specific @ -No Did you speak to anyone other than the patient for history (EMS, parent, family, police, friend...)? What history was obtained from this source @ -No Did you review nursing and triage notes (agree or disagree)? Why? @ -I reviewed and agree with nursing and triage notes Were old charts reviewed (outside hosp., previous admission, EMS record, old EKG, old radiological studies, urgent care reports/EKG's, residential records)? Report findings @ -No old charts were reviewed Differential Diagnosis (chest pain, altered mental status, abdominal pain women, abdominal pain men, vaginal bleeding, musculoskeletal, weakness, fever, dyspnea, syncope, headache, dizziness, GI bleed, back pain, seizure, CVA, palpatations, mental health)? @ -Cellulitis, osteomyelitis EKG interpreted by me (3pts min.). @ -None done X-rays interpreted by me (1pt min.). @ -Foot x-ray shows no acute processes. CT interpreted by me (1pt min.). @ -None done U/S interpreted by me (1pt. min.). @ -None done What testing was considered but not performed or refused? (CT, X-rays, U/S, labs)? Why? @ -None What meds were considered but not given or refused? Why? @ -None Was smoking cessation discussed for >3mins.? @ -No Were there social determinants of health that impacted care today? How? (Homelessness, low income, unemployed, alcoholism, drug addiction, transportation, low edu. Level, literacy, decrease access to med. care, care home, rehab)? @ -No Was there de-escalation of care discussed even if they declined (Discuss DNR or withdrawal of care, Hospice)? DNR status @ -No What co-morbidities impacted this encounter? (DM, HTN, Smoking, COPD, CAD, Cancer, CVA, ARF, Chemo, Hep., AIDS, mental health diagnosis, sleep apnea, morbid obesity)? @ -None Was patient admitted / discharged? Hospital course, mention meds given and route, prescriptions, significant lab abnormalities, going to OR and other pertinent info. @ -33-year-old male with chronic left foot wound presents with left leg pain. Vital signs shows tachycardia 118, rest of vital signs within acceptable limits. Tachycardia is likely secondary to pain. Laboratory evaluation obtained. CBC is unremarkable. Metabolic panel is within acceptable limits. X-rays acceptable limits. Patient given morphine. Prior to obtaining the results of his labs and imaging patient left AGAINST MEDICAL ADVICE. Risks, Benefits, and Treatment alternatives were discussed in detail with the patient. The patient is alert and oriented X 3 and has the capacity to make an informed decision. The risks of increased morbidity including the possibly of were explained to and understood by the patient who is choosing to leave against medical advice. The patient is encouraged to return any time should they want further treatment and diagnostic investigation. Did you discuss the management of the patient with other professionals (professionals i.e. , PA, DRY CAN TENDER, lab, RT, psych nurse, healthcare social worker, shrimp header, teacher, forest fire control officer, caseworker intake)? Give summary @ -No Was critical care preformed (if so, how long)? @ -No Undiagnosed new problem with uncertain prognosis? @ -No Drug Therapy requiring intensive monitoring for toxicity (Heparin, Nitro, Insulin, Cardizem)? @ -No Were any procedures done? @ -No Diagnosis/symptom? Acute, or Chronic, or Acute on Chronic? Uncomplicated (without systemic symptoms) or Complicated (systemic symptoms)? @ -Left foot pain Side effects of treatment? @ -No Exacerbation, Progression, or Severe Exacerbation? @ -No Poses a threat to life or bodily function? How? (Chest pain, [place], [place], pneumonia, PE, COPD, DKA, ARF, appy, cholecystitis, CVA, Diverticulitis, Homicidal, Suicid al, threat to staff... and all critical care pts) @ -yes - Lab Data Result diagrams: 01/08/24 11:05 01/08/24 11:05 Lab Results 01/08/24 01/08/24 Range/Units 11:05 11:05 WBC 7.7 (3.8-10.6) k/uL RBC 4.53 (4.30-5.90) m/uL Hgb 13.3 (13.0-17.5) gm/dL Hct 42.8 (39.0-53.0) % MCV 94.4 (80.0-100.0) fL MCH 29.3 (25.0-35.0) pg MCHC 31.0 (31.0-37.0) g/dL RDW 14.2 (11.5-15.5) % Plt Count 319 (150-450) k/uL MPV 7.8 Neutrophils % 79 % Lymphocytes % 14 % Monocytes % 3 % Eosinophils % 3 % Basophils % 1 % Neutrophils # 6.1 (1.3-7.7) k/uL Lymphocytes # 1.1 (1.0-4.8) k/uL Monocytes # 0.2 (0-1.0) k/uL Eosinophils # 0.2 (0-0.7) k/uL Basophils # 0.0 (0-0.2) k/uL Hypochromasia Slight Sodium 137 (137-145) mmol/L Potassium 4.9 (3.5-5.1) mmol/L Chloride 109 H (98-107) mmol/L Carbon Dioxide 20 L (22-30) mmol/L Anion Gap 8 mmol/L BUN 9 (9-20) mg/dL Creatinine 0.51 L (0.66-1.25) mg/dL Est GFR (CKD-EPI)AfAm >90 (>60 ml/min/1.73 sqM) Est GFR (CKD-EPI)NonAf >90 (>60 ml/min/1.73 sqM) Glucose 103 H (74-99) mg/dL Calcium 9.4 (8.4-10.2) mg/dL C-Reactive Protein 2.2 H (<1.0) mg/dL Disposition Clinical Impression: Foot pain Disposition: LEFT AGAINST MEDICAL ADVICE Condition: Fair Referrals: None,Stated [Primary Care Provider] - 1-2 days Time of Disposition: 12:48
[2024-01-08] MEDS: MORPHINE SULFATE 4 MG/ML SYRINGE IV STA (11:22)
[2024-01-08 11:49] LABS: African American GFR (CKD) >90 (>60 ml/min/1.73 sqM); Anion Gap 8 mmol/L; Blood Urea Nitrogen 9 mg/dL (9-20); Calcium 9.4 mg/dL (8.4-10.2); Carbon Dioxide 20 mmol/L (22-30); Chloride 109 mmol/L (98-107); Glucose 103 mg/dL (74-99); Non-African American GFR(CKD) >90 (>60 ml/min/1.73 sqM); Potassium 4.9 mmol/L (3.5-5.1); Sodium 137 mmol/L (137-145)
--- NOTE | 2024-01-08 11:56 | XR ---
EXAMINATION TYPE: XR foot complete LT DATE OF EXAM: 01/08/2024 11:00 AM CLINICAL INDICATION:Male, 33 years old with history of foot pain; [facility] COMPARISON: None. TECHNIQUE: Three views left foot were obtained. FINDINGS: Osseous mineralization appears diminished, excessive for patient age. No acute fracture, dislocation, or osseous destructive process. Mild degenerative changes throughout the distal digits. In the mid f oot there are chronic degenerative changes with reduced joint spaces, developing Charcot arthropathy is considered. There is question of soft tissue irregularity along the dorsum of the foot, versus art ifactual appearance. Correlate for any skin changes/ulceration. No radiopaque foreign body or soft ti ssue gas is seen. IMPRESSION: 1. No evidence of acute fracture or dislocation. 2. Osteopenia and chronic/degenerative changes. Charcot arthropathy is considered. 3. Potential dorsal soft tissue abnormality.
[2024-01-08 12:03] LABS: Basophils % (A) 1 %; Eosinophils # (A) 0.2 k/uL (0-0.7); Eosinophils % (A) 3 %; HCT 42.8 % (39.0-53.0); HGB 13.3 gm/dL (13.0-17.5); Hypochromasia Slight; Lymphocytes # (A) 1.1 k/uL (1.0-4.8); Lymphocytes % (A) 14 %; MCH 29.3 pg (25.0-35.0); MCV 94.4 fL (80.0-100.0); Mean Platelet Volume 7.8; Monocytes # (A) 0.2 k/uL (0-1.0); Monocytes % (A) 3 %; Neutrophils # (A) 6.1 k/uL (1.3-7.7); Neutrophils % (A) 79 %; Platelet Count 319 k/uL (150-450); RBC 4.53 m/uL (4.30-5.90); RDW 14.2 % (11.5-15.5); WBC 7.7 k/uL (3.8-10.6)
[2024-01-08 12:19] LABS: C Reactive Protein 2.2 mg/dL (<1.0)
== END 2024-01-08 12:54 | disposition left against medical advice (07) ==
LOC: EC 10:07
DX: M79.672 Pain in left foot (principal); F17.200 Nicotine dependence, unspecified, uncomplicated; Z88.0 Allergy status to penicillin; Z53.29 Procedure and treatment not carried out because of patient's decision for other reasons
CPT/HCPCS: 36415; 80048; 85025; 86140; 73630; 99284; 96374; J2270

== ENCOUNTER 2024-04-23 08:36 | Emergency (ER) | payer OTHER ==
[2024-04-23 08:46] VITALS: BP 128/61; PULSE 90; RESP 18; TEMP 97.8
--- NOTE | 2024-04-23 09:07 | ED ---
General Adult HPI - General Chief complaint: Overdose Stated complaint: Overdose Time Seen by Provider: 04/23/24 08:37 Source: EMS Mode of arrival: EMS Limitations: altered mental status - History of Present Illness Initial comments: Dictation was produced using [employer] dictation software. please excuse any grammatical, word or spelling errors. Chief Complaint: 33-year-old male presents with Benadryl overdose History of Present Illness: Patient 33-year-old male states he is having trouble sleeping. Took 12 Benadryl at around 3 AM. Mother called EMS after witnessing patient breathing a little abnormally. Patient arousable by EMS. States that h e has no complaints at the bedside. States that he is not suicidal or homicidal. The ROS documented in this emergency department record has been reviewed and confirmed by me. Those systems with pertinent positive or negative responses have been documented in the HPI. All other systems are other negative and/or noncontributory. - Related Data Home Medications Medication Instructions Recorded Confirmed Pantoprazole [Protonix] 40 mg PO DAILY 12/26/23 12/26/23 buprenorphine HCL [Subutex] 12/26/23 hydrOXYzine HCL [Atarax] 50 mg PO 12/26/23 methocarbamoL 500 mg PO 12/26/23 traZODone HCL 100 mg PO 12/26/23 Allergies Allergy/AdvReac Type Severity Reaction Status Date / Time Penicillins Allergy Unknown Verified 01/01/24 15:14 Childhood Review of Systems ROS Statement: Those systems with pertinent positive or pertinent negative responses have been documented in the HPI. ROS Other: All systems not noted in ROS Statement are negative. Past Medical History Past Medical History: GI Bleed, Seizure Disorder Additional Past Medical History / Comment(s): hasn't had siezures since 2017, GI Bleed History of Any Multi-Drug Resistant Organisms: MRSA Date of last positivie culture/infection: 01/09/24 MDRO Source:: Left Foot Past Surgical History: Orthopedic Surgery Additional Past Surgical History / Comment(s): left foot: necrotizing fascitis. Past Psychological History: No Psychological Hx Reported Smoking Status: Current every day smoker, Former smoker Past Alcohol Use History: None Reported, Occasional Past Drug Use History: Heroin - Past Family History Mother History Unknown: Yes General Exam - General Exam Comments Initial Comments: PHYSICAL EXAM: General Impression: Alert and oriented x3, not in acute distress HEENT: Normocephalic atraumatic, extra-ocular movements intact, pupils equal and reactive to light bilaterally, mucous membranes moist. Cardiovascular: Heart regular rate and rhythm Chest: Able to complete full sentences, no retractions, no tachypnea Abdomen: abdomen soft, non-tender, non-distended, no organomegaly Musculoskeletal: Pulses present and equal in all extremities, no peripheral edema Motor: no focal deficits noted Neurological: CN II-XII grossly intact, no focal motor or sensory deficits noted Skin: Intact with no visualized rashes Psych: Normal affect and mood Limitations: altered mental status Course Vital Signs 04/23/24 08:39 Temperature 97.8 F Pulse Rate 90 Respiratory 18 Rate Blood Pressure 128/61 O2 Sat by Pulse 97 Oximetry EKG Findings - EKG Comments: EKG Findings:: My EKG interpretation: Ventricular rate 81, sinus rhythm, IL interval 137, cures 91, QTc 3-7. No IL prolongation, no QTC prolongation, no ST or T-wave changes noted. Overall, this EKG is unremarkable Medical Decision Making - Medical Decision Making I was notified at 9:42 AM that patient left AGAINST MEDICAL ADVICE. - Lab Data Result diagrams: 04/23/24 09:14 Lab Results 04/23/24 Range/Units 09:14 WBC 12.1 H (3.8-10.6) k/uL RBC 4.20 L (4.30-5.90) m/uL Hgb 12.0 L (13.0-17.5) gm/dL Hct 36.2 L (39.0-53.0) % MCV 86.2 (80.0-100.0) fL MCH 28.5 (25.0-35.0) pg MCHC 33.1 (31.0-37.0) g/dL RDW 16.5 H (11.5-15.5) % Plt Count 289 (150-450) k/uL MPV 7.3 Neutrophils % 66 % Lymphocytes % 22 % Monocytes % 3 % Eosinophils % 5 % Basophils % 0 % Neutrophils # 8.0 H (1.3-7.7) k/uL Lymphocytes # 2.6 (1.0-4.8) k/uL Monocytes # 0.4 (0-1.0) k/uL Eosinophils # 0.6 (0-0.7) k/uL Basophils # 0.1 (0-0.2) k/uL Anisocytosis Slight Disposition Clinical Impression: Accidental overdose Disposition: LEFT AGAINST MEDICAL ADVICE Condition: Good Referrals: None,Stated [Primary Care Provider] - 1-2 days Time of Disposition: 09:42
[2024-04-23 09:33] LABS: Anisocytosis Slight; Basophils # (A) 0.1 k/uL (0-0.2); Basophils % (A) 0 %; Eosinophils # (A) 0.6 k/uL (0-0.7); Eosinophils % (A) 5 %; HCT 36.2 % (39.0-53.0); Lymphocytes # (A) 2.6 k/uL (1.0-4.8); Lymphocytes % (A) 22 %; MCH 28.5 pg (25.0-35.0); MCHC 33.1 g/dL (31.0-37.0); MCV 86.2 fL (80.0-100.0); Mean Platelet Volume 7.3; Monocytes # (A) 0.4 k/uL (0-1.0); Monocytes % (A) 3 %; Neutrophils % (A) 66 %; Platelet Count 289 k/uL (150-450); RDW 16.5 % (11.5-15.5); WBC 12.1 k/uL (3.8-10.6)
[2024-04-23 09:48] LABS: ALT 224 U/L (4-49); AST 253 U/L (17-59); Acetaminophen <10.0 ug/mL; African American GFR (CKD) >90 (>60 ml/min/1.73 sqM); Albumin 4.2 g/dL (3.5-5.0); Alcohol <10 mg/dL; Alkaline Phosphatase 84 U/L (38-126); Anion Gap 7 mmol/L; Blood Urea Nitrogen 17 mg/dL (9-20); Calcium 9.1 mg/dL (8.4-10.2); Carbon Dioxide 31 mmol/L (22-30); Chloride 102 mmol/L (98-107); Glucose 104 mg/dL (74-99); Magnesium 1.9 mg/dL (1.6-2.3); Non-African American GFR(CKD) >90 (>60 ml/min/1.73 sqM); Potassium 3.9 mmol/L (3.5-5.1); Salicylate <1.0 mg/dL; Sodium 140 mmol/L (137-145); Total Bilirubin 0.7 mg/dL (0.2-1.3); Total Protein 8.4 g/dL (6.3-8.2)
== END 2024-04-23 09:32 | disposition left against medical advice (07) ==
LOC: EC 08:36
CPT/HCPCS: 36415; 80053; 80143; 80179; 80320; 83605; 83735; 85025; 93005; 99284